=== PATIENT | female | born 1950 | race Caucasian/White ===

== ENCOUNTER → 2016-11-15 | Outpatient (CLI) | payer MEDICARE, OTHER ==
--- NOTE | 2016-11-16 09:53 | MM ---
Reason for exam: screening (asymptomatic). Last mammogram was performed 1 year and 2 months ago. History: Patient is postmenopausal and has history of high-risk lesion on a previous biopsy at age 61. Family history of breast cancer in mother at age 58 and breast cancer in grandmother at age 70. High risk left breast needle localization of both breasts, September 29, 2012. Benign left mammotome panel of the left breast, September 08, 2012. High risk left mammotome panel of the left breast, September 08, 2012. Benign right mammotome panel of the right breast, September 08, 2012. Taking unspecified hormones for 1 year. Physical Findings: A clinical breast exam by your physician is recommended on an annual basis and results should be correlated with mammographic findings. MG Screening Mammo w CAD Bilateral CC and MLO view(s) were taken. Prior study comparison: September 22, 2015, bilateral MG screening mammo w CAD. September 08, 2014, bilateral MG screening mammo w CAD. The breast tissue is extremely dense which could obscure a lesion on mammography. Finding: There are typically benign calcifications in both breasts. Previous mammotome biopsy in the left and right breast. No significant changes in finding since September 22, 2015 and September 08, 2014. ASSESSMENT: Benign, BI-RAD 2 RECOMMENDATION: Routine screening mammogram of both breasts in 1 year.
== END | disposition home or self-care (01) ==
LOC: RADMAMWWP 12:47
PROVIDERS: ATTEND Family Medicine
DX: Z12.31 Encounter for screening mammogram for malignant neoplasm of breast (principal)

== ENCOUNTER → 2017-02-15 | Outpatient (CLI) | payer MEDICARE, OTHER ==
[2017-02-15 16:32] LABS: Basophils # (A) 0.1 k/uL (0-0.2); Basophils % (A) 1 %; Eosinophils # (A) 0.4 k/uL (0-0.7); Eosinophils % (A) 3 %; HCT 37.9 % (34.0-46.0); HDW 2.88; HGB 12.7 gm/dL (11.4-16.0); Luc # (Auto) 0.15; Luc % (Auto) 1; Lymphocytes # (A) 1.9 k/uL (1.0-4.8); Lymphocytes % (A) 19 %; MCH 28.7 pg (25.0-35.0); MCHC 33.6 g/dL (31.0-37.0); MCV 85.5 fL (80.0-100.0); Mean Platelet Volume 6.7; Monocytes # (A) 0.5 k/uL (0-1.0); Monocytes % (A) 5 %; Neutrophils # (A) 7.2 k/uL (1.3-7.7); Neutrophils % (A) 71 %; RBC 4.43 m/uL (3.80-5.40); RDW 14.1 % (11.5-15.5); WBC 10.1 k/uL (3.8-10.6); WBC (Perox) 10.57
[2017-02-15 16:35] LABS: Calcium 9.5 mg/dL (8.4-10.2); Magnesium 1.6 mg/dL (1.6-2.3); Phosphorous 3.8 mg/dL (2.5-4.5); Uric Acid 6.6 mg/dL (3.7-7.4)
[2017-02-15 16:41] LABS: Appearance,Urine Cloudy (Clear); Bilirubin,Urine Negative (Negative); Glucose,Urine (UA) Negative (Negative); Ketones,Urine Negative (Negative); Leukocyte Esterase,Urine Large (Negative); Mucus,Urine Occasional /hpf; Nitrite,Urine Negative (Negative); PH, Urine 5.5 (5.0-8.0); Particle Count 4448; Protein,Urine 1+ (Negative); RBC,Urine 2 /hpf (0-5); Specific Gravity,Urine 1.016 (1.001-1.035); Squamous Epithelial Cell,Urine 5 /hpf (0-4); UA Billing (MACRO vs. MICRO) MICRO; Urobilinogen,Urine <2.0 mg/dL (<2.0); WBC,Urine 86 /hpf (0-5)
[2017-02-15 16:43] LABS: % Iron Saturation 18.2 % (20-50)
== END ==
LOC: LABWHC1 15:59
PROVIDERS: ATTEND Nurse Practitioner Family
DX: N18.3 Chronic kidney disease, stage 3 (moderate) (principal); N18.9 Chronic kidney disease, unspecified; E55.9 Vitamin D deficiency, unspecified
CPT/HCPCS: 36415; 80048; 81001; 82306; 82728; 83540; 83550; 83735; 83970; 84100; 84550; 85025

== ENCOUNTER 2017-02-16 21:49 | Emergency (ER) | payer MEDICARE, OTHER ==
[2017-02-16 21:56] VITALS: BP 185/88; PULSE 70; RESP 20; TEMP 99.4
--- NOTE | 2017-02-16 22:18 | ED ---
Skin/Abscess/FB HPI - General Chief complaint: Skin/Abscess/Foreign Body Stated complaint: Lower abd pain Time Seen by Provider: 02/16/17 21:58 Source: patient, family, RN notes reviewed Mode of arrival: ambulatory Limitations: no limitations - History of Present Illness Initial comments: 66-year-old female presents to the emergency department with a chief complaint of pain where her shingles was. Patient states she continues to have this pain. Patient was then on multiple different medications by multiple different doctors. Patient states she was concerned because she continued to have the pain and she needs some more lidocaine patches. Patient states that her follow- up with Dr. Campbell on Saturday. Patient was concerned due to the continued pain so she thought that she should be evaluated.Patient denies any recent fever , chills, shortness of breath, chest pain, back pain, abdominal pain, nausea vomiting, numbness or tingling, dysuria or hematuria, constipation or diarrhea, headaches or visual changes, or any other current symptoms. - Related Data Home Medications Medication Instructions Recorded Confirmed Atenolol [Tenormin] 50 mg PO DAILY 08/01/16 02/16/17 DULoxetine HCL [Cymbalta] 60 mg PO DAILY 08/01/16 02/16/17 Glimepiride [Amaryl] 1 mg PO AC-BRKFST 08/01/16 02/16/17 LORazepam [Ativan] 1 mg PO HS 08/01/16 02/16/17 Olmesartan Medoxomil [Benicar] 40 mg PO DAILY 08/01/16 02/16/17 Ranitidine HCl 150 mg PO BID 08/01/16 02/16/17 Simvastatin [Zocor] 10 mg PO HS 08/01/16 02/16/17 Tamoxifen Citrate 20 mg PO DAILY 08/01/16 02/16/17 cloNIDine HCL [Catapres] 0.1 mg PO BID 08/01/16 02/16/17 Previous Rx's Medication Instructions Recorded Lidocaine 5% Patch [Lidoderm 5% 1 patch TOPICAL DAILY #5 patch 02/16/17 Patch] Allergies Allergy/AdvReac Type Severity Reaction Status Date / Time Sulfa (Sulfonamide Allergy Rash/Hives Verified 02/16/17 21:57 Antibiotics) Review of Systems ROS Statement: Those systems with pertinent positive or pertinent negative responses have been documented in the HPI. ROS Other: All systems not noted in ROS Statement are negative. Past Medical History Past Medical History: Hypertension Additional Past Medical History / Comment(s): depression, shingles History of Any Multi-Drug Resistant Organisms: None Reported Past Surgical History: Breast Surgery Additional Past Surgical History / Comment(s): lumpectomy Past Psychological History: Depression Smoking Status: Former smoker Past Alcohol Use History: None Reported Past Drug Use History: None Reported General Exam Limitations: no limitations General appearance: alert, in no apparent distress Head exam: Present: atraumatic, normocephalic, normal inspection Neck exam: Present: normal inspection. Absent: tenderness, meningismus, lymphadenopathy Respiratory exam: Present: normal lung sounds bilaterally. Absent: respiratory distress, wheezes, rales, rhonchi, stridor Cardiovascular Exam: Present: regular rate, normal rhythm, normal heart sounds. Absent: systolic murmur, diastolic murmur, rubs, gallop, clicks GI/Abdominal exam: Present: soft, tenderness (Minimal tenderness to superficial touch along the right lower quadrant where the patient previously had shingles) , normal bowel sounds. Absent: distended, guarding, rebound, rigid Extremities exam: Present: normal inspection Back exam: Present: normal inspection, tenderness (No tenderness to superficial touch along the right lower flank area where the patient previously had shingles ) Neurological exam: Present: alert, oriented X3 Psychiatric exam: Present: normal affect, normal mood Skin exam: Present: warm, dry, intact, normal color. Absent: rash Course Vital Signs 02/16/17 21:53 Temperature 99.4 F Pulse Rate 70 Respiratory 20 Rate Blood Pressure 185/88 O2 Sat by Pulse 96 Oximetry Medical Decision Making - Medical Decision Making 58-year-old female presents for postop single pain. This time we will give her lidocaine patches. The patient at this time is informed to follow-up with her family care doctor. She is currently on gabapentin. We did discuss that she needs to continue to take this to follow-up. We will give him a lidocaine patches. We discussed taking Tylenol for pain. We discussed return parameters all patient's questions. She states she understood and is agreeable to plan. She will be discharged home Disposition Clinical Impression: Shingles (herpes zoster) polyneuropathy Disposition: HOME SELF-CARE Condition: Stable Instructions: Shingles (ED), Shingles Vaccine (ED) Additional Instructions: Please use medication as discussed. Please follow up with family doctor if symptoms have not improved over the next two days. Please return to the emergency room if your symptoms increase or worsen or for any other concerns. Prescriptions: Lidocaine 5% Patch [Lidoderm 5% Patch] 1 patch TOPICAL DAILY #5 patch Referrals: Bijan High MD [Primary Care Provider] - 1-2 days Time of Disposition: 22:18
== END 2017-02-16 22:27 | disposition home or self-care (01) ==
LOC: EC 21:49
DX: B02.23 Postherpetic polyneuropathy (principal); R10.30 Lower abdominal pain, unspecified; I10 Essential (primary) hypertension; F32.9 Major depressive disorder, single episode, unspecified; Z87.891 Personal history of nicotine dependence; Z79.899 Other long term (current) drug therapy; Z88.2 Allergy status to sulfonamides
CPT/HCPCS: 99283

== ENCOUNTER → 2017-07-24 | Outpatient (CLI) | payer MEDICARE, OTHER ==
[2017-07-24 13:49] LABS: Basophils # (A) 0.1 k/uL (0-0.2); Basophils % (A) 1 %; CH 29.7; CHCM 33.9; Eosinophils # (A) 0.4 k/uL (0-0.7); Eosinophils % (A) 3 %; HCT 36.2 % (34.0-46.0); HDW 2.85; HGB 11.6 gm/dL (11.4-16.0); Luc # (Auto) 0.11; Luc % (Auto) 1; Lymphocytes # (A) 2.1 k/uL (1.0-4.8); Lymphocytes % (A) 19 %; MCH 28.3 pg (25.0-35.0); MCHC 32.1 g/dL (31.0-37.0); MCV 88.1 fL (80.0-100.0); Mean Platelet Volume 7.3; Monocytes # (A) 0.5 k/uL (0-1.0); Monocytes % (A) 4 %; Neutrophils # (A) 7.7 k/uL (1.3-7.7); Neutrophils % (A) 71 %; RBC 4.11 m/uL (3.80-5.40); WBC 10.8 k/uL (3.8-10.6); WBC (Perox) 11.33
== END | disposition home or self-care (01) ==
LOC: LABPAT 12:33
PROVIDERS: ATTEND Obstetrics & Gynecology
DX: Z01.810 Encounter for preprocedural cardiovascular examination (principal); R93.8 Abnormal findings on diagnostic imaging of other specified body structures
CPT/HCPCS: 85025

== ENCOUNTER 2017-08-06 08:36 | Day surgery (SDC) | payer MEDICARE, OTHER ==
[2017-07-31 09:18] VITALS: BMI 32.5
--- NOTE | 2017-08-05 14:26 | HP ---
HISTORY AND PHYSICAL 0Radha is a 66-year-old white female, gravid 3, para 1-1-1-2 who presented with an ultrasound dated 04/19/2017 revealing a 1.5 cm endometrial thickness. She denies vaginal bleeding or other issues. Recent Pap smear is within normal limits. Review of systems it is otherwise negative. After discussion, we have elected to proceed with hysteroscopy, dilatation and curettage of the uterine cavity, with possible polypectomy. Office endometrial biopsy was attempted, and I was unable to procure a tissue sample. PAST MEDICAL HISTORY: Significant for anxiety, hypertension, panic attacks, and type 2 diabetes. PAST SURGICAL HISTORY: Significant for benign breast biopsy. CURRENT MEDICATIONS: 1. Accu-Chek. 2. Lancets with blood sugar checks at home. 3. Atenolol 50 mg daily. 4. Benicar 40 mg daily. 5. Catapres 0.2 mg tablets once daily. 6. Cymbalta 60 mg delayed release capsule daily. 7. Effexor XR 150 mg daily along with 75 mg tablets of Effexor daily. 8. Gabapentin 300 mg 3 times daily. 9. Glimepiride 1 mg tablet daily. 10.Ferrous sulfate daily. 11.Lidocaine topical adhesive patch. 12.Lisinopril 20 mg daily. 13.Lorazepam 1 mg orally daily. 14.Ranitidine-hydrochlorothiazide 150 mg tablets daily. 15.Simvastatin 10 mg daily. 16.Tamoxifen 20 mg daily. 17.Vitamin D3 orally daily. ALLERGIES: Include SULFA to which she reports a rash. FAMILY HISTORY: Significant for breast cancer in her mother. SOCIAL HISTORY: One cup of tea daily, never been a smoker, denies alcohol or drug use. REPRODUCTIVE HISTORY: Significant for 2 living children, 1 full-term vaginal delivery. One premature delivery, and one spontaneous miscarriage. REVIEW OF SYSTEMS: Again is otherwise negative. EXAM: This is a pleasant female, 205 pounds, 5 foot, 2-1/2 inches, BMI 36.9, initial blood pressure 170/110, repeat 140/90. HEENT exam reveals no obvious thyromegaly, no obvious lymphadenopathy, good dentition. The chest is clear to auscultation in all limon anteriorly and posteriorly. The breast exam reveals breasts to be without masses nipple discharge or axillary adenopathy or skin changes. Abdomen is moderately obese, no organosplenomegaly, no pain to deep palpation, normal-sounding bowel sounds. On pelvic exam, the external tissues are slightly atrophic to inspection. Cervix is small and atrophic as well, the uterus is small, mobile, no masses, equal bilaterally. RECTAL EXAM: reveals FIT negative stool, no rectal lesions or masses. IMPRESSION: Menopausal female with increased endometrial thickness noted sonographically, unable to procure an endometrial sample in the office. PLAN: We will proceed with hysteroscopy, dilatation and curettage at [facility]. I reviewed with her the risks of. Bleeding, infection, perforation of bowel, bladder, ureters, blood vessels,. Cytotec intravaginally will be use the night before. The case to soften the cervix and diminish the potential for perforation. Risks of anesthesia, aspiration, nerve damage or even have all been discussed. All questions answered and I believe the patient understands our plan with no reservations. MMODL / IJN: [id number] /
[~2017-08-06 08:36] MED LIST: DEXAMETHASONE SOD PHOSPHATE 10 MG/ML 1 ML VIAL IV ONE; HYDROmorphone 0.5 MG/0.5 ML SYRINGE IVP PRN; LACTATED RINGERS 1,000 ML IV SCH; ONDANSETRON 4 MG/2 ML VIAL IVP ONE; Pre Op ABX Message 1 EACH MISC MISCELLANE ONE
[2017-08-06 10:19] VITALS: TEMP 97.8
[2017-08-06 10:33] LABS: Glucose,Whole Blood 153 mg/dL (75-99)
[2017-08-06] MEDS ORDERED: LIDOCAINE 1% 20 ML VIAL (10MG/ML) FOR IV START INTRADERMA ONE (10:38)
[2017-08-06] MEDS ORDERED: SUCCINYLCHOLINE CHLORIDE 100 MG/5 ML SYR IV ONE (11:43)
[2017-08-06] MEDS ORDERED: PROPOFOL 10 MG/ML 20 ML VIAL IV ONE (11:43)
[2017-08-06] MEDS ORDERED: fentaNYL (PF) 50 MCG/ML 2 ML AMP ONE (11:43)
[2017-08-06] MEDS ORDERED: MIDAZOLAM 2 MG/2 ML VIAL ONE (11:43)
[2017-08-06] MEDS ORDERED: KETOROLAC 30 MG/ML 1 ML VIAL ONE (11:43)
--- NOTE | 2017-08-06 12:12 | P.OP ---
Date of Procedure: 08/06/17 Preoperative Diagnosis: Increased endometrial thickness in postmenopausal female, cervical stenosis Postoperative Diagnosis: Same, essentially negative appearing intrauterine cavity. Pathology pending. Procedure(s) Performed: Hysteroscopy, D&C Anesthesia: TWYLAA Surgeon: Flora Yin [employer] #1: Stated None Estimated Blood Loss (ml): 10 IV fluids (ml): 800 Urine output (ml): 150 Pathology: other (Endocervical curettings, endometrial curettings.) Condition: stable Disposition: PACU Description of Procedure: Patient is brought to bring suite where a general anesthetic is administered without difficulty. She's placed in the dorsal lithotomy position. The appropriate timeout is performed to assure proper patient and procedural identification. The cervix, vagina, perineum and periurethral areas are all prepped and draped in usual sterile fashion. Bladder is drained for approximately 150 mL of clear yellow urine. Weighted speculum was placed into the vagina. Anterior lip of the cervix is grasped with a double-tooth tenaculum. Cervix is unable to be sounded with the standard sound. Therefore, the lacrimal probes are used and the cervix is gently dilated. A Kevorkian curette is used and endocervical curettings are obtained, scant tissue. The cervix is then sounds to a depth of 9 cm. The cervix is gently and systematically dilated using Hanks dilators. The hysteroscope was introduced and the cavity is distended with saline. Inspection of the cavity reveals no obvious polyps, fibroids, septa, or defects. The hysteroscope was removed. The cervix was then fully dilated to 20 -Romansh. A small sharp curette is used and intrauterine curettings are obtained and sent to pathology for evaluation. Polyp forcep to introduced and no additional tissue is noted. The cavity is clean and dry. All instrumentation is removed. All sponge needle and enhancement counts are correct. Patient is brought back to the recovery room in stable condition with vital signs including pulse of 78, blood pressure 137/73. Port IS given prior to leaving the operative suite. Patient will be discharged home this afternoon , and follow-up with me in the office in 2 weeks.
[2017-08-06 12:50] LABS: Glucose,Whole Blood 154 mg/dL (75-99)
[2017-08-06 13:31] VITALS: BP 124/58; PULSE 66; RESP 20
== END 2017-08-06 13:34 | disposition home or self-care (01) ==
LOC: OR 08:36
PROVIDERS: ATTEND Obstetrics & Gynecology
DX: N87.9 Dysplasia of cervix uteri, unspecified (principal); N84.0 Polyp of corpus uteri; R93.8 Abnormal findings on diagnostic imaging of other specified body structures; N88.2 Stricture and stenosis of cervix uteri; Z78.0 Asymptomatic menopausal state; I10 Essential (primary) hypertension; E78.5 Hyperlipidemia, unspecified; E11.9 Type 2 diabetes mellitus without complications; F32.9 Major depressive disorder, single episode, unspecified; F41.9 Anxiety disorder, unspecified; Z88.2 Allergy status to sulfonamides; Z79.899 Other long term (current) drug therapy; Z79.84 Long term (current) use of oral hypoglycemic drugs; Z98.890 Other specified postprocedural states; Z80.3 Family history of malignant neoplasm of breast
CPT/HCPCS: 58558; 88305; J2250; J1100; J2405; J3010; J1885; J0330; J2704

== ENCOUNTER → 2020-06-30 | Outpatient (CLI) | payer MEDICARE, OTHER ==
--- NOTE | 2020-06-30 16:32 | CT ---
EXAMINATION TYPE: CT brain w con, CT orbits w con DATE OF EXAM: 06/30/2020 COMPARISON: None. 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 mGycm Automated exposure control for dose reduction was used. CONTRAST: CT scan of the brain and orbits are performed with IV Contrast, patient injected with 80ml mL of Isov ue 300. FINDINGS: There is no abnormal enhancing mass or midline shift identified. Diffuse ventricular and sulcal promi nence greatest superiorly. Areas of low attenuation in the white matter are present for reference lef t frontal involvement axial image 25. Globes are intact bilaterally. Neither lens is well visualized suggesting prior cataract treatment. F at is present bilaterally. Rectus muscles are symmetric and felt within normal limits. Orbital floors and meyer are intact. Suprasellar cistern is maintained. Optic chiasm is not effaced. IMPRESSION: [id number]-[id number] generalized atrophy and chronic small vessel ischemic change. No suspici ous enhancement or enhancing intraorbital masses.
== END | disposition home or self-care (01) ==
LOC: RADCTMAIN 15:05
PROVIDERS: ATTEND Ophthalmology
DX: I67.82 Cerebral ischemia (principal); G31.9 Degenerative disease of nervous system, unspecified; E11.9 Type 2 diabetes mellitus without complications
CPT/HCPCS: 82565; 84520; 70460; 70481; 36415; Q9967

== ENCOUNTER → 2020-11-17 | Outpatient (CLI) | payer MEDICARE, OTHER | END | disposition home or self-care (01) | LOC: RADMAMWWP 14:23 | PROVIDERS: ATTEND Family Medicine | DX: Z53.9 Procedure and treatment not carried out, unspecified reason (principal) ==

== ENCOUNTER → 2020-12-08 | Outpatient (CLI) | payer MEDICARE, OTHER ==
--- NOTE | 2020-12-09 11:49 | MM ---
Reason for exam: additional evaluation requested from prior study. Last mammogram was performed 4 years and 1 month ago. History: Patient is postmenopausal and has history of high-risk lesion on a previous biopsy at age 61. Family history of breast cancer in mother at age 58 and breast cancer in grandmother at age 70. High risk left breast needle localization of both breasts, September 29, 2012. Benign left mammotome panel of the left breast, September 08, 2012. High risk left mammotome panel of the left breast, September 08, 2012. Benign right mammotome panel of the right breast, September 08, 2012. Taking unspecified hormones for 1 year. Physical Findings: Nurse Summary: 4cm nodule in the right breast at 10 o'clock and a 2cm nodule in the left breast at 12 o'clock (nurse dw). MG 3D Diag Mammo W/Cad ZITA Bilateral CC and MLO view(s) were taken. Prior study comparison: November 15, 2016, bilateral MG screening mammo w CAD. September 22, 2015, bilateral MG screening mammo w CAD. The breast tissue is heterogeneously dense. This may lower the sensitivity of mammography. Previous mammotome biopsy in the right and left breast. Old excisional changes left breast. Large increasing 4.3cm 10 o'clock right breast mass. 1.7cm mass 12 o'clock left breast. Associated pleomorphic calcifications. Both palpable. These results were verbally communicated with the patient and result sheet given to the patient on 12/08/20. ASSESSMENT: Incomplete: need additional imaging evaluation, BI-RAD 0 RECOMMENDATION: Ultrasound of both breasts.
--- NOTE | 2020-12-09 11:54 | USB ---
Reason for exam: additional evaluation requested from abnormal screening. History: Patient is postmenopausal and has history of high-risk lesion on a previous biopsy at age 61. Family history of breast cancer in mother at age 58 and breast cancer in grandmother at age 70. High risk left breast needle localization of both breasts, September 29, 2012. Benign left mammotome panel of the left breast, September 08, 2012. High risk left mammotome panel of the left breast, September 08, 2012. Benign right mammotome panel of the right breast, September 08, 2012. Taking unspecified hormones for 1 year. US Breast BILAT Right complete breast ultrasound includes all four quadrants, the retroareolar region and axilla. Finding demonstrates a 2.7 x 2.1 x 2.9cm irregular, mixed, hypoechoic, vascular lesion at 11 o'clock for which a biopsy is recommended and a 0.9 x 1.1 x 0.3cm node at the axilla. Left complete breast ultrasound includes all four quadrants, the retroareolar region and axilla. Finding demonstrates 1.7 x 0.7 x 0.4cm irregular, mixed, hypoechoic lesion at 12 o'clock possible clip placement, a 0.9 x 0.7 x 0.5cm oval, irregular, hypoechoic lesion at 12 o'clock for which a biopsy is recommended, a 1.6 x 1.1 x 0.7cm oval, irregular, hypoechoic lesion at 11 o'clock, mammographic correlate, for which a biopsy is recommended and a 2.0 x 1.5 x 1.0cm oval, lymph node at the axilla, borderline but no suspicious cortical thickening. These results were verbally communicated with the patient and result sheet given to the patient on 12/08/20. ASSESSMENT: Highly suggestive of malignancy, BI-RAD 5 RECOMMENDATION: Ultrasound core biopsy of both breasts. (right 11 o'clock, left 11 o'clock and 12 o'clock, consider clip placement at 12 o'clock) Called Dr. Yin's office with mammographic findings and has scheduled an appointment for the patient for 02/02/21 at 11:[address] Young. Biopsy scheduled for 12/13/20 at 8:30. PRELIMINARY REPORT CALLED AND FAXED TO DR. YOUNG ON 12/08/20.
== END | disposition home or self-care (01) ==
LOC: RADMAMWWP 14:48
PROVIDERS: ATTEND Obstetrics & Gynecology
DX: N63.11 Unspecified lump in the right breast, upper outer quadrant (principal); N63.20 Unspecified lump in the left breast, unspecified quadrant; Z80.3 Family history of malignant neoplasm of breast
CPT/HCPCS: 77066; 76641; G0279; 77062

== ENCOUNTER → 2020-12-13 | Day surgery (SDC) | payer MEDICARE, OTHER ==
[2020-12-13 08:57] VITALS: RESP 16
[2020-12-13 11:28] VITALS: BP 164/84; PULSE 75; TEMP 98.3
--- NOTE | 2020-12-13 12:23 | USB ---
EXAMINATION TYPE: US biopsy breast VAD RT, US biopsy breast add'l VAD LT, US biopsy breast add'l VAD LT, US biopsy breast VAD LT, MG diagnostic mammo BI wo CAD DATE OF EXAM: 12/13/2020 CLINICAL HISTORY: R92.8 ABN MAMM. Abnormal ultrasound. TECHNIQUE: Ultrasound guided core biopsy of right breast one site. Ultrasound- guided core biopsy of left breast 3 sites. Clip placement all site. Follow-up diagnostic bilateral breast two-view mammogram. COMPARISON: Prior bilateral breast ultrasound and mammogram December 08, 2020 and older mammograms. FINDINGS: The procedure of ultrasound guided core biopsy was explained to the patient. Benefits, alternatives, and risks were discussed. An informed consent was then obtained. The patient was placed in supine positioning for imaging and for the procedure. Preprocedure ultrasound right breast redemonstrates large poorly defined heterogeneous hypoechoic nearly 3.0 cm lesion with punctate calcifications 11:00 position zone BC right breast. Left breast shows 11:00 zone BC roughly 14 x 7 mm hypoechoic lobulated lesion. Left breast also shows 12:00 zone A roughly 10 x 3 mm hypoechoic lesion. Finally left breast redemonstrates slightly elongated 12:00 zone BC 9 x 5 mm hypoechoic lesion. The overlying skin was prepped and draped in usual sterile fashion. Lidocaine is used as anesthetic into the skin and subcutaneous tissue . Lidocaine with epinephrine is used as anesthetic into the deeper tissue up to area of concern in for bilateral breast. A shola was made with surgical scalpel. Under ultrasound guidance, a vacuum assisted biopsy gun device was used to obtain 2 core samples at all sites. Following this, a coil biopsy clip was left in large right breast lesion. A wing clip left in 11:00 zone BC second sampled lesion A coil biopsy clip left in 12:00 position zone A lesion, third sample lesion. A ribbon clip is left in the 12:00 zone A, fourth sampled lesion. The patient tolerated the procedure well without any immediate complication. The patient was kept in the radiology department for short stay after the procedure and then discharged home in stable condition. Postprocedure mammogram shows successful deployment of all 4 clips. IMPRESSION: Successful, uncomplicated ultrasound guided core biopsy of four area of concern in the bilateral breasts, full pathology results to follow. Right breast lesion high index of suspicion. Clip corresponds to level of suspicious calcifications. Left breast 11:00 lesion in zone BC intermediate index of suspicion. Left breast 12:00 lesions low to intermediate index of suspicion. Pathology Results: Malignant A. RIGHT BREAST, 11:00 POSITION, CORE BIOPSY: Invasive ductal carcinoma, Grade 3, with high grade DCIS having comedonecrosis and focal microcalcification (see Surgical Pathology Cancer Case Summary and comment). B. LEFT BREAST, 11:00 POSITION, CORE BIOPSY: Invasive ductal carcinoma, Grade 2, (see Surgical Pathology Cancer Case Summary and comment). C. LEFT BREAST, 12:00 A POSITION, CORE BIOPS): Invasive ductal carcinoma, Grade 2 (see Surgical Pathology Cancer Case Summary and comment). D. LEFT BREAST, 12:00 B POSITION, CORE BIOPSY: Invasive ductal carcinoma, Grade 2 (see Surgical Pathology Cancer Case Summary and comment). Recommendation Surgical consult of the right and left breast. MTDD
== END ==
LOC: RADUSWWP 08:38
PROVIDERS: ATTEND Surgery
DX: C50.411 Malignant neoplasm of upper-outer quadrant of right female breast (principal); Z17.0 Estrogen receptor positive status [ER+]; C50.212 Malignant neoplasm of upper-inner quadrant of left female breast; R92.0 Mammographic microcalcification found on diagnostic imaging of breast; Z88.2 Allergy status to sulfonamides
CPT/HCPCS: 19084; 77066; 88305; 88341; 88342

== ENCOUNTER → 2021-01-16 | Day surgery (SDC) | payer MEDICARE, OTHER ==
[~2021-01-16] MED LIST changes: -DEXAMETHASONE SOD PHOSPHATE 10 MG/ML 1 ML VIAL IV ONE; +DEXAMETHASONE SOD PHOSPHATE 4 MG/ML 1 ML VIAL IV ONE; +HEPARIN SODIUM,PORCINE 100 UNIT/ML 5 ML VIAL IV ONE; +HEPARIN SODIUM,PORCINE 5,000 UNIT/ML 1 ML VIAL ONE; +HEPARIN SODIUM,PORCINE 5,000 UNIT/ML 1 ML VIAL SQ ONE; +HYDROcodone/APAP 5-325MG 1 EACH TAB PO PRN; +LIDOCAINE (PF) 10 MG/ML 2 ML VIAL SQ ONE; +LIDOCAINE 1% (10MG/ML) FOR IV START INTRADERMA ONE; +LIDOCAINE 1% INJ 10MG/ML (20 ML MDV) ONE; +MIDAZOLAM 2 MG/2 ML VIAL IV PRN; +MIDAZOLAM 2 MG/2 ML VIAL ONE; +NALOXONE 0.4 MG/ML 1 ML VIAL IV PRN; +PROPOFOL 10 MG/ML 20 ML VIAL IV ONE; +fentaNYL (PF) 50 MCG/ML 2 ML AMP IV PRN; +fentaNYL (PF) 50 MCG/ML 2 ML AMP ONE
[2021-01-16 11:00] VITALS: RESP 16
[2021-01-16 11:12] LABS: Glucose,Whole Blood 97 mg/dL (75-99)
--- NOTE | 2021-01-16 12:40 | P.GSHP ---
History of Present Illness H&P Date: 01/16/21 Chief Complaint: Bilateral breast cancer Patient recently diagnosed with bilateral breast cancer. Patient is starting neoadjuvant chemotherapy in the next week or so. Here today for Port-A-Cath placement. Is scheduled for left axillary lymph node biopsy for/2. Past Medical History Past Medical History: GERD/Reflux, Hyperlipidemia, Hypertension Additional Past Medical History / Comment(s): depression, shingles History of Any Multi-Drug Resistant Organisms: None Reported Past Surgical History: Breast Surgery Additional Past Surgical History / Comment(s): Left breast excisional- benign Past Anesthesia/Blood Transfusion Reactions: No Reported Reaction Past Psychological History: Depression Smoking Status: Never smoker Past Alcohol Use History: None Reported Past Drug Use History: None Reported Medications and Allergies Home Medications Medication Instructions Recorded Confirmed Type Glimepiride [Amaryl] 1 mg PO DAILY 08/01/16 01/16/21 History LORazepam [Ativan] 1 mg PO TID PRN 08/01/16 01/16/21 History Simvastatin [Zocor] 10 mg PO HS 08/01/16 01/16/21 History atenoloL [Tenormin] 50 mg PO DAILY 08/01/16 01/16/21 History cloNIDine HCL [Catapres] 0.1 mg PO BID 08/01/16 01/16/21 History Venlafaxine HCl 75 mg PO HS 07/31/17 01/16/21 History Venlafaxine HCl [Effexor] 150 mg PO AC-BRKFST 07/31/17 01/16/21 History hydrALAZINE HCL [Apresoline] 100 mg PO BID 07/31/17 01/16/21 History Famotidine [Pepcid] 20 mg PO DAILY 12/09/20 01/16/21 History Ferrous Sulfate [Feosol] 325 mg PO BID 12/09/20 01/16/21 History Gabapentin [Neurontin] 100 mg PO BID 12/09/20 01/16/21 History Montelukast [Singulair] 10 mg PO DAILY 12/09/20 01/16/21 History Olmesartan Medoxomil [Benicar] 20 mg PO DAILY 12/09/20 01/16/21 History buPROPion [Wellbutrin] 100 mg PO BID 12/09/20 01/16/21 History minoxidiL [Minoxidil] 2.5 mg PO DAILY 12/09/20 01/16/21 History Allergies Allergy/AdvReac Type Severity Reaction Status Date / Time Sulfa (Sulfonamide Allergy Rash/Hives Verified 01/16/21 10:48 Antibiotics) Surgical - Exam Vital Signs Temp Pulse Resp BP Pulse Ox 98.9 F 89 16 169/77 98 01/16/21 10:46 01/16/21 10:46 01/16/21 10:46 01/16/21 10:46 01/16/21 10:46 Physical exam: General: Well-developed, well-nourished HEENT: Normocephalic, sclerae nonicteric Abdomen: Nontender, nondistended Extremities: No edema Neuro: Alert and oriented Assessment and Plan (1) Bilateral breast cancer Narrative/Plan: Will proceed with Port-A-Cath placement at this time. Risks of bleeding, infection, DVT, pneumothorax, catheter malfunction, anesthesia related complications were discussed. The patient understands and wishes to proceed. Current Visit: Yes Status: Acute Code(s): C50.911 - MALIGNANT NEOPLASM OF UNSP SITE OF RIGHT FEMALE BREAST; C50.912 - MALIGNANT NEOPLASM OF UNSPECIFIED SITE OF LEFT FEMALE BREAST SNOMED Code(s): 079933405
--- NOTE | 2021-01-16 14:09 | P.OP ---
Date of Procedure: 01/16/21 Procedure(s) Performed: PREOPERATIVE DIAGNOSIS: Bilateral breast cancer POSTOPERATIVE DIAGNOSIS: Same PROCEDURE: Port-A-Cath placement with fluoroscopic and ultrasound guidance SURGEON: Hannah EBL: Minimal ANESTHESIA: Sedation COMPLICATIONS: None OPERATIVE PROCEDURE: Patient was brought and placed on the operative table in the supine position. The patient was sedated per anesthesia that time. The chest and neck were prepped and draped in usual sterile fashion. The ultrasound probe was used to identify the location of the right internal jugular vein. The skin was localized with lidocaine. The Seldinger needle was advanced into the IJ under ultrasound guidance. The wire was advanced through the needle under fluoroscopic guidance into the superior vena cava. A port pocket was created in the right infraclavicular location. The catheter was tunneled from the wire entrance site to the port pocket. The port was then connected to the catheter. The dilator introducer was threaded over the guidewire. The guidewire and dilator were then removed. The catheter was advanced through the introducer and introducer was then removed. The tip was seen to be in the right atrial junction via fluoroscopy. A picture of the radiograph showing the tip at the radial digital junction was taken. Port was flushed with both saline and a Hep- Lock solution. There was good flow both in and out of the port. The port was sutured in underlying tissues using 3-0 silk sutures. The subcutaneous tissues were reapproximated using 3-0 Vicryl sutures and the skin at both locations using 4-0 Monocryl sutures. Skin glue and sterile dressings then applied. DISPOSITION: Stable to recovery room
[2021-01-16 14:28] VITALS: TEMP 97.4
[2021-01-16 15:09] LABS: Glucose,Whole Blood 140 mg/dL (75-99)
--- NOTE | 2021-01-16 15:17 | XR ---
EXAMINATION TYPE: XR chest 1V portable DATE OF EXAM: 01/16/2021 HISTORY: Port placement COMPARISON: None. TECHNIQUE: Single view of the chest is submitted. FINDINGS: Right-sided Mediport catheter with its distal tip overlying the SVC. No evidence for pneumo thorax. Demonstrated are scattered senescent parenchymal change. There is no evidence for focal infiltrate. The heart is stable. Hilar and mediastinal structures are within normal limits. Degenerative changes are seen of the dorsal spine. IMPRESSION: 1. Chronic changes without evidence for acute pulmonary disease.
[2021-01-16 15:44] VITALS: BP 136/76; PULSE 90
--- NOTE | 2021-01-17 13:32 | FL ---
Fluoroscopy HISTORY: Central venous catheter placement 13 seconds fluoroscopy time supplied to the referring clinician. 1 intraoperative C-arm images docum ent the procedure. See dictated report from general surgery.
== END ==
LOC: OR 10:30
PROVIDERS: ATTEND Surgery
DX: C50.912 Malignant neoplasm of unspecified site of left female breast (principal); C50.911 Malignant neoplasm of unspecified site of right female breast; K21.9 Gastro-esophageal reflux disease without esophagitis; E78.5 Hyperlipidemia, unspecified; I10 Essential (primary) hypertension; E11.9 Type 2 diabetes mellitus without complications; F32.9 Major depressive disorder, single episode, unspecified; Z86.19 Personal history of other infectious and parasitic diseases; Z98.890 Other specified postprocedural states; Z79.84 Long term (current) use of oral hypoglycemic drugs; Z79.899 Other long term (current) drug therapy; Z88.2 Allergy status to sulfonamides
CPT/HCPCS: 36561; 76937; 77001; 71045; C1788; J2250; J2001 ×2; J1644; J1642; J1100; J0690; J2405; J3010; J2704

== ENCOUNTER 2021-01-20 12:52 | Day surgery (SDC) | payer MEDICARE, OTHER ==
[2021-01-20 14:24] VITALS: RESP 16
[2021-01-20 14:25] VITALS: TEMP 98.1
[2021-01-20 14:28] VITALS: BP 147/80; PULSE 80
--- NOTE | 2021-01-20 16:25 | US ---
EXAMINATION TYPE: US biopsy lymph node DATE OF EXAM: 01/20/2021 HISTORY: Left breast cancer. FINDINGS: Maximal barrier technique was utilized. Hand hygiene achieved with soap and water and alco hol-based hand rub. The skin overlying a suitable path to the patient's left axillary node was locali zed with ultrasound and the overlying skin prepped and draped. Ultrasound was utilized with sterile technique. Lidocaine was used for local anesthesia. A skin shola was made with a scalpel. An 18-gau ge needle was advanced under direct ultrasound guidance and core specimen obtained of the left x-ray node. 2 passes were made. Specimen submitted in formalin to Pathology. Clip was deployed at the leve l of the node. Following the procedure, hemostasis achieved and the patient is discharged in stable c ondition without complication. Impression: status POST ULTRASOUND GUIDED CORE BIOPSY LEFT AXILLARY NODE, PATHOLOGY IS PENDING. THIS PROCEDURE IS PERFORMED BY THE UNDERSIGNED.
== END 2021-01-20 15:00 | disposition home or self-care (01) ==
LOC: RADPROMAIN 12:52
PROVIDERS: ATTEND Surgery
DX: C50.912 Malignant neoplasm of unspecified site of left female breast (principal)
CPT/HCPCS: 38505; 76942; 88305; 88341; 88342

== ENCOUNTER → 2021-01-23 | Outpatient (CLI) | payer MEDICARE, OTHER ==
--- NOTE | 2021-01-23 18:22 | ECHOF ---
Referral Reason:Z01.818 Pre chemo MEASUREMENTS -------- HEIGHT: 162.6 cm WEIGHT: 84.4 kg BP: IVSd: 1.5 cm (0.6 - 1.1) LVIDd: 3.8 cm (3.9 - 5.3) LVPWd: 1.4 cm (0.6 - 1.1) EDV(Teich): 63 ml IVSs: 1.8 cm LVIDs: 2.6 cm LVPWs: 2.1 cm %IVS Thck: 16 % ESV(Teich): 25 ml EF(Teich): 61 % %FS: 32 % SV(Teich): 38 ml LVOT Diam: 1.8 cm LA Diam: 3.4 cm (2.7 - 3.8) RVIDd: 3.0 cm (< 3.3) LALs A4C: 5.4 cm LAAs A4C: 19.2 cm LAESV A-L A4C: 58 ml LAESV MOD A4C: 58 ml LALs A2C: 4.7 cm LAAs A2C: 14.4 cm LAESV A-L A2C: 37 ml LAESV MOD A2C: 34 ml LAESV(A-L): 49 ml LAESV Index (A-L): 25.99 ml/m Ao Diam: 3.1 cm (2.0 - 3.7) AV Cusp: 1.3 cm (1.5 - 2.6) EPSS: 0.5 cm MV E Marcos: 1.11 m/s MV DecT: 291 ms MV Dec [place]: 3.8 m/s MV A Marcos: 1.17 m/s MV E/A Ratio: 0.95 MV PHT: 84 ms LVOT Vmax: 1.30 m/s LVOT maxP.75 mmHg LVOT Vmax: 1.33 m/s LVOT Vmean: 1.07 m/s LVOT maxP.08 mmHg LVOT meanP.83 mmHg LVOT Env.Ti: 295 ms LVOT VTI: 31.7 cm AV Vmax: 4.32 m/s AV maxP.57 mmHg SHARONA Vmax, Pt: 0.8 cm SHARONA Vmax: 0.8 cm AV Vmax: 4.08 m/s AV Vmean: 2.74 m/s AV maxP.53 mmHg AV meanP.13 mmHg AV Env.Ti: 304 ms AV VTI: 80.5 cm SHARONA Vmax: 0.8 cm SHARONA (VTI): 1.0 cm SHARONA Vmax, Pt: 0.8 cm AR Vmax: 4.11 m/s AR maxP.77 mmHg AR PHT: 509 ms AR Dec Time: 1756 ms AR Dec [place]: 2.3 m/s TR Vmax: 2.79 m/s TR maxP.23 mmHg RAP: 5.00 mmHg RVSP: 36.23 mmHg MV EF SLOPE: 40.75 mm/s (70 - 150) MV EXCURSION: 10.76 mm (> 18.000) FINDINGS -------- Sinus rhythm. This was a technically adequate study. The left ventricular size is normal. There is moderate concentric left ventricular hypertrophy. O verall left ventricular systolic function is normal with, an EF between 60 - 65 %. The right ventricle is normal in size. Normal LA size by volume 22+/-6 ml/m2. The right atrium is normal in size. Interatrial and interventricular septum intact. There is moderate aortic valve sclerosis. There is cdgymihw-et-npbtrq aortic stenosis present. Pe ak/mean gradient across the Aortic Valve is 66.53mmHg / 34.13mmHg. The mitral valve leaflets are mildly thickened. Mild mitral annular calcification present. Mild m itral regurgitation is present. Mild tricuspid regurgitation present. There is mild pulmonary hypertension. The right ventricular systolic pressure, as measured by Doppler, is 36.23mmHg. There is no pulmonic regurgitation present. The aortic root size is normal. Normal inferior vena cava with normal inspiratory collapse consistent with estimated right atrial pre ssure of 5 mmHg. There is no pericardial effusion. CONCLUSIONS -------- 1. The left ventricular size is normal. 2. There is moderate concentric left ventricular hypertrophy. 3. Overall left ventricular systolic function is normal with, an EF between 60 - 65 %. 4. Normal LA size by volume 22+/-6 ml/m2. 5. There is moderate aortic valve sclerosis. 6. There is pxmoxdvp-ih-ztibls aortic stenosis present. 7. Peak/mean gradient across the Aortic Valve is 66.53mmHg / 34.13mmHg. 8. The mitral valve leaflets are mildly thickened. 9. Mild mitral annular calcification present. 10. Mild mitral regurgitation is present. 11. Mild tricuspid regurgitation present. 12. There is mild pulmonary hypertension. 13. The right ventricular systolic pressure, as measured by Doppler, is 36.23mmHg. 14. There is no pericardial effusion. [employer]: Isabel Banegas RDCS
== END | disposition home or self-care (01) ==
LOC: RADECHMAIN 11:51
PROVIDERS: ATTEND Internal Medicine Hematology & Oncology
DX: I08.1 Rheumatic disorders of both mitral and tricuspid valves (principal); I27.20 Pulmonary hypertension, unspecified
CPT/HCPCS: 93306

== ENCOUNTER 2021-03-09 10:50 | Inpatient (IN) | payer MEDICARE, OTHER ==
--- NOTE | 2021-03-09 11:07 | ED ---
General Adult HPI - General Stated complaint: Possible stroke Time Seen by Provider: 03/09/21 10:59 - History of Present Illness Initial comments: Dictation was produced using [employer] dictation software. please excuse any grammatical, word or spelling errors. This patient was cared for during a federal and state declared state of emergency secondary to Covid 19 Chief Complaint: 70-year-old female presents to the emergency department for strokelike symptoms History of Present Illness: 70-year-old female. HPI was obtained from EMS. Patient is brought to the emergency department for strokelike symptoms beginning at 9:15 AM. Patient was noted to have altered mental status and difficulty with speech. EMS states that they at this report from who initially noticed it. Patient unable to provide a history of present illness at this time. Chart review shows the patient's history of cancer diabetes dyslipidemia and hyper tension. Chart review shows also the patient has history of bilateral breast cancer. TMs reports that patient has a normal blood glucose. EMS reports the patient had right upper extremity deficit. Unable to obtain secondary to mental status. PHYSICAL EXAM: General Impression: Alert, follows commands however very slow and needs a lot of redirecting ,not in acute distress HEENT: Normocephalic atraumatic, extra-ocular movements intact, pupils equal and reactive to light bilaterally, mucous membranes moist. Cardiovascular: Heart regular rate and rhythm Chest: no retractions, no tachypnea Abdomen: abdomen soft, non-tender, non-distended, no organomegaly Musculoskeletal: Pulses present and equal in all extremities, no peripheral edema Motor: no focal deficits noted Neurological: Aphasic, NIH score of 5 for severe aphasia, mild right-sided facial droop, and mild dysarthria. Skin: Intact with no visualized rashes Psych: Normal affect and mood ED course: 70-year-old female past medical history of breast cancer. She presents today with focal neurologic deficits. Time of onset according to EMS was 9:15 AM. Initial NIH was 5. Code stroke paged. More history was obtained from . He reports that she woke up with symptoms. She was last known normal yesterday. Patient not a candidate for alteplase. CT angioma and CT brain shows no acute processes. Patient had a candidate for thrombectomy. Patient given aspirin. Laboratory evaluation shows leukocytosis of 41.1 with neutrophils of 37.4. Coag panel is unremarkable. Metabolic panel shows findings within acceptable limits. Troponin is 0.094. Pending blood cultures urine cultures. Chest x-ray is nonacute. Patient reevaluated at bedside found to be in stable medical condition. Patient is afebrile. She does not have any localizing symptoms. Patient does not appear to be stable for lumbar puncture at this point because she is not following commands. Case discussed with Dr. High who will accept patients care. Consultation made to neurology, hematology and infectious disease. EKG interpretation: Ventricular rate 94, normal sinus rhythm,. Interval 142, QRS 80, QTc 447. No VT prolongation, no QTC prolongation, no ST or T-wave changes noted. No old EKG for comparison. Overall, this EKG is unremarkable - Related Data Home Medications Medication Instructions Recorded Confirmed Glimepiride [Amaryl] 1 mg PO DAILY 08/01/16 01/20/21 LORazepam [Ativan] 1 mg PO TID PRN 08/01/16 01/20/21 atenoloL [Tenormin] 50 mg PO DAILY 08/01/16 01/20/21 cloNIDine HCL [Catapres] 0.1 mg PO BID 08/01/16 01/20/21 Venlafaxine HCl 75 mg PO HS 07/31/17 01/20/21 Venlafaxine HCl [Effexor] 150 mg PO AC-BRKFST 07/31/17 01/20/21 Famotidine [Pepcid] 20 mg PO DAILY 12/09/20 01/20/21 Ferrous Sulfate [Feosol] 325 mg PO BID 12/09/20 01/20/21 Gabapentin [Neurontin] 100 mg PO TID 12/09/20 01/20/21 Montelukast [Singulair] 10 mg PO DAILY 12/09/20 01/20/21 Olmesartan Medoxomil [Benicar] 20 mg PO DAILY 12/09/20 01/20/21 buPROPion [Wellbutrin] 100 mg PO BID 12/09/20 01/20/21 Acetaminophen [Tylenol] 1,000 mg PO Q4-6H PRN 01/18/21 01/20/21 Atorvastatin Calcium [Lipitor] 10 mg PO DAILY 01/18/21 01/20/21 DULoxetine HCL [Cymbalta] 60 mg PO DAILY 01/18/21 01/20/21 Ergocalciferol [Vitamin D2 (1250 50,000 unit PO QMONTHLY 01/18/21 01/18/21 Mcg = 67919 Iu)] Semaglutide [Ozempic] 0.25 mg SQ WEEKLY 01/18/21 01/20/21 hydrALAZINE HCL 25 mg PO TID 01/18/21 01/20/21 minoxidiL [Minoxidil] 2.5 mg PO DAILY 01/18/21 01/20/21 Allergies Allergy/AdvReac Type Severity Reaction Status Date / Time Sulfa (Sulfonamide Allergy Rash/Hives Verified 03/09/21 11:29 Antibiotics) Review of Systems ROS Statement: Those systems with pertinent positive or pertinent negative responses have been documented in the HPI. ROS Other: All systems not noted in ROS Statement are negative. Past Medical History Past Medical History: Cancer, Diabetes Mellitus, GERD/Reflux, Hyperlipidemia, Hypertension Additional Past Medical History / Comment(s): depression, shingles, bilateral breast cancer History of Any Multi-Drug Resistant Organisms: None Reported Past Surgical History: Breast Surgery Additional Past Surgical History / Comment(s): Left breast excisional- benign, breast biopsy Dec 13 showed cancer Past Anesthesia/Blood Transfusion Reactions: No Reported Reaction Additional Past Anesthesia/Blood Transfusion Reaction / Comment(s): no previous blood transfusion Past Psychological History: Depression Smoking Status: Never smoker Past Alcohol Use History: None Reported Past Drug Use History: None Reported - Past Family History Mother Family Medical History: Cancer Course Vital Signs 03/09/21 03/09/21 03/09/21 11:26 11:30 12:12 Temperature 98.9 F Pulse Rate 102 H 93 96 Respiratory 18 18 18 Rate Blood Pressure 135/73 117/61 119/51 O2 Sat by Pulse 98 9 L 97 Oximetry Medical Decision Making - Lab Data Result diagrams: 03/09/21 10:55 03/09/21 10:55 Lab Results 03/09/21 03/09/21 03/09/21 Range/Units 10:55 10:55 10:55 WBC 41.1 H (3.8-10.6) k/uL RBC 3.59 L (3.80-5.40) m/uL Hgb 10.8 L (11.4-16.0) gm/dL Hct 32.2 L (34.0-46.0) % MCV 89.7 (80.0-100.0) fL MCH 30.0 (25.0-35.0) pg MCHC 33.4 (31.0-37.0) g/dL RDW 16.3 H (11.5-15.5) % Plt Count 353 (150-450) k/uL MPV 6.9 Neutrophils % 91 % Lymphocytes % 3 % Monocytes % 5 % Eosinophils % 0 % Basophils % 0 % Neutrophils # 37.4 H (1.3-7.7) k/uL Lymphocytes # 1.2 (1.0-4.8) k/uL Monocytes # 1.9 H (0-1.0) k/uL Eosinophils # 0.0 (0-0.7) k/uL Basophils # 0.1 (0-0.2) k/uL Manual Slide Review Performed Poikilocytosis Slight Anisocytosis Slight PT 11.0 (9.0-12.0) sec INR 1.0 (<1.2) APTT 22.4 (22.0-30.0) sec Sodium 132 L (137-145) mmol/L Potassium 3.9 (3.5-5.1) mmol/L Chloride 102 (98-107) mmol/L Carbon Dioxide 21 L (22-30) mmol/L Anion Gap 9 mmol/L BUN 15 (7-17) mg/dL Creatinine 1.09 H (0.52-1.04) mg/dL Est GFR (CKD-EPI)AfAm 59 (>60 ml/min/1.73 sqM) Est GFR (CKD-EPI)NonAf 51 (>60 ml/min/1.73 sqM) Glucose 161 H (74-99) mg/dL POC Glucose (mg/dL) (75-99) mg/dL POC Glu Ophthalmologist Retina Specialist ID Calcium 8.0 L (8.4-10.2) mg/dL Total Bilirubin 0.7 (0.2-1.3) mg/dL AST 36 (14-36) U/L ALT 12 (4-34) U/L Alkaline Phosphatase 110 (38-126) U/L Troponin I (0.000-0.034) ng/mL Total Protein 5.2 L (6.3-8.2) g/dL Albumin 2.7 L (3.5-5.0) g/dL 03/09/21 03/09/21 Range/Units 10:55 11:46 WBC (3.8-10.6) k/uL RBC (3.80-5.40) m/uL Hgb (11.4-16.0) gm/dL Hct (34.0-46.0) % MCV (80.0-100.0) fL MCH (25.0-35.0) pg MCHC (31.0-37.0) g/dL RDW (11.5-15.5) % Plt Count (150-450) k/uL MPV Neutrophils % % Lymphocytes % % Monocytes % % Eosinophils % % Basophils % % Neutrophils # (1.3-7.7) k/uL Lymphocytes # (1.0-4.8) k/uL Monocytes # (0-1.0) k/uL Eosinophils # (0-0.7) k/uL Basophils # (0-0.2) k/uL Manual Slide Review Poikilocytosis Anisocytosis PT (9.0-12.0) sec INR (<1.2) APTT (22.0-30.0) sec Sodium (137-145) mmol/L Potassium (3.5-5.1) mmol/L Chloride (98-107) mmol/L Carbon Dioxide (22-30) mmol/L Anion Gap mmol/L BUN (7-17) mg/dL Creatinine (0.52-1.04) mg/dL Est GFR (CKD-EPI)AfAm (>60 ml/min/1.73 sqM) Est GFR (CKD-EPI)NonAf (>60 ml/min/1.73 sqM) Glucose (74-99) mg/dL POC Glucose (mg/dL) 180 H (75-99) mg/dL POC Glu Ophthalmologist Retina Specialist ID Elinor Echols Calcium (8.4-10.2) mg/dL Total Bilirubin (0.2-1.3) mg/dL AST (14-36) U/L ALT (4-34) U/L Alkaline Phosphatase (38-126) U/L Troponin I 0.094 H* (0.000-0.034) ng/mL Total Protein (6.3-8.2) g/dL Albumin (3.5-5.0) g/dL Critical Care Time Critical Care Time: Yes Total Critical Care Time: 33 Disposition Clinical Impression: CVA (cerebral vascular accident) Disposition: ADMITTED IP TO THIS [facility] Condition: Critical Referrals: Bijan High MD [Primary Care Provider] - 1-2 days Decision Time: 13:09
--- NOTE | 2021-03-09 11:16 | CT ---
EXAMINATION TYPE: CT brain wo con for TPA DATE OF EXAM: 03/09/2021 COMPARISON: 06/30/2020 HISTORY: Neuro deficit CT DLP: 1154.[address] of the brain was performed. The ventricles, basal cisterns and sulci overlying the cerebral convexities demonstrate mild enlargem ent. Small remote insult left frontal lobe. There is no evidence for intracranial hemorrhage or sulcal effacement. There is decreased attenuation about the periventricular white matter and deep white matter of both c erebral hemispheres, compatible with chronic small vessel ischemia. Differential diagnosis does inclu de demyelination. No mass effects are seen.No midline shift. Osseous calvarium is intact. If symptoms persist consider MRI. IMPRESSION: 1. Age related atrophic and chronic small vessel ischemic change without acute intracranial process s een at this time.
[2021-03-09 11:23] LABS: Albumin 2.7 g/dL (3.5-5.0); Total Bilirubin 0.7 mg/dL (0.2-1.3); Total Protein 5.2 g/dL (6.3-8.2)
[2021-03-09 11:24] LABS: Potassium 3.9 mmol/L (3.5-5.1)
[2021-03-09 11:30] LABS: Anisocytosis Slight; Basophils # (A) 0.1 k/uL (0-0.2); Basophils % (A) 0 %; Eosinophils % (A) 0 %; HCT 32.2 % (34.0-46.0); HGB 10.8 gm/dL (11.4-16.0); Lymphocytes # (A) 1.2 k/uL (1.0-4.8); Lymphocytes % (A) 3 %; MCHC 33.4 g/dL (31.0-37.0); MCV 89.7 fL (80.0-100.0); Mean Platelet Volume 6.9; Monocytes # (A) 1.9 k/uL (0-1.0); Monocytes % (A) 5 %; Neutrophils # (A) 37.4 k/uL (1.3-7.7); Neutrophils % (A) 91 %; Platelet Count 353 k/uL (150-450); Poikilocytosis Slight; RBC 3.59 m/uL (3.80-5.40); RDW 16.3 % (11.5-15.5); WBC 41.1 k/uL (3.8-10.6)
[2021-03-09 11:37] LABS: Partial Thromboplastin Time 22.4 sec (22.0-30.0)
[2021-03-09] MEDS ORDERED: ASPIRIN 81 MG PO STA (11:42)
[2021-03-09 11:48] LABS: Glucose,Whole Blood 180 mg/dL (75-99)
--- NOTE | 2021-03-09 12:09 | CT ---
EXAMINATION TYPE: CT angio head neck DATE OF EXAM: 03/09/2021 COMPARISON: None HISTORY: Neuro deficit CT DLP: 475.8 mGycm CONTRAST: Performed with IV Contrast, patient injected with 65 mL of Isovue 370. Combination Contrast CTA cervical carotids and [place] CTA cervical carotids with 3-D recons truction Contrast CTA of the cervical carotids was performed 3-D reconstruction imaging obtained at a separate workstation. Right carotid system: Mild plaque is seen of the right common carotid artery. There is mild plaque a lso noted at the carotid bulb and proximal ICA. No significant diameter reduction. ECA is patent. Right vertebral artery appears unremarkable. Left carotid system: Mild plaque is seen of the left common carotid artery. There is mild plaque als o noted at the carotid bulb and proximal ICA. No significant diameter reduction. ECA is patent. Lef t vertebral artery appears unremarkable. IMPRESSION: 1. No significant diameter reduction to account for the patient's symptoms. CTA [place] with 3-D reconstruction Contrast CTA of the [place] was performed 3-D reconstruction imaging obtained at a separate workstation. Vertebrobasilar system as well as intracranial portions of the internal carotid arteries and their ma alyssa tributaries are patent. I do not see evidence for sizable aneurysm or vascular malformation. Pl ease note MRI provides greater sensitivity and specificity. Visualized brain appears grossly unremar kable. IMPRESSION: 1. No significant abnormality.
--- NOTE | 2021-03-09 12:18 | XR ---
EXAMINATION TYPE: XR chest 2V DATE OF EXAM: 03/09/2021 COMPARISON: 01/16/2021 HISTORY: Shortness of breath TECHNIQUE: Frontal and lateral views of the chest are obtained. FINDINGS: Scattered senescent parenchymal changes noted. Hyperinflation compatible with COPD. No evidence for infiltrate. No evidence for atelectasis. Heart size is stable. Mediastinal structures are stable and grossly unremarkable. No evidence for hilar prominence. Degenerative changes dorsal spine. IMPRESSION: 1. No evidence for acute pulmonary disease.
[2021-03-09] MEDS ORDERED: VANCOMYCIN IV PER PHARMACY 1 EACH MISC MISCELLANE PRN (12:28)
[2021-03-09] MEDS ORDERED: PIPERACILLIN-TAZOBACTAM 3.375 GM in SODIUM CHLORIDE 0.9% 100 ML IVPB STA (12:28)
[2021-03-09] MEDS ORDERED: NALOXONE 0.4 MG/ML 1 ML VIAL IV PRN (12:49)
[2021-03-09] MEDS ORDERED: ACETAMINOPHEN TAB 325 MG TAB PO PRN (12:49)
[2021-03-09] MEDS ORDERED: VANCOMYCIN 1,500 MG in SODIUM CHLORIDE 0.9% 250 ML IVPB ONE (13:30)
[2021-03-09] MEDS: SODIUM CHLORIDE 0.9% 1,000 ML IV SCH ×2 (13:47→19:40)
[2021-03-09 17:17] LABS: Glucose,Whole Blood 138 mg/dL (75-99)
[2021-03-09] MEDS ORDERED: TICAGRELOR 90 MG TAB PO STA (18:00)
[2021-03-09] MEDS: VANCOMYCIN 125 MG CAPSULE PO SCH (22:07)
[2021-03-09 22:45] LABS: Appearance,Urine Clear (Clear); Bacteria,Urine Rare /hpf; Bilirubin,Urine Negative (Negative); Blood,Urine Negative (Negative); Color,Urine Yellow; Glucose,Urine (UA) Negative (Negative); Ketones,Urine Negative (Negative); Leukocyte Esterase,Urine Moderate (Negative); Mucus,Urine Rare /hpf; Nitrite,Urine Negative (Negative); PH, Urine 5.5 (5.0-8.0); Protein,Urine 1+ (Negative); RBC,Urine 2 /hpf (0-5); Squamous Epithelial Cell,Urine 1 /hpf (0-4); Urobilinogen,Urine <2.0 mg/dL (<2.0); WBC,Urine 29 /hpf (0-5)
[2021-03-09] MEDS: metroNIDAZOLE-NS PMX 500 MG in SALINE 1 100ML.BAG IVPB SCH (23:29)
--- NOTE | 2021-03-09 23:36 | P.CNNES ---
History of Present Illness Consult date: 03/09/21 Requesting physician: Marck Askew Reason for Consult: Stroke code, altered mental status History of Present Illness: Patient is a 70-year-old female came to the hospital by ambulance today at 10:50 AM (EMS call activated at 10:16 AM). Patient not able to provide any history. Patient's was also present. He mentions that patient has been diagnosed with bilateral breast cancer about 1-1/2 months ago. She has undergone 2 treatments of chemotherapy. Patient has developed diarrhea and for last 3 days, she has not been eating or drinking much. She has only had post, scrambled eggs and a banana in 3 days. This morning patient woke up and was not able to talk. She was having difficulty following commands at times. Patient's blood pressure at the scene was 131/72, pulse rate 101 saturation 96%. Stroke code was activated, but patient was considered not a candidate for TPA, as she woke up with the symptoms. Vital signs on arrival blood pressure 135/73, pulse rate 102, temperature 98.9 CT head showed age-related atrophy and chronic small vessel ischemic changes without acute intracranial process seen at this time. CTA of head and neck showed no significant diameter reduction to account for the patient's symptoms. CTA of head was also negative. No aneurysms or stenosis. Chest x-ray shows no evidence for acute pulmonary disease. EKG with normal sinus rhythm with left axis deviation. Patient's blood tests shows WBC 41.1, hemoglobin 10.8, platelets 353. PT/PTT is normal. Sodium 132 potassium 3.9, renal functions normal. Creatinine 1.09. Hepatic panel normal. Troponins borderline elevated 0.094. Terry virus PCR negative. Patient takes Amaryl, atenolol, clonidine, venlafaxine 150 mg a.m. and 75 mg p.m., gabapentin 100 mg 3 times a day, Wellbutrin 100 mg twice a day, Ozempic, Benicar, minoxidil, Cymbalta 60 mg, Lipitor 10 mg, Zyprexa 5 mg hydralazine 50 mg 3 times a day. Patient not on any antiplatelet medication or anticoagulants at home. Review of Systems ROS unobtainable: due to mental status Past Medical History Past Medical History: Cancer, Diabetes Mellitus, GERD/Reflux, Hyperlipidemia, Hypertension Additional Past Medical History / Comment(s): Bilateral breast cancer/has received 2 chemo sessions, NIDDM type II, neuropathy bilateral feet History of Any Multi-Drug Resistant Organisms: None Reported Past Surgical History: Breast Surgery Additional Past Surgical History / Comment(s): L breast benign biopsy, 11/2020 breast bx + cancer, 01/16/21 port placed, D&C hysteroscopy, oral surgery. Past Anesthesia/Blood Transfusion Reactions: No Reported Reaction Additional Past Anesthesia/Blood Transfusion Reaction / Comment(s): no previous blood transfusion Smoking Status: Former smoker - Past Family History Mother Family Medical History: Cancer Father Family Medical History: No Reported History Additional Family Medical History / Comment(s): Heaalthy Medications and Allergies Home Medications Medication Instructions Recorded Confirmed Type Glimepiride [Amaryl] 1 mg PO DAILY 08/01/16 03/09/21 History LORazepam [Ativan] 1 mg PO TID PRN 08/01/16 03/09/21 History atenoloL [Tenormin] 50 mg PO DAILY 08/01/16 03/09/21 History cloNIDine HCL [Catapres] 0.1 mg PO BID 08/01/16 03/09/21 History Venlafaxine HCl 75 mg PO HS 07/31/17 03/09/21 History Famotidine [Pepcid] 20 mg PO DAILY 12/09/20 03/09/21 History Ferrous Sulfate [Feosol] 325 mg PO BID 12/09/20 03/09/21 History Gabapentin [Neurontin] 100 mg PO TID 12/09/20 03/09/21 History Montelukast [Singulair] 10 mg PO DAILY 12/09/20 03/09/21 History Olmesartan Medoxomil [Benicar] 20 mg PO DAILY 12/09/20 03/09/21 History buPROPion [Wellbutrin] 100 mg PO BID 12/09/20 03/09/21 History Atorvastatin Calcium [Lipitor] 10 mg PO DAILY 01/18/21 03/09/21 History DULoxetine HCL [Cymbalta] 60 mg PO DAILY 01/18/21 03/09/21 History Ergocalciferol [Vitamin D2 (1250 50,000 unit PO QMONTHLY 01/18/21 03/09/21 History Mcg = 57472 Iu)] Semaglutide [Ozempic] 0.25 mg SQ WEEKLY 01/18/21 03/09/21 History minoxidiL [Minoxidil] 2.5 mg PO DAILY 01/18/21 03/09/21 History Cholestyramine (with Sugar) 4 gm PO QID 03/09/21 03/09/21 History [Questran] Clotrimazole Jam [Mycelex 10 mg MUCOUS MEM 5XD 03/09/21 03/09/21 History Jam] Diphenox-Atrop 2.5-0.025 mg 2 tab PO Q6H PRN 03/09/21 03/09/21 History [Lomotil] Lidocaine-Prilocaine Cream [Emla 1 applic TOPICAL DIRECTED PRN 03/09/21 03/09/21 History Cream 2.5%/2.5%] Magnesium Oxide 400 mg PO TID 03/09/21 03/09/21 History OLANZapine [ZyPREXA] 5 mg PO DIRECTED 03/09/21 03/09/21 History Venlafaxine HCl [Effexor XR] 150 mg PO DAILY 03/09/21 03/09/21 History hydrALAZINE HCL [Apresoline] 50 mg PO TID 03/09/21 03/09/21 History Allergies Allergy/AdvReac Type Severity Reaction Status Date / Time Sulfa (Sulfonamide Allergy Rash/Hives Verified 03/09/21 13:44 Antibiotics) Physical Examination - Vital Signs Vital Signs: Vital Signs Temp Pulse Resp BP Pulse Ox 03/09/21 15:37 90 18 112/60 98 03/09/21 14:28 86 18 115/62 98 03/09/21 12:12 96 18 119/51 97 03/09/21 11:30 93 18 117/61 9 L 03/09/21 11:26 98.9 F 102 H 18 135/73 98 Intake and Output 03/09/21 03/09/21 03/09/21 06:59 14:59 22:59 Other: Weight 81.556 kg Patient is an elderly female, who is laying in the bed, appears comfortable, pleasant. Patient smiles. However she is completely aphasic. Patient is alert awake. Patient is completely aphasic, not able to express any words. Cannot name, repeat. She does comprehend, and follows some directions. Sometimes needs repeated trial before she understands. Attention, concentration and fund of knowledge is limited due to aphasia. On cranial examination, pupils are round and reacting to light, visual limon are full on confrontation, extraocular muscles are intact with no nystagmus. Face is symmetric, tongue protrudes to the midline. Palatal elevation and sensation normal, hearing is probably decreased and shoulder shrug normal, facial sensation normal. Shoulder shrug normal. On muscle strength testing, there is a right pronator drift, does not hit the bed. The strength on normal in the deltoids, biceps and triceps. Operating Theatre Technician is 3+4- on the right, 4-4+ on the left. Patient able to lift the legs on either side, with no definitive focal weakness. Able to hold the legs up for over 10 seconds without any droop. Patient did not cooperate for ankle testing. Sensory to touch is equal with no neglect. Cerebellar function showed no ataxia for [id number] testing. Patient is very weak in the right hand. No dysdiadochokinesia. Tone is decreased in the right hand, and bulk of muscles normal. Gait deferred. On general examination, there is no carotid bruit or murmur, S1-S2 audible. Abdomen is soft nontender. Chest is clear. Peripheral pulses are present. No edema. Results - Laboratory Findings CBC and BMP: 03/09/21 10:55 03/09/21 10:55 Abnormal Lab Findings: Abnormal Labs 03/09/21 03/09/21 03/09/21 10:55 10:55 10:55 WBC 41.1 H RBC 3.59 L Hgb 10.8 L Hct 32.2 L RDW 16.3 H Neutrophils # 37.4 H Monocytes # 1.9 H Sodium 132 L Carbon Dioxide 21 L Creatinine 1.09 H Glucose 161 H POC Glucose (mg/dL) Calcium 8.0 L Troponin I 0.094 H* Total Protein 5.2 L Albumin 2.7 L 03/09/21 11:46 WBC RBC Hgb Hct RDW Neutrophils # Monocytes # Sodium Carbon Dioxide Creatinine Glucose POC Glucose (mg/dL) 180 H Calcium Troponin I Total Protein Albumin Assessment and Plan Assessment: * Acute ischemic stroke, manifesting with expressive aphasia, and right arm weakness. Rule out cardioembolic source. Current NIH stroke scale is 6. Mainly related to inability to name objects (2), right pronator drift (1), moderate aphasia (2), dysarthria (1). * Bilateral breast cancer, undergoing chemotherapy. Has received 2/4 sessions of chemotherapy. * Hypertension * Hyperlipidemia * Diabetes * Moderate to severe aortic stenosis per recent echo. * C. difficile colitis. Plan: * Patient will be started on Brilinta with a loading dose of 180 mg, followed by 90 mg twice a day. Patient has received aspirin 324 mg in the ER. We will continue aspirin 81 mg daily from tomorrow. * Patient had a 2-D echo performed for 03/09/2021, which revealed normal left- ventricular size, moderate concentric LVH, EF is 60-65%. Normal left atrial size. Moderate aortic valve sclerosis. Moderate to severe aortic stenosis. * CTA of head and neck showed no significant stenosis, no aneurysms, occlusions. * Fasting a.m. lipid panel, hemoglobin A1c * MRI of the brain with and without contrast to evaluate for CVA, rule out any metastatic disease. * Continue telemetry monitoring. * Patient has passed bedside swallow evaluation. * Pepcid 20 mg twice a day for gastric ulcer prophylaxis. * PT OT and speech therapy. * Close neuro checks. * Permissive hypertension. * Suggest cardiology consultation if confirms embolic source. Time with Patient: Greater than 30
[2021-03-10] MEDS: SODIUM CHLORIDE 0.9% 1,000 ML IV SCH ×2 (06:13→08:49)
[2021-03-10] MEDS: TICAGRELOR 90 MG TAB PO SCH ×2 (06:14→20:28)
[2021-03-10 08:23] LABS: HCT 30.2 % (34.0-46.0); HGB 10.1 gm/dL (11.4-16.0); MCH 30.2 pg (25.0-35.0); MCHC 33.5 g/dL (31.0-37.0); MCV 90.2 fL (80.0-100.0); Platelet Count 349 k/uL (150-450); Poikilocytosis Slight; RBC 3.35 m/uL (3.80-5.40); RDW 15.7 % (11.5-15.5)
[2021-03-10 08:33] LABS: Albumin 2.7 g/dL (3.5-5.0); Calcium 8.4 mg/dL (8.4-10.2); Magnesium 1.7 mg/dL (1.6-2.3); Potassium 3.3 mmol/L (3.5-5.1); Total Bilirubin 0.3 mg/dL (0.2-1.3); Total Protein 5.2 g/dL (6.3-8.2)
--- NOTE | 2021-03-10 08:45 | CONS ---
CONSULTATION DATE OF SERVICE: 03/09/2021 REASON FOR CONSULTATION: Leukocytosis/ infection. HISTORY OF PRESENT ILLNESS: The patient is a 70-year-old female with a past medical history significant for breast cancer for which the patient is currently undergoing chemotherapy. Last chemo was last Saturday about a week ago. The patient has been brought into the ER for evaluation of stroke-like symptoms that started around 9:15 this morning. The patient was noted to have mental status changes and difficulty with speech. Symptoms started this morning. The patient did not have any fever or any chills. No headache. No nausea, no vomiting. No abdominal pain. The patient has been complaining of diarrhea that has been going on for the last 3-4 days with multiple loose stools. No blood or mucus in the stool. The patient has been treated in the outpatient setting with oncologist without any improvement as well as cholestyramine. With these symptoms, the patient has been evaluated by the ER physician. On arrival to the ER, the patient has been afebrile. She was noticed to have a white count of 41,000. The patient was started on IV vancomycin admitted to the hospital. Infectious Disease was consulted for further management of antibiotic therapy. The patient did have a CT of the brain that reported negative for acute intracranial process. Chest x-ray reported negative for any acute infiltrate. REVIEW OF SYSTEMS: Positive points have been mentioned in HPI. Rest of systems are negative. PAST MEDICAL HISTORY: Significant for breast cancer for which patient is currently undergoing chemotherapy, depression, shingles, diabetes mellitus, gastroesophageal reflux disease, hypertension, hyperlipidemia. PAST SURGICAL HISTORY: Left breast excision breast biopsy. SOCIAL HISTORY: No history of smoking, drinking or drug use. FAMILY HISTORY: Positive for history of cancer. ALLERGIES: SULFA. MEDICATIONS: Medications include the patient is currently on IV vancomycin. The patient is on Narcan, Tylenol, Brilinta, and IV fluid. PHYSICAL EXAMINATION: Her blood pressure is 119/75 with a pulse of 94, temperature 98. She is 97% on room air. General description is an elderly female lying in bed in no distress. No tachypnea or accessory muscles of respiration use. HEENT examination is slight pallor. No scleral icterus. Oral mucous membrane is dry. NECK: Trachea central. No thyromegaly. LUNGS: Unlabored breathing, clear to auscultation anteriorly. HEART: S1, S2. Regular rate and rhythm. ABDOMEN: Soft, no tenderness. No guarding. No rigidity. No organomegaly. EXTREMITIES: No edema of the feet. SKIN EXAMINATION: No rash or mass palpable. NEUROLOGICAL: Patient is awake, alert, oriented x2. LABS: Hemoglobin is 10.8. White count 41.1. BUN of 15, creatinine 1.09. CT was negative for any bleed. Chest x-ray negative for pneumonia. DIAGNOSTIC IMPRESSION AND PLAN: Patient admitted to the hospital with mental status changes, aphasia, and concern for possible cerebrovascular accident stroke for which the patient is currently undergoing workup. The patient also has history of breast cancer on chemotherapy, last one has been about a week ago on Saturday. This patient did have significant diarrhea with multiple loose stools and high clinical suspicion for possible Clostridium difficile colitis. PLAN: 1. We will check a stool for C difficile. 2. Discontinue IV vancomycin. 3. Restart the patient on oral vancomycin however that cannot be given because of aphasia and possible swallow evaluation. We will add IV Flagyl until the patient passes her swallow evaluation. 4. We will follow her clinical condition and further adjust medication if needed. Thank you for this consultation. Will follow this patient along with you. MMODL / IJN: [id number] /
[2021-03-10] MEDS: metroNIDAZOLE-NS PMX 500 MG in SALINE 1 100ML.BAG IVPB SCH (08:48)
[2021-03-10] MEDS: ASPIRIN 81 MG PO SCH (08:48)
[2021-03-10] MEDS: FAMOTIDINE 20 MG TAB PO SCH ×2 (08:48→20:28)
[2021-03-10] MEDS: VANCOMYCIN 125 MG CAPSULE PO SCH ×4 (08:48→21:02)
[2021-03-10] MEDS ORDERED: Potassium Replacement Protocol 1 EACH MISC MISCELLANE PRN (09:00)
[2021-03-10] MEDS ORDERED: LORazepam 2 MG/ML INJ IV STA ×2 (09:39→15:05)
--- NOTE | 2021-03-10 10:58 | P.CONS ---
History of Present Illness - Reason for Consult Consult date: 03/10/21 breast cancer Requesting physician: Emerson York - Chief Complaint Mental Status Changes - History of Present Illness Veronique is being refered by Dr High due to increased risk of Breast cancer. She is not herself diagnosed with Breast cancer, but mother(58) and maternal G mother (70) both diagnosed and of Breast cancer. Veronique had one negative Breast Bx in 2011 due to suspecious mamographic abnormality. had menarche at age 11 and 1st child delivery before age 18. Feels well and otherwise healthy. She was started on Chemoprevention with Tamoxifen : well tolerated so far, has mild hot flashes. 01/13/21: The patient felt a right breast upper outer quadrant mass in Nov 2020 after a fall. 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 MRI of breasts revealed [id number] mm R breast mass and diffusse areas of aabnormal enhancements in upper central L breast, No axillary lymphadenopathy suspected. The patient is fully active, lifetime non smoker, denied ETOH use. EF = 60-65% Baseline 01/27/21 LN biopsy neg 02/01/21: Status POst cycle one of TCHP with Neulasta 02/07/21: Feels well, tolareated cycle # 1 of TCH-P very well without GI side effects, C/O mild fatigue. 02/28/21: Feels well, tolerated cycle#2 of TCH-P very well (Fatigue only) Complaining of increased diarrhea the past week, called offfice, ISMAEL Moeller ordered stool cdiff. Patient was adament she needed "abx" however despite trying to explain this would potentially worsen situation if colitis. She initially ref used to provide sample, although eventually did and resulted positive c diff. MANJULA victoria called to pharmacy, however she presented to emergency with concerns of CVA. Her notes her speech slurred and mental status changes on am, therefore EMS called and patient brought in for further evaluation. Neurology has evaluated. ct without neg, mri pending. During evaluation she is having word searching, inappropriately responses and presenting with acute stroke like findings. Review of Systems ROS unobtainable: due to mental status Past Medical History Past Medical History: Cancer, Diabetes Mellitus, GERD/Reflux, Hyperlipidemia, Hypertension Additional Past Medical History / Comment(s): Bilateral breast cancer/has received 2 chemo sessions, NIDDM type II, neuropathy bilateral feet History of Any Multi-Drug Resistant Organisms: None Reported Past Surgical History: Breast Surgery Additional Past Surgical History / Comment(s): L breast benign biopsy, 11/2020 breast bx + cancer, 01/16/21 port placed, D&C hysteroscopy, oral surgery. Past Anesthesia/Blood Transfusion Reactions: No Reported Reaction Additional Past Anesthesia/Blood Transfusion Reaction / Comm: no previous blood transfusion Smoking Status: Former smoker - Past Family History Mother Family Medical History: Cancer Father Family Medical History: No Reported History Additional Family Medical History / Comment(s): Heaalthy Medications and Allergies Home Medications Medication Instructions Recorded Confirmed Type Glimepiride [Amaryl] 1 mg PO DAILY 08/01/16 03/09/21 History LORazepam [Ativan] 1 mg PO TID PRN 08/01/16 03/09/21 History atenoloL [Tenormin] 50 mg PO DAILY 08/01/16 03/09/21 History cloNIDine HCL [Catapres] 0.1 mg PO BID 08/01/16 03/09/21 History Venlafaxine HCl 75 mg PO HS 07/31/17 03/09/21 History Famotidine [Pepcid] 20 mg PO DAILY 12/09/20 03/09/21 History Ferrous Sulfate [Feosol] 325 mg PO BID 12/09/20 03/09/21 History Gabapentin [Neurontin] 100 mg PO TID 12/09/20 03/09/21 History Montelukast [Singulair] 10 mg PO DAILY 12/09/20 03/09/21 History Olmesartan Medoxomil [Benicar] 20 mg PO DAILY 12/09/20 03/09/21 History buPROPion [Wellbutrin] 100 mg PO BID 12/09/20 03/09/21 History Atorvastatin Calcium [Lipitor] 10 mg PO DAILY 01/18/21 03/09/21 History DULoxetine HCL [Cymbalta] 60 mg PO DAILY 01/18/21 03/09/21 History Ergocalciferol [Vitamin D2 (1250 50,000 unit PO QMONTHLY 01/18/21 03/09/21 History Mcg = 34560 Iu)] Semaglutide [Ozempic] 0.25 mg SQ WEEKLY 01/18/21 03/09/21 History minoxidiL [Minoxidil] 2.5 mg PO DAILY 01/18/21 03/09/21 History Cholestyramine (with Sugar) 4 gm PO QID 03/09/21 03/09/21 History [Questran] Clotrimazole Jam [Mycelex 10 mg MUCOUS MEM 5XD 03/09/21 03/09/21 History Jam] Diphenox-Atrop 2.5-0.025 mg 2 tab PO Q6H PRN 03/09/21 03/09/21 History [Lomotil] Lidocaine-Prilocaine Cream [Emla 1 applic TOPICAL DIRECTED PRN 03/09/21 03/09/21 History Cream 2.5%/2.5%] Magnesium Oxide 400 mg PO TID 03/09/21 03/09/21 History OLANZapine [ZyPREXA] 5 mg PO DIRECTED 03/09/21 03/09/21 History Venlafaxine HCl [Effexor XR] 150 mg PO DAILY 03/09/21 03/09/21 History hydrALAZINE HCL [Apresoline] 50 mg PO TID 03/09/21 03/09/21 History Allergies Allergy/AdvReac Type Severity Reaction Status Date / Time Sulfa (Sulfonamide Allergy Rash/Hives Verified 03/09/21 13:44 Antibiotics) Physical Exam Vitals: Vital Signs Temp Pulse Pulse Resp BP BP Pulse Ox 03/10/21 08:45 98.3 F 104 H 18 180/81 96 03/10/21 04:50 98.7 F 108 H 20 160/81 98 03/09/21 23:20 98.4 F 100 18 147/77 96 03/09/21 20:30 98.6 F 101 H 20 126/62 96 03/09/21 17:00 16 03/09/21 16:45 98 F 94 18 119/75 97 03/09/21 16:21 98.3 F 90 16 108/56 98 03/09/21 15:37 90 18 112/60 98 03/09/21 14:28 86 18 115/62 98 03/09/21 12:12 96 18 119/51 97 03/09/21 11:30 93 18 117/61 9 L 03/09/21 11:26 98.9 F 102 H 18 135/73 98 Intake and Output 03/09/21 03/10/21 03/10/21 22:59 06:59 14:59 Intake Total 50 Output Total 350 4 Balance -350 46 Intake: Oral 50 Output: Urine 350 Urine/Stool Mix 4 Other: Voiding Method Bedside Commode Bedside Commode # Voids 1 # Bowel Movements 1 Weight 116.12 kg - Constitutional General appearance: cooperative - EENT Eyes: EOMI ENT: hard of hearing, NA/AT - Respiratory Respiratory: bilateral: CTA - Cardiovascular Rhythm: irregularly irregular - Gastrointestinal General gastrointestinal: soft - Integumentary Integumentary: pale - Neurologic Not following commands well, word searching, Aphasia - Musculoskeletal Musculoskeletal: generalized weakness - Psychiatric Awake Results CBC & Chem 7: 03/10/21 07:51 03/10/21 07:51 Labs: Abnormal Lab Results - Last 24 Hours (Table) 03/09/21 03/09/21 03/09/21 Range/Units 10:55 10:55 10:55 WBC 41.1 H (3.8-10.6) k/uL RBC 3.59 L (3.80-5.40) m/uL Hgb 10.8 L (11.4-16.0) gm/dL Hct 32.2 L (34.0-46.0) % RDW 16.3 H (11.5-15.5) % Neutrophils # 37.4 H (1.3-7.7) k/uL Monocytes # 1.9 H (0-1.0) k/uL Sodium 132 L (137-145) mmol/L Potassium (3.5-5.1) mmol/L Chloride (98-107) mmol/L Carbon Dioxide 21 L (22-30) mmol/L Creatinine 1.09 H (0.52-1.04) mg/dL Glucose 161 H (74-99) mg/dL POC Glucose (mg/dL) (75-99) mg/dL Calcium 8.0 L (8.4-10.2) mg/dL Alkaline Phosphatase (38-126) U/L Troponin I 0.094 H* (0.000-0.034) ng/mL Total Protein 5.2 L (6.3-8.2) g/dL Albumin 2.7 L (3.5-5.0) g/dL Urine Protein (Negative) Ur Leukocyte Esterase (Negative) Urine WBC (0-5) /hpf Urine Bacteria (None) /hpf Urine Mucus (None) /hpf Stool Occult Blood (Negative) C. difficile (EIA) Intrp (Negative) 03/09/21 03/09/21 03/09/21 Range/Units 11:46 17:14 22:26 WBC (3.8-10.6) k/uL RBC (3.80-5.40) m/uL Hgb (11.4-16.0) gm/dL Hct (34.0-46.0) % RDW (11.5-15.5) % Neutrophils # (1.3-7.7) k/uL Monocytes # (0-1.0) k/uL Sodium (137-145) mmol/L Potassium (3.5-5.1) mmol/L Chloride (98-107) mmol/L Carbon Dioxide (22-30) mmol/L Creatinine (0.52-1.04) mg/dL Glucose (74-99) mg/dL POC Glucose (mg/dL) 180 H 138 H (75-99) mg/dL Calcium (8.4-10.2) mg/dL Alkaline Phosphatase (38-126) U/L Troponin I (0.000-0.034) ng/mL Total Protein (6.3-8.2) g/dL Albumin (3.5-5.0) g/dL Urine Protein 1+ H (Negative) Ur Leukocyte Esterase Moderate H (Negative) Urine WBC 29 H (0-5) /hpf Urine Bacteria Rare H (None) /hpf Urine Mucus Rare H (None) /hpf Stool Occult Blood (Negative) C. difficile (EIA) Intrp (Negative) 03/09/21 03/09/21 03/10/21 Range/Units 23:45 23:45 07:51 WBC 31.0 H (3.8-10.6) k/uL RBC 3.35 L (3.80-5.40) m/uL Hgb 10.1 L (11.4-16.0) gm/dL Hct 30.2 L (34.0-46.0) % RDW 15.7 H (11.5-15.5) % Neutrophils # (1.3-7.7) k/uL Monocytes # (0-1.0) k/uL Sodium (137-145) mmol/L Potassium (3.5-5.1) mmol/L Chloride (98-107) mmol/L Carbon Dioxide (22-30) mmol/L Creatinine (0.52-1.04) mg/dL Glucose (74-99) mg/dL POC Glucose (mg/dL) (75-99) mg/dL Calcium (8.4-10.2) mg/dL Alkaline Phosphatase (38-126) U/L Troponin I (0.000-0.034) ng/mL Total Protein (6.3-8.2) g/dL Albumin (3.5-5.0) g/dL Urine Protein (Negative) Ur Leukocyte Esterase (Negative) Urine WBC (0-5) /hpf Urine Bacteria (None) /hpf Urine Mucus (None) /hpf Stool Occult Blood Positive H (Negative) C. difficile (EIA) Intrp Positive A (Negative) 03/10/21 Range/Units 07:51 WBC (3.8-10.6) k/uL RBC (3.80-5.40) m/uL Hgb (11.4-16.0) gm/dL Hct (34.0-46.0) % RDW (11.5-15.5) % Neutrophils # (1.3-7.7) k/uL Monocytes # (0-1.0) k/uL Sodium (137-145) mmol/L Potassium 3.3 L (3.5-5.1) mmol/L Chloride 108 H (98-107) mmol/L Carbon Dioxide 20 L (22-30) mmol/L Creatinine (0.52-1.04) mg/dL Glucose 150 H (74-99) mg/dL POC Glucose (mg/dL) (75-99) mg/dL Calcium (8.4-10.2) mg/dL Alkaline Phosphatase 134 H (38-126) U/L Troponin I (0.000-0.034) ng/mL Total Protein 5.2 L (6.3-8.2) g/dL Albumin 2.7 L (3.5-5.0) g/dL Urine Protein (Negative) Ur Leukocyte Esterase (Negative) Urine WBC (0-5) /hpf Urine Bacteria (None) /hpf Urine Mucus (None) /hpf Stool Occult Blood (Negative) C. difficile (EIA) Intrp (Negative) Microbiology - Last 24 Hours (Table) 03/09/21 23:45 Stool Culture - Preliminary Stool 03/09/21 22:26 Urine Culture - Preliminary Urine,Voided CT Scan - head: report reviewed Assessment and Plan (1) CVA (cerebral vascular accident) Current Visit: Yes Status: Acute Code(s): I63.9 - CEREBRAL INFARCTION, UNSPECIFIED SNOMED Code(s): 748097611 (2) Bilateral breast cancer Current Visit: No Status: Acute Code(s): C50.911 - MALIGNANT NEOPLASM OF UNSP SITE OF RIGHT FEMALE BREAST; C50.912 - MALIGNANT NEOPLASM OF UNSPECIFIED SITE OF LEFT FEMALE BREAST SNOMED Code(s): 538273878 (3) C. difficile colitis Current Visit: Yes Status: Acute Code(s): A04.72 - ENTEROCOLITIS D/T CLOSTRIDIUM DIFFICILE, NOT SPCF RECUR SNOMED Code(s): 155581104 Plan: Acute onset mental status changes: Awaiting for MRI CVA versus metastatic disease Discussed with ID, Treatment for C-diff is ordered Neurology is following, await MRI She is due for cycle three navarro-adjuvant Chemotherapy with herceptin and perjeta, however this will be delayed until resolution of infectious process and further evaluation and intervention for acute mental status and neurological changes. Physician attest: I have completed the full history and physical and agree with above dictation, dictated as a scribe.
[2021-03-10 11:18] LABS: Eosinophils # (M) 0.31 k/uL (0-0.7); Lymphocytes # (M) 1.24 k/uL (1.0-4.8); Monocytes # (M) 1.55 k/uL (0-1.0); Neutrophils # (M) 28.52 k/uL (1.3-7.7); Neutrophils % (M) 92 %; Nucleated Red Blood Cells 0 /100 WBC (0-0); Total Cells Counted 200
[2021-03-10 11:47] LABS: Chol/HDL Ratio 5.05; LDL Cholesterol,Calculated 56.8 mg/dL (0.0-131.0); VLDL Calculation 32.2 mg/dL (5.00-40.00)
[2021-03-10] MEDS: POTASSIUM CHLORIDE ER 20 MEQ TAB.ER PO SCH ×2 (12:23→14:38)
[2021-03-10] MEDS ORDERED: VANCOMYCIN 1,500 MG in SODIUM CHLORIDE 0.9% 250 ML IVPB SCH (14:00)
[2021-03-10 14:34] LABS: Hemoglobin A1C 5.5 % (4.0-6.0)
--- NOTE | 2021-03-10 15:56 | PN ---
PROGRESS NOTE DATE OF SERVICE: 03/10/2021 REASON FOR FOLLOWUP: Clostridium difficile colitis. INTERVAL HISTORY: The patient is currently afebrile. The patient remains to be aphasic. Still able to some wounds. The patient denies having any chest pain. Some abdominal pain. No worsening nausea, but no vomiting and still having diarrhea. PHYSICAL EXAMINATION: Blood pressure 179/74 with a pulse of 110, temperature is 97.8. She is 97% on room air. General description is an elderly female lying in bed in no distress. RESPIRATORY SYSTEM: Unlabored breathing, clear to auscultation anteriorly. HEART: S1, S2. Regular rate and rhythm. ABDOMEN: Soft, mild distended. No guarding. No rigidity. LABS: Hemoglobin is 10.1, white count 31,000, BUN of 15, creatinine 1.04. DIAGNOSTIC IMPRESSION AND PLAN: Patient with elevated white count with Clostridium difficile colitis. The patient to continue home with oral vancomycin as the patient is able to tolerate. Oral Flagyl will be discontinued. We will add Questran for symptomatic relief and monitor clinical course closely. Family at the bedside. Questions were answered. MMODL / IJN: [id number] /
--- NOTE | 2021-03-10 17:42 | HP ---
HISTORY AND PHYSICAL CHIEF COMPLAINT: Mental status changes, aphasia. HISTORY OF PRESENT ILLNESS: This lady was brought in by ambulance after she was found on the floor. There was no other history. It is not known if she had a seizure. She was not diaphoretic. When she came to the emergency room, she seemed to be awake and alert and would follow with her eyes, but she could not speak. Studies in the ER failed to demonstrate evidence on her CT of the brain of a CVA. REVIEW OF SYSTEMS: Unobtainable. Past medical history, family history and personal and social histories are unobtainable from the patient, but she is being treated for carcinoma of the breast by Oncology. In the emergency room, she had a white count of 41,100. We know from her hospital records that she has a history of type 2 diabetes, CKD, hyperlipidemia, cardiac murmur, and hypertension. MEDICATIONS: Hydralazine 50 mg t.i.d., Lipitor 10 mg once a day, atenolol 50 mg once a day, clonidine 0.1 twice a day, Pepcid 20 mg once a day, montelukast 10 mg once a day, Benicar 20 mg once a day, tamoxifen 20 mg once a day, venlafaxine 75 mg once a day along with 150 mg. She also on Wellbutrin 100 mg twice a day. Glimepiride 1 mg once a day, gabapentin 100 mg t.i.d. and Ozempic 0.5 once a week. She takes Ativan 1 mg t.i.d. p.r.n., minoxidil 2.5 once a day and iron. She also takes Cymbalta 60 mg once a day and vitamin D 50,000 units a month. ALLERGIES: She is ALLERGIC to SULFA. The remainder of her history is unremarkable. PHYSICAL EXAMINATION: Blood pressure is 146/82 with a pulse of 80, respirations of 15 and she is afebrile. In general, she appeared to be awake and alert. She had alopecia secondary to chemotherapy. Pupils are equally round and reactive and gaze conjugate. Neck was supple. Chest is clear. Cardiac exam demonstrated normal sinus rhythm and there was a systolic murmur heard over the aortic area. Abdomen is soft, nontender. Extremities are normal. Neurologically: She seemed to be awake and alert but she could not speak good. She could make sounds occasionally and once in a while a word would come out. She seemed to be a little bit weak on the right side. IMPRESSION: She is admitted to the hospital with diagnoses: 1. Cerebrovascular accident. 2. History of hypertension. 3. History of type 2 diabetes mellitus. 4. History of carcinoma of the breast. 5. Leukocytosis. 6. Diabetes. PLAN: 1. Bedrest. 2. IV fluids. 3. Frequent monitoring of her neurologic status and vital signs. 4. Monitor hypertension. 5. Monitor blood sugars. 6. Consult Neurology. 7. Consult Oncology. MMODL / IJN: [id number] /
--- NOTE | 2021-03-10 17:46 | MR ---
EXAMINATION TYPE: MR brain wo/w con DATE OF EXAM: 03/10/2021 COMPARISON: CT 03/09/2021. HISTORY: CVA, breast cancer. TECHNIQUE: Multiplanar, multisequence images of the brain and brainstem is performed without and with IV contras t, utilizing 10 mL intravenous Gadavist . FINDINGS: Diffusion weighted images demonstrate scattered multiple foci of restricted diffusion in th e left hemisphere predominantly frontoparietal lobe. There is moderate white matter T2 FLAIR hyperint ensities, suggestive of chronic microvascular ischemic changes. There is no extra-axial fluid collect ion. The ventricular system and cisternal spaces are normal in size and appearance. The brain volume is age appropriate. Midline structures demonstrate normal morphology. The craniocervical junction appears within normal limits. Post contrast images demonstrate no abnormal enhancement. The dural venous sinuses appear pa tent. The visualized sinuses are clear and the globes are intact. IMPRESSION: Acute/subacute left hemispheric embolic infarcts. No intracranial hemorrhage or enhancing lesions. Chronic microvascular ischemic changes.
[2021-03-10] MEDS ORDERED: CHOLESTYRAMINE (WITH SUGAR) 4 GM PACKET PO SCH (18:00)
--- NOTE | 2021-03-10 18:42 | PN ---
PROGRESS NOTE DATE OF SERVICE: 03/10/2021 CHIEF COMPLAINT: CVA. HISTORY OF PRESENT ILLNESS: This lady is still remained alert. She cannot speak. She will occasionally come out with a word. She apparently has tested positive for C diff and her stool is positive for blood. PHYSICAL EXAMINATION: Chest is clear. She has a significant aortic stenosis murmur which has been present in the past. Abdomen is soft, nontender. Extremities are normal. Neurologically she is awake and alert and seems to understand, but cannot speak. IMPRESSION: 1. Cerebrovascular accident. 2. Gastrointestinal blood loss. 3. Clostridium difficile. 4. Carcinoma of the breast. PLAN: 1. Neurologic evaluation. 2. PT, OT and ST. 3. Cardiology consult. 4. Echocardiogram. 5. Discharge planning. MMODL / TACON: [id number] /
[2021-03-10] MEDS: CHOLESTYRAMINE (WITH SUGAR) 4 GM PACKET PO SCH ×2 (20:28→20:32)
[2021-03-10 20:45] LABS: Glucose,Whole Blood 166 mg/dL (75-99)
[2021-03-11] MEDS: SODIUM CHLORIDE 0.9% 1,000 ML IV SCH ×5 (04:22→18:30)
[2021-03-11 06:07] LABS: Glucose,Whole Blood 147 mg/dL (75-99)
[2021-03-11 08:02] LABS: Basophils # (A) 0.1 k/uL (0-0.2); Basophils % (A) 0 %; Eosinophils # (A) 0.1 k/uL (0-0.7); Eosinophils % (A) 0 %; HCT 28.2 % (34.0-46.0); HGB 9.7 gm/dL (11.4-16.0); Lymphocytes # (A) 0.9 k/uL (1.0-4.8); Lymphocytes % (A) 4 %; MCH 31.3 pg (25.0-35.0); MCHC 34.5 g/dL (31.0-37.0); MCV 90.8 fL (80.0-100.0); Mean Platelet Volume 7.3; Monocytes # (A) 0.7 k/uL (0-1.0); Monocytes % (A) 3 %; Neutrophils # (A) 19.2 k/uL (1.3-7.7); Neutrophils % (A) 91 %; Platelet Count 322 k/uL (150-450); Poikilocytosis Slight; RBC 3.11 m/uL (3.80-5.40); RDW 15.9 % (11.5-15.5); WBC 21.1 k/uL (3.8-10.6)
[2021-03-11 08:11] LABS: Calcium 8.2 mg/dL (8.4-10.2); Potassium 3.1 mmol/L (3.5-5.1)
--- NOTE | 2021-03-11 09:26 | P.CONS ---
History of Present Illness - Reason for Consult Consult date: 03/10/21 Stool occult positive Requesting physician: Bijan High - Chief Complaint Diarrhea - History of Present Illness 70-year-old female with multiple medical comorbidities including breast cancer for which she has received chemotherapy, hypertension, hyperlipidemia, diabetes mellitus who presented to the hospital due to altered mental status, strokelike symptoms and diarrhea. Patient had starting of speech and strokelike symptoms and is currently being evaluated by the neurology service. In addition the patient had diarrhea for which the duration is unclear. Bowel movements have been occurring approximate 7-8 times per day, they're loose with associated urge ncy. No prior colonoscopy or EGD reported, however the patient did have recent testing with Cologard which was negative as per history from the patient and her daughter. Testing for Clostridium difficile positive on presentation first the patient is currently receiving treatment with vancomycin and Flagyl. Stool testing also positive for occult blood. Currently laboratory evaluation significant for hemoglobin 10.1, platelet count 349,000, total bilirubin 0.3, alkaline phosphatase 134, AST 28 and ALT 14. Review of Systems REVIEW OF SYSTEMS: CONSTITUTIONAL: Denies any fevers, chills, weight change or fatigue. CARDIOVASCULAR: Denies any chest pain, palpitations high or low blood pressures RESPIRATORY: Denies any shortness of breath, hemoptysis or cough. GENITOURINARY: No dysuria or hematuria. MUSCULOSKELETAL: No weakness reported. SKIN: Denies any new rashes or lesions, jaundice or pallor. PSYCHIATRIC: Denies any depression or anxiety. NEUROLOGY: Denies headache, however patient does report slurred speech and weakness. EARS/NOSE/THROAT: No recent hearing change, congestion, nasal discharge or sore throat. EYES: No pain in eyes, discharge or change in vision. GASTROINTESTINAL: As per HPI. Past Medical History Past Medical History: Cancer, Diabetes Mellitus, GERD/Reflux, Hyperlipidemia, Hypertension Additional Past Medical History / Comment(s): Bilateral breast cancer/has received 2 chemo sessions, NIDDM type II, neuropathy bilateral feet History of Any Multi-Drug Resistant Organisms: None Reported Past Surgical History: Breast Surgery Additional Past Surgical History / Comment(s): L breast benign biopsy, 11/2020 breast bx + cancer, 01/16/21 port placed, D&C hysteroscopy, oral surgery. Past Anesthesia/Blood Transfusion Reactions: No Reported Reaction Additional Past Anesthesia/Blood Transfusion Reaction / Comm: no previous blood transfusion Smoking Status: Former smoker - Past Family History Mother Family Medical History: Cancer Father Family Medical History: No Reported History Additional Family Medical History / Comment(s): Heaalthy Medications and Allergies Home Medications Medication Instructions Recorded Confirmed Type Glimepiride [Amaryl] 1 mg PO DAILY 08/01/16 03/09/21 History LORazepam [Ativan] 1 mg PO TID PRN 08/01/16 03/09/21 History atenoloL [Tenormin] 50 mg PO DAILY 08/01/16 03/09/21 History cloNIDine HCL [Catapres] 0.1 mg PO BID 08/01/16 03/09/21 History Venlafaxine HCl 75 mg PO HS 07/31/17 03/09/21 History Famotidine [Pepcid] 20 mg PO DAILY 12/09/20 03/09/21 History Ferrous Sulfate [Feosol] 325 mg PO BID 12/09/20 03/09/21 History Gabapentin [Neurontin] 100 mg PO TID 12/09/20 03/09/21 History Montelukast [Singulair] 10 mg PO DAILY 12/09/20 03/09/21 History Olmesartan Medoxomil [Benicar] 20 mg PO DAILY 12/09/20 03/09/21 History buPROPion [Wellbutrin] 100 mg PO BID 12/09/20 03/09/21 History Atorvastatin Calcium [Lipitor] 10 mg PO DAILY 01/18/21 03/09/21 History DULoxetine HCL [Cymbalta] 60 mg PO DAILY 01/18/21 03/09/21 History Ergocalciferol [Vitamin D2 (1250 50,000 unit PO QMONTHLY 01/18/21 03/09/21 History Mcg = 15123 Iu)] Semaglutide [Ozempic] 0.25 mg SQ WEEKLY 01/18/21 03/09/21 History minoxidiL [Minoxidil] 2.5 mg PO DAILY 01/18/21 03/09/21 History Cholestyramine (with Sugar) 4 gm PO QID 03/09/21 03/09/21 History [Questran] Clotrimazole Jam [Mycelex 10 mg MUCOUS MEM 5XD 03/09/21 03/09/21 History Jam] Diphenox-Atrop 2.5-0.025 mg 2 tab PO Q6H PRN 03/09/21 03/09/21 History [Lomotil] Lidocaine-Prilocaine Cream [Emla 1 applic TOPICAL DIRECTED PRN 03/09/21 03/09/21 History Cream 2.5%/2.5%] Magnesium Oxide 400 mg PO TID 03/09/21 03/09/21 History OLANZapine [ZyPREXA] 5 mg PO DIRECTED 03/09/21 03/09/21 History Venlafaxine HCl [Effexor XR] 150 mg PO DAILY 03/09/21 03/09/21 History hydrALAZINE HCL [Apresoline] 50 mg PO TID 03/09/21 03/09/21 History Allergies Allergy/AdvReac Type Severity Reaction Status Date / Time Sulfa (Sulfonamide Allergy Rash/Hives Verified 03/09/21 13:44 Antibiotics) Physical Exam Vitals: Vital Signs Temp Pulse Pulse Resp BP BP Pulse Ox 03/10/21 14:00 16 03/10/21 12:20 97.8 F 110 H 16 179/74 97 03/10/21 08:45 98.3 F 104 H 18 180/81 96 03/10/21 04:50 98.7 F 108 H 20 160/81 98 03/09/21 23:20 98.4 F 100 18 147/77 96 03/09/21 20:30 98.6 F 101 H 20 126/62 96 03/09/21 17:00 16 03/09/21 16:45 98 F 94 18 119/75 97 03/09/21 16:21 98.3 F 90 16 108/56 98 03/09/21 15:37 90 18 112/60 98 Intake and Output 03/09/21 03/10/21 03/10/21 22:59 06:59 14:59 Intake Total 50 Output Total 350 4 Balance -350 46 Intake: Oral 50 Output: Urine 350 Urine/Stool Mix 4 Other: Voiding Method Bedside Commode Bedside Commode Bedside Commode # Voids 1 # Bowel Movements 1 Weight 116.12 kg On physical examination, patient appears comfortable in no apparent distress. HEAD: Normocephalic, atraumatic. EYES: No scleral icterus. No conjunctival injection. MOUTH: No lesions, tongue midline. NECK: Trachea midline, no gross abnormalities. CHEST: Clear to auscultation with no wheezing or rhonchi appreciated. HEART: S1-S2 appreciated. ABDOMEN: Soft, nontender to palpation. Bowel sounds are positive. No organomegaly. No guarding or rigidity. EXTREMITIES: No pedal edema. SKIN: No rashes, no jaundice. NEUROLOGIC: Alert and oriented to person and place with slurred speech. Results CBC & Chem 7: 03/11/21 07:45 03/11/21 07:45 Labs: Abnormal Lab Results - Last 24 Hours (Table) 03/09/21 03/09/21 03/09/21 Range/Units 17:14 22:26 23:45 WBC (3.8-10.6) k/uL RBC (3.80-5.40) m/uL Hgb (11.4-16.0) gm/dL Hct (34.0-46.0) % RDW (11.5-15.5) % Neutrophils # (Manual) (1.3-7.7) k/uL Monocytes # (Manual) (0-1.0) k/uL Potassium (3.5-5.1) mmol/L Chloride (98-107) mmol/L Carbon Dioxide (22-30) mmol/L Glucose (74-99) mg/dL POC Glucose (mg/dL) 138 H (75-99) mg/dL Alkaline Phosphatase (38-126) U/L Total Protein (6.3-8.2) g/dL Albumin (3.5-5.0) g/dL Triglycerides (0.0-149.0) mg/dL HDL Cholesterol (40.0-60.0) mg/dL Urine Protein 1+ H (Negative) Ur Leukocyte Esterase Moderate H (Negative) Urine WBC 29 H (0-5) /hpf Urine Bacteria Rare H (None) /hpf Urine Mucus Rare H (None) /hpf Stool Occult Blood Positive H (Negative) C. difficile (EIA) Intrp (Negative) 03/09/21 03/10/21 03/10/21 Range/Units 23:45 07:51 07:51 WBC 31.0 H (3.8-10.6) k/uL RBC 3.35 L (3.80-5.40) m/uL Hgb 10.1 L (11.4-16.0) gm/dL Hct 30.2 L (34.0-46.0) % RDW 15.7 H (11.5-15.5) % Neutrophils # (Manual) 28.52 H (1.3-7.7) k/uL Monocytes # (Manual) 1.55 H (0-1.0) k/uL Potassium 3.3 L (3.5-5.1) mmol/L Chloride 108 H (98-107) mmol/L Carbon Dioxide 20 L (22-30) mmol/L Glucose 150 H (74-99) mg/dL POC Glucose (mg/dL) (75-99) mg/dL Alkaline Phosphatase 134 H (38-126) U/L Total Protein 5.2 L (6.3-8.2) g/dL Albumin 2.7 L (3.5-5.0) g/dL Triglycerides 161.0 H (0.0-149.0) mg/dL HDL Cholesterol 22.0 L (40.0-60.0) mg/dL Urine Protein (Negative) Ur Leukocyte Esterase (Negative) Urine WBC (0-5) /hpf Urine Bacteria (None) /hpf Urine Mucus (None) /hpf Stool Occult Blood (Negative) C. difficile (EIA) Intrp Positive A (Negative) Microbiology - Last 24 Hours (Table) 03/09/21 23:45 Stool Culture - Preliminary Stool 03/09/21 22:26 Urine Culture - Preliminary Urine,Voided MRI - head: report reviewed Assessment and Plan (1) Positive occult stool blood test Narrative/Plan: 70-year-old female with multiple medical comorbidities including breast cancer presenting for strokelike symptoms. Currently being evaluated by oncology and neurology. Patient had multiple frequent loose bowel movements and tested positive for Clostridium difficile for which she is currently receiving a Timeout therapy with vancomycin and Flagyl. Stool testing was positive for occult blood. No EGD or colonoscopy in the past but Cologard testing was negative recently. No more signs or symptoms of bleeding. Hemoglobin is stable at 10.1. Current Visit: Yes Status: Acute Code(s): R19.5 - OTHER FECAL ABNORMALITIES SNOMED Code(s): 21048847 (2) C. difficile colitis Current Visit: Yes Status: Acute Code(s): A04.72 - ENTEROCOLITIS D/T CLOSTRIDIUM DIFFICILE, NOT SPCF RECUR SNOMED Code(s): 085632375 Plan: Supportive care Okay for diet as tolerated Continue oral vancomycin and IV Flagyl therapy Oncology, neurology and infectious disease of been consulted to see the patient Continue to monitor hemoglobin and hematocrit and transfuse as needed plans for endoscopic evaluation at this time with stable hemoglobin and multiple medical comorbidities which would put the patient at high risk for endoscopic evaluation in the absence of any signs or symptoms of GI bleeding, this is been discussed with the patient and her daughter at length agree with the treatment plan Thank you for allowing us to participate in the care of the patient
[2021-03-11] MEDS ORDERED: Potassium Replacement Protocol 1 EACH MISC MISCELLANE PRN ×2 (09:31→14:45)
[2021-03-11] MEDS: ASPIRIN 81 MG PO SCH (09:43)
[2021-03-11] MEDS: POTASSIUM CHLORIDE ER 20 MEQ TAB.ER PO SCH ×4 (09:43→16:48)
[2021-03-11] MEDS: TICAGRELOR 90 MG TAB PO SCH ×2 (09:43→21:35)
[2021-03-11] MEDS: FAMOTIDINE 20 MG TAB PO SCH ×2 (09:43→21:36)
[2021-03-11] MEDS: CHOLESTYRAMINE (WITH SUGAR) 4 GM PACKET PO SCH ×4 (09:43→21:20)
[2021-03-11] MEDS: VANCOMYCIN 125 MG CAPSULE PO SCH ×5 (09:43→22:13)
--- NOTE | 2021-03-11 12:19 | P.PN ---
Subjective Progress Note Date: 03/11/21 Principal diagnosis: Stool positive for occult blood, Clostridium difficile colitis Patient seen lying comfortably in bed no acute events reported. Objective - Vital Signs Vital signs: Vital Signs Temp 97.6 F 03/11/21 09:50 Pulse 107 H 03/11/21 09:50 Resp 18 03/11/21 09:50 BP 180/84 03/11/21 09:50 Pulse Ox 97 03/11/21 09:50 Intake & Output 03/10/21 03/11/21 03/11/21 18:59 06:59 18:59 Intake Total 2140 250 Output Total 5 1060 300 Balance 2135 -1060 -50 Weight 116.12 kg Intake: Intake, IV Titration 1850 150 Amount Sodium Chloride 0.9% 1, 1650 150 000 ml @ 150 mls/hr IV . Q6H40M [facility] Rx#:[id number] metroNIDAZOLE-NS PMX 500 200 mg In Saline 1 100ml.bag @ 100 mls/hr IVPB Q8HR [facility] Rx#:[id number] Oral 290 100 Output: Urine 200 Stool 860 Urine/Stool Mix 5 300 Other: Voiding Method Bedside Commode Bedside Commode Bedside Commode # Voids 3 1 # Bowel Movements 3 3 - Exam On physical examination, patient appears comfortable in no apparent distress. HEAD: Normocephalic, atraumatic. EYES: No scleral icterus. No conjunctival injection. MOUTH: No lesions, tongue midline. NECK: Trachea midline, no gross abnormalities. ABDOMEN: Soft, obese. Bowel sounds are positive. No organomegaly. No guarding or rigidity. EXTREMITIES: No pedal edema. SKIN: No rashes, no jaundice. NEUROLOGIC: Alert and oriented to person. - Labs CBC & Chem 7: 03/11/21 07:45 03/11/21 07:45 Labs: Abnormal Lab Results - Last 24 Hours (Table) 03/09/21 03/10/21 03/10/21 Range/Units 23:45 07:51 07:51 WBC (3.8-10.6) k/uL RBC (3.80-5.40) m/uL Hgb (11.4-16.0) gm/dL Hct (34.0-46.0) % RDW (11.5-15.5) % Neutrophils # (1.3-7.7) k/uL Neutrophils # (Manual) 28.52 H (1.3-7.7) k/uL Lymphocytes # (1.0-4.8) k/uL Monocytes # (Manual) 1.55 H (0-1.0) k/uL Potassium (3.5-5.1) mmol/L Chloride (98-107) mmol/L Glucose (74-99) mg/dL POC Glucose (mg/dL) (75-99) mg/dL Calcium (8.4-10.2) mg/dL Triglycerides 161.0 H (0.0-149.0) mg/dL HDL Cholesterol 22.0 L (40.0-60.0) mg/dL Stool Lactoferrin POSITIVE A (NEGATIVE) 03/10/21 03/11/21 03/11/21 Range/Units 20:42 06:06 07:45 WBC 21.1 H (3.8-10.6) k/uL RBC 3.11 L (3.80-5.40) m/uL Hgb 9.7 L (11.4-16.0) gm/dL Hct 28.2 L (34.0-46.0) % RDW 15.9 H (11.5-15.5) % Neutrophils # 19.2 H (1.3-7.7) k/uL Neutrophils # (Manual) (1.3-7.7) k/uL Lymphocytes # 0.9 L (1.0-4.8) k/uL Monocytes # (Manual) (0-1.0) k/uL Potassium (3.5-5.1) mmol/L Chloride (98-107) mmol/L Glucose (74-99) mg/dL POC Glucose (mg/dL) 166 H 147 H (75-99) mg/dL Calcium (8.4-10.2) mg/dL Triglycerides (0.0-149.0) mg/dL HDL Cholesterol (40.0-60.0) mg/dL Stool Lactoferrin (NEGATIVE) 03/11/21 Range/Units 07:45 WBC (3.8-10.6) k/uL RBC (3.80-5.40) m/uL Hgb (11.4-16.0) gm/dL Hct (34.0-46.0) % RDW (11.5-15.5) % Neutrophils # (1.3-7.7) k/uL Neutrophils # (Manual) (1.3-7.7) k/uL Lymphocytes # (1.0-4.8) k/uL Monocytes # (Manual) (0-1.0) k/uL Potassium 3.1 L (3.5-5.1) mmol/L Chloride 110 H (98-107) mmol/L Glucose 139 H (74-99) mg/dL POC Glucose (mg/dL) (75-99) mg/dL Calcium 8.2 L (8.4-10.2) mg/dL Triglycerides (0.0-149.0) mg/dL HDL Cholesterol (40.0-60.0) mg/dL Stool Lactoferrin (NEGATIVE) Microbiology - Last 24 Hours (Table) 03/09/21 22:26 Urine Culture - Final Urine,Voided 03/09/21 13:30 Blood Culture - Preliminary Blood No Growth after 24 hours 03/09/21 13:45 Blood Culture - Preliminary Blood No Growth after 24 hours 03/09/21 23:45 Stool Culture - Preliminary Stool Assessment and Plan (1) Positive occult stool blood test Narrative/Plan: 70-year-old female with multiple medical comorbidities including breast cancer presenting for strokelike symptoms. Currently being evaluated by oncology and neurology. Patient had multiple frequent loose bowel movements and tested positive for Clostridium difficile for which she is currently receiving a Timeout therapy with vancomycin and Flagyl. Stool testing was positive for occult blood. No EGD or colonoscopy in the past but Cologard testing was negative recently. No more signs or symptoms of bleeding. Hemoglobin is stable at 9.7 from 10.1 yesterday. Current Visit: Yes Status: Acute Code(s): R19.5 - OTHER FECAL ABNORMALITIES SNOMED Code(s): 14635568 (2) C. difficile colitis Current Visit: Yes Status: Acute Code(s): A04.72 - ENTEROCOLITIS D/T CLOS TRIDIUM DIFFICILE, NOT SPCF RECUR SNOMED Code(s): 210142298 Plan: Supportive care Okay for diet as tolerated Continue oral vancomycin and cholestyramine for treatment of C. diff Oncology, neurology and infectious disease of been consulted to see the patient Continue to monitor hemoglobin and hematocrit and transfuse as needed No plans for endoscopic evaluation at this time with stable hemoglobin and multiple medical comorbidities which would put the patient at high risk for endoscopic evaluation in the absence of any signs or symptoms of GI bleeding, this is been discussed with the patient and her daughter at length agree with the treatment plan Thank you for allowing us to participate in the care of the patient
[2021-03-11 12:31] LABS: Glucose,Whole Blood 136 mg/dL (75-99)
[2021-03-11] MEDS ORDERED: OLANZapine 5 MG TAB PO SCH (13:15)
[2021-03-11] MEDS: atenoloL 50 MG TAB PO SCH (13:37)
[2021-03-11] MEDS: hydrALAZINE HCL 50 MG TAB PO SCH ×2 (15:33→21:35)
[2021-03-11] MEDS: GABAPENTIN 100 MG CAP PO SCH ×2 (15:33→21:35)
[2021-03-11] MEDS: MAGNESIUM OXIDE 400 MG TAB PO SCH ×2 (15:33→21:35)
--- NOTE | 2021-03-11 16:38 | PN ---
PROGRESS NOTE DATE OF SERVICE: 03/11/2021 CHIEF COMPLAINT: CVA. HISTORY OF PRESENT ILLNESS: This lady is doing better. Speech is coming better. She has no headache. She has had no further deterioration in neurologic function. Laboratory cruz, her white count has gone down from 31 to 0[address]87. Hemoglobin is 9.7. Potassium is low at 3.1. It does not seem to be any further GI blood loss. PHYSICAL EXAMINATION: Blood pressure 164/78 with a pulse of 81 and regular. Head, ears, eyes, nose, mouth and throat were normal in the. Chest is clear to auscultation and percussion. Cardiac exam is normal except for her murmur in the aortic area. Abdomen is soft. Extremities are normal. She has still had some right upper extremity weakness and some trouble speaking, but it was improved. IMPRESSION: 1. Left-sided embolic cerebrovascular accident with right upper extremity hemiparesis and expressive aphasia. 2. History of carcinoma of the breast. 3. Leukocytosis. 4. Clostridium difficile diarrhea. 5. Positive fecal occult blood. 6. Cardiac murmur. PLAN: 1. Echocardiogram. 2. PT, OT and ST with discharge planning. MMODL / IJN: [id number] /
[2021-03-11 17:01] LABS: Glucose,Whole Blood 156 mg/dL (75-99)
[2021-03-11 19:58] LABS: Glucose,Whole Blood 169 mg/dL (75-99)
[2021-03-11] MEDS: VENLAFAXINE HCL 75 MG TAB PO SCH (21:35)
[2021-03-11] MEDS: cloNIDine HCL 0.1 MG TAB PO SCH (21:36)
--- NOTE | 2021-03-11 23:36 | PN ---
PROGRESS NOTE DATE OF SERVICE: 03/11/2021 REASON FOR FOLLOWUP: C difficile colitis. INTERVAL HISTORY: Patient is afebrile. The patient is more awake and alert today. The patient is still complaining of significant diarrhea. Has about 4 loose stools per day. The patient denies having any chest pain, cough. No abdominal pain. No vomiting. PHYSICAL EXAMINATION: Her blood pressure is 126/75 with a pulse of 96, temperature 96.1. She is 98% on room air. General description is an elderly female lying in bed in no distress. RESPIRATORY SYSTEM: Unlabored breathing. Clear to auscultation anteriorly. HEART: S1, S2. Regular rate and rhythm. ABDOMEN: Soft, no tenderness. Extremities: No edema of the feet. LABS: Potassium was 4.0, white count down to 21.1. DIAGNOSTIC IMPRESSION AND PLAN: Patient with significant diarrhea and significant elevated white count secondary to C difficile colitis in this patient who seems to have shown slow clinical improvement. Plan at this time is to continue with Vanco. However, we will increase the dose to 250 q.6 hours. She is encouraged with Questran and monitor clinical course closely. Family at the bedside. Questions were answered. MMODL / IJN: [id number] /
[2021-03-12] MEDS: SODIUM CHLORIDE 0.9% 1,000 ML IV SCH ×4 (00:53→22:26)
--- NOTE | 2021-03-12 02:39 | P.PN ---
Subjective Progress Note Date: 03/10/21 Patient was seen for a follow-up. Patient's daughter was also present today. Patient has significantly improved clinically today. Telemetry monitoring showing sinus rhythm with sinus tachycardia. Objective - Vital Signs Vital signs: Vital Signs Temp 99.0 F 03/10/21 20:00 Pulse 119 H 03/10/21 20:00 Resp 17 03/10/21 20:00 BP 174/75 03/10/21 20:00 Pulse Ox 98 03/10/21 20:00 Intake & Output 03/10/21 03/10/21 03/11/21 06:59 18:59 06:59 Intake Total 2140 Output Total 150 5 260 Balance -150 2135 -260 Weight 116.12 kg 116.12 kg Intake: Intake, IV Titration 1850 Amount Sodium Chloride 0.9% 1, 1650 000 ml @ 150 mls/hr IV . Q6H40M [facility] Rx#:[id number] metroNIDAZOLE-NS PMX 500 200 mg In Saline 1 100ml.bag @ 100 mls/hr IVPB Q8HR [facility] Rx#:[id number] Oral 290 Output: Urine 150 Stool 260 Urine/Stool Mix 5 Other: Voiding Method Bedside Commode Bedside Commode # Voids 1 3 # Bowel Movements 1 3 2 - Exam Patient is able to name objects very well. Still cannot repeat. She follows directions very well. Her speech is much more fluent. Still some paraphasic errors and hesitancy. Patient's face is symmetric. Visual limon are full. Tongue protrudes the midline. On muscle strength testing patient has right pronator drift. Her biceps, triceps and deltoids are normal bilaterally. Jogger Operator is 5-on the right, 5 on left. Patient's lower extremities are normal. No ataxia. Sensations are equal with no neglect. - Labs CBC & Chem 7: 03/11/21 07:45 03/11/21 18:04 Labs: Abnormal Lab Results - Last 24 Hours (Table) 03/09/21 03/09/21 03/09/21 Range/Units 23:45 23:45 23:45 WBC (3.8-10.6) k/uL RBC (3.80-5.40) m/uL Hgb (11.4-16.0) gm/dL Hct (34.0-46.0) % RDW (11.5-15.5) % Neutrophils # (Manual) (1.3-7.7) k/uL Monocytes # (Manual) (0-1.0) k/uL Potassium (3.5-5.1) mmol/L Chloride (98-107) mmol/L Carbon Dioxide (22-30) mmol/L Glucose (74-99) mg/dL POC Glucose (mg/dL) (75-99) mg/dL Alkaline Phosphatase (38-126) U/L Total Protein (6.3-8.2) g/dL Albumin (3.5-5.0) g/dL Triglycerides (0.0-149.0) mg/dL HDL Cholesterol (40.0-60.0) mg/dL Stool Occult Blood Positive H (Negative) Stool Lactoferrin POSITIVE A (NEGATIVE) C. difficile (EIA) Intrp Positive A (Negative) 03/10/21 03/10/21 03/10/21 Range/Units 07:51 07:51 20:42 WBC 31.0 H (3.8-10.6) k/uL RBC 3.35 L (3.80-5.40) m/uL Hgb 10.1 L (11.4-16.0) gm/dL Hct 30.2 L (34.0-46.0) % RDW 15.7 H (11.5-15.5) % Neutrophils # (Manual) 28.52 H (1.3-7.7) k/uL Monocytes # (Manual) 1.55 H (0-1.0) k/uL Potassium 3.3 L (3.5-5.1) mmol/L Chloride 108 H (98-107) mmol/L Carbon Dioxide 20 L (22-30) mmol/L Glucose 150 H (74-99) mg/dL POC Glucose (mg/dL) 166 H (75-99) mg/dL Alkaline Phosphatase 134 H (38-126) U/L Total Protein 5.2 L (6.3-8.2) g/dL Albumin 2.7 L (3.5-5.0) g/dL Triglycerides 161.0 H (0.0-149.0) mg/dL HDL Cholesterol 22.0 L (40.0-60.0) mg/dL Stool Occult Blood (Negative) Stool Lactoferrin (NEGATIVE) C. difficile (EIA) Intrp (Negative) Microbiology - Last 24 Hours (Table) 03/09/21 13:30 Blood Culture - Preliminary Blood No Growth after 24 hours 03/09/21 13:45 Blood Culture - Preliminary Blood No Growth after 24 hours 03/09/21 23:45 Stool Culture - Preliminary Stool 03/09/21 22:26 Urine Culture - Preliminary Urine,Voided Assessment and Plan Assessment: * Acute ischemic stroke, manifesting with expressive aphasia, and right arm weakness. Current NIH stroke scale has improved to 2. Mainly related to right pronator drift (1), mild aphasia (1). * Bilateral breast cancer, undergoing chemotherapy. Has received 2/4 sessions of chemotherapy. * Hypertension * Hyperlipidemia * Diabetes * Moderate to severe aortic stenosis per recent echo. * C. difficile colitis. Plan: * MRI of the brain was performed, which revealed acute/subacute stroke involving left hemispheric embolic infarcts. * Continue Brilinta. Patient has received a loading dose of 180 mg, followed by 90 mg twice a day. Patient has received aspirin 324 mg in the ER. We will continue aspirin 81 mg daily. Patient has remarkably improved. * 2-D echo 03/09/2021, revealed normal left-ventricular size, moderate concentric LVH, EF is 60-65%. Normal left atrial size. Moderate aortic valve sclerosis. Moderate to severe aortic stenosis. * CTA of head and neck showed no significant stenosis, no aneurysms, occlusions. * Fasting a.m. lipid panel with cholesterol 111, LDL 56, HDL 22, triglycerides 161. Continue Lipitor 10 mg. * Hemoglobin A1c 5.5 * Telemetry monitoring showing sinus rhythm, with sinus tachycardia. No A. fib. * Patient has passed bedside swallow evaluation. * Pepcid 20 mg twice a day for gastric ulcer prophylaxis. * PT OT and speech therapy. * Optimize control of blood pressure. * Suggest cardiology consultation, as strokes appears embolic in nature. * Discussed with patient's daughter in detail.
--- NOTE | 2021-03-12 02:46 | P.PN ---
Subjective Progress Note Date: 03/11/21 Patient was seen via Tele-neurology. Patient has significantly improved clinically today, even better as compared to yesterday. Patient is laying comfortably in the bed. In no distress. Patient's speech has much improved as per examination below. Telemetry monitoring showing sinus rhythm with sinus tachycardia. Objective - Vital Signs Vital signs: Vital Signs Temp 98.3 F 03/11/21 20:00 Pulse 96 03/11/21 20:00 Resp 18 03/11/21 20:00 BP 177/80 03/11/21 20:00 Pulse Ox 99 03/11/21 20:00 Intake & Output 03/11/21 03/11/21 03/12/21 06:59 18:59 06:59 Intake Total 2370 Output Total 1060 303 200 Balance -1060 2067 -200 Intake: Intake, IV Titration 1350 Amount Sodium Chloride 0.9% 1, 1350 000 ml @ 150 mls/hr IV . Q6H40M [facility] Rx#:[id number] Oral 1020 Output: Urine 200 200 Stool 860 Urine/Stool Mix 303 Other: Voiding Method Bedside Commode Bedside Commode Bedside Commode # Voids 1 5 1 # Bowel Movements 3 4 1 - Exam Patient is able to name objects very well. Patient can repeat much better. Patient knows her name, that she is in [facility] and that it is February and the year is . Some paraphasic errors noted. Her speech is much more fluent. She follows directions very well, and has good comprehension. Patient's face is symmetric. Visual limon are full. Tongue protrudes the midline. On muscle strength testing patient has right pronation, but no drift. Her biceps, triceps and deltoids and joint runner are all normal bilaterally. Patient's lower extremities are normal. No ataxia. Sensations are equal with no neglect. - Labs CBC & Chem 7: 03/11/21 07:45 03/11/21 18:04 Labs: Abnormal Lab Results - Last 24 Hours (Table) 03/11/21 03/11/21 03/11/21 Range/Units 06:06 07:45 07:45 WBC 21.1 H (3.8-10.6) k/uL RBC 3.11 L (3.80-5.40) m/uL Hgb 9.7 L (11.4-16.0) gm/dL Hct 28.2 L (34.0-46.0) % RDW 15.9 H (11.5-15.5) % Neutrophils # 19.2 H (1.3-7.7) k/uL Lymphocytes # 0.9 L (1.0-4.8) k/uL Potassium 3.1 L (3.5-5.1) mmol/L Chloride 110 H (98-107) mmol/L Glucose 139 H (74-99) mg/dL POC Glucose (mg/dL) 147 H (75-99) mg/dL Calcium 8.2 L (8.4-10.2) mg/dL 03/11/21 03/11/21 03/11/21 Range/Units 12:23 13:04 16:54 WBC (3.8-10.6) k/uL RBC (3.80-5.40) m/uL Hgb (11.4-16.0) gm/dL Hct (34.0-46.0) % RDW (11.5-15.5) % Neutrophils # (1.3-7.7) k/uL Lymphocytes # (1.0-4.8) k/uL Potassium 3.4 L (3.5-5.1) mmol/L Chloride (98-107) mmol/L Glucose (74-99) mg/dL POC Glucose (mg/dL) 136 H 156 H (75-99) mg/dL Calcium (8.4-10.2) mg/dL 03/11/21 Range/Units 19:57 WBC (3.8-10.6) k/uL RBC (3.80-5.40) m/uL Hgb (11.4-16.0) gm/dL Hct (34.0-46.0) % RDW (11.5-15.5) % Neutrophils # (1.3-7.7) k/uL Lymphocytes # (1.0-4.8) k/uL Potassium (3.5-5.1) mmol/L Chloride (98-107) mmol/L Glucose (74-99) mg/dL POC Glucose (mg/dL) 169 H (75-99) mg/dL Calcium (8.4-10.2) mg/dL Microbiology - Last 24 Hours (Table) 03/09/21 13:45 Blood Culture - Preliminary Blood No Growth after 48 hours 03/09/21 13:30 Blood Culture - Preliminary Blood No Growth after 48 hours 03/09/21 22:26 Urine Culture - Final Urine,Voided Assessment and Plan Assessment: * Acute ischemic stroke, manifesting with expressive aphasia, and right arm weakness. Current NIH stroke scale has improved to 2. Mainly related to right pronator drift (1), mild aphasia (1). * Bilateral breast cancer, undergoing chemotherapy. Has received 2/4 sessions of chemotherapy. * Hypertension * Hyperlipidemia * Diabetes * Moderate to severe aortic stenosis per recent echo. * C. difficile colitis. Plan: * MRI of the brain was performed, which revealed acute/subacute stroke involving left hemispheric embolic infarcts. * Recommend cardiology consultation because of probable embolic source, and moderate to severe aortic stenosis. ? Need for PADMINI. * Continue Brilinta. Patient has received a loading dose of 180 mg, followed by 90 mg twice a day. Patient has received aspirin 324 mg in the ER. We will continue aspirin 81 mg daily. Patient has remarkably improved. * Patient has apparently occurred blood noted in the stool. GI has been consulted. Patient is also C. difficile colitis positive. * 2-D echo 03/09/2021, revealed normal left-ventricular size, moderate concen tric LVH, EF is 60-65%. Normal left atrial size. Moderate aortic valve sclerosis. Moderate to severe aortic stenosis. * CTA of head and neck showed no significant stenosis, no aneurysms, occlusions. * Fasting a.m. lipid panel with cholesterol 111, LDL 56, HDL 22, triglycerides 161. Continue Lipitor 10 mg. * Hemoglobin A1c 5.5 * Telemetry monitoring showing sinus rhythm, with sinus tachycardia. No A. fib. * Patient has passed bedside swallow evaluation. * Pepcid 20 mg twice a day for gastric ulcer prophylaxis. * PT OT and speech therapy. * Optimize control of blood pressure.
[2021-03-12 05:55] LABS: Glucose,Whole Blood 126 mg/dL (75-99)
[2021-03-12 07:59] LABS: Magnesium 1.6 mg/dL (1.6-2.3); Potassium 3.5 mmol/L (3.5-5.1)
--- NOTE | 2021-03-12 08:19 | ECHOF ---
Referral Reason:murmur, CVA MEASUREMENTS -------- HEIGHT: 160.0 cm WEIGHT: 116.1 kg BP: IVSd: 1.5 cm (0.6 - 1.1) LVIDd: 3.2 cm (3.9 - 5.3) LVPWd: 1.7 cm (0.6 - 1.1) IVSs: 1.9 cm LVIDs: 2.0 cm LVPWs: 2.2 cm LA Diam: 4.4 cm (2.7 - 3.8) FINDINGS -------- Sinus rhythm. This was a technically adequate study. Limited Study The left ventricular size is normal. There is moderate concentric left ventricular hypertrophy. O verall left ventricular systolic function is normal with, an EF between 55 - 60 %. Moderate mitral regurgitation is present. There is no pericardial effusion. CONCLUSIONS -------- 1. The left ventricular size is normal. 2. There is moderate concentric left ventricular hypertrophy. 3. Overall left ventricular systolic function is normal with, an EF between 55 - 60 %. 4. Moderate mitral regurgitation is present. WIRE SAW OPERATOR: Clair Rivera [facility]
[2021-03-12] MEDS ORDERED: FAMOTIDINE 20 MG TAB PO SCH (09:00)
[2021-03-12] MEDS: cloNIDine HCL 0.1 MG TAB PO SCH ×2 (09:36→22:20)
[2021-03-12] MEDS: FAMOTIDINE 20 MG TAB PO SCH (09:36)
[2021-03-12] MEDS: MONTELUKAST 10 MG TAB PO SCH (09:36)
[2021-03-12] MEDS: MAGNESIUM OXIDE 400 MG TAB PO SCH ×3 (09:37→22:20)
[2021-03-12] MEDS: GABAPENTIN 100 MG CAP PO SCH ×3 (09:37→22:20)
[2021-03-12] MEDS: hydrALAZINE HCL 50 MG TAB PO SCH ×3 (09:37→22:20)
[2021-03-12] MEDS: ASPIRIN 81 MG PO SCH (09:37)
[2021-03-12] MEDS: ATORVASTATIN 10 MG TAB PO SCH (09:37)
[2021-03-12] MEDS: atenoloL 50 MG TAB PO SCH (09:39)
[2021-03-12] MEDS: LOSARTAN 50 MG TAB PO SCH (09:39)
[2021-03-12] MEDS: DULoxetine HCL 60 MG CAPSULE.DR PO SCH (09:39)
[2021-03-12] MEDS: TICAGRELOR 90 MG TAB PO SCH ×2 (09:39→22:21)
[2021-03-12] MEDS: VANCOMYCIN 125 MG CAPSULE PO SCH ×4 (09:40→22:21)
[2021-03-12] MEDS: VENLAFAXINE HCL ER 150 MG CAP PO SCH (09:42)
[2021-03-12] MEDS: minoxidiL 2.5 MG TAB PO SCH (09:42)
[2021-03-12] MEDS: CHOLESTYRAMINE (WITH SUGAR) 4 GM PACKET PO SCH ×4 (09:50→22:07)
[2021-03-12 12:07] LABS: Glucose,Whole Blood 136 mg/dL (75-99)
--- NOTE | 2021-03-12 18:32 | P.PN ---
Subjective Progress Note Date: 03/12/21 Patient was seen via Tele-neurology. Patient's daughter and were also present. Patient has significantly improved clinically today, even better as compared to yesterday, as per patient's daughter. Patient is laying comfortably sitting on the side of the bed. In no distress. Patient's speech has much improved as per examination below. Objective - Vital Signs Vital signs: Vital Signs Temp 97.7 F 03/12/21 17:18 Pulse 92 03/12/21 17:18 Resp 18 03/12/21 17:18 BP 144/75 03/12/21 17:18 Pulse Ox 98 03/12/21 17:18 Intake & Output 03/11/21 03/12/21 03/12/21 18:59 06:59 18:59 Intake Total 2370 240 Output Total 303 300 5 Balance 2067 -300 235 Weight 87.8 kg Intake: Intake, IV Titration 1350 Amount Sodium Chloride 0.9% 1, 1350 000 ml @ 150 mls/hr IV . Q6H40M [facility] Rx#:[id number] Oral 1020 240 Output: Urine 300 Urine/Stool Mix 303 5 Other: Voiding Method Bedside Commode Bedside Commode Bedside Commode # Voids 5 1 # Bowel Movements 4 1 - Exam Patient is fully alert and awake. Patient is able to name objects very well. Patient can repeat much better, in fact full sentence, with slight mistakes (like missing "and", in the sentence like, Down the hill and over the road). This is better as compared to yesterday. Patient has some paraphasic errors stating her Spich is better (instead of speech). Per daughter, patient is speaking little sentences. Not worse as compared to yesterday. She follows directions very well, and has good comprehension. Patient's face is symmetric. Visual limon are full. Tongue protrudes the midline. On muscle strength testing patient has right pronation, but no drift. Her biceps, triceps and deltoids and senior unix administrator are all normal bilaterally. Patient's lower extremities are normal. No ataxia. Sensations are equal with no neglect. - Labs CBC & Chem 7: 03/11/21 07:45 03/12/21 07:16 Labs: Abnormal Lab Results - Last 24 Hours (Table) 03/11/21 03/12/21 03/12/21 Range/Units 19:57 05:54 11:43 POC Glucose (mg/dL) 169 H 126 H 136 H (75-99) mg/dL Microbiology - Last 24 Hours (Table) 03/09/21 13:45 Blood Culture - Preliminary Blood No Growth after 72 hours 03/09/21 13:30 Blood Culture - Preliminary Blood No Growth after 72 hours 03/09/21 23:45 Stool Culture - Preliminary Stool Assessment and Plan Assessment: * Acute ischemic stroke, manifesting with expressive aphasia, and right arm weakness. Current NIH stroke scale has improved to 2. Mainly related to right pronator drift (1), mild aphasia (1). * Bilateral breast cancer, undergoing chemotherapy. Has received 2/4 sessions of chemotherapy. * Hypertension * Hyperlipidemia * Diabetes * Moderate to severe aortic stenosis per recent echo. * C. difficile colitis. Plan: * MRI of the brain was performed, which revealed acute/subacute stroke involving left hemispheric embolic infarcts. * Recommend cardiology consultation because of probable embolic source, and moderate to severe aortic stenosis. ? Need for PADMINI. Although the stroke may has happened because patient was not taking any antiplatelet medication in the past. Now patient is on Brilinta and ASA, and the chance of recurrent stroke is much less. However would like to have cardiology input regarding aortic stenosis noted in the previous 2-D echo. * Continue Brilinta. Patient has received a loading dose of 180 mg, followed by 90 mg twice a day. Patient has received aspirin 324 mg in the ER. We will continue aspirin 81 mg daily. Patient has remarkably improved. * Patient has apparently occult blood noted in the stool. GI has been consulted. Patient is also C. difficile colitis positive. * 2-D echo 03/09/2021, revealed normal left-ventricular size, moderate concentric LVH, EF is 60-65%. Normal left atrial size. Moderate aortic valve sclerosis. Moderate to severe aortic stenosis. * CTA of head and neck showed no significant stenosis, no aneurysms, occlusions. * Fasting a.m. lipid panel with cholesterol 111, LDL 56, HDL 22, triglycerides 161. Continue Lipitor 10 mg. * Hemoglobin A1c 5.5 * Telemetry monitoring showing sinus rhythm, with sinus tachycardia. No A. fib. * Patient has passed bedside swallow evaluation. * Pepcid 20 mg twice a day for gastric ulcer prophylaxis. * PT OT and speech therapy. * Optimize control of blood pressure. * Dr. Kwan Lal Will resume neurology service in a.m.
[2021-03-12 20:34] LABS: Glucose,Whole Blood 138 mg/dL (75-99)
[2021-03-12] MEDS: VENLAFAXINE HCL 75 MG TAB PO SCH (22:32)
[2021-03-13] MEDS: SODIUM CHLORIDE 0.9% 1,000 ML IV SCH ×3 (00:23→20:32)
--- NOTE | 2021-03-13 05:43 | PN ---
PROGRESS NOTE DATE OF SERVICE: 03/12/2021 REASON FOR FOLLOW UP: C difficile colitis. INTERVAL HISTORY: Patient is currently afebrile. The patient is breathing comfortably. Patient . Denies any chest pain or shortness of breath. No nausea, vomiting or abdominal pain. PHYSICAL EXAMINATION: Her blood pressure is 144/75 with a pulse of 92, temperature 97.7. She is 98% on room air. General description is an elderly female lying in bed in no distress. Respiratory system: Unlabored breathing, clear to auscultation anteriorly. Heart S1, S2. Regular rate and rhythm. Abdomen soft, no tenderness. LABS: No new labs have been obtained today. DIAGNOSTIC IMPRESSION AND PLAN: Patient with C difficile colitis in this patient who has shown clinical response to the oral vancomycin to continue. She is has been treated with Questran and probiotics along with yogurts and continue supportive care. Family has multiple questions that were answered. MMODL / IJN: [id number] /
[2021-03-13 06:26] LABS: Glucose,Whole Blood 118 mg/dL (75-99)
[2021-03-13] MEDS: LOSARTAN 50 MG TAB PO SCH (09:06)
[2021-03-13] MEDS: cloNIDine HCL 0.1 MG TAB PO SCH ×2 (09:07→21:54)
[2021-03-13] MEDS: TICAGRELOR 90 MG TAB PO SCH ×2 (09:07→21:54)
[2021-03-13] MEDS: atenoloL 50 MG TAB PO SCH (09:07)
[2021-03-13] MEDS: MONTELUKAST 10 MG TAB PO SCH (09:07)
[2021-03-13] MEDS: FAMOTIDINE 20 MG TAB PO SCH (09:07)
[2021-03-13] MEDS: GABAPENTIN 100 MG CAP PO SCH ×3 (09:07→21:53)
[2021-03-13] MEDS: DULoxetine HCL 60 MG CAPSULE.DR PO SCH (09:07)
[2021-03-13] MEDS: hydrALAZINE HCL 50 MG TAB PO SCH ×3 (09:07→21:54)
[2021-03-13] MEDS: MAGNESIUM OXIDE 400 MG TAB PO SCH ×3 (09:07→21:54)
[2021-03-13] MEDS: ATORVASTATIN 10 MG TAB PO SCH (09:10)
[2021-03-13] MEDS: ASPIRIN 81 MG PO SCH (09:10)
[2021-03-13] MEDS: VANCOMYCIN 125 MG CAPSULE PO SCH ×4 (09:11→21:54)
[2021-03-13] MEDS: VENLAFAXINE HCL ER 150 MG CAP PO SCH (09:12)
[2021-03-13] MEDS: minoxidiL 2.5 MG TAB PO SCH (09:12)
[2021-03-13] MEDS: CHOLESTYRAMINE (WITH SUGAR) 4 GM PACKET PO SCH ×2 (09:13→21:35)
--- NOTE | 2021-03-13 11:41 | P.CRDCN ---
History of Present Illness Consult date: 03/13/21 History of present illness: HISTORY OF PRESENT ILLNESS: This is a 70-year-old female with a past medical history significant for breast cancer currently undergoing chemotherapy, hypertension, hyperlipidemia, GERD, diabetes mellitus. Patient does not follow with a registered nurse cardiovascular icu. We have been asked to see the patient in consultation for post CVA follow-up. Patient examined at the bedside. Patient presented to the emergency room with right arm weakness and difficulty speaking. She's been diagnosed with an acute ischemic CVA. Neurology is following. Patient has been started on aspirin, atorvastatin, and Brilinta. Patient's right arm weakness has resolved. Patient's speech has improved but is not back to baseline. Patient had an echocardiogram performed in January 2021 revealing moderate to severe aortic stenosis. Patient states she has known she has had a heart murmur for many years. She denies having any symptoms related to her valvular heart disease. She denies any shortness of breath at rest or with exertion. Telemetry has not revealed any evidence of atrial fibrillation. An event monitor has been ordered per neurology. Patient is currently undergoing chemotherapy for breast cancer. Patient was also found to have C. diff. EKG reveals sinus mechanism with no signs of acute ischemia Chest xray negative for acute process Laboratory data: WBC 21.1. Hemoglobin 9.7. Platelet count 322. Sodium 140. Potassium 4.0. BUN 12. Creatinine 1.0. Current home cardiac medications include Minoxidil 2.5 mg daily, hydralazine 50 mg 3 times a day, Catapres 0.1 mg twice a day, atenolol 50 mg daily, and Lipitor 10 mg daily REVIEW OF SYSTEMS: At the time of my exam: CONSTITUTIONAL: Denies fever or chills. HEENT: Denies blurred vision, vision changes, or eye pain. Denies hemoptysis CARDIOVASCULAR: Denies chest pain. Denies orthopnea. Denies PND. Denies palpitations RESPIRATORY: Denies shortness of breath. GASTROINTESTINAL: Denies abdominal pain. Denies nausea or vomiting. HEMATOLOGIC: Denies bleeding disorders. GENITOURINARY: Denies any blood in urine. SKIN: Denies pruitis. Denies rash. PHYSICAL EXAM: VITAL SIGNS: Reviewed. GENERAL: Well-developed in no acute distress. HEENT: Mild expressive aphasia. Head is normocephalic. Pupils are equal, round. Sclerae anicteric. Mucous membranes of the mouth are moist. Neck supple. No JVD or thyromegaly LUNGS: Respirations even and unlabored. Lungs diminished bilaterally. HEART: Regular rate and rhythm. S1 and S2 heard. Systolic murmur noted. ABDOMEN: Soft. Nondistended. Nontender. EXTREMITIES: Normal range of motion. No clubbing or cyanosis. Peripheral pulses intact. Trace bilateral lower extremity edema NEUROLOGIC: Awake and alert. Oriented x 3. ASSESSMENT: Acute ischemic CVA Hypertension Hyperlipidemia Breast cancer, currently undergoing chemotherapy Clostridium difficile Moderate to severe aortic stenosis Diabetes mellitus GERD Former nicotine dependence PLAN: Patient is being followed by neurology and has been started on aspirin, brilinta, and lipitor Continue additional home medications Increase hydralazine to 75mg TID for optimal blood pressure control Patient currently has no symptoms related to her aortic stenosis. In addition, she currently is undergoing chemotherapy for her breast cancer and also has C. diff. Patient is not a candidate for any surgical intervention at this time. Recommend outpatient follow up with Dr. Gallardo Event monitor ordered at the time of discharge Continue telemetry monitoring for any arrhythmias Further recommendations pending patient course Nurse practitioner note has been reviewed by physician. Signing provider agrees with the documented findings, assessment, and plan of care. Past Medical History Past Medical History: Cancer, Diabetes Mellitus, GERD/Reflux, Hyperlipidemia, Hypertension Additional Past Medical History / Comment(s): Bilateral breast cancer/has received 2 chemo sessions, NIDDM type II, neuropathy bilateral feet History of Any Multi-Drug Resistant Organisms: None Reported Past Surgical History: Breast Surgery Additional Past Surgical History / Comment(s): L breast benign biopsy, 11/2020 breast bx + cancer, 01/16/21 port placed, D&C hysteroscopy, oral surgery. Past Anesthesia/Blood Transfusion Reactions: No Reported Reaction Additional Past Anesthesia/Blood Transfusion Reaction / Comment(s): no previous blood transfusion Smoking Status: Former smoker - Past Family History Mother Family Medical History: Cancer Father Family Medical History: No Reported History Additional Family Medical History / Comment(s): Heaalthy Medications and Allergies Home Medications Medication Instructions Recorded Confirmed Type Glimepiride [Amaryl] 1 mg PO DAILY 08/01/16 03/09/21 History LORazepam [Ativan] 1 mg PO TID PRN 08/01/16 03/09/21 History atenoloL [Tenormin] 50 mg PO DAILY 08/01/16 03/09/21 History cloNIDine HCL [Catapres] 0.1 mg PO BID 08/01/16 03/09/21 History Venlafaxine HCl 75 mg PO HS 07/31/17 03/09/21 History Famotidine [Pepcid] 20 mg PO DAILY 12/09/20 03/09/21 History Ferrous Sulfate [Feosol] 325 mg PO BID 12/09/20 03/09/21 History Gabapentin [Neurontin] 100 mg PO TID 12/09/20 03/09/21 History Montelukast [Singulair] 10 mg PO DAILY 12/09/20 03/09/21 History Olmesartan Medoxomil [Benicar] 20 mg PO DAILY 12/09/20 03/09/21 History buPROPion [Wellbutrin] 100 mg PO BID 12/09/20 03/09/21 History Atorvastatin Calcium [Lipitor] 10 mg PO DAILY 01/18/21 03/09/21 History DULoxetine HCL [Cymbalta] 60 mg PO DAILY 01/18/21 03/09/21 History Ergocalciferol [Vitamin D2 (1250 50,000 unit PO QMONTHLY 01/18/21 03/09/21 History Mcg = 80685 Iu)] Semaglutide [Ozempic] 0.25 mg SQ WEEKLY 01/18/21 03/09/21 History minoxidiL [Minoxidil] 2.5 mg PO DAILY 01/18/21 03/09/21 History Cholestyramine (with Sugar) 4 gm PO QID 03/09/21 03/09/21 History [Questran] Clotrimazole Jam [Mycelex 10 mg MUCOUS MEM 5XD 03/09/21 03/09/21 History Jam] Diphenox-Atrop 2.5-0.025 mg 2 tab PO Q6H PRN 03/09/21 03/09/21 History [Lomotil] Lidocaine-Prilocaine Cream [Emla 1 applic TOPICAL DIRECTED PRN 03/09/21 03/09/21 History Cream 2.5%/2.5%] Magnesium Oxide 400 mg PO TID 03/09/21 03/09/21 History OLANZapine [ZyPREXA] 5 mg PO DIRECTED 03/09/21 03/09/21 History Venlafaxine HCl [Effexor XR] 150 mg PO DAILY 03/09/21 03/09/21 History hydrALAZINE HCL [Apresoline] 50 mg PO TID 03/09/21 03/09/21 History Allergies Allergy/AdvReac Type Severity Reaction Status Date / Time Sulfa (Sulfonamide Allergy Rash/Hives Verified 03/09/21 13:44 Antibiotics) Physical Exam Vitals: Vital Signs Temp Pulse Pulse Resp BP Pulse Ox 03/13/21 11:24 91 18 136/62 98 03/13/21 08:00 96.5 F L 89 94 18 165/75 96 03/13/21 04:00 97.8 F 95 18 165/75 96 03/13/21 00:00 97.9 F 94 18 154/72 97 03/12/21 20:00 97.8 F 90 18 144/75 98 03/12/21 17:18 97.7 F 92 18 144/75 98 03/12/21 12:00 98.1 F 89 89 18 140/93 97 Intake and Output 03/12/21 03/13/21 03/13/21 22:59 06:59 14:59 Intake Total 240 Output Total 3 525 600 Balance 237 -525 -600 Intake: Oral 240 Output: Stool 600 Urine/Stool Mix 3 525 Other: Voiding Method Bedside Commode Bedside Commode # Voids 1 # Bowel Movements 1 Weight 89.7 kg Results 03/11/21 07:45 03/12/21 07:16 Current Medications Generic Name Dose Route Start Last Admin Trade Name Walterq PRN Reason Stop Dose Admin Acetaminophen 650 mg 03/09/21 12:49 Acetaminophen Tab 325 Mg Tab PO Q6HR PRN Mild Pain or Fever > 100.5 Aspirin 81 mg 03/10/21 09:00 03/13/21 09:10 Aspirin 81 Mg PO 81 mg DAILY ROBB Administration Atenolol 50 mg 03/11/21 13:15 03/13/21 09:07 Atenolol 50 Mg Tab PO 50 mg DAILY ROBB Administration Atorvastatin Calcium 10 mg 03/12/21 09:00 03/13/21 09:10 Atorvastatin 10 Mg Tab PO 10 mg DAILY ROBB Administration Cholestyramine Resin 4 gm 03/10/21 21:00 03/13/21 09:13 Cholestyramine (With Sugar) 4 Gm Packet PO Not Given BID@1000,2100 ROBB Clonidine 0.1 mg 03/11/21 21:00 03/13/21 09:07 Clonidine Hcl 0.1 Mg Tab PO 0.1 mg BID ROBB Administration Duloxetine HCl 60 mg 03/12/21 09:00 03/13/21 09:07 Duloxetine Hcl 60 Mg Capsule.Dr PO 60 mg DAILY ROBB Administration Famotidine 20 mg 03/13/21 09:00 03/13/21 09:07 Famotidine 20 Mg Tab PO 20 mg DAILY ROBB Administration Gabapentin 100 mg 03/11/21 16:00 03/13/21 09:07 Gabapentin 100 Mg Cap PO 100 mg TID ROBB Administration Hydralazine HCl 75 mg 03/13/21 16:00 Hydralazine Hcl 25 Mg Tab PO TID ROBB Sodium Chloride 1,000 mls @ 150 mls/hr 03/09/21 13:00 03/13/21 00:23 Saline 0.9% IV 150 mls/hr .Q6H40M ROBB Administration Losartan Potassium 100 mg 03/12/21 09:00 03/13/21 09:06 Losartan 50 Mg Tab PO 100 mg DAILY ROBB Administration Magnesium Oxide 400 mg 03/11/21 16:00 03/13/21 09:07 Magnesium Oxide 400 Mg Tab PO 400 mg TID ROBB Administration Minoxidil 2.5 mg 03/12/21 09:00 03/13/21 09:12 Minoxidil 2.5 Mg Tab PO 2.5 mg DAILY ROBB Administration Miscellaneous Information 1 each 03/10/21 09:00 Potassium Replacement Protocol 1 Each Misc MISCELLANE DAILY PRN Per Protocol Protocol Miscellaneous Information 1 each 03/11/21 09:31 Potassium Replacement Protocol 1 Each Misc MISCELLANE DAILY PRN Per Protocol Protocol Miscellaneous Information 1 each 03/11/21 14:45 Potassium Replacement Protocol 1 Each Misc MISCELLANE DAILY PRN Per Protocol Protocol Montelukast Sodium 10 mg 03/12/21 09:00 03/13/21 09:07 Montelukast 10 Mg Tab PO 10 mg DAILY ROBB Administration Naloxone HCl 0.2 mg 03/09/21 12:49 Naloxone 0.4 Mg/Ml 1 Ml Vial IV Q2M PRN Opioid Reversal Non-Formulary Medication 0.25 mg 03/18/21 09:00 Semaglutide [Ozempic] SQ WEEKLY [facility] Ticagrelor 90 mg 03/10/21 06:00 03/13/21 09:07 Ticagrelor 90 Mg Tab PO 90 mg BID ROBB Administration Vancomycin HCl 250 mg 03/11/21 22:00 03/13/21 09:11 Vancomycin 125 Mg Capsule PO 250 mg QID ROBB Administration Venlafaxine HCl 150 mg 03/12/21 09:00 03/13/21 09:12 Venlafaxine Hcl Er 150 Mg Cap PO 150 mg DAILY ROBB Administration Venlafaxine HCl 75 mg 03/11/21 21:00 03/12/21 22:32 Venlafaxine Hcl 75 Mg Tab PO 75 mg HS ROBB Administration Intake and Output 03/12/21 03/13/21 03/13/21 22:59 06:59 14:59 Intake Total 240 Output Total 3 525 600 Balance 492 -033 -600 Intake: Oral 240 Output: Stool 600 Urine/Stool Mix 3 525 Other: Voiding Method Bedside Commode Bedside Commode # Voids 1 # Bowel Movements 1 Weight 89.7 kg 03/11/21 07:45 03/12/21 07:16
[2021-03-13 11:52] LABS: Glucose,Whole Blood 133 mg/dL (75-99)
--- NOTE | 2021-03-13 13:33 | P.PN ---
Subjective Progress Note Date: 03/13/21 Principal diagnosis: Acute CVA She is working with therapy and getting stronger, memory and words are improving. Still with diarrhea on medication for c-diff. She did recently rec eive covid vaccine prior to CVA, I will call location she received to find out more information Objective - Vital Signs Vital signs: Vital Signs Temp 96.5 F L 03/13/21 08:00 Pulse 91 03/13/21 11:24 Resp 18 03/13/21 11:24 BP 136/62 03/13/21 11:24 Pulse Ox 98 03/13/21 11:24 Intake & Output 03/12/21 03/13/21 03/13/21 18:59 06:59 18:59 Intake Total 480 540 Output Total 5 525 1203 Balance 475 -525 -663 Weight 89.7 kg Intake: Oral 480 540 Output: Urine 600 Stool 603 Urine/Stool Mix 5 525 Other: Voiding Method Bedside Commode Bedside Commode # Voids 1 # Bowel Movements 1 - Exam Constitutional General appearance: cooperative - EENT Eyes: EOMI ENT: hard of hearing, NA/AT - Respiratory Respiratory: bilateral: CTA - Cardiovascular Rhythm: irregularly irregular - Gastrointestinal General gastrointestinal: soft - Integumentary Integumentary: pale - Neurologic Not following commands well, word searching, Aphasia - Musculoskeletal Musculoskeletal: generalized weakness - Psychiatric Awake - Labs CBC & Chem 7: 03/11/21 07:45 03/12/21 07:16 Labs: Abnormal Lab Results - Last 24 Hours (Table) 03/12/21 03/13/21 03/13/21 Range/Units 20:32 06:25 11:49 POC Glucose (mg/dL) 138 H 118 H 133 H (75-99) mg/dL Microbiology - Last 24 Hours (Table) 03/09/21 23:45 Stool Culture - Final Stool 03/09/21 13:45 Blood Culture - Preliminary Blood No Growth after 72 hours 03/09/21 13:30 Blood Culture - Preliminary Blood No Growth after 72 hours Assessment and Plan (1) CVA (cerebral vascular accident) Current Visit: Yes Status: Acute Code(s): I63.9 - CEREBRAL INFARCTION, UNSPECIFIED SNOMED Code(s): 968588553 (2) Bilateral breast cancer Current Visit: No Status: Acute Code(s): C50.911 - MALIGNANT NEOPLASM OF UNSP SITE OF RIGHT FEMALE BREAST; C50.912 - MALIGNANT NEOPLASM OF UNSPECIFIED SITE OF LEFT FEMALE BREAST SNOMED Code(s): 161689625 (3) C. difficile colitis Current Visit: Yes Status: Acute Code(s): A04.72 - ENTEROCOLITIS D/T CLOSTRIDIUM DIFFICILE, NOT SPCF RECUR SNOMED Code(s): 232643347 Plan: Acute onset mental status changes: Awaiting for MRI CVA versus metastatic disease Discussed with ID, Treatment for C-diff is ordered Neurology is following, MRI confirmed Acute CVA She is due for cycle three navarro-adjuvant Chemotherapy with herceptin and perjeta, however this will be delayed until resolution of infectious process and further evaluation and intervention for acute mental status and neurological changes. I will further review when her covid vaccine was (last 2-4 weeks from health department per patient) and report. Continue to work with therapy and once c-diff is resolved and she has improved can restart navarro-adjuvant treatment of her breast cancer. Daughter at bedside during conversation.
--- NOTE | 2021-03-13 13:45 | PN ---
PROGRESS NOTE DATE OF SERVICE: 03/12/2021 CHIEF COMPLAINT: CVA. HISTORY OF PRESENT ILLNESS: This lady is doing fairly well, but she is still having a lot trouble with diarrhea. She is on vancomycin orally. Speech is still hesitant, but seems to be slowly improving. REVIEW OF SYSTEMS: She denies headaches, chest pain, shortness of breath, abdominal pain, fever, chills, etc. PHYSICAL EXAMINATION: Head, ears, eyes, nose and mouth are unchanged. Chest is clear. Cardiac exam is unremarkable except for her murmur. Abdomen is soft and nontender. Extremities are normal. Speech seems to slowly be improving and she still has slight right-sided upper extremity weakness. IMPRESSION: 1. Left-sided cerebrovascular accident. 2. History of hypertension. 3. Carcinoma of the breast. PLAN: Continue with and physical therapy as well as anticoagulation and consider working on discharge planning. MMODL / IJN: [id number] /
--- NOTE | 2021-03-13 14:21 | PN ---
PROGRESS NOTE DATE OF SERVICE: 03/13/2021 CHIEF COMPLAINT: Left-sided CVA with aphasia. HISTORY OF PRESENT ILLNESS: This lady is doing fairly well. She does not have any complaints. She has gradually been getting ability to speak which she is improved a little bit each day. She was not confused. PHYSICAL EXAMINATION: Chest is clear. Cardiac exam is normal. Abdomen is soft and protuberant. Extremities are normal. IMPRESSION: 1. Left-sided cerebrovascular accident with aphasia. 2. Carcinoma of the breast. PLAN: Continue with physical therapy, work on a discharge plan and she could go soon. MMODL / IJN: [id number] /
--- NOTE | 2021-03-13 14:59 | P.CONS ---
History of Present Illness - Chief Complaint Gait disturbance due to stroke - History of Present Illness I had the opportunity to see patient for inpatient rehab consultation with regard to gait disturbance due to stroke. Patient admitted to [facility] March 09 with acute onset right-sided weakness rashes seen by neurology, Dr. Potts. Patient has problems with diarrhea and seen for this by Dr. Duenas and Dr. lenz for C. difficile colitis. Seen by cardiology as well. Seen by Dr. Kelly and oncology for known breast cancer. Diagnostic studies head CT with age- related change. Angiogram CTA negative. Chest x-ray negative. Brain MRI with left acute or subacute hemisphere infarcts. Patient is started therapy. PT reports supervision for bed mobility but minimal assistance for transfers and gait for feet with large-based quad cane. OT reports minimal assistance for upper dressing and functional mobility/transfers and moderate assistance for lower dressing and bathing and two-person moderate assistance for toileting. Previous functional history as elicited from patient and daughter: 70-year-old left-handed white female who is lives in one floor home with . Both retired. More recently been doing cooking, laundry, driving. Patient otherwise independent with sitdown shower and gait with large base quad cane. PCP Dr. High. Denies tobacco or alcohol. family history both parents with cancer. Review of Systems Review of systems: ENT: Denies sneezes or discharge. Eyes: Denies discharge or photophobia. Cardiac: Denies chest pain or palpitation. Pulmonary: Denies cough or shortness of breath. Breast: Denies discharge or lumps. Gastrointestinal: Diarrhea which is distressing to patient. Genitourinary: Denies discharge or frequency. Musculoskeletal: Denies muscle or bone aches. Neurologic: Mild right-sided changes. Endocrine: Denies shakes or sweats. Oncology: Denies cancers. Dermatologic: Denies rash, itching, pruritus. ALLERGY/immunology: Denies sneezes, rashes. Past Medical History Past Medical History: Cancer, Diabetes Mellitus, GERD/Reflux, Hyperlipidemia, Hypertension Additional Past Medical History / Comment(s): Bilateral breast cancer/has received 2 chemo sessions, NIDDM type II, neuropathy bilateral feet History of Any Multi-Drug Resistant Organisms: None Reported Past Surgical History: Breast Surgery Additional Past Surgical History / Comment(s): L breast benign biopsy, 11/2020 breast bx + cancer, 01/16/21 port placed, D&C hysteroscopy, oral surgery. Past Anesthesia/Blood Transfusion Reactions: No Reported Reaction Additional Past Anesthesia/Blood Transfusion Reaction / Comm: no previous blood transfusion Smoking Status: Former smoker - Past Family History Mother Family Medical History: Cancer Father Family Medical History: No Reported History Additional Family Medical History / Comment(s): Heaalthy Medications and Allergies Home Medications Medication Instructions Recorded Confirmed Type Glimepiride [Amaryl] 1 mg PO DAILY 08/01/16 03/09/21 History LORazepam [Ativan] 1 mg PO TID PRN 08/01/16 03/09/21 History atenoloL [Tenormin] 50 mg PO DAILY 08/01/16 03/09/21 History cloNIDine HCL [Catapres] 0.1 mg PO BID 08/01/16 03/09/21 History Venlafaxine HCl 75 mg PO HS 07/31/17 03/09/21 History Famotidine [Pepcid] 20 mg PO DAILY 12/09/20 03/09/21 History Ferrous Sulfate [Feosol] 325 mg PO BID 12/09/20 03/09/21 History Gabapentin [Neurontin] 100 mg PO TID 12/09/20 03/09/21 History Montelukast [Singulair] 10 mg PO DAILY 12/09/20 03/09/21 History Olmesartan Medoxomil [Benicar] 20 mg PO DAILY 12/09/20 03/09/21 History buPROPion [Wellbutrin] 100 mg PO BID 12/09/20 03/09/21 History Atorvastatin Calcium [Lipitor] 10 mg PO DAILY 01/18/21 03/09/21 History DULoxetine HCL [Cymbalta] 60 mg PO DAILY 01/18/21 03/09/21 History Ergocalciferol [Vitamin D2 (1250 50,000 unit PO QMONTHLY 01/18/21 03/09/21 History Mcg = 82397 Iu)] Semaglutide [Ozempic] 0.25 mg SQ WEEKLY 01/18/21 03/09/21 History minoxidiL [Minoxidil] 2.5 mg PO DAILY 01/18/21 03/09/21 History Cholestyramine (with Sugar) 4 gm PO QID 03/09/21 03/09/21 History [Questran] Clotrimazole Jam [Mycelex 10 mg MUCOUS MEM 5XD 03/09/21 03/09/21 History Jam] Diphenox-Atrop 2.5-0.025 mg 2 tab PO Q6H PRN 03/09/21 03/09/21 History [Lomotil] Lidocaine-Prilocaine Cream [Emla 1 applic TOPICAL DIRECTED PRN 03/09/21 03/09/21 History Cream 2.5%/2.5%] Magnesium Oxide 400 mg PO TID 03/09/21 03/09/21 History OLANZapine [ZyPREXA] 5 mg PO DIRECTED 03/09/21 03/09/21 History Venlafaxine HCl [Effexor XR] 150 mg PO DAILY 03/09/21 03/09/21 History hydrALAZINE HCL [Apresoline] 50 mg PO TID 03/09/21 03/09/21 History Allergies Allergy/AdvReac Type Severity Reaction Status Date / Time Sulfa (Sulfonamide Allergy Rash/Hives Verified 03/09/21 13:44 Antibiotics) Physical Exam Vitals: Vital Signs Temp Pulse Pulse Resp BP Pulse Ox 03/13/21 11:24 91 18 136/62 98 03/13/21 08:00 96.5 F L 89 94 18 165/75 96 03/13/21 04:00 97.8 F 95 18 165/75 96 03/13/21 00:00 97.9 F 94 18 154/72 97 03/12/21 20:00 97.8 F 90 18 144/75 98 03/12/21 17:18 97.7 F 92 18 144/75 98 Intake and Output 03/12/21 03/13/21 03/13/21 22:59 06:59 14:59 Intake Total 240 780 Output Total 3 525 1203 Balance 540 -939 -231 Intake: Oral 240 780 Output: Urine 600 Stool 603 Urine/Stool Mix 3 525 Other: Voiding Method Bedside Commode Bedside Commode # Voids 1 # Bowel Movements 1 Weight 89.7 kg Skin: Atrophic, intact. General: Overweight build and comfortable appearance. Head: Normocephalic, atraumatic. Eyes: Symmetric. Pupils equal round. Ears: Symmetric. Hearing within normal limits. Mouth: Clear. Neck: Supple. Carotid without bruit. Cardiac: Regular rate and rhythm. Lungs: Clear anteriorly and posteriorly. Abdomen: Soft active nontender. Extremities: Normal tone. Neurological: Mental status: Alert, cooperative, pleasant. Cranial nerves: Symmetric facial tone and trapezius. Motor: Active movement all 4 limbs. Sensation: Intact throughout. DTRs: Symmetric and equal throughout. Mobility: Patient had commode chair and currently being addressed by nursing. Results CBC & Chem 7: 03/11/21 07:45 03/12/21 07:16 Labs: Abnormal Lab Results - Last 24 Hours (Table) 03/12/21 03/13/21 03/13/21 Range/Units 20:32 06:25 11:49 POC Glucose (mg/dL) 138 H 118 H 133 H (75-99) mg/dL Microbiology - Last 24 Hours (Table) 03/09/21 23:45 Stool Culture - Final Stool 03/09/21 13:45 Blood Culture - Preliminary Blood No Growth after 72 hours 03/09/21 13:30 Blood Culture - Preliminary Blood No Growth after 72 hours Assessment and Plan (1) C. difficile colitis Current Visit: Yes Status: Acute Code(s): A04.72 - ENTEROCOLITIS D/T CLOSTRIDIUM DIFFICILE, NOT SPCF RECUR SNOMED Code(s): 735739896 (2) CVA (cerebral vascular accident) Current Visit: Yes Status: Acute Code(s): I63.9 - CEREBRAL INFARCTION, UNSPECIFIED SNOMED Code(s): 577990142 (3) Bilateral breast cancer Current Visit: No Status: Acute Code(s): C50.911 - MALIGNANT NEOPLASM OF UNSP SITE OF RIGHT FEMALE BREAST; C50.912 - MALIGNANT NEOPLASM OF UNSPECIFIED SITE OF LEFT FEMALE BREAST SNOMED Code(s): 053888890 Plan: Impression: 1. Gait disturbance of a stroke with a right hemiparesthesias 2. C. difficile colitis. 3. Bilateral breast cancer. 4. Diabetes. 5. Hypertension. 6. Dyslipidemia. 7. Reflux. Comments and plan: Patient has had PT and OT notes are reviewed or from Saturday. We'll recur updated notes. Have discussed possible inpatient rehab with patient and daughter and both seem agreeable. Will however require updated therapy notes.
[2021-03-13] MEDS ORDERED: hydrALAZINE HCL 25 MG TAB PO SCH (16:00)
[2021-03-13 16:50] LABS: Glucose,Whole Blood 138 mg/dL (75-99)
[2021-03-13 19:44] LABS: Glucose,Whole Blood 192 mg/dL (75-99)
[2021-03-13] MEDS: VENLAFAXINE HCL 75 MG TAB PO SCH (21:54)
[2021-03-14] MEDS: SODIUM CHLORIDE 0.9% 1,000 ML IV SCH ×3 (00:42→21:59)
--- NOTE | 2021-03-14 04:00 | PN ---
PROGRESS NOTE DATE OF SERVICE: 03/13/2021. REASON FOR FOLLOWUP: C difficile colitis. INTERVAL HISTORY: Patient is currently afebrile. Patient is breathing comfortably. Patient denies having any chest pain. No shortness of breath or cough. No nausea, no vomiting. Denies abdominal pain. Diarrhea has decreased in frequency. PHYSICAL EXAMINATION: Blood pressure 115/57 with a pulse of 90, temperature 98. She is 98% on room air. General description: The patient is an elderly female lying in bed in no distress. Respiratory system: Unlabored breathing, clear to auscultation anteriorly. Heart S1, S2. Regular rate and rhythm. ABDOMEN: Soft, no tenderness. EXTREMITIES: No edema of the feet. LABS: No new labs have been obtained today. DIAGNOSTIC IMPRESSION AND PLAN: Patient with significant C difficile colitis. Patient seem to be clinically responding to oral vancomycin and Questran to continue. Encouraged to increase the probiotic and yogurt intake. Repeat blood work tomorrow. Continue supportive care. MMODL / IJN: [id number] /
[2021-03-14 06:13] LABS: Glucose,Whole Blood 128 mg/dL (75-99)
[2021-03-14 07:56] LABS: Basophils % (A) 0 %; Eosinophils # (A) 0.2 k/uL (0-0.7); Eosinophils % (A) 2 %; HCT 28.8 % (34.0-46.0); HGB 9.7 gm/dL (11.4-16.0); Lymphocytes # (A) 0.9 k/uL (1.0-4.8); Lymphocytes % (A) 9 %; MCH 30.4 pg (25.0-35.0); MCHC 33.7 g/dL (31.0-37.0); MCV 90.3 fL (80.0-100.0); Mean Platelet Volume 6.8; Monocytes # (A) 0.4 k/uL (0-1.0); Monocytes % (A) 4 %; Neutrophils % (A) 83 %; Platelet Count 377 k/uL (150-450); Poikilocytosis Slight; RBC 3.18 m/uL (3.80-5.40); RDW 15.9 % (11.5-15.5); WBC 9.7 k/uL (3.8-10.6)
[2021-03-14 08:15] LABS: Calcium 8.3 mg/dL (8.4-10.2); Potassium 3.5 mmol/L (3.5-5.1)
[2021-03-14] MEDS: ASPIRIN 81 MG PO SCH (08:44)
[2021-03-14] MEDS: cloNIDine HCL 0.1 MG TAB PO SCH ×2 (08:44→19:56)
[2021-03-14] MEDS: LOSARTAN 50 MG TAB PO SCH (08:44)
[2021-03-14] MEDS: hydrALAZINE HCL 50 MG TAB PO SCH ×3 (08:44→22:56)
[2021-03-14] MEDS: CHOLESTYRAMINE (WITH SUGAR) 4 GM PACKET PO SCH ×2 (08:45→21:59)
[2021-03-14] MEDS: DULoxetine HCL 60 MG CAPSULE.DR PO SCH (08:45)
[2021-03-14] MEDS: MAGNESIUM OXIDE 400 MG TAB PO SCH ×3 (08:45→22:56)
[2021-03-14] MEDS: MONTELUKAST 10 MG TAB PO SCH (08:45)
[2021-03-14] MEDS: GABAPENTIN 100 MG CAP PO SCH ×3 (08:45→22:57)
[2021-03-14] MEDS: FAMOTIDINE 20 MG TAB PO SCH (08:45)
[2021-03-14] MEDS: TICAGRELOR 90 MG TAB PO SCH ×2 (08:45→19:56)
[2021-03-14] MEDS: atenoloL 50 MG TAB PO SCH (08:45)
[2021-03-14] MEDS: VENLAFAXINE HCL ER 150 MG CAP PO SCH (08:45)
[2021-03-14] MEDS: ATORVASTATIN 10 MG TAB PO SCH (08:45)
[2021-03-14] MEDS: VANCOMYCIN 125 MG CAPSULE PO SCH (08:46)
[2021-03-14] MEDS: minoxidiL 2.5 MG TAB PO SCH (08:46)
--- NOTE | 2021-03-14 11:09 | P.PN ---
Subjective This is a pleasant 70-year-old female past medical history significant for breast cancer currently undergoing chemotherapy, hypertension, dyslipidemia, diabetes mellitus and recent CVA. 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 She is seen and examined sitting up in no acute distress. She continues to have expressive aphasia. She denies chest pain, shortness of breath, dizziness or palpitations. Telemetry tracings revealed persistent sinus mechanism. Blood pressure 133/60 heart rate 95 afebrile maintaining oxygen satu ration on room air. Laboratory data reviewed, WBC 9.7, hemoglobin 9.7, platelets 377, sodium 139, potassium 3.5 and creatinine 0.98. GENERAL: Well-appearing, well-nourished and in no acute distress. NECK: Supple without JVD or thyromegaly. LUNGS: Breath sounds clear to auscultation bilaterally. Respiration equal and unlabored. No wheezes, rales or rhonchi. HEART: Regular rate and rhythm without murmurs, rubs or gallops. S1 and S2 heard. EXTREMITIES: Normal range of motion, no edema. No clubbing or cyanosis. Peripheral pulses intact. ASSESSMENT Acute ischemic stroke Aortic stenosis, moderate to severe C. diff Breast cancer undergoing chemotherapy Hypertension Dyslipidemia Diabetes mellitus Former nicotine dependence PLAN Patient continues to maintain sinus mechanism. Event monitor has been placed. Stable for discharge from a cardiac perspective, follow-up in the office with Dr. Gallardo upon discharge. Nurse Practitioner note has been reviewed, I agree with a documented findings and plan of care. Patient was seen and examined. Objective - Vital Signs Vital signs: Vital Signs Temp 98.0 F 03/14/21 08:00 Pulse 96 03/14/21 08:00 Resp 18 03/14/21 08:00 BP 133/60 03/14/21 08:00 Pulse Ox 97 03/14/21 08:00 Intake & Output 03/13/21 03/14/21 03/14/21 18:59 06:59 18:59 Intake Total 1020 240 Output Total 1506 3 Balance -486 237 Weight 101.605 kg Intake: Oral 1020 240 Output: Urine 900 Stool 606 3 Other: Voiding Method Bedside Commode # Voids 3 # Bowel Movements 1 2 - Labs CBC & Chem 7: 03/14/21 06:57 03/14/21 06:57 Labs: Abnormal Lab Results - Last 24 Hours (Table) 03/13/21 03/13/21 03/13/21 Range/Units 11:49 16:49 19:43 RBC (3.80-5.40) m/uL Hgb (11.4-16.0) gm/dL Hct (34.0-46.0) % RDW (11.5-15.5) % Neutrophils # (1.3-7.7) k/uL Lymphocytes # (1.0-4.8) k/uL Chloride (98-107) mmol/L Carbon Dioxide (22-30) mmol/L Glucose (74-99) mg/dL POC Glucose (mg/dL) 133 H 138 H 192 H (75-99) mg/dL Calcium (8.4-10.2) mg/dL 03/14/21 03/14/21 03/14/21 Range/Units 06:11 06:57 06:57 RBC 3.18 L (3.80-5.40) m/uL Hgb 9.7 L (11.4-16.0) gm/dL Hct 28.8 L (34.0-46.0) % RDW 15.9 H (11.5-15.5) % Neutrophils # 8.0 H (1.3-7.7) k/uL Lymphocytes # 0.9 L (1.0-4.8) k/uL Chloride 111 H (98-107) mmol/L Carbon Dioxide 21 L (22-30) mmol/L Glucose 124 H (74-99) mg/dL POC Glucose (mg/dL) 128 H (75-99) mg/dL Calcium 8.3 L (8.4-10.2) mg/dL Microbiology - Last 24 Hours (Table) 03/09/21 23:45 Stool Culture - Final Stool 03/09/21 13:30 Blood Culture - Preliminary Blood No Growth after 96 hours 03/09/21 13:45 Blood Culture - Preliminary Blood No Growth after 96 hours
[2021-03-14 12:13] LABS: Glucose,Whole Blood 134 mg/dL (75-99)
--- NOTE | 2021-03-14 12:29 | PN ---
PROGRESS NOTE DATE OF SERVICE: 03/14/2021 REASON FOR FOLLOWUP: Clostridium difficile colitis. INTERVAL HISTORY: The patient is currently afebrile. The patient is breathing comfortably. Patient denies any abdominal pain. However, she is still complaining of diarrhea every hour on the hour. The patient denies having any chest pain or shortness of breath or cough. PHYSICAL EXAMINATION: Her blood pressure is 133/60 with a pulse of 95, temperature 98. She is 97% on room air. General description is an elderly female lying in bed in no distress. RESPIRATORY SYSTEM: Unlabored breathing, clear to auscultation anteriorly. HEART: S1, S2. Regular rate and rhythm. ABDOMEN: Soft, mildly distended. No guarding or rigidity. No organomegaly. EXTREMITIES: No edema of feet. LABS: Hemoglobin 9.7. White count 9.7. BUN of 12, creatinine 0.98. DIAGNOSTIC IMPRESSION AND PLAN: Patient with severe Clostridium difficile colitis. This patient white count has normalized. She was started with a 41 and now down to 9.7, however, the patient still complaining of diarrhea and did have loose stools, concern for possible Vanco failure. We will switch her over to Dificid to see if that will make a difference. Also discussed with the behavioral health case manager to make sure patient did have outpatient coverage for oral Dificid. Family at the bedside. Questions were answered. MMDEBORAHL / TACON: [id number] /
[2021-03-14] MEDS: FIDAXOMICIN 200 MG TABLET PO SCH ×2 (13:31→19:56)
--- NOTE | 2021-03-14 14:27 | P.PN ---
Subjective Progress Note Date: 03/14/21 I am seeing the patient for the first time. Please refer to Dr. Potts's note for further detailed neurological history and assessment and plan. Upon seeing the patient she was accompanied by her daughter and her and they stated that she is stable. They did stated she was on on any antiplaletelets prior to her current stroke. Objective - Vital Signs Vital signs: Vital Signs Temp 98.0 F 03/14/21 08:00 Pulse 96 03/14/21 08:00 Resp 18 03/14/21 08:00 BP 133/60 03/14/21 08:00 Pulse Ox 97 03/14/21 08:00 Intake & Output 03/13/21 03/14/21 03/14/21 18:59 06:59 18:59 Intake Total 1020 240 Output Total 1506 3 Balance -486 237 Weight 101.605 kg Intake: Oral 1020 240 Output: Urine 900 Stool 606 3 Other: Voiding Method Bedside Commode # Voids 3 # Bowel Movements 1 2 - Exam GENERAL: The patient is sitting on the side chair and is not in acute distress. NEUROLOGICAL: Higher mental function: The patient is awake, alert, oriented to self, place and time. Patient is following commands. Has paraphrasic error and difficulty repeating. No neglect. Cranial nerves: The pupils are round, equal and reactive to light and accommodation. Visual limon are full to confrontation throughout. Extraoc ular movement is normal throughout. The facial sensation is normal to touch throught. The facial strength is normal. Tongue is midline and moved [id number] without any difficulty. No dysarthria is noted. Motor: Gait is deferred. The strength is right pronation without drift. Otherwise 5/5 throughout. Sensation: Sensation is normal throughout. - Labs CBC & Chem 7: 03/14/21 06:57 03/14/21 06:57 Labs: Abnormal Lab Results - Last 24 Hours (Table) 03/13/21 03/13/21 03/14/21 Range/Units 16:49 19:43 06:11 RBC (3.80-5.40) m/uL Hgb (11.4-16.0) gm/dL Hct (34.0-46.0) % RDW (11.5-15.5) % Neutrophils # (1.3-7.7) k/uL Lymphocytes # (1.0-4.8) k/uL Chloride (98-107) mmol/L Carbon Dioxide (22-30) mmol/L Glucose (74-99) mg/dL POC Glucose (mg/dL) 138 H 192 H 128 H (75-99) mg/dL Calcium (8.4-10.2) mg/dL 03/14/21 03/14/21 03/14/21 Range/Units 06:57 06:57 12:09 RBC 3.18 L (3.80-5.40) m/uL Hgb 9.7 L (11.4-16.0) gm/dL Hct 28.8 L (34.0-46.0) % RDW 15.9 H (11.5-15.5) % Neutrophils # 8.0 H (1.3-7.7) k/uL Lymphocytes # 0.9 L (1.0-4.8) k/uL Chloride 111 H (98-107) mmol/L Carbon Dioxide 21 L (22-30) mmol/L Glucose 124 H (74-99) mg/dL POC Glucose (mg/dL) 134 H (75-99) mg/dL Calcium 8.3 L (8.4-10.2) mg/dL Microbiology - Last 24 Hours (Table) 03/09/21 23:45 Stool Culture - Final Stool 03/09/21 13:30 Blood Culture - Preliminary Blood No Growth after 96 hours 03/09/21 13:45 Blood Culture - Preliminary Blood No Growth after 96 hours Assessment and Plan Assessment: * Acute ischemic stroke, manifesting with expressive aphasia, and right arm weakness. Current NIH stroke scale has improved to 2. Mainly related to right pronator drift (1), mild aphasia (1). * Bilateral breast cancer, undergoing chemotherapy. Has received 2/4 sessions of chemotherapy. * Hypertension * Hyperlipidemia * Diabetes * Moderate to severe aortic stenosis per recent echo. Plan: * MRI of the brain was performed, which revealed acute/subacute stroke involving left hemispheric embolic infarcts. * Cardiology consulted by Dr. Potts for aortic stenosis and PADMINI and they stated no symptoms from aortic stenosis. Also they stated he not a candidate for any surgical intervention at this time. * Continue Celtmbmu90 mg twice a day. We will continue aspirin 81 mg daily. Recommend the patient to be on dual antiplateletes for 21 days then after that to be on Brilinta only from neurological stand point. Increased Lipitor from 10mg to 40mg daily * 2-D echo 03/09/2021, revealed normal left-ventricular size, moderate concent roxanna LVH, EF is 60-65%. Normal left atrial size. Moderate aortic valve sclerosis. Moderate to severe aortic stenosis. * CTA of head and neck showed no significant stenosis, no aneurysms, occlusions. * Fasting a.m. lipid panel with cholesterol 111, LDL 56, HDL 22, triglycerides 161. Continue Lipitor 10 mg. * Hemoglobin A1c 5.5 * Telemetry monitoring showing sinus rhythm, with sinus tachycardia. No A. fib. * Patient has passed bedside swallow evaluation. * Pepcid 20 mg twice a day for gastric ulcer prophylaxis. * PT OT and speech therapy. * Optimize control of blood pressure. * Consider PADMINI as outpatient. Patient is to follow-up with Cardiology as outpatient. * Ordered event monitor and has been place. * Upon discharge the patient needs to follow-up with a neurologist within 1-2 weeks as outpatient. * The plan is discussed with the patient and her family members who are at bedside ( and daughter). There is no further neurological work-up Neurology will sign off. Please reconsult if needed. Kwan Lal MD Neuro-Hospitalist Time with Patient: Less than 30
[2021-03-14 16:59] LABS: Glucose,Whole Blood 177 mg/dL (75-99)
--- NOTE | 2021-03-14 17:55 | PN ---
PROGRESS NOTE DATE OF SERVICE: 03/14/2021 CHIEF COMPLAINT: CVA. HISTORY OF PRESENT ILLNESS: This lady is doing fairly well. She still has some trouble with expressive aphasia. She would like to be able to go home soon. She has been seen by Dr. Junior and she is a candidate for the program. Apparently, when he talked to the patient and her daughter, they were interested in his program. We will see now if she goes to inpatient rehab or goes home. Physical exam is unchanged. IMPRESSION: 1. Left-sided cerebrovascular accident with expressive aphasia. 2. Diabetes. 3. Hypertension. 4. Carcinoma of the breast. PLAN: Await further details regarding discharge. MMODL / IJN: [id number] /
[2021-03-14] MEDS ORDERED: NON FORMULARY DRUG (Semaglutide [Ozempic] 0.25 MG/0.2 ML Pen.Injctr) SQ SCH (19:00)
[2021-03-14 19:30] VITALS: RESP 17
[2021-03-14] MEDS: VENLAFAXINE HCL 75 MG TAB PO SCH (19:56)
[2021-03-14 20:23] LABS: Glucose,Whole Blood 153 mg/dL (75-99)
[2021-03-15 03:34] VITALS: PULSE 93
[2021-03-15] MEDS: SODIUM CHLORIDE 0.9% 1,000 ML IV SCH (03:55)
[2021-03-15 06:07] LABS: Glucose,Whole Blood 126 mg/dL (75-99)
[2021-03-15 06:57] LABS: Anisocytosis Slight; Basophils % (A) 0 %; Eosinophils # (A) 0.2 k/uL (0-0.7); Eosinophils % (A) 2 %; HCT 27.7 % (34.0-46.0); HGB 9.6 gm/dL (11.4-16.0); Lymphocytes % (A) 10 %; MCH 31.2 pg (25.0-35.0); MCHC 34.6 g/dL (31.0-37.0); MCV 90.2 fL (80.0-100.0); Mean Platelet Volume 6.8; Monocytes # (A) 0.5 k/uL (0-1.0); Monocytes % (A) 4 %; Neutrophils # (A) 8.5 k/uL (1.3-7.7); Neutrophils % (A) 82 %; Platelet Count 407 k/uL (150-450); Poikilocytosis Slight; RBC 3.07 m/uL (3.80-5.40); RDW 16.3 % (11.5-15.5); WBC 10.4 k/uL (3.8-10.6)
[2021-03-15 07:14] LABS: Calcium 8.4 mg/dL (8.4-10.2); Magnesium 1.9 mg/dL (1.6-2.3); Potassium 3.4 mmol/L (3.5-5.1)
[2021-03-15] MEDS ORDERED: ATORVASTATIN 40 MG TAB PO SCH (09:00)
[2021-03-15] MEDS: ASPIRIN 81 MG PO SCH (09:15)
[2021-03-15] MEDS: MONTELUKAST 10 MG TAB PO SCH (09:15)
[2021-03-15] MEDS: MAGNESIUM OXIDE 400 MG TAB PO SCH ×2 (09:15→18:41)
[2021-03-15] MEDS: LOSARTAN 50 MG TAB PO SCH (09:15)
[2021-03-15] MEDS: GABAPENTIN 100 MG CAP PO SCH ×2 (09:15→18:41)
[2021-03-15] MEDS: hydrALAZINE HCL 50 MG TAB PO SCH ×2 (09:15→18:41)
[2021-03-15] MEDS: DULoxetine HCL 60 MG CAPSULE.DR PO SCH (09:15)
[2021-03-15] MEDS: atenoloL 50 MG TAB PO SCH (09:16)
[2021-03-15] MEDS: cloNIDine HCL 0.1 MG TAB PO SCH (09:16)
[2021-03-15] MEDS: minoxidiL 2.5 MG TAB PO SCH (09:16)
[2021-03-15] MEDS: FAMOTIDINE 20 MG TAB PO SCH (09:16)
[2021-03-15] MEDS: TICAGRELOR 90 MG TAB PO SCH (09:16)
[2021-03-15] MEDS: FIDAXOMICIN 200 MG TABLET PO SCH (09:16)
[2021-03-15] MEDS: VENLAFAXINE HCL ER 150 MG CAP PO SCH (09:16)
--- NOTE | 2021-03-15 11:12 | DS ---
DISCHARGE SUMMARY CHIEF COMPLAINT: Mental status changes and aphasia. HISTORY OF PRESENT ILLNESS AND PHYSICAL EXAM: Details of this lady's history and physical can be found in the initial workup. LABORATORY STUDIES: While she was in the hospital she had laboratory studies, details of which can be found in the laboratory section of her chart. COURSE IN THE HOSPITAL: After admission she was placed on bedrest, started on intravenous fluids and frequent monitoring of her neurologic status and vital signs. She was found to have an embolic left-sided CVA which resulted in an expressive aphasia and right-sided weakness. She remained cognitively intact and her speech was slowly improving throughout her hospitalization. It was felt that she could benefit from further physical and occupational therapies and arrangements were made for her to go to [facility] for inpatient rehab. FINAL DIAGNOSES: 1. Left-sided embolic cerebrovascular accident. 2. Expressive aphasia. 3. Right-sided hemiparesis. 4. History of hypertension. 5. History of depression. 6. History of carcinoma of the breast. 7. Clostridium difficile colitis. OPERATIONS: None. CONSULTATIONS: Oncology, Neurology. She is improved. MMODL / IJN: [id number] /
[2021-03-15 11:40] LABS: Glucose,Whole Blood 120 mg/dL (75-99)
[2021-03-15 13:09] VITALS: BMI 38.9
[2021-03-15 14:16] VITALS: BP 140/63; TEMP 98.1
--- NOTE | 2021-03-15 16:13 | PN ---
PROGRESS NOTE DATE OF SERVICE: 03/15/2021 REASON FOR FOLLOWUP: C difficile colitis. INTERVAL HISTORY: The patient is currently afebrile. The patient is breathing comfortably. The patient did mention that her diarrhea has down, however, she is not able to tell me how many times she went to the bathroom. No abdominal pain. No vomiting. No diarrhea. PHYSICAL EXAMINATION: An elderly female up in the bed in no distress. RESPIRATORY SYSTEM: Unlabored breathing and is clear to auscultation anteriorly. HEART: S1, S2. Regular rate and rhythm. ABDOMEN: Soft. There is no tenderness. EXTREMITIES: No edema of the feet. LABS: Hemoglobin 9.6, white count of 10.4, BUN of 12, creatinine 1.05. DIAGNOSTIC IMPRESSION AND PLAN: Patient with Clostridium difficile colitis seemed to be clinically responding to the Dificid. However, castaneda remains to be an issue. onsite case manager working for arrangement of the same. Advised to keep probiotic and yogurt intake. Continue supportive care. MMODL / IJN: [id number] /
[2021-03-15 16:49] LABS: Glucose,Whole Blood 127 mg/dL (75-99)
[2021-03-15] MEDS: CHOLESTYRAMINE (WITH SUGAR) 4 GM PACKET PO SCH (18:39)
[2021-03-18] MEDS ORDERED: NON FORMULARY DRUG (Semaglutide [Ozempic] 0.25 MG/0.2 ML Pen.Injctr) SQ SCH (09:00)
== END 2021-03-15 18:45 | disposition home or self-care (01) | DRG 65 ==
LOC: EC 10:50 → 3SCARD 12:49
PROVIDERS: ADMIT Family Medicine; ATTEND Family Medicine
DX: I63.40 Cerebral infarction due to embolism of unspecified cerebral artery (principal); A04.72 Enterocolitis due to Clostridium difficile, not specified as recurrent; G81.91 Hemiplegia, unspecified affecting right dominant side; C50.911 Malignant neoplasm of unspecified site of right female breast; D05.12 Intraductal carcinoma in situ of left breast; E11.40 Type 2 diabetes mellitus with diabetic neuropathy, unspecified; Z79.84 Long term (current) use of oral hypoglycemic drugs; E78.5 Hyperlipidemia, unspecified; I10 Essential (primary) hypertension; I35.0 Nonrheumatic aortic (valve) stenosis; K21.9 Gastro-esophageal reflux disease without esophagitis; N95.1 Menopausal and female climacteric states; R29.706 NIHSS score 6; R29.810 Facial weakness; R47.01 Aphasia; Z91.81 History of falling; Z20.822 Contact with and (suspected) exposure to COVID-19; Z79.899 Other long term (current) drug therapy; Z80.3 Family history of malignant neoplasm of breast; Z86.73 Personal history of transient ischemic attack (TIA), and cerebral infarction without residual deficits; Z87.891 Personal history of nicotine dependence; Z90.710 Acquired absence of both cervix and uterus; L65.8 Other specified nonscarring hair loss; T45.1X5A Adverse effect of antineoplastic and immunosuppressive drugs, initial encounter; Z88.2 Allergy status to sulfonamides; R26.9 Unspecified abnormalities of gait and mobility
CPT/HCPCS: 36415; 70450; 70496; 70498; 70553; 71046; 80048; 80053; 80061; 81001; 82272; 83036; 83605; 83630; 83735; 84132; 84484; 85025; 85610; 85730; 87040; 87045; 87046; 87086; 87324; 87493; 87635; 93005; 93270; 93306; 99291

== ENCOUNTER 2021-03-19 09:02 | Emergency (ER) | payer MEDICARE, OTHER ==
[2021-03-19 09:10] VITALS: RESP 18; TEMP 98
--- NOTE | 2021-03-19 09:49 | ED ---
Abdominal Pain HPI - General Chief Complaint: Abdominal Pain Stated Complaint: vaginal bleeding Time Seen by Provider: 03/19/21 09:30 Source: patient, RN notes reviewed Mode of arrival: ambulatory Limitations: no limitations - History of Present Illness Initial Comments: This a 70-year-old female presents emergency Department with chief complaint of urinary frequency, dysuria, hematuria. Patient states started sore morning. She woke up states she has UTI she doesn't with that she has this frequently. She is only concerned that she noticed some blood in which she wasn't sure. Urine or vaginal discharge started on Proventil into recently for CVA. Denies any current vaginal symptoms. She states her urine is very bloody. No flank pain no fevers chills no chest pain or shortness breath - Related Data Home Medications Medication Instructions Recorded Confirmed Glimepiride [Amaryl] 1 mg PO DAILY 08/01/16 03/19/21 atenoloL [Tenormin] 50 mg PO DAILY 08/01/16 03/19/21 cloNIDine HCL [Catapres] 0.1 mg PO BID 08/01/16 03/19/21 Venlafaxine HCl 75 mg PO HS 07/31/17 03/19/21 Famotidine [Pepcid] 20 mg PO DAILY 12/09/20 03/19/21 Ferrous Sulfate [Iron (65 MG 325 mg PO BID 12/09/20 03/19/21 Elemental)] Gabapentin [Neurontin] 100 mg PO TID 12/09/20 03/19/21 Montelukast [Singulair] 10 mg PO DAILY 12/09/20 03/19/21 Olmesartan Medoxomil [Benicar] 20 mg PO DAILY 12/09/20 03/19/21 buPROPion [Wellbutrin] 100 mg PO BID 12/09/20 03/19/21 Atorvastatin Calcium [Lipitor] 10 mg PO DAILY 01/18/21 03/19/21 DULoxetine HCL [Cymbalta] 60 mg PO DAILY 01/18/21 03/19/21 Ergocalciferol [Vitamin D2 (1250 1,250 mcg PO Q30D 01/18/21 03/19/21 Mcg = 00187 Iu)] Semaglutide [Ozempic] 0.25 mg SQ WE 01/18/21 03/19/21 minoxidiL [Minoxidil] 2.5 mg PO DAILY 01/18/21 03/19/21 Cholestyramine (with Sugar) 4 gm PO QID 03/09/21 03/19/21 [Questran Packet] Diphenox-Atrop 2.5-0.025 mg 2 tab PO Q6H PRN 03/09/21 03/19/21 [Lomotil] Lidocaine-Prilocaine Cream [Emla 1 applic TOPICAL DIRECTED PRN 03/09/21 03/19/21 Cream 2.5%/2.5%] Magnesium Oxide 400 mg PO TID 03/09/21 03/19/21 OLANZapine [ZyPREXA] 5 mg PO DIRECTED 03/09/21 03/19/21 Venlafaxine HCl [Effexor XR] 150 mg PO DAILY 03/09/21 03/19/21 hydrALAZINE HCL [Apresoline] 50 mg PO TID 03/09/21 03/19/21 Previous Rx's Medication Instructions Recorded Aspirin 81 mg PO DAILY #100 chew 03/15/21 Clotrimazole Jam [Mycelex 10 mg MUCOUS MEM 5XD #10 jam 03/15/21 Jam] Fidaxomicin [Dificid] 200 mg PO BID #20 tablet 03/15/21 Ticagrelor [Brilinta] 90 mg PO BID #60 tab 03/15/21 Cephalexin [Keflex] 500 mg PO Q8HR #21 cap 03/19/21 Allergies Allergy/AdvReac Type Severity Reaction Status Date / Time Sulfa (Sulfonamide Allergy Rash/Hives Verified 03/19/21 10:35 Antibiotics) Review of Systems ROS Statement: Those systems with pertinent positive or pertinent negative responses have been documented in the HPI. ROS Other: All systems not noted in ROS Statement are negative. Past Medical History Past Medical History: Cancer, CVA/TIA, Diabetes Mellitus, GERD/Reflux, Hyperlipidemia, Hypertension Additional Past Medical History / Comment(s): Bilateral breast cancer/has received 2 chemo sessions, NIDDM type II, neuropathy bilateral feet History of Any Multi-Drug Resistant Organisms: None Reported Past Surgical History: Breast Surgery Additional Past Surgical History / Comment(s): L breast benign biopsy, 11/2020 breast bx + cancer, 01/16/21 port placed, D&C hysteroscopy, oral surgery. Past Anesthesia/Blood Transfusion Reactions: No Reported Reaction Additional Past Anesthesia/Blood Transfusion Reaction / Comment(s): no previous blood transfusion Past Psychological History: Anxiety, Depression Smoking Status: Former smoker Past Alcohol Use History: None Reported Past Drug Use History: None Reported - Past Family History Mother Family Medical History: Cancer Father Family Medical History: No Reported History Additional Family Medical History / Comment(s): Heaalthy General Exam Limitations: no limitations General appearance: alert, in no apparent distress Head exam: Present: atraumatic, normocephalic, normal inspection Neck exam: Present: normal inspection. Absent: tenderness, meningismus, lymphadenopathy Respiratory exam: Present: normal lung sounds bilaterally. Absent: respiratory distress, wheezes, rales, rhonchi, stridor Cardiovascular Exam: Present: regular rate, normal rhythm, normal heart sounds. Absent: systolic murmur, diastolic murmur, rubs, gallop, clicks GI/Abdominal exam: Present: soft, normal bowel sounds. Absent: distended, tenderness, guarding, rebound, rigid Back exam: Absent: CVA tenderness (R), CVA tenderness (L) Neurological exam: Present: alert Course Vital Signs 03/19/21 03/19/21 09:06 11:25 Temperature 98 F Pulse Rate 92 90 Respiratory 18 18 Rate Blood Pressure 158/76 140/72 O2 Sat by Pulse 97 95 Oximetry Medical Decision Making - Medical Decision Making Patient has evidence of urinary tract infection. Patient does have hematuria noted CT was obtained to rule out renal mass there is no evidence of this. Patient discharged on antibiotics with close follow-up return parameters were discussed. - Lab Data Result diagrams: 03/19/21 09:57 03/19/21 09:57 Lab Results 03/19/21 03/19/21 03/19/21 Range/Units 09:57 09:57 09:57 WBC 13.7 H (3.8-10.6) k/uL RBC 3.56 L (3.80-5.40) m/uL Hgb 10.9 L (11.4-16.0) gm/dL Hct 32.3 L (34.0-46.0) % MCV 90.8 (80.0-100.0) fL MCH 30.7 (25.0-35.0) pg MCHC 33.8 (31.0-37.0) g/dL RDW 16.2 H (11.5-15.5) % Plt Count 396 (150-450) k/uL MPV 6.6 Neutrophils % 86 % Lymphocytes % 8 % Monocytes % 3 % Eosinophils % 2 % Basophils % 1 % Neutrophils # 11.7 H (1.3-7.7) k/uL Lymphocytes # 1.1 (1.0-4.8) k/uL Monocytes # 0.4 (0-1.0) k/uL Eosinophils # 0.3 (0-0.7) k/uL Basophils # 0.1 (0-0.2) k/uL Poikilocytosis Slight Anisocytosis Slight Sodium 139 (137-145) mmol/L Potassium 4.2 (3.5-5.1) mmol/L Chloride 109 H (98-107) mmol/L Carbon Dioxide 22 (22-30) mmol/L Anion Gap 8 mmol/L BUN 9 (7-17) mg/dL Creatinine 1.01 (0.52-1.04) mg/dL Est GFR (CKD-EPI)AfAm 64 (>60 ml/min/1.73 sqM) Est GFR (CKD-EPI)NonAf 56 (>60 ml/min/1.73 sqM) Glucose 117 H (74-99) mg/dL Plasma Lactic Acid Felipe (0.7-2.0) mmol/L Calcium 9.0 (8.4-10.2) mg/dL Total Bilirubin 0.5 (0.2-1.3) mg/dL AST 41 H (14-36) U/L ALT 15 (4-34) U/L Alkaline Phosphatase 61 (38-126) U/L Total Protein 6.4 (6.3-8.2) g/dL Albumin 3.4 L (3.5-5.0) g/dL Urine Color Red Urine Appearance Bloody H (Clear) Urine RBC >182 H (0-5) /hpf Urine WBC >182 H (0-5) /hpf Urine WBC Clumps Many H (None) /hpf Urine Bacteria Occasional H (None) /hpf 03/19/21 Range/Units 09:57 WBC (3.8-10.6) k/uL RBC (3.80-5.40) m/uL Hgb (11.4-16.0) gm/dL Hct (34.0-46.0) % MCV (80.0-100.0) fL MCH (25.0-35.0) pg MCHC (31.0-37.0) g/dL RDW (11.5-15.5) % Plt Count (150-450) k/uL MPV Neutrophils % % Lymphocytes % % Monocytes % % Eosinophils % % Basophils % % Neutrophils # (1.3-7.7) k/uL Lymphocytes # (1.0-4.8) k/uL Monocytes # (0-1.0) k/uL Eosinophils # (0-0.7) k/uL Basophils # (0-0.2) k/uL Poikilocytosis Anisocytosis Sodium (137-145) mmol/L Potassium (3.5-5.1) mmol/L Chloride (98-107) mmol/L Carbon Dioxide (22-30) mmol/L Anion Gap mmol/L BUN (7-17) mg/dL Creatinine (0.52-1.04) mg/dL Est GFR (CKD-EPI)AfAm (>60 ml/min/1.73 sqM) Est GFR (CKD-EPI)NonAf (>60 ml/min/1.73 sqM) Glucose (74-99) mg/dL Plasma Lactic Acid Felipe 0.9 (0.7-2.0) mmol/L Calcium (8.4-10.2) mg/dL Total Bilirubin (0.2-1.3) mg/dL AST (14-36) U/L ALT (4-34) U/L Alkaline Phosphatase (38-126) U/L Total Protein (6.3-8.2) g/dL Albumin (3.5-5.0) g/dL Urine Color Urine Appearance (Clear) Urine RBC (0-5) /hpf Urine WBC (0-5) /hpf Urine WBC Clumps (None) /hpf Urine Bacteria (None) /hpf Disposition Clinical Impression: UTI (urinary tract infection), Hematuria Disposition: HOME SELF-CARE Condition: Stable Instructions (If sedation given, give patient instructions): Urinary Tract Infection in Women (ED) Additional Instructions: Please return to the Emergency Department if symptoms worsen or any other concerns. Prescriptions: Cephalexin [Keflex] 500 mg PO Q8HR #21 cap Is patient prescribed a controlled substance at d/c from ED?: No Referrals: Bijan High MD [Primary Care Provider] - 1-2 days Time of Disposition: 12:07
[2021-03-19 10:09] LABS: Anisocytosis Slight; Basophils # (A) 0.1 k/uL (0-0.2); Basophils % (A) 1 %; Eosinophils # (A) 0.3 k/uL (0-0.7); Eosinophils % (A) 2 %; HCT 32.3 % (34.0-46.0); HGB 10.9 gm/dL (11.4-16.0); Lymphocytes # (A) 1.1 k/uL (1.0-4.8); Lymphocytes % (A) 8 %; MCH 30.7 pg (25.0-35.0); MCHC 33.8 g/dL (31.0-37.0); MCV 90.8 fL (80.0-100.0); Mean Platelet Volume 6.6; Monocytes # (A) 0.4 k/uL (0-1.0); Monocytes % (A) 3 %; Neutrophils # (A) 11.7 k/uL (1.3-7.7); Neutrophils % (A) 86 %; Platelet Count 396 k/uL (150-450); Poikilocytosis Slight; RBC 3.56 m/uL (3.80-5.40); RDW 16.2 % (11.5-15.5); WBC 13.7 k/uL (3.8-10.6)
[2021-03-19 10:18] LABS: Bacteria,Urine Occasional /hpf; RBC,Urine >182 /hpf (0-5); WBC,Urine >182 /hpf (0-5)
[2021-03-19 10:19] LABS: Albumin 3.4 g/dL (3.5-5.0); Appearance,Urine Bloody (Clear); Total Bilirubin 0.5 mg/dL (0.2-1.3); Total Protein 6.4 g/dL (6.3-8.2)
[2021-03-19 10:20] LABS: Potassium 4.2 mmol/L (3.5-5.1)
[2021-03-19 10:21] LABS: Color,Urine Red
--- NOTE | 2021-03-19 11:59 | CT ---
EXAMINATION TYPE: CT abdomen pelvis wo con DATE OF EXAM: 03/19/2021 COMPARISON: None HISTORY: Patient poor historian. Hematuria per chart. CT DLP: 772.7 mGycm Automated exposure control for dose reduction was used. TECHNIQUE: Helical acquisition of images from the lung bases through the pelvis. FINDINGS: Lack of intravenous contrast could compromise sensitivity. LUNG BASES: No significant abnormality is appreciated. AORTA: No significant abnormality is appreciataed. LIVER/GB: No significant abnormality is appreciated within the liver, dependent high dense focus with in the gallbladder is consistent with stone. PANCREAS: No significant abnormality is seen. SPLEEN: Low dense peripheral focus at the inferior and posterior aspect of the spleen is indeterminat e, possible cyst ADRENALS: No significant abnormality is seen. KIDNEYS: No significant abnormality is seen. REPRODUCTIVE ORGANS: No significant abnormality is seen. URINARY BLADDER: No significant abnormality is seen. BOWEL: The colon shows a diffuse thickened appearance, pericolonic inflammatory changes are present FREE AIR: No Free Air is visible. ASCITES: None visible. PELVIC ADENOPATHY: None visualized. RETROPERITONEAL ADENOPATHY: No Retroperitoneal Adenopathy visible. OSSEOUS STRUCTURES: Spondylolisthesis noted in the lumbar spine L4-5, there is degenerative disc dis ease and facet arthropathy. IMPRESSION: CORRELATE FOR COLITIS. NONCONTRAST EXAM. FOLLOW-UP INDICATED. CHOLELITHIASIS.
[2021-03-19] MEDS ORDERED: cefTRIAXone 1,000 MG VIAL (IM USE) IM STA (12:08)
[2021-03-19 12:24] VITALS: BP 136/78; PULSE 84
== END 2021-03-19 12:35 | disposition home or self-care (01) ==
LOC: EC 09:02
DX: N39.0 Urinary tract infection, site not specified (principal); E78.5 Hyperlipidemia, unspecified; F32.9 Major depressive disorder, single episode, unspecified; F41.9 Anxiety disorder, unspecified; I10 Essential (primary) hypertension; E11.40 Type 2 diabetes mellitus with diabetic neuropathy, unspecified; K21.9 Gastro-esophageal reflux disease without esophagitis; B96.89 Other specified bacterial agents as the cause of diseases classified elsewhere; Z86.73 Personal history of transient ischemic attack (TIA), and cerebral infarction without residual deficits; Z85.3 Personal history of malignant neoplasm of breast; Z87.891 Personal history of nicotine dependence; Z79.82 Long term (current) use of aspirin; Z79.84 Long term (current) use of oral hypoglycemic drugs
CPT/HCPCS: 36415; 80053; 83605; 85025; 81001; 87086; 74176; 99284; 96372; J0696

== ENCOUNTER 2021-04-28 11:04 | Observation (INO) | payer MEDICARE, OTHER ==
[2021-04-26 10:28] VITALS: BMI 31.2
--- NOTE | 2021-04-28 08:01 | P.HPADDEND ---
H&P Addendum H&P Addendum Date: 04/28/21 This is an addendum to the history and physical from office note 04/05. Patient here today for elective bilateral simple mastectomy with bilateral sentinel lymph node biopsy and injection. Patient with bilateral breast cancers. Received 2 out of 4 planned sessions of chemotherapy in the neoadjuvant setting. Patient had significant toxicity and stopped any further chemotherapy after the second course. Patient has declined breast reconstruction. We'll proceed with bilateral simple mastectomy with sentinel lymph node biopsy and injection at this time. Risks of bleeding, infection, scarring, wound formation, poor healing, chronic pain, seroma, nerve injury, weakness, numbness, recurrence, possible need for radiation therapy, arm swelling, completion axillary node dissection. Patient understands and wishes to proceed.
[~2021-04-28 11:04] MED LIST changes: +ACETAMINOPHEN TAB 500 MG TAB PO PRN; -HEPARIN SODIUM,PORCINE 100 UNIT/ML 5 ML VIAL IV ONE; -HEPARIN SODIUM,PORCINE 5,000 UNIT/ML 1 ML VIAL ONE; -HEPARIN SODIUM,PORCINE 5,000 UNIT/ML 1 ML VIAL SQ ONE; -HYDROcodone/APAP 5-325MG 1 EACH TAB PO PRN; -LACTATED RINGERS 1,000 ML IV SCH; -LIDOCAINE (PF) 10 MG/ML 2 ML VIAL SQ ONE; -LIDOCAINE 1% (10MG/ML) FOR IV START INTRADERMA ONE; -LIDOCAINE 1% INJ 10MG/ML (20 ML MDV) ONE; -MIDAZOLAM 2 MG/2 ML VIAL ONE; -NALOXONE 0.4 MG/ML 1 ML VIAL IV PRN; -PROPOFOL 10 MG/ML 20 ML VIAL IV ONE; -fentaNYL (PF) 50 MCG/ML 2 ML AMP IV PRN; -fentaNYL (PF) 50 MCG/ML 2 ML AMP ONE
[2021-04-28] MEDS: LACTATED RINGERS 1,000 ML IV SCH (12:21)
[2021-04-28] MEDS ORDERED: LIDOCAINE 1% (10MG/ML) FOR IV START INTRADERMA ONE (12:22)
[2021-04-28 12:23] LABS: Glucose,Whole Blood 81 mg/dL (75-99)
[2021-04-28] MEDS: HEPARIN SODIUM,PORCINE/PF 5,000 UNIT/0.5 ML SYRINGE SQ PRN ×2 (12:24→12:29)
[2021-04-28 12:27] LABS: Basophils # (A) 0.1 k/uL (0-0.2); Basophils % (A) 1 %; Eosinophils # (A) 0.5 k/uL (0-0.7); Eosinophils % (A) 5 %; HCT 33.9 % (34.0-46.0); HGB 11.9 gm/dL (11.4-16.0); Lymphocytes # (A) 1.3 k/uL (1.0-4.8); Lymphocytes % (A) 15 %; MCH 31.5 pg (25.0-35.0); MCHC 35.1 g/dL (31.0-37.0); MCV 89.9 fL (80.0-100.0); Mean Platelet Volume 6.8; Monocytes # (A) 0.4 k/uL (0-1.0); Monocytes % (A) 5 %; Neutrophils # (A) 6.2 k/uL (1.3-7.7); Neutrophils % (A) 73 %; Platelet Count 300 k/uL (150-450); RBC 3.77 m/uL (3.80-5.40); RDW 14.4 % (11.5-15.5); WBC 8.5 k/uL (3.8-10.6)
[2021-04-28 12:36] LABS: Calcium 9.7 mg/dL (8.4-10.2); Potassium 4.4 mmol/L (3.5-5.1)
[2021-04-28] MEDS ORDERED: PHENYLEPHRINE-0.9% NACL SYG 1,000 MCG/10 ML SYRINGE ONE (13:20)
[2021-04-28] MEDS ORDERED: MIDAZOLAM 2 MG/2 ML VIAL ONE (13:20)
[2021-04-28] MEDS ORDERED: fentaNYL (PF) 50 MCG/ML 2 ML AMP ONE (13:20)
[2021-04-28] MEDS ORDERED: PROPOFOL 10 MG/ML 20 ML VIAL IV ONE (13:20)
[2021-04-28] MEDS ORDERED: LIDOCAINE 1% INJ 10MG/ML (20 ML MDV) ONE (13:20)
[2021-04-28] MEDS ORDERED: SUCCINYLCHOLINE CHLORIDE 100 MG/5 ML SYR IV ONE (13:20)
[2021-04-28] MEDS ORDERED: METHYLENE BLUE 50 MG/10 ML AMPUL INJ ONE ×4 (13:55→13:57)
[2021-04-28] MEDS ORDERED: NALOXONE 0.4 MG/ML 1 ML VIAL IV PRN (16:00)
[2021-04-28] MEDS ORDERED: ACETAMINOPHEN TAB 325 MG TAB PO PRN (16:01)
[2021-04-28] MEDS ORDERED: ONDANSETRON 4 MG/2 ML VIAL IVP PRN (16:01)
--- NOTE | 2021-04-28 16:06 | NM ---
EXAMINATION TYPE: NM sentinel node injection, NM sentinel node injection DATE OF EXAM: 04/28/2021 COMPARISON: NONE HISTORY: Bilateral sentinel node injection TECHNIQUE AND FINDINGS: The procedure of sentinel lymph node injection was explained to the patient. The benefits, alternatives, and risks were discussed. An informed consent was then obtained. Overlying skin is cleaned with sterile alcohol. Following this, 600 (accession [id number]), 524 (acces jovita [id number]) uCi Tc99m Tilmanocept was injected in the upper outer aspect of the bilateral nipple i ntradermally. The patient tolerated the procedure well without any immediate complication. The patient was kept in the radiology department for short stay after the procedure and then taken to surgery for surgical p rocedure what is presumed intraoperative gamma probe will be used for sentinel lymph node detection. IMPRESSION: Bilateral breast radiotracer injection for sentinel node localization as above.
--- NOTE | 2021-04-28 16:09 | P.OP ---
Date of Procedure: 04/28/21 Procedure(s) Performed: PREOPERATIVE DIAGNOSIS: Bilateral breast cancer POSTOPERATIVE DIAGNOSIS: Same PROCEDURE: Bilateral simple mastectomy with bilateral sentinel lymph node biopsy SURGEON: Hannah EBL: 25 mL ANESTHESIA: General COMPLICATIONS: None OPERATIVE PROCEDURE: Patient was placed on the operating room table in the supine position. 2 mL of methylene blue was injected into the subareolar space bilaterally. Both breasts were then massaged for 5 minutes. Using the skin marker the proposed incision sites were drawn out on the chest wall. The right side was first addressed. The superior incision was first created. The incision was elliptical in nature encompassing the nipple areolar complex. Flaps were raised superiorly until the chest wall was reached. The axilla was then addressed. Blunt dissection surprisingly did reveal immediately a single hot lymph node that was not blue in color but appeared to be adherent to an adjacent lymph node. These were sent for frozen section and later we were notified that they were negative for evidence of malignancy. No residual radioactivity in the axilla was identified. The mastectomy incision was then created inferiorly and flaps were again raised until the chest wall was reached. The breast was removed from the chest wall using electrocautery. Multiple vessels were divided using either electrocautery, LigaSure, or the clip education faculty member. The area was irrigated. No bleeding was seen. A drain was placed beneath the flaps of the mastectomy incision. The subcutaneous tissues were then closed using 3-0 Vicryl sutures and the skin was closed using a running 4-0 Monocryl stitch. The left side was then addressed in a similar fashion. The superior incision was again made first. As we approached the axillary region the neoprobe was utilized. A blue lymphatic was identified as we were dissecting and took us to a hot and blue colored lymph node. This was somewhat enlarged and measured approximately 2 cm. I was able to visualize the clip on the surface of the lymph node. This had already been biopsied and was negative on core biopsy. There was a second radioactive lymph node in that vicinity that was removed and this appeared normal in size and free of induration. No residual blue lymphatics or radioactive nodes were seen. The nodes were sent to pathology for permanent sectioning at this point. The inferior flap was then made after the inferior incision was created. The breast was again removed from the chest wall . Vessels were either ligated with LigaSure, clip education faculty member, or cautery. This was sent to pathology. The incision was closed in identical fashion to the right hand side after a drain was placed beneath the flap. Both drains were sutured in place using 3-0 silk sutures. Exofin blue tape dressing was then applied. Sterile dressings were applied over that. DISPOSITION: Stable to recovery room
[2021-04-28] MEDS ORDERED: D5-0.45% NACL WITH KCL 20MEQ/L 1,000 ML IV SCH (17:00)
[2021-04-28 18:35] LABS: Glucose,Whole Blood 165 mg/dL (75-99)
[2021-04-28] MEDS: HYDROmorphone 0.5 MG/0.5 ML SYRINGE IVP PRN ×2 (19:32→23:38)
[2021-04-28 21:00] LABS: Glucose,Whole Blood 157 mg/dL (75-99)
[2021-04-28] MEDS ORDERED: LORazepam 1 MG TAB PO PRN (21:05)
[2021-04-28] MEDS ORDERED: VENLAFAXINE HCL 75 MG TAB PO SCH (21:15)
[2021-04-28] MEDS ORDERED: cloNIDine HCL 0.1 MG TAB PO SCH (21:15)
[2021-04-28] MEDS: DOCUSATE 100 MG CAP PO SCH (23:25)
[2021-04-28] MEDS: FERROUS SULFATE 325 MG TAB PO SCH (23:25)
[2021-04-28] MEDS: GABAPENTIN 100 MG CAP PO SCH (23:26)
[2021-04-28] MEDS: hydrALAZINE HCL 25 MG TAB PO SCH (23:26)
[2021-04-28] MEDS: ATORVASTATIN 10 MG TAB PO SCH (23:26)
[2021-04-28] MEDS: HEPARIN SODIUM,PORCINE/PF 5,000 UNIT/0.5 ML SYRINGE SQ SCH (23:26)
[2021-04-28] MEDS: buPROPion 100 MG TAB PO SCH (23:26)
[2021-04-29 04:54] VITALS: BP 113/69; PULSE 88; RESP 16; TEMP 98.1
[2021-04-29] MEDS: HYDROmorphone 0.5 MG/0.5 ML SYRINGE IVP PRN (05:13)
[2021-04-29] MEDS: LACTATED RINGERS 1,000 ML IV SCH (05:21)
[2021-04-29] MEDS: HEPARIN SODIUM,PORCINE/PF 5,000 UNIT/0.5 ML SYRINGE SQ SCH (05:23)
[2021-04-29 07:28] LABS: Basophils # (A) 0.1 k/uL (0-0.2); Basophils % (A) 0 %; Eosinophils % (A) 0 %; HCT 33.1 % (34.0-46.0); HGB 11.1 gm/dL (11.4-16.0); Lymphocytes # (A) 1.3 k/uL (1.0-4.8); Lymphocytes % (A) 7 %; MCHC 33.6 g/dL (31.0-37.0); MCV 92.2 fL (80.0-100.0); Mean Platelet Volume 6.7; Monocytes # (A) 0.9 k/uL (0-1.0); Monocytes % (A) 5 %; Neutrophils # (A) 16.2 k/uL (1.3-7.7); Neutrophils % (A) 87 %; Platelet Count 301 k/uL (150-450); RBC 3.59 m/uL (3.80-5.40); RDW 14.3 % (11.5-15.5); WBC 18.6 k/uL (3.8-10.6)
[2021-04-29] MEDS ORDERED: INSULIN ASPART (NovoLOG) 100 UNIT/ML VIAL SQ SCH (07:30)
[2021-04-29 07:48] LABS: African American GFR (CKD) 50 (>60 ml/min/1.73 sqM); Anion Gap 6 mmol/L; Blood Urea Nitrogen 20 mg/dL (7-17); Calcium 9.4 mg/dL (8.4-10.2); Carbon Dioxide 27 mmol/L (22-30); Chloride 107 mmol/L (98-107); Glucose 133 mg/dL (74-99); Non-African American GFR(CKD) 43 (>60 ml/min/1.73 sqM); Potassium 4.7 mmol/L (3.5-5.1); Sodium 140 mmol/L (137-145)
[2021-04-29 07:55] LABS: Glucose,Whole Blood 123 mg/dL (75-99)
[2021-04-29] MEDS: ATORVASTATIN 10 MG TAB PO SCH (08:45)
[2021-04-29] MEDS: FERROUS SULFATE 325 MG TAB PO SCH (08:45)
[2021-04-29] MEDS: DOCUSATE 100 MG CAP PO SCH (08:46)
[2021-04-29] MEDS: GABAPENTIN 100 MG CAP PO SCH (08:46)
[2021-04-29] MEDS: hydrALAZINE HCL 25 MG TAB PO SCH (08:46)
[2021-04-29] MEDS: buPROPion 100 MG TAB PO SCH (08:47)
[2021-04-29] MEDS: HYDROcodone/APAP 5-325MG 1 EACH TAB PO PRN ×2 (08:57→14:35)
[2021-04-29] MEDS ORDERED: MONTELUKAST 10 MG TAB PO SCH (09:00)
[2021-04-29] MEDS ORDERED: MAGNESIUM OXIDE 400 MG TAB PO SCH (09:00)
[2021-04-29] MEDS ORDERED: minoxidiL 2.5 MG TAB PO SCH (09:00)
[2021-04-29] MEDS ORDERED: ASPIRIN 81 MG PO SCH (09:00)
[2021-04-29] MEDS ORDERED: atenoloL 50 MG TAB PO SCH (09:00)
[2021-04-29] MEDS ORDERED: DULoxetine HCL 60 MG CAPSULE.DR PO SCH (09:00)
[2021-04-29] MEDS ORDERED: PANTOPRAZOLE 40 MG/10 ML VIAL IV SCH (09:00)
[2021-04-29] MEDS ORDERED: VENLAFAXINE HCL ER 150 MG CAP PO SCH (09:00)
[2021-04-29] MEDS ORDERED: LOSARTAN 50 MG TAB PO SCH (09:00)
[2021-04-29] MEDS ORDERED: FAMOTIDINE 20 MG TAB PO SCH (09:00)
--- NOTE | 2021-04-29 11:19 | P.DS ---
Providers Date of admission: 04/29/21 08:54 Expected date of discharge: 04/29/21 Attending physician: Jerome Young Consults: 04/28/21 16:01 Consult Physician Routine Consulting Provider: Bijan High Consult Reason/Comments: Medical management Do you want consulting provider notified?: Yes Primary care physician: Bijan High [facility] Course: Patient brought in yesterday for bilateral mastectomy with sentinel lymph node biopsy. Doing well today. Tolerating diet. Pain is well-controlled. Incisions are doing well. She will be discharged with Lyme. Follow-up one week. Plan - Discharge Summary Discharge Rx Participant: Yes New Discharge Prescriptions: No Action Glimepiride [Amaryl] 1 mg PO QAM atenoloL [Tenormin] 50 mg PO DAILY cloNIDine HCL [Catapres] 0.1 mg PO BID Venlafaxine HCl 75 mg PO HS Ferrous Sulfate [Iron (65 MG Elemental)] 325 mg PO BID Gabapentin [Neurontin] 100 mg PO TID Famotidine [Pepcid] 20 mg PO QAM buPROPion [Wellbutrin] 100 mg PO BID Olmesartan Medoxomil [Benicar] 20 mg PO DAILY Montelukast [Singulair] 10 mg PO DAILY Semaglutide [Ozempic] 0.25 mg SQ TU Magnesium Oxide 400 mg PO DAILY OLANZapine [ZyPREXA] 5 mg PO DIRECTED Aspirin 81 mg PO DAILY #100 chew LORazepam [Ativan] 1 mg PO TID PRN PRN Reason: Anxiety hydrALAZINE HCL [Apresoline] 25 mg PO TID Ergocalciferol [Vitamin D2 (1250 Mcg = 42915 Iu)] 1,250 mcg PO Q30D minoxidiL [Minoxidil] 2.5 mg PO DAILY DULoxetine HCL [Cymbalta] 60 mg PO DAILY Atorvastatin Calcium [Lipitor] 10 mg PO DAILY Venlafaxine HCl [Effexor XR] 150 mg PO DAILY Discharge Medication List Glimepiride [Amaryl] 1 mg PO QAM 08/01/16 [History] atenoloL [Tenormin] 50 mg PO DAILY 08/01/16 [History] cloNIDine HCL [Catapres] 0.1 mg PO BID 08/01/16 [History] Venlafaxine HCl 75 mg PO HS 07/31/17 [History] Famotidine [Pepcid] 20 mg PO QAM 12/09/20 [History] Ferrous Sulfate [Iron (65 MG Elemental)] 325 mg PO BID 12/09/20 [History] Gabapentin [Neurontin] 100 mg PO TID 12/09/20 [History] Montelukast [Singulair] 10 mg PO DAILY 12/09/20 [History] Olmesartan Medoxomil [Benicar] 20 mg PO DAILY 12/09/20 [History] buPROPion [Wellbutrin] 100 mg PO BID 12/09/20 [History] Atorvastatin Calcium [Lipitor] 10 mg PO DAILY 01/18/21 [History] DULoxetine HCL [Cymbalta] 60 mg PO DAILY 01/18/21 [History] Ergocalciferol [Vitamin D2 (1250 Mcg = 36546 Iu)] 1,250 mcg PO Q30D 01/18/21 [History] Semaglutide [Ozempic] 0.25 mg SQ TU 01/18/21 [History] minoxidiL [Minoxidil] 2.5 mg PO DAILY 01/18/21 [History] Magnesium Oxide 400 mg PO DAILY 03/09/21 [History] OLANZapine [ZyPREXA] 5 mg PO DIRECTED 03/09/21 [History] Venlafaxine HCl [Effexor XR] 150 mg PO DAILY 03/09/21 [History] Aspirin 81 mg PO DAILY #100 chew 03/15/21 [Rx] LORazepam [Ativan] 1 mg PO TID PRN 04/26/21 [History] hydrALAZINE HCL [Apresoline] 25 mg PO TID 04/26/21 [History] Follow up Appointment(s)/Referral(s): Jerome Young MD [Medical Doctor] - 05/04/21 10:20 am
[2021-04-29 12:29] LABS: Glucose,Whole Blood 111 mg/dL (75-99)
--- NOTE | 2021-04-29 12:29 | PN ---
PROGRESS NOTE DATE OF SERVICE: 04/29/2021 CHIEF COMPLAINT: Carcinoma of the breast. HISTORY OF PRESENT ILLNESS: This lady is doing well postoperatively and she is not having a lot of discomfort. PHYSICAL EXAMINATION: Color is good. She is awake and alert. Chest is clear and cardiac exam is normal. The abdomen is soft and the extremities are normal. IMPRESSION: 1. Status post bilateral mastectomy for carcinoma of the breast. 2. Recent cerebrovascular. 3. Diabetes. 4. Hypertension. PLAN: No change in her management today. She will likely be going home. MMODL / IJN: [id number] /
--- NOTE | 2021-04-29 18:21 | CONS ---
CONSULTATION CHIEF COMPLAINT: Carcinoma of the breast. HISTORY OF PRESENT ILLNESS: This lady is admitted for bilateral mastectomy for carcinoma of the breast. She recently had a CVA from which she seems to be recovering nicely. It affected her speech significantly, but this is improving quite nicely. REVIEW OF SYSTEMS: She denies any headaches, visual problems, chest pain, shortness of breath, abdominal pain, nausea, diarrhea, melena, dysuria, frequency, incontinence, etc. Past medical history, family history and personal and social histories are unremarkable and noncontributory other than what is already in her admitting note. She does not smoke or drink. Her blood sugars have been under good control. PHYSICAL EXAMINATION: Blood pressure is 135/74 with a pulse of 78. Respirations of 15. She is afebrile. In GENERAL he appeared to be in no acute distress. She is awake and alert. Skin color is normal skin is warm, dry. HEENT: Head, ears, eyes, nose, mouth and throat were normal. CHEST is clear to auscultation posteriorly. CARDIAC exam is normal. ABDOMEN is soft. EXTREMITIES are normal. NEUROLOGICALLY she is in intact except for very little dysphagia for which she speaks slowly and carefully with good success. She is admitted to the hospital with diagnoses: 1. Carcinoma of the breast. 2. Recent cerebrovascular accident with aphasia. 3. Type 2 diabetes mellitus. 4. Hypertension. RECOMMENDATIONS: None. She should do well and has an excellent attitude. MMODL / IJN: [id number] /
[2021-04-30] MEDS ORDERED: PANTOPRAZOLE 40 MG TABLET PO SCH (09:00)
== END 2021-04-29 15:00 | disposition home health service (06) ==
LOC: OR 11:04 → 5NMEDONC 16:32 → OR 04-29 08:54
PROVIDERS: ADMIT Surgery; ATTEND Surgery
DX: C50.911 Malignant neoplasm of unspecified site of right female breast (principal); C50.912 Malignant neoplasm of unspecified site of left female breast; E11.9 Type 2 diabetes mellitus without complications; I10 Essential (primary) hypertension; K21.9 Gastro-esophageal reflux disease without esophagitis; E07.9 Disorder of thyroid, unspecified; E78.5 Hyperlipidemia, unspecified; Z86.73 Personal history of transient ischemic attack (TIA), and cerebral infarction without residual deficits; Z79.899 Other long term (current) drug therapy; Z79.82 Long term (current) use of aspirin; Z79.4 Long term (current) use of insulin
CPT/HCPCS: 19303; 38525; 38900; 97161; 80048 ×2; 85025 ×2; 88342; 88331; 88332; 88307; 88341; 38792; G0378; A9520; S0139; J2250; J1100; J2405; J2001; J3010; J2370; J0330; J2704; C9113; Q9968; J1170 ×2; J1644 ×2

== ENCOUNTER → 2021-06-23 | Outpatient (CLI) | payer MEDICARE, OTHER ==
--- NOTE | 2021-06-23 12:34 | ECHOF ---
Referral Reason:Z01.818 Pre chemo MEASUREMENTS -------- HEIGHT: 162.6 cm WEIGHT: 82.6 kg BP: IVSd: 1.5 cm (0.6 - 1.1) LVIDd: 3.8 cm (3.9 - 5.3) LVPWd: 1.6 cm (0.6 - 1.1) EDV(Teich): 61 ml IVSs: 1.9 cm LVIDs: 1.8 cm LVPWs: 1.8 cm %IVS Thck: 25 % ESV(Teich): 10 ml EF(Teich): 83 % %FS: 52 % SV(Teich): 51 ml LVOT Diam: 1.9 cm RVIDd: 2.1 cm (< 3.3) IVC: 25.15 mm LALs A4C: 5.9 cm LAAs A4C: 21.5 cm LAESV A-L A4C: 67 ml LAESV MOD A4C: 61 ml LALs A2C: 5.2 cm LAAs A2C: 16.4 cm LAESV A-L A2C: 44 ml LAESV MOD A2C: 42 ml LAESV(A-L): 57 ml LAESV Index (A-L): 30.45 ml/m AVC: 344 ms G peak SL(APLAX): -16 % G peak SL(A4C): -15 % G peak SL(A2C): -16 % G peak SL(Avg): -16 % BS peak sys SL: -12 % MS peak sys SL: -17 % peak sys SL: -18 % BL peak sys SL: -16 % ML peak sys SL: -15 % AL peak sys SL: -13 % BI peak sys SL: -13 % OK peak sys SL: -19 % AI peak sys SL: -22 % BA peak sys SL: -16 % MA peak sys SL: -15 % AA peak sys SL: -14 % BP peak sys SL: -14 % MP peak sys SL: -15 % AP peak sys SL: -14 % BAS peak sys SL: -21 % MAS peak sys SL: -20 % AAS peak sys SL: -16 % Ao Diam: 3.0 cm (2.0 - 3.7) LA Diam: 3.0 cm (2.7 - 3.8) AV Cusp: 1.2 cm (1.5 - 2.6) EPSS: 0.5 cm MV E Marcos: 1.20 m/s MV DecT: 178 ms MV Dec Garza: 6.7 m/s MV A Marcos: 1.10 m/s MV E/A Ratio: 1.10 MV PHT: 52 ms MR Vmax: 4.78 m/s MR maxP.26 mmHg LVOT Vmax: 1.16 m/s LVOT maxP.42 mmHg AV Vmax: 3.80 m/s AV maxP.08 mmHg SHARONA Vmax, Pt: 0.8 cm AV Vmax: 4.14 m/s AV Vmean: 2.98 m/s AV maxP.47 mmHg AV meanP.93 mmHg AV Env.Ti: 295 ms AV VTI: 88.0 cm SHARONA Vmax, Pt: 0.8 cm AR Vmax: 4.58 m/s AR maxP.09 mmHg AR PHT: 398 ms AR Dec Time: 1371 ms AR Dec Garza: 3.3 m/s TR Vmax: 2.90 m/s TR maxP.75 mmHg RAP: 15.00 mmHg RVSP: 48.75 mmHg AVC: 341 ms MV EF SLOPE: 88.66 mm/s (70 - 150) MV EXCURSION: 15.97 mm (> 18.000) RV S Prime: 0.14 m/s TAPSE: 20.69 mm FINDINGS -------- Sinus rhythm. This was a technically good study. The left ventricular size is normal. There is mild concentric left ventricular hypertrophy. Overa ll left ventricular systolic function is normal with, an EF between 55 - 60 %. Normal LAP Grade 1 D iastolic Dysfunction. The right ventricle is normal in size. The right ventricular systolic function is normal. LA is midly dilated 29-33ml/m2. The right atrial size is normal. Interatrial and interventricular septum intact. Aortic valve is trileaflet and is severely thickened. There is mild aortic regurgitation. There i s severe aortic stenosis present. The aortic valve area by continuity equation is {SHARONA}. Peak/usama n gradient across the Aortic Valve is 68.47mmHg / 39.93mmHg. AOV is possible Bicuspid. The mitral valve is normal. The mitral valve leaflets are mildly thickened. Mild mitral annular c alcification present. Mild mitral regurgitation is present. The tricuspid valve appears structurally normal. Mild tricuspid regurgitation present. There is m ild pulmonary hypertension. The right ventricular systolic pressure, as measured by Doppler, is 48. 75mmHg. There is no pulmonic regurgitation present. The aortic root size is normal. The inferior vena cava is mildly dilated. CONCLUSIONS -------- 1. The left ventricular size is normal. 2. There is mild concentric left ventricular hypertrophy. 3. Overall left ventricular systolic function is normal with, an EF between 55 - 60 %. 4. Normal LAP Grade 1 Diastolic Dysfunction. 5. LA is midly dilated 29-33ml/m2. 6. Aortic valve is trileaflet and is severely thickened. 7. There is mild aortic regurgitation. 8. There is severe aortic stenosis present. 9. The aortic valve area by continuity equation is {SHARONA}. 10. Peak/mean gradient across the Aortic Valve is 68.47mmHg / 39.93mmHg. 11. AOV is possible Bicuspid. 12. The mitral valve leaflets are mildly thickened. 13. Mild mitral annular calcification present. 14. Mild mitral regurgitation is present. 15. Mild tricuspid regurgitation present. 16. There is mild pulmonary hypertension. 17. The right ventricular systolic pressure, as measured by Doppler, is 48.75mmHg. 18. The inferior vena cava is mildly dilated. PUTAWAY DRIVER: Suzy Ayers RDCS
== END | disposition home or self-care (01) ==
LOC: RADECHMAIN 10:39
PROVIDERS: ATTEND Internal Medicine Hematology & Oncology
DX: Z01.818 Encounter for other preprocedural examination (principal); I08.3 Combined rheumatic disorders of mitral, aortic and tricuspid valves
CPT/HCPCS: 93306

== ENCOUNTER → 2021-10-20 | Outpatient (CLI) | payer MEDICARE, OTHER ==
--- NOTE | 2021-10-20 10:50 | BD ---
EXAMINATION TYPE: Axial Bone Density DATE OF EXAM: 10/20/2021 COMPARISON: NONE CLINICAL HISTORY: 70 YR OLD FEMALE.....ICD-10 CODE: C50.411 BREAST CA Height: 61 Weight: 195 FRAX RISK QUESTIONS: Secondary Osteoporosis: YES 1. Type 1 Diabetes: YES 3. Menopause before 45: AT 43 RISK FACTORS HISTORY OF: Postmenopausal woman: YES, AT AGE 43 YRS OLD Lost more than 2 inches in height since high school: YES Frequent falls: USES CANE, UNSTEADY Poor Health: BILAT BREAST CANCER Hyperparathyroidism: NO Adrenal Insufficiency: NO MEDICATIONS: Additional Medications: BP MEDS, CYMBALTA, ATIVAN, HX OF CHEMO FOR BREAST CANCER, LIPAROID, REFLUX ME DS, STATIN FOR CHOLESTEROL, VIT D, CALCIUM, MULTIVITAMIN Additional History: HX OF STROKE, DIABETIC, REFLUX, CHOLESTEROL, BILAT BREAST CANCER, ANXIETY AND DE PRESSION, HYPERTENSION EXAM MEASUREMENTS: Bone mineral densitometry was performed using the [employer] System. Bone mineral density as measured about the Lumbar spine is: ----- L1-L4(G/cm2): 0.954 T Score Values are as follows: ----- L1: -1.7 ----- L2: -2.0 ----- L3: -1.9 ----- L4: -2.1 ----- L1-L4: -1.9 Bone mineral density FIRST DEXA SCAN.......BASELINE STUDY Bone mineral density about the R hip (g/cm2): 0.976 Bone mineral density about the L hip (g/cm2): 0.998 T Score values are as follows: -----R Neck: -0.8 -----L Neck: -1.8 -----R Total: -0.3 -----L Total: -0.1 Bone mineral density BASELINE STUDY FRAX%s: THERE IS A 10.6% CHANCE FOR A MAJOR OSTEOPOROTIC FX AND A 2.0% FOR HIP.....PROBABILITY FO R FX IN 10 YRS TIME IMPRESSION: Osteopenia of the lumbar spine. NOTE: T-SCORE=SD OF THE YOUNG ADULT MEAN.
== END | disposition home or self-care (01) ==
LOC: RADBDWWP 08:46
PROVIDERS: ATTEND Internal Medicine Hematology & Oncology
DX: C50.411 Malignant neoplasm of upper-outer quadrant of right female breast (principal); M85.89 Other specified disorders of bone density and structure, multiple sites; Z78.0 Asymptomatic menopausal state
CPT/HCPCS: 77080

== ENCOUNTER 2021-12-24 13:12 | Emergency (ER) | payer MEDICARE, OTHER ==
[2021-12-24 13:22] VITALS: TEMP 98
[2021-12-24] MEDS ORDERED: MORPHINE SULFATE 4 MG/ML SYRINGE IVP STA (13:53)
[2021-12-24] MEDS ORDERED: ONDANSETRON 4 MG/2 ML VIAL IVP STA (13:53)
[2021-12-24] MEDS ORDERED: KETOROLAC 15 MG/ML 1 ML VIAL IVP STA (13:53)
[2021-12-24 14:22] LABS: Basophils # (A) 0.1 k/uL (0-0.2); Basophils % (A) 1 %; Eosinophils # (A) 0.6 k/uL (0-0.7); Eosinophils % (A) 6 %; HCT 36.2 % (34.0-46.0); HGB 12.5 gm/dL (11.4-16.0); Lymphocytes # (A) 1.3 k/uL (1.0-4.8); Lymphocytes % (A) 12 %; MCH 30.4 pg (25.0-35.0); MCHC 34.5 g/dL (31.0-37.0); MCV 88.1 fL (80.0-100.0); Mean Platelet Volume 7.2; Monocytes # (A) 0.6 k/uL (0-1.0); Monocytes % (A) 6 %; Neutrophils # (A) 7.9 k/uL (1.3-7.7); Neutrophils % (A) 74 %; Platelet Count 272 k/uL (150-450); RBC 4.12 m/uL (3.80-5.40); WBC 10.6 k/uL (3.8-10.6)
[2021-12-24 14:38] LABS: Albumin 3.9 g/dL (3.5-5.0); Calcium 9.3 mg/dL (8.4-10.2); Total Bilirubin 0.5 mg/dL (0.2-1.3); Total Protein 6.9 g/dL (6.3-8.2)
--- NOTE | 2021-12-24 14:55 | CT ---
EXAMINATION TYPE: CT lumbar spine wo con DATE OF EXAM: 12/24/2021 COMPARISON: None HISTORY: Low back pain. History of bilateral breast cancer CT DLP: 1496.6 mGycm Automated exposure control for dose reduction was used. Images obtained from T12 through S3 vertebra without contrast. There is a first-degree L5-S1 spondylolisthesis without spondylolysis. There is 6 mm subluxation defo rmity. Disc spaces are fairly normal. There is no compression fracture. There is no lumbar paraspinal mass. There is developmentally adequate spinal canal. No significant spinal stenosis. There is sligh t narrowing of the spinal canal at L5-S1 due to subluxation deformity. Sacroiliac joints are intact. There is no evidence of focal bone destruction. IMPRESSION: Degenerative first-degree L5-S1 spondylolisthesis. No fracture. No spinal stenosis.
--- NOTE | 2021-12-24 15:13 | US ---
EXAMINATION TYPE: US venous doppler duplex LE LT DATE OF EXAM: 12/24/2021 1:54 PM COMPARISON: NONE CLINICAL HISTORY: pain. back and left leg pain, no h/o dvt SIDE PERFORMED: Left TECHNIQUE: The lower extremity deep venous system is examined utilizing real time linear array sonog sheila with graded compression, doppler sonography and color-flow sonography. VESSELS IMAGED: Common Femoral Vein Deep Femoral Vein Greater Saphenous Vein * Femoral Vein Popliteal Vein Small Saphenous Vein * Proximal Calf Veins (* superficial vessels) Left Leg: Negative for DVT 3.3cm medial popiteal fossa fluid collection IMPRESSION: No evidence of deep vein thrombosis in the left leg. There is left-sided popliteal cyst n oted.
[2021-12-24 15:21] VITALS: BP 137/72; PULSE 80; RESP 20
[2021-12-24] MEDS ORDERED: ACET/COD 300 MG/30 MG STARTER PACK 6 TAB BTL PO STA (15:42)
[2021-12-24] MEDS ORDERED: DEXAMETHASONE SOD PHOSPHATE 10 MG/ML 1 ML VIAL IVP STA (15:42)
--- NOTE | 2021-12-24 15:44 | ED ---
General Adult HPI - General Chief complaint: Back Pain/Injury Stated complaint: back pain & leg pain Time Seen by Provider: 12/24/21 13:26 Source: patient, RN notes reviewed Mode of arrival: ambulatory Limitations: no limitations - History of Present Illness Initial comments: 71-year-old female presents emergency room chief complaint of back pain, left l eg pain. Patient states has been bothersome for 1 week. Patient states she has increased pain with movement. Patient states that she has left knee swelling. Patient denies any fevers, chills, trauma, or bladder incontinence or retention no saddle anesthesias no lower extremity paresthesias. Patient has no abdominal complaints including dysuria hematuria. Patient states that she has had injec tions in her left knee in the past. Patient denies any history DVT or PE. - Related Data Home Medications Medication Instructions Recorded Confirmed Glimepiride [Amaryl] 1 mg PO QAM 08/01/16 04/28/21 atenoloL [Tenormin] 50 mg PO DAILY 08/01/16 04/28/21 cloNIDine HCL [Catapres] 0.1 mg PO BID 08/01/16 04/28/21 Venlafaxine HCl 75 mg PO HS 07/31/17 04/28/21 Famotidine [Pepcid] 20 mg PO QAM 12/09/20 04/28/21 Ferrous Sulfate [Iron (65 MG 325 mg PO BID 12/09/20 04/28/21 Elemental)] Gabapentin [Neurontin] 100 mg PO TID 12/09/20 04/28/21 Montelukast [Singulair] 10 mg PO DAILY 12/09/20 04/28/21 Olmesartan Medoxomil [Benicar] 20 mg PO DAILY 12/09/20 04/28/21 buPROPion [Wellbutrin] 100 mg PO BID 12/09/20 04/28/21 Atorvastatin Calcium [Lipitor] 10 mg PO DAILY 01/18/21 04/28/21 DULoxetine HCL [Cymbalta] 60 mg PO DAILY 01/18/21 04/28/21 Ergocalciferol [Vitamin D2 (1250 1,250 mcg PO Q30D 01/18/21 04/28/21 Mcg = 54976 Iu)] Semaglutide [Ozempic] 0.25 mg SQ TU 01/18/21 04/28/21 minoxidiL 2.5 mg PO DAILY 01/18/21 04/28/21 Magnesium Oxide 400 mg PO DAILY 03/09/21 04/28/21 OLANZapine [ZyPREXA] 5 mg PO DIRECTED 03/09/21 04/28/21 Venlafaxine HCl [Effexor XR] 150 mg PO DAILY 03/09/21 04/28/21 LORazepam [Ativan] 1 mg PO TID PRN 04/26/21 04/28/21 hydrALAZINE HCL [Apresoline] 25 mg PO TID 04/26/21 04/28/21 Previous Rx's Medication Instructions Recorded Aspirin 81 mg PO DAILY #100 chew 03/15/21 HYDROcodone/APAP 5-325MG [Candler 1 tab PO Q6HR PRN 3 Days #12 tab 04/29/21 5-325] Cephalexin [Keflex] 500 mg PO TID 7 Days #21 cap 05/16/21 Ibuprofen [Motrin] 600 mg PO Q8HR PRN #20 tab 12/24/21 Allergies Allergy/AdvReac Type Severity Reaction Status Date / Time Sulfa (Sulfonamide Allergy Rash/Hives Verified 12/24/21 13:22 Antibiotics) Review of Systems ROS Statement: Those systems with pertinent positive or pertinent negative responses have been documented in the HPI. ROS Other: All systems not noted in ROS Statement are negative. Past Medical History Past Medical History: Cancer, CVA/TIA, Diabetes Mellitus, GERD/Reflux, Hyperlipidemia, Hypertension Additional Past Medical History / Comment(s): Bilateral breast cancer/has received 2 chemo sessions, NIDDM type II, neuropathy bilateral feet History of Any Multi-Drug Resistant Organisms: None Reported Past Surgical History: Breast Surgery Additional Past Surgical History / Comment(s): L breast benign biopsy, 11/2020 breast bx + cancer, 01/16/21 port placed, D&C hysteroscopy, oral surgery. Past Anesthesia/Blood Transfusion Reactions: No Reported Reaction Additional Past Anesthesia/Blood Transfusion Reaction / Comment(s): no previous blood transfusion Past Psychological History: Anxiety, Depression Smoking Status: Former smoker Past Alcohol Use History: None Reported Past Drug Use History: None Reported - Past Family History Mother Family Medical History: Cancer Father Family Medical History: No Reported History Additional Family Medical History / Comment(s): Heaalthy General Exam Limitations: no limitations General appearance: alert, in no apparent distress Head exam: Present: atraumatic, normocephalic, normal inspection Neck exam: Present: normal inspection, full ROM. Absent: tenderness, meningismus, lymphadenopathy Respiratory exam: Present: normal lung sounds bilaterally. Absent: respiratory distress, wheezes, rales, rhonchi, stridor Cardiovascular Exam: Present: regular rate, normal rhythm, normal heart sounds. Absent: systolic murmur, diastolic murmur, rubs, gallop, clicks GI/Abdominal exam: Present: soft, normal bowel sounds. Absent: distended, tenderness, guarding, rebound, rigid Extremities exam: Present: other (Left lower extremity pulses equal bilaterally, there is mild tenderness of left popliteal region, mild swelling left knee no erythema, full strength the lower extremities) Back exam: Present: full ROM (Pain with range of motion), tenderness (Left lower lumbar), muscle spasm, paraspinal tenderness. Absent: vertebral tenderness Neurological exam: Present: alert, oriented X3, reflexes normal. Absent: motor sensory deficit Course Vital Signs 12/24/21 12/24/21 13:19 15:19 Temperature 98 F Pulse Rate 82 80 Respiratory 18 20 Rate Blood Pressure 153/82 137/72 O2 Sat by Pulse 96 95 Oximetry Medical Decision Making - Medical Decision Making CT shows evidence of degenerative changes, L5-S1 changes, vision no red flag symptoms. Patient does have left popliteal cyst. Patient will follow-up with orthopedics. Return parameters were discussed. - Lab Data Result diagrams: 12/24/21 14:06 12/24/21 14:06 Lab Results 12/24/21 12/24/21 12/24/21 Range/Units 14:06 14:06 14:06 WBC 10.6 (3.8-10.6) k/uL RBC 4.12 (3.80-5.40) m/uL Hgb 12.5 (11.4-16.0) gm/dL Hct 36.2 (34.0-46.0) % MCV 88.1 (80.0-100.0) fL MCH 30.4 (25.0-35.0) pg MCHC 34.5 (31.0-37.0) g/dL RDW 14.0 (11.5-15.5) % Plt Count 272 (150-450) k/uL MPV 7.2 Neutrophils % 74 % Lymphocytes % 12 % Monocytes % 6 % Eosinophils % 6 % Basophils % 1 % Neutrophils # 7.9 H (1.3-7.7) k/uL Lymphocytes # 1.3 (1.0-4.8) k/uL Monocytes # 0.6 (0-1.0) k/uL Eosinophils # 0.6 (0-0.7) k/uL Basophils # 0.1 (0-0.2) k/uL Sodium 140 (137-145) mmol/L Potassium 4.0 (3.5-5.1) mmol/L Chloride 105 (98-107) mmol/L Carbon Dioxide 25 (22-30) mmol/L Anion Gap 10 mmol/L BUN 18 H (7-17) mg/dL Creatinine 1.25 H (0.52-1.04) mg/dL Est GFR (CKD-EPI)AfAm 50 (>60 ml/min/1.73 sqM) Est GFR (CKD-EPI)NonAf 43 (>60 ml/min/1.73 sqM) Glucose 87 (74-99) mg/dL Plasma Lactic Acid Felipe 0.8 (0.7-2.0) mmol/L Calcium 9.3 (8.4-10.2) mg/dL Total Bilirubin 0.5 (0.2-1.3) mg/dL AST 25 (14-36) U/L ALT 19 (4-34) U/L Alkaline Phosphatase 72 (38-126) U/L C-Reactive Protein 1.0 H (<1.0) mg/dL Total Protein 6.9 (6.3-8.2) g/dL Albumin 3.9 (3.5-5.0) g/dL Disposition Clinical Impression: Synovial cyst of popliteal space [Barton], left knee, Lumbar radiculopathy, ac pam, Spondylolisthesis Disposition: HOME SELF-CARE Condition: Stable Instructions (If sedation given, give patient instructions): Acute Low Back Pain (ED), Barton Cyst (ED) Additional Instructions: Please return to the Emergency Department if symptoms worsen or any other concerns. Prescriptions: Ibuprofen [Motrin] 600 mg PO Q8HR PRN #20 tab PRN Reason: Pain Is patient prescribed a controlled substance at d/c from ED?: No Referrals: Bijan High MD [Primary Care Provider] - 1-2 days Lorenzo Davis DO [Doctor of Osteopathic Medicine] - 1-2 days Time of Disposition: 15:44
== END 2021-12-24 15:58 | disposition home or self-care (01) ==
LOC: EC 13:12
DX: M71.22 Synovial cyst of popliteal space [Baker], left knee (principal); M54.16 Radiculopathy, lumbar region; M43.16 Spondylolisthesis, lumbar region; E11.9 Type 2 diabetes mellitus without complications; K21.9 Gastro-esophageal reflux disease without esophagitis; E78.5 Hyperlipidemia, unspecified; I10 Essential (primary) hypertension; F41.9 Anxiety disorder, unspecified; F32.A Depression, unspecified; Z79.82 Long term (current) use of aspirin; Z88.2 Allergy status to sulfonamides; Z86.73 Personal history of transient ischemic attack (TIA), and cerebral infarction without residual deficits; Z85.3 Personal history of malignant neoplasm of breast; Z87.891 Personal history of nicotine dependence
CPT/HCPCS: 99284; 96374; 96375 ×3; 36415; 80053; 83605; 85025; 86140; 93971; 72131; J2270; J1100; J2405; J1885

== ENCOUNTER 2022-03-23 06:45 | Emergency (ER) | payer MEDICARE, OTHER ==
[2022-03-23 06:50] VITALS: BP 168/74; PULSE 94; RESP 18; TEMP 98.9
[2022-03-23] MEDS ORDERED: TOPICAL SKIN ADHESIVE 1 EACH AMP TOPICAL ONE (07:16)
[2022-03-23] MEDS ORDERED: ACETAMINOPHEN TAB 500 MG TAB PO STA (07:33)
--- NOTE | 2022-03-23 07:34 | ED ---
General Adult HPI - General Chief complaint: Fall Stated complaint: Nose Laceration Time Seen by Provider: 03/23/22 07:05 Source: patient, EMS, RN notes reviewed Mode of arrival: EMS Limitations: no limitations - History of Present Illness Initial comments: Patient is a pleasant 71-year-old female presenting to the emergency department with nasal laceration. Patient was laying on the side of the bed when she fell asleep. Patient fell. Patient awoke and she was falling to the ground. Patient struck her nose. Patient did not lose consciousness. No syncope. Patient states she was not on the bed far enough and is upset at herself for this. No other area of injury or concern. No blood thinners however patient does take an aspirin. Only mild discomfort of the nose. - Related Data Home Medications Medication Instructions Recorded Confirmed Glimepiride [Amaryl] 1 mg PO QAM 08/01/16 04/28/21 atenoloL [Tenormin] 50 mg PO DAILY 08/01/16 04/28/21 cloNIDine HCL [Catapres] 0.1 mg PO BID 08/01/16 04/28/21 Venlafaxine HCl 75 mg PO HS 07/31/17 04/28/21 Famotidine [Pepcid] 20 mg PO QAM 12/09/20 04/28/21 Ferrous Sulfate [Iron (65 MG 325 mg PO BID 12/09/20 04/28/21 Elemental)] Gabapentin [Neurontin] 100 mg PO TID 12/09/20 04/28/21 Montelukast [Singulair] 10 mg PO DAILY 12/09/20 04/28/21 Olmesartan Medoxomil [Benicar] 20 mg PO DAILY 12/09/20 04/28/21 buPROPion [Wellbutrin] 100 mg PO BID 12/09/20 04/28/21 Atorvastatin Calcium [Lipitor] 10 mg PO DAILY 01/18/21 04/28/21 DULoxetine HCL [Cymbalta] 60 mg PO DAILY 01/18/21 04/28/21 Ergocalciferol [Vitamin D2 (1250 1,250 mcg PO Q30D 01/18/21 04/28/21 Mcg = 42439 Iu)] Semaglutide [Ozempic] 0.25 mg SQ TU 01/18/21 04/28/21 minoxidiL 2.5 mg PO DAILY 01/18/21 04/28/21 Magnesium Oxide 400 mg PO DAILY 03/09/21 04/28/21 OLANZapine [ZyPREXA] 5 mg PO DIRECTED 03/09/21 04/28/21 Venlafaxine HCl [Effexor XR] 150 mg PO DAILY 03/09/21 04/28/21 LORazepam [Ativan] 1 mg PO TID PRN 04/26/21 04/28/21 hydrALAZINE HCL [Apresoline] 25 mg PO TID 04/26/21 04/28/21 Previous Rx's Medication Instructions Recorded Aspirin 81 mg PO DAILY #100 chew 03/15/21 HYDROcodone/APAP 5-325MG [Gray 1 tab PO Q6HR PRN 3 Days #12 tab 04/29/21 5-325] Cephalexin [Keflex] 500 mg PO TID 7 Days #21 cap 05/16/21 Ibuprofen [Motrin] 600 mg PO Q8HR PRN #20 tab 12/24/21 Allergies Allergy/AdvReac Type Severity Reaction Status Date / Time Sulfa (Sulfonamide Allergy Rash/Hives Verified 12/24/21 13:22 Antibiotics) Review of Systems ROS Statement: Those systems with pertinent positive or pertinent negative responses have been documented in the HPI. ROS Other: All systems not noted in ROS Statement are negative. Constitutional: Denies: fever Eyes: Denies: eye pain ENT: Denies: as per HPI Respiratory: Denies: cough Cardiovascular: Denies: chest pain Endocrine: Denies: fatigue Gastrointestinal: Denies: abdominal pain Genitourinary: Denies: dysuria Musculoskeletal: Denies: back pain Skin: Reports: as per HPI. Denies: rash Neurological: Denies: headache, weakness, confusion Past Medical History Past Medical History: Cancer, CVA/TIA, Diabetes Mellitus, GERD/Reflux, Hyperlipidemia, Hypertension Additional Past Medical History / Comment(s): Bilateral breast cancer/has received 2 chemo sessions, NIDDM type II, neuropathy bilateral feet History of Any Multi-Drug Resistant Organisms: None Reported Past Surgical History: Breast Surgery Additional Past Surgical History / Comment(s): L breast benign biopsy, 11/2020 breast bx + cancer, 01/16/21 port placed, D&C hysteroscopy, oral surgery. Past Anesthesia/Blood Transfusion Reactions: No Reported Reaction Additional Past Anesthesia/Blood Transfusion Reaction / Comment(s): no previous blood transfusion Past Psychological History: Anxiety, Depression Smoking Status: Former smoker Past Alcohol Use History: None Reported Past Drug Use History: None Reported - Past Family History Mother Family Medical History: Cancer Father Family Medical History: No Reported History Additional Family Medical History / Comment(s): Heaalthy General Exam Limitations: no limitations General appearance: alert, in no apparent distress Head exam: Present: atraumatic Eye exam: Present: normal appearance, PERRL, EOMI ENT exam: Present: other (Nasal laceration. No nasal septal hematoma. Minimal discomfort of the nasal bone.) Neck exam: Present: normal inspection. Absent: tenderness Respiratory exam: Present: normal lung sounds bilaterally Cardiovascular Exam: Present: regular rate, normal rhythm GI/Abdominal exam: Present: soft. Absent: tenderness Extremities exam: Present: normal inspection, full ROM. Absent: tenderness Neurological exam: Present: alert, oriented X3, CN II-XII intact. Absent: motor sensory deficit Expanded Neurological exam: Present: protecting the airway Speech: Present: fluid speech Cranial nerves: EOM's Intact: Normal Motor strength exam: RUE: 5, LUE: 5, RLE: 5, LLE: 5 Eye Response: (4) open spontaneously Motor Response: (6) obeys commands Verbal Response: (5) oriented Psychiatric exam: Present: normal affect, normal mood Skin exam: Present: other (Linear nasal laceration approximate 3 cm) Course Vital Signs 03/23/22 06:46 Temperature 98.9 F Pulse Rate 94 Respiratory 18 Rate Blood Pressure 168/74 O2 Sat by Pulse 95 Oximetry - Reevaluation(s) Reevaluation #1: 03/23/22 07:31 Patient refuses x-rays. Procedures - Laceration Laceration #1 Consent Obtained: verbal consent Indication: laceration Site: face (nose) Size (cm): 3 Description: linear Depth: simple, single layer Pre-repair: wound explored, irrigated extensively Type of Sutures: other (Closed with skin adhesive) Patient Tolerated Procedure: well, no complications Disposition Clinical Impression: Fall, Laceration of nose Disposition: HOME SELF-CARE Condition: Stable Instructions (If sedation given, give patient instructions): Skin Adhesive Care (ED) Additional Instructions: Allow the skin glue to fall off on its own in approximately 5-7 days. Keep laceration out of the sun. Return for increased pain, bleeding, weakness or confusion, worsening symptoms or other concerns. Is patient prescribed a controlled substance at d/c from ED?: No Referrals: Bijan High MD [Primary Care Provider] - 1-2 days Time of Disposition: 07:34
== END 2022-03-23 07:45 | disposition home or self-care (01) ==
LOC: EC 06:45
DX: S01.21XA Laceration without foreign body of nose, initial encounter (principal); E11.9 Type 2 diabetes mellitus without complications; Z86.73 Personal history of transient ischemic attack (TIA), and cerebral infarction without residual deficits; E78.5 Hyperlipidemia, unspecified; I10 Essential (primary) hypertension; Z87.891 Personal history of nicotine dependence; Z88.2 Allergy status to sulfonamides; W19.XXXA Unspecified fall, initial encounter

== ENCOUNTER 2022-07-23 06:31 | Day surgery (SDC) | payer MEDICARE, OTHER ==
[2022-07-19 10:31] VITALS: BMI 31.9
--- NOTE | 2022-07-20 16:04 | P.GSHP ---
History of Present Illness H&P Date: 07/20/22 Chief Complaint: Bilateral breast cancer 71-year-old female presenting for Port-A-Cath removal. Patient with history of bilateral breast cancer. Patient underwent bilateral mastectomy in the past. In December 2020 patient had a Port-A-Cath placed. No longer utilizing the port. Past Medical History Past Medical History: Cancer, CVA/TIA, Diabetes Mellitus, GERD/Reflux, Hyperlipidemia, Hypertension Additional Past Medical History / Comment(s): CVA (february 2021)., Bilateral breast cancer (2020 with mastectomies & chemo )., NIDDM type II, neuropathy feet., heart murmur., poor balance with hx falls-uses cane. History of Any Multi-Drug Resistant Organisms: None Reported Past Surgical History: Breast Surgery Additional Past Surgical History / Comment(s): sarita breast bx., 01/16/21 port a cath 04/28/21 sarita mastectomy., D&C hysteroscopy., oral procedure. Past Anesthesia/Blood Transfusion Reactions: No Reported Reaction Additional Past Anesthesia/Blood Transfusion Reaction / Comment(s): no previous blood transfusion Past Psychological History: Anxiety, Depression Additional Psychological History / Comment(s): . Smoking Status: Former smoker Past Alcohol Use History: None Reported Additional Past Alcohol Use History / Comment(s): Pt started smoking in 1963 and quit in 1973. Past Drug Use History: None Reported - Past Family History Mother Family Medical History: Cancer Father Family Medical History: No Reported History, Cancer Additional Family Medical History / Comment(s): prostate cancer Medications and Allergies Home Medications Medication Instructions Recorded Confirmed Type Glimepiride [Amaryl] 1 mg PO QAM 08/01/16 07/20/22 History atenoloL [Tenormin] 50 mg PO DAILY 08/01/16 07/20/22 History cloNIDine HCL [Catapres] 0.1 mg PO BID 08/01/16 07/20/22 History Venlafaxine HCl 75 mg PO HS 07/31/17 07/20/22 History Famotidine [Pepcid] 20 mg PO QAM 12/09/20 07/20/22 History Ferrous Sulfate [Iron (65 MG 325 mg PO BID 12/09/20 07/20/22 History Elemental)] Gabapentin [Neurontin] 2 mg PO BID 12/09/20 07/20/22 History Montelukast [Singulair] 10 mg PO DAILY 12/09/20 07/20/22 History Olmesartan Medoxomil [Benicar] 20 mg PO DAILY 12/09/20 07/20/22 History buPROPion [Wellbutrin] 100 mg PO BID 12/09/20 07/20/22 History Atorvastatin Calcium [Lipitor] 10 mg PO DAILY 01/18/21 07/20/22 History DULoxetine HCL [Cymbalta] 60 mg PO DAILY 01/18/21 07/20/22 History Ergocalciferol [Vitamin D2 (1250 1,250 mcg PO Q30D 01/18/21 07/20/22 History Mcg = 33116 Iu)] Semaglutide [Ozempic] 0.25 mg SQ TU 01/18/21 07/20/22 History minoxidiL 2.5 mg PO DAILY 01/18/21 07/20/22 History Magnesium Oxide 400 mg PO DAILY 03/09/21 07/20/22 History Venlafaxine HCl [Effexor XR] 150 mg PO DAILY 03/09/21 07/20/22 History Aspirin 81 mg PO DAILY #100 chew 03/15/21 07/20/22 Rx LORazepam [Ativan] 1 mg PO TID PRN 04/26/21 07/20/22 History hydrALAZINE HCL [Apresoline] 50 mg PO BID 04/26/21 07/20/22 History Flavonoid Supplement 1 dose PO DAILY 07/20/22 History Letrozole [Femara] 2.5 mg PO DAILY 07/20/22 07/20/22 History Meclizine [Antivert] 12.5 mg PO DAILY PRN 07/20/22 07/20/22 History Melatonin 5 mg PO HS 07/20/22 07/20/22 History Naproxen Sodium [Aleve] 440 mg PO DAILY PRN 07/20/22 07/20/22 History Nervie Supplement 1 dose PO DAILY 07/20/22 History Allergies Allergy/AdvReac Type Severity Reaction Status Date / Time Sulfa (Sulfonamide Allergy Rash/Hives Verified 07/19/22 10:02 Antibiotics) Surgical - Exam Physical exam: General: Well-developed, well-nourished HEENT: Normocephalic, sclerae nonicteric Abdomen: Nontender, nondistended Extremities: No edema Neuro: Alert and oriented Chest: Port-A-Cath in place, bilateral mastectomy incisions are healing nicely Assessment and Plan (1) Bilateral breast cancer Narrative/Plan: 71-year-old female with bilateral breast cancer. We'll proceed with Port-A-Cath removal. Status: Acute Code(s): C50.911 - MALIGNANT NEOPLASM OF UNSP SITE OF RIGHT FEMALE BREAST; C50.912 - MALIGNANT NEOPLASM OF UNSPECIFIED SITE OF LEFT FEMALE BREAST SNOMED Code(s): 959656528
[~2022-07-23 06:31] MED LIST changes: -DEXAMETHASONE SOD PHOSPHATE 4 MG/ML 1 ML VIAL IV ONE; +HEPARIN SODIUM,PORCINE/PF 5,000 UNIT/0.5 ML SYRINGE SQ PRN; -HYDROmorphone 0.5 MG/0.5 ML SYRINGE IVP PRN; -MIDAZOLAM 2 MG/2 ML VIAL IV PRN; -ONDANSETRON 4 MG/2 ML VIAL IVP ONE; -Pre Op ABX Message 1 EACH MISC MISCELLANE ONE
[2022-07-23] MEDS ORDERED: LIDOCAINE 1% (10MG/ML) FOR IV START INTRADERMA PRN (06:57)
[2022-07-23] MEDS ORDERED: LACTATED RINGERS 1,000 ML IV SCH (06:57)
[2022-07-23] MEDS ORDERED: ONDANSETRON 4 MG/2 ML VIAL IVP ONE (06:57)
[2022-07-23] MEDS ORDERED: HYDROmorphone 0.5 MG/0.5 ML SYRINGE IVP PRN (07:00)
[2022-07-23 07:25] LABS: Glucose,Whole Blood 116 mg/dL (70-110)
[2022-07-23] MEDS ORDERED: LIDOCAINE 1% INJ 10MG/ML (20 ML MDV) SQ ONE ×2 (07:25→07:47)
[2022-07-23] MEDS ORDERED: PROPOFOL 10 MG/ML 20 ML VIAL IV ONE (07:32)
[2022-07-23] MEDS ORDERED: MIDAZOLAM 2 MG/2 ML VIAL ONE (07:32)
[2022-07-23] MEDS ORDERED: fentaNYL (PF) 50 MCG/ML 2 ML AMP ONE (07:32)
[2022-07-23 08:22] VITALS: TEMP 97.4
[2022-07-23] MEDS ORDERED: NALOXONE 0.4 MG/ML 1 ML VIAL IV PRN (08:46)
--- NOTE | 2022-07-23 08:47 | P.OP ---
Date of Procedure: 07/23/22 Procedure(s) Performed: PREOPERATIVE DIAGNOSIS: Bilateral breast cancer POSTOPERATIVE DIAGNOSIS: Same PROCEDURE: Port-A-Cath removal SURGEON: Hannah EBL: Minimal ANESTHESIA: Sedation COMPLICATIONS: None OPERATIVE PROCEDURE: Patient was placed in the supine position. The patient was sedated per anesthesia that time. The chest was prepped and draped in the usual sterile fashion. The skin was localized with Marcaine solution. The previous incision was re-incised using a scalpel. The port was easily excised using accommodation of blunt dissection sharp dissection and electrocautery. The subcutaneous tissues were reapproximated using 3-0 Vicryl sutures. The skin was reapproximated using 4-0 Monocryl sutures. Skin glue was then applied. DISPOSITION: Stable to recovery room
[2022-07-23 09:39] VITALS: RESP 20
[2022-07-23 09:40] VITALS: BP 122/86; PULSE 72
== END 2022-07-23 10:01 | disposition home or self-care (01) ==
LOC: OR 06:31
PROVIDERS: ATTEND Surgery
DX: C50.911 Malignant neoplasm of unspecified site of right female breast (principal); C50.912 Malignant neoplasm of unspecified site of left female breast; K21.9 Gastro-esophageal reflux disease without esophagitis; I10 Essential (primary) hypertension; E78.5 Hyperlipidemia, unspecified; E11.40 Type 2 diabetes mellitus with diabetic neuropathy, unspecified; R01.1 Cardiac murmur, unspecified; R26.89 Other abnormalities of gait and mobility; F41.9 Anxiety disorder, unspecified; F32.A Depression, unspecified; Z86.73 Personal history of transient ischemic attack (TIA), and cerebral infarction without residual deficits; Z90.13 Acquired absence of bilateral breasts and nipples; Z87.891 Personal history of nicotine dependence; Z80.42 Family history of malignant neoplasm of prostate; Z79.899 Other long term (current) drug therapy; Z79.1 Long term (current) use of non-steroidal anti-inflammatories (NSAID); Z79.82 Long term (current) use of aspirin; Z88.2 Allergy status to sulfonamides
CPT/HCPCS: 36590; J2250; J0690; J2405; J2001; J3010; J2704; J1644

== ENCOUNTER 2025-02-13 23:42 | Inpatient (IN) | payer MEDICARE, OTHER ==
[2025-02-14] MEDS: IPRATROPIUM-ALBUTEROL 3 ML NEB INHALATION STA (00:03)
[2025-02-14] MEDS: RACEPINEPHRINE 2.25% NEB 0.5 ML NEBU INHALATION STA (00:18)
[2025-02-14 00:25] LABS: Basophils # (A) 0.09 10*3/uL (0.00-0.10); Basophils % (A) 0.6 %; Eosinophils # (A) 0.51 10*3/uL (0.04-0.35); Eosinophils % (A) 3.3 %; HCT 33.3 % (37.2-46.3); HGB 10.9 g/dL (12.0-15.0); Lymphocytes # (A) 1.29 10*3/uL (0.90-5.00); Lymphocytes % (A) 8.4 %; MCH 30.1 pg (27.0-32.0); MCHC 32.7 g/dL (32.0-37.0); Mean Platelet Volume 9.6 fL (9.5-12.2); Monocytes # (A) 1.27 10*3/uL (0.20-1.00); Monocytes % (A) 8.3 %; Neutrophils # (A) 12.15 10*3/uL (1.80-7.70); Neutrophils % (A) 78.9 %; Platelet Count 272 10*3/uL (140-440); RBC 3.62 10*6/uL (4.10-5.20); RDW 13.7 % (11.5-14.5); WBC 15.39 10*3/uL (4.50-10.00)
[2025-02-14] MEDS: SODIUM CHLORIDE 0.9% 1,000 ML IV ONE (00:26)
[2025-02-14] MEDS: methylPREDNISolone SOD SUCCI 125 MG/2 ML VIAL IV STA (00:27)
--- NOTE | 2025-02-14 00:30 | XR ---
EXAMINATION TYPE: XR chest 1V portable DATE OF EXAM: 02/14/2025 COMPARISON: Chest x-ray March 09, 2021 CLINICAL INDICATION: Female, 74 years old with history of dyspnea; TECHNIQUE: Single frontal view of the chest is obtained. FINDINGS: Cardiomegaly is redemonstrated. Reticular increased markings bilaterally are now present. Suspect small to tiny bilateral pleural effusions. Surgical clips project over the right hilar region . Surgical clips project over the left lateral thorax. The osseous structures are intact. IMPRESSION: Findings are consistent with CHF exacerbation. Correlate clinically. [facility], , 02/14/2025 12:28 AM
[2025-02-14 00:46] LABS: INR 0.9 (<1.2); Prothrombin Time 10.4 sec (10.0-12.5)
[2025-02-14 00:50] LABS: ALT 14 U/L (4-34); AST 21 U/L (14-36); African American GFR (CKD) 67 (>60 ml/min/1.73 sqM); Albumin 3.9 g/dL (3.5-5.0); Alkaline Phosphatase 60 U/L (38-126); Anion Gap 13 mmol/L; Blood Urea Nitrogen 14 mg/dL (7-17); Calcium 9.1 mg/dL (8.4-10.2); Carbon Dioxide 23 mmol/L (22-30); Chloride 107 mmol/L (98-107); Glucose 126 mg/dL (74-99); Magnesium 1.7 mg/dL (1.6-2.3); Non-African American GFR(CKD) 58 (>60 ml/min/1.73 sqM); Potassium 4.1 mmol/L (3.5-5.1); Sodium 143 mmol/L (137-145); Total Bilirubin 0.5 mg/dL (0.2-1.3); Total Protein 6.5 g/dL (6.3-8.2)
[2025-02-14 00:59] LABS: NT-Pro-B-Type Natriuretic Pept 10100 pg/mL
[2025-02-14] MEDS: LORazepam 1 MG TAB PO STA (01:08)
--- NOTE | 2025-02-14 01:20 | CT ---
EXAM: CT Angiography Chest With Intravenous Contrast CLINICAL HISTORY: ITS.REASON CT Reason: dyspnea, wheeze, hypoxia TECHNIQUE: Axial computed tomographic angiography images of the chest with intravenous contrast. CTDI is 20.87 mGy and DLP is 478.3 mGy-cm. This CT exam was performed using one or more of the following dose reduction techniques: automated exposure control, adjustment of the mA and/or kV according to patient size, and/or use of iterative reconstruction technique. MIP reconstructed images were created and reviewed. COMPARISON: No relevant prior studies available. FINDINGS: Pulmonary arteries: Unremarkable. No pulmonary embolism. Aorta: Atherosclerotic changes of the aorta. No thoracic aortic aneurysm. Lungs: Unremarkable. No mass. No consolidation. Pleural space: Small bilateral pleural effusions. No pneumothorax. Heart: Unremarkable. No cardiomegaly. No significant pericardial effusion. No evidence of RV dysfunction. Bones/joints: Degenerative changes of the spine. No acute fracture. No dislocation. Soft tissues: Unremarkable. Lymph nodes: Unremarkable. No enlarged lymph nodes. IMPRESSION: No pulmonary embolism.
[2025-02-14 01:49] LABS: Influenza A Not Detected (Not Detectd); Influenza B Not Detected (Not Detectd); RSV Not Detected (Not Detectd)
--- NOTE | 2025-02-14 01:57 | CT ---
EXAM: CT Neck With Intravenous Contrast CLINICAL HISTORY: ITS.REASON CT Reason: dyspnea, wheeze, hypoxia TECHNIQUE: Axial computed tomography images of the neck with intravenous contrast. CTDI is 7.6 mGy and DLP is 203.8 mGy-cm. This CT exam was performed using one or more of the following dose reduction techniques: automated exposure control, adjustment of the mA and/or kV according to patient size, and/or use of iterative reconstruction technique. COMPARISON: No relevant prior studies available. FINDINGS: Nasal cavity/septum: Unremarkable. Nasopharynx: Unremarkable. Oropharynx: Unremarkable. No significant tonsillar enlargement. No peritonsillar abscess. Hypopharynx: Unremarkable. Larynx: Unremarkable. Normal epiglottis. Trachea: Unremarkable. Retropharyngeal space: Unremarkable. Submandibular/parotid glands: Unremarkable. Glands are normal in size. Thyroid: Small right thyroid nodule. No enlarged or calcified nodules. Bones/joints: No acute fracture. Dental caries with periapical abscesses about tooth #26 and 27. Recommend dental consult. Soft tissues: Unremarkable. Vasculature: No acute findings. Lymph nodes: Unremarkable. No lymphadenopathy. Sinuses: Unremarkable as visualized. No acute sinusitis. Lung apices: Pulmonary edema with bilateral pleural effusions. IMPRESSION: No evidence of acute cervical soft tissue pathology. Pulmonary edema with bilateral pleural effusions.
[2025-02-14 02:03] LABS: Appearance,Urine Clear (Clear); Bacteria,Urine Rare /hpf; Bilirubin,Urine Negative (Negative); Blood,Urine Negative (Negative); Color,Urine Colorless; Glucose,Urine (UA) Negative (Negative); Ketones,Urine Negative (Negative); Leukocyte Esterase,Urine Negative (Negative); Mucus,Urine Rare /hpf; Nitrite,Urine Negative (Negative); PH, Urine 5.5 (5.0-8.0); Protein,Urine 1+ (Negative); RBC,Urine <1 /hpf (0-5); Specific Gravity,Urine 1.026 (1.001-1.035); Squamous Epithelial Cell,Urine <1 /hpf (0-4); Urobilinogen,Urine <2.0 mg/dL (<2.0); WBC,Urine 3 /hpf (0-5)
--- NOTE | 2025-02-14 02:22 | ED ---
General Adult HPI - General Chief complaint: Shortness of Breath Stated complaint: ALIN Time Seen by Provider: 02/13/25 23:50 Source: patient, RN notes reviewed, old records reviewed Mode of arrival: wheelchair Limitations: no limitations - History of Present Illness Initial comments: Patient is a 74-year-old female who presents emergency department complaining of shortness of breath. States it was starting approximately 5 hours ago. States it is with any form of exertion. Denies any chest pain. Denies any cough or fevers. Denies abdominal pain, nausea, vomiting, diarrhea. States she feels very anxious. Is normally not on oxygen at home. Does have a history of breast cancer, stroke, diabetes, hypertension, hyperlipidemia. Was brought in by her over concern for increased work of breathing and shortness of breath. She denies any lower extremity swelling or edema. Does endorse mild orthopnea as well as exertional dyspnea. Denies PND. Presents for further evaluation at this time.Patient did have a recent dental surgery her she is having all of her teeth pulled and replaced. Just finished a course of antibiotics. Presents for further evaluation at this time. - Related Data Home Medications Medication Instructions Recorded Confirmed Glimepiride [Amaryl] 1 mg PO QAM 08/01/16 07/23/22 atenoloL [Tenormin] 50 mg PO DAILY 08/01/16 07/23/22 cloNIDine HCL [Catapres] 0.1 mg PO BID 08/01/16 07/23/22 Venlafaxine HCl 75 mg PO HS 07/31/17 07/23/22 Famotidine [Pepcid] 20 mg PO QAM 12/09/20 07/23/22 Ferrous Sulfate [Iron (65 MG 325 mg PO BID 12/09/20 07/23/22 Elemental)] Gabapentin [Neurontin] 2 mg PO BID 12/09/20 07/23/22 Montelukast [Singulair] 10 mg PO DAILY 12/09/20 07/23/22 Olmesartan Medoxomil [Benicar] 20 mg PO DAILY 12/09/20 07/23/22 buPROPion [Wellbutrin] 100 mg PO BID 12/09/20 07/23/22 Atorvastatin Calcium [Lipitor] 10 mg PO DAILY 01/18/21 07/23/22 DULoxetine HCL [Cymbalta] 60 mg PO DAILY 01/18/21 07/23/22 Ergocalciferol [Vitamin D2 (1250 1,250 mcg PO Q30D 01/18/21 07/23/22 Mcg = 37219 Iu)] Semaglutide [Ozempic] 0.25 mg SQ TU 01/18/21 07/23/22 minoxidiL 2.5 mg PO DAILY 01/18/21 07/23/22 Magnesium Oxide 400 mg PO DAILY 03/09/21 07/23/22 Venlafaxine HCl [Effexor XR] 150 mg PO DAILY 03/09/21 07/23/22 LORazepam [Ativan] 1 mg PO TID PRN 04/26/21 07/23/22 hydrALAZINE HCL [Apresoline] 50 mg PO BID 04/26/21 07/23/22 Flavonoid Supplement 1 dose PO DAILY 07/20/22 07/23/22 Letrozole [Femara] 2.5 mg PO DAILY 07/20/22 07/23/22 Meclizine [Antivert] 12.5 mg PO DAILY PRN 07/20/22 07/23/22 Melatonin 5 mg PO HS 07/20/22 07/23/22 Naproxen Sodium [Aleve] 440 mg PO DAILY PRN 07/20/22 07/23/22 Nervie Supplement 1 dose PO DAILY 07/20/22 07/23/22 Previous Rx's Medication Instructions Recorded Aspirin 81 mg PO DAILY #100 chew 03/15/21 Allergies Allergy/AdvReac Type Severity Reaction Status Date / Time Sulfa (Sulfonamide Allergy Rash/Hives Verified 02/13/25 23:46 Antibiotics) Review of Systems ROS Statement: Those systems with pertinent positive or pertinent negative responses have been documented in the HPI. Review of Systems: CONST: Endorses anxiety EYES: Denies blurry vision ENT: Denies nasal congestion C/V: Denies Chest pain RESP: Endorses shortness of breath GI: Denies abdominal pain : Denies dysuria SKIN: Denies rash. MSK: Denies joint pain. NEURO: Denies headache ROS Other: All systems not noted in ROS Statement are negative. Past Medical History Past Medical History: Cancer, CVA/TIA, Diabetes Mellitus, GERD/Reflux, Hyperlipidemia, Hypertension Additional Past Medical History / Comment(s): CVA (february 2021)., Bilateral breast cancer (2020 with mastectomies & chemo )., NIDDM type II, neuropathy feet., heart murmur., poor balance with hx falls-uses cane. History of Any Multi-Drug Resistant Organisms: None Reported Past Surgical History: Breast Surgery Additional Past Surgical History / Comment(s): sarita breast bx., 01/16/21 port a cath 04/28/21 sarita mastectomy., D&C hysteroscopy., oral procedure. Past Anesthesia/Blood Transfusion Reactions: No Reported Reaction Additional Past Anesthesia/Blood Transfusion Reaction / Comment(s): no previous blood transfusion Past Psychological History: Anxiety, Depression Smoking Status: Former smoker Past Alcohol Use History: None Reported Past Drug Use History: None Reported - Past Family History Mother Family Medical History: Cancer Father Family Medical History: No Reported History, Cancer Additional Family Medical History / Comment(s): prostate cancer General Exam - General Exam Comments Initial Comments: General: Appears anxious HEAD: Normal with no signs of head trauma. EYES: PERRLA, EOMI, conjunctiva normal, no discharge. ENT: Hearing grossly intact, normal oropharynx. Mild central wheezing. Possible stridor, difficult to obtain good exam as she does have what sounds like projected airway wheezing from her chest. RESPIRATORY: Mild wheezing, difficult to determine if it is cardiac versus pulmonary. Hypoxia, 90 to 91% on room air. Increased work of breathing. C/V: Tachycardic. S1 and S2 auscultated, very mild edema, no significant pitting edema, peripheral pulses 2+ and intact throughout ABD: Abd is soft, nontender, nondistended EXT: Normal range of motion, no obvious deformity SKIN: No rashes or lesions observed on exposed skin. NEURO: Alert and oriented x 4. No focal deficits. Limitations: no limitations Course Vital Signs 02/13/25 02/14/25 02/14/25 23:43 00:05 00:19 Temperature 98.7 F Pulse Rate 106 H 106 H 114 H Respiratory 20 24 26 H Rate Blood Pressure 173/79 O2 Sat by Pulse 91 L Oximetry 02/14/25 02/14/25 02/14/25 00:25 01:10 03:42 Temperature Pulse Rate 111 H 103 H 87 Respiratory 26 H 20 16 Rate Blood Pressure 170/90 171/91 O2 Sat by Pulse 94 L 92 L Oximetry 02/14/25 03:47 Temperature Pulse Rate Respiratory 28 H Rate Blood Pressure O2 Sat by Pulse Oximetry Medical Decision Making - Medical Decision Making Was pt. sent in by a medical professional or institution (, [facility], [employer], urgent care, hospital, or fpc...) When possible be specific @ -No Did you speak to anyone other than the patient for history (EMS, parent, family, police, friend...)? What history was obtained from this source @ -Spoke with the patient's as well as daughter who provided additional history. Patient's daughter believes that patient may have a history of aortic stenosis. Did you review nursing and triage notes (agree or disagree)? Why? @ -I reviewed and agree with nursing and triage notes Were old charts reviewed (outside hosp., previous admission, EMS record, old EKG, old radiological studies, urgent care reports/EKG's, fpc records)? Report findings @ -No old charts were reviewed Differential Diagnosis (chest pain, altered mental status, abdominal pain women, abdominal pain men, vaginal bleeding, weakness, fever, dyspnea, syncope, headache, dizziness, GI bleed, back pain, seizure, CVA, palpatations, mental health, musculoskeletal)? @ -Differential Dyspnea: Coronary syndrome, arrhythmia, tamponade, asthma, COPD, pulmonary embolism, pneumonia, pneumothorax, pulmonary effusion, anaphylaxis, diabetic ketoacidosis, flailed chest, pulmonary contusion, diaphragmatic rupture, anemia, ne uromuscular, this is not meant to be an all-inclusive list. EKG interpreted by me (3pts min.). @ -As above X-rays interpreted by me (1pt min.). @ -Chest x-ray shows bilateral pulm vascular congestion as well as a bilateral pleural effusions. Concerning for CHF CT interpreted by me (1pt min.). @ -CT PE negative for pulmonary embolism. No other obvious acute finding. Bilateral pleural effusions are present. CT of the neck reveals no obvious postsurgical change after dental removal. Patient does have a periapical abscesses at tooth #26 and 27. U/S interpreted by me (1pt. min.). @ -None done What testing was considered but not performed or refused? (CT, X-rays, U/S, labs)? Why? @ -None What meds were considered but not given or refused? Why? @ -None Did you discuss the management of the patient with other professionals (professionals i.e. DrRachel, PA, [employer], lab, RT, psych nurse, medical social worker, churn driller helper, teacher, [employer] plans staff officer, patient case coordinator)? Give summary @ -Discussed with admitting provider, Dr. High who accepted the admission. Was smoking cessation discussed for >3mins.? @ -No Was critical care preformed (if so, how long)? @ -Yes, 42 minutes. Were there social determinants of health that impacted care today? How? (Homelessness, low income, unemployed, alcoholism, drug addiction, transportation, low edu. Level, literacy, decrease access to med. care, usp, rehab)? @ -No Was there de-escalation of care discussed even if they declined (Discuss DNR or withdrawal of care, Hospice)? DNR status @ -No What co-morbidities impacted this encounter? (DM, HTN, Smoking, COPD, CAD, Cancer, CVA, ARF, Chemo, Hep., AIDS, mental health diagnosis, sleep apnea, morbid obesity)? @ -Hypertension, hyperlipidemia, anxiety Was patient admitted / discharged? Hospital course, mention meds given and route, prescriptions, significant lab abnormalities, going to OR and other pertinent info. @ -Based on the patient's presentation and physical exam, presents with shortness of breath beginning this evening. Also appears anxious. No cardiac or lung history per patient. Possible aortic stenosis per patient's daughter. Patient does have a history of cancer and recently had dental procedure. She is tachycardic, hypoxic, with increased work of breathing. She did present originally with some wheezing that was difficult to interpret if it was from centrally in her chest or possibly mild stridor. Patient did have recent dental surgery. Oral evaluation shows no obvious acute edema. While we were obtaining IV access, we did attempt breathing treatments as well as racemic epin ephrine to see if that improved the wheezing sounds. Minimal improvement if at any. Patient did receive a dose of Ativan which seemed to improve most of her symptoms. Patient was placed on supplemental oxygen. Remainder the labs are remarkable for tachycardia. Labs are remarkable for leukocytosis of 15. Troponin returned elevated at 0.107. BNP elevated to 10,000. Viral swabs negative. Patient's chest x-ray consistent with pulmonary vascular congestion and pleural effusions. Concern for CHF. CT PE was obtained due to the concern for possible PE with a history of cancer as well as recent surgical procedure, dyspnea, tachycardia and this was negative for PE. CT neck was also obtained considering the recent dental procedure and this did not show any obvious finding other than some periapical abscesses likely related to the poor dentition which is chronic for the patient. On reevaluation, patient is resting comfortably. Work of breathing is improved. She is less anxious. I discussed results with the patient. We will obtain an echo in the morning but as patient currently has a NSTEMI, we will initiate heparin therapy for the patient. Patient given 324 mg of aspirin. She was initiated on IV Lasix as well. Cardiology will be consulted. Pulmonology will be consulted considering her hypoxia as well as the pleural effusions, and patient will be admitted. She was in agreement this plan. Oral surgery consulted for her periapical abscesses and she was started empirically on Unasyn for those. I spoke with the admitting provider, Dr. High who accepted the admission. Undiagnosed new problem with uncertain prognosis? @ -No Drug Therapy requiring intensive monitoring for toxicity (Heparin, Nitro, Insulin, Cardizem)? @ -Heparin Were any procedures done? @ -No Diagnosis/symptom? @ -NSTEMI, CHF, hypoxic respiratory failure, periapical abscesses,Anxiety Acute, or Chronic, or Acute on Chronic? @ -Acute Uncomplicated (without systemic symptoms) or Complicated (systemic symptoms)? @ -Complicated Side effects of treatment? @ -No Exacerbation, Progression, or Severe Exacerbation? @ -No Poses a threat to life or bodily function? How? (Chest pain, [place], [place], pneumonia, PE, COPD, DKA, ARF, appy, cholecystitis, CVA, Diverticulitis, Homicidal, Suicidal, threat to staff... and all critical care pts) @ -Yes - Lab Data Result diagrams: 02/14/25 00:17 02/14/25 00:17 Lab Results 02/14/25 02/14/25 02/14/25 Range/Units 00:17 00:17 00:17 WBC 15.39 H (4.50-10.00) 10*3/uL RBC 3.62 L (4.10-5.20) 10*6/uL Hgb 10.9 L (12.0-15.0) g/dL Hct 33.3 L (37.2-46.3) % MCV 92.0 (80.0-97.0) fL MCH 30.1 (27.0-32.0) pg MCHC 32.7 (32.0-37.0) g/dL Plt Count 272 (140-440) 10*3/uL MPV 9.6 (9.5-12.2) fL Immature Gran % (Auto) 0.5 % Neutrophils % 78.9 % Lymphocytes % 8.4 % Monocytes % 8.3 % Eosinophils % 3.3 % Basophils % 0.6 % Immature Gran # 0.08 H (0.00-0.04) 10*3/uL Neutrophils # 12.15 H (1.80-7.70) 10*3/uL Lymphocytes # 1.29 (0.90-5.00) 10*3/uL Monocytes # 1.27 H (0.20-1.00) 10*3/uL Eosinophils # 0.51 H (0.04-0.35) 10*3/uL Basophils # 0.09 (0.00-0.10) 10*3/uL PT 10.4 (10.0-12.5) sec INR 0.9 (<1.2) APTT 22.0 (22.0-30.0) sec Sodium 143 (137-145) mmol/L Potassium 4.1 (3.5-5.1) mmol/L Chloride 107 (98-107) mmol/L Carbon Dioxide 23 (22-30) mmol/L Anion Gap 13 mmol/L BUN 14 (7-17) mg/dL Creatinine 0.96 (0.52-1.04) mg/dL Est GFR (CKD-EPI)AfAm 67 (>60 ml/min/1.73 sqM) Est GFR (CKD-EPI)NonAf 58 (>60 ml/min/1.73 sqM) Glucose 126 H (74-99) mg/dL Plasma Lactic Acid Felipe (0.7-2.0) mmol/L Calcium 9.1 (8.4-10.2) mg/dL Magnesium 1.7 (1.6-2.3) mg/dL Total Bilirubin 0.5 (0.2-1.3) mg/dL AST 21 (14-36) U/L ALT 14 (4-34) U/L Alkaline Phosphatase 60 (38-126) U/L Troponin I (0.000-0.034) ng/mL NT-Pro-B Natriuret Pep 84057 pg/mL Total Protein 6.5 (6.3-8.2) g/dL Albumin 3.9 (3.5-5.0) g/dL Urine Color Urine Appearance (Clear) Urine pH (5.0-8.0) Ur Specific [place] (1.001-1.035) Urine Protein (Negative) Urine Glucose (UA) (Negative) Urine Ketones (Negative) Urine Blood (Negative) Urine Nitrite (Negative) Urine Bilirubin (Negative) Urine Urobilinogen (<2.0) mg/dL Ur Leukocyte Esterase (Negative) Urine RBC (0-5) /hpf Urine WBC (0-5) /hpf Ur Squamous Epith Cells (0-4) /hpf Urine Bacteria (None) /hpf Urine Mucus (None) /hpf Influenza Type A (PCR) (Not Detectd) Influenza Type B (PCR) (Not Detectd) RSV (PCR) (Not Detectd) SARS-CoV-2 (PCR) (Not Detectd) 02/14/25 02/14/25 02/14/25 Range/Units 00:17 00:17 01:04 WBC (4.50-10.00) 10*3/uL RBC (4.10-5.20) 10*6/uL Hgb (12.0-15.0) g/dL Hct (37.2-46.3) % MCV (80.0-97.0) fL MCH (27.0-32.0) pg MCHC (32.0-37.0) g/dL Plt Count (140-440) 10*3/uL MPV (9.5-12.2) fL Immature Gran % (Auto) % Neutrophils % % Lymphocytes % % Monocytes % % Eosinophils % % Basophils % % Immature Gran # (0.00-0.04) 10*3/uL Neutrophils # (1.80-7.70) 10*3/uL Lymphocytes # (0.90-5.00) 10*3/uL Monocytes # (0.20-1.00) 10*3/uL Eosinophils # (0.04-0.35) 10*3/uL Basophils # (0.00-0.10) 10*3/uL PT (10.0-12.5) sec INR (<1.2) APTT (22.0-30.0) sec Sodium (137-145) mmol/L Potassium (3.5-5.1) mmol/L Chloride (98-107) mmol/L Carbon Dioxide (22-30) mmol/L Anion Gap mmol/L BUN (7-17) mg/dL Creatinine (0.52-1.04) mg/dL Est GFR (CKD-EPI)AfAm (>60 ml/min/1.73 sqM) Est GFR (CKD-EPI)NonAf (>60 ml/min/1.73 sqM) Glucose (74-99) mg/dL Plasma Lactic Acid Felipe 1.2 (0.7-2.0) mmol/L Calcium (8.4-10.2) mg/dL Magnesium (1.6-2.3) mg/dL Total Bilirubin (0.2-1.3) mg/dL AST (14-36) U/L ALT (4-34) U/L Alkaline Phosphatase (38-126) U/L Troponin I 0.107 H* (0.000-0.034) ng/mL NT-Pro-B Natriuret Pep pg/mL Total Protein (6.3-8.2) g/dL Albumin (3.5-5.0) g/dL Urine Color Urine Appearance (Clear) Urine pH (5.0-8.0) Ur Specific [place] (1.001-1.035) Urine Protein (Negative) Urine Glucose (UA) (Negative) Urine Ketones (Negative) Urine Blood (Negative) Urine Nitrite (Negative) Urine Bilirubin (Negative) Urine Urobilinogen (<2.0) mg/dL Ur Leukocyte Esterase (Negative) Urine RBC (0-5) /hpf Urine WBC (0-5) /hpf Ur Squamous Epith Cells (0-4) /hpf Urine Bacteria (None) /hpf Urine Mucus (None) /hpf Influenza Type A (PCR) Not Detected (Not Detectd) Influenza Type B (PCR) Not Detected (Not Detectd) RSV (PCR) Not Detected (Not Detectd) SARS-CoV-2 (PCR) Not Detected (Not Detectd) 02/14/25 Range/Units 01:22 WBC (4.50-10.00) 10*3/uL RBC (4.10-5.20) 10*6/uL Hgb (12.0-15.0) g/dL Hct (37.2-46.3) % MCV (80.0-97.0) fL MCH (27.0-32.0) pg MCHC (32.0-37.0) g/dL Plt Count (140-440) 10*3/uL MPV (9.5-12.2) fL Immature Gran % (Auto) % Neutrophils % % Lymphocytes % % Monocytes % % Eosinophils % % Basophils % % Immature Gran # (0.00-0.04) 10*3/uL Neutrophils # (1.80-7.70) 10*3/uL Lymphocytes # (0.90-5.00) 10*3/uL Monocytes # (0.20-1.00) 10*3/uL Eosinophils # (0.04-0.35) 10*3/uL Basophils # (0.00-0.10) 10*3/uL PT (10.0-12.5) sec INR (<1.2) APTT (22.0-30.0) sec Sodium (137-145) mmol/L Potassium (3.5-5.1) mmol/L Chloride (98-107) mmol/L Carbon Dioxide (22-30) mmol/L Anion Gap mmol/L BUN (7-17) mg/dL Creatinine (0.52-1.04) mg/dL Est GFR (CKD-EPI)AfAm (>60 ml/min/1.73 sqM) Est GFR (CKD-EPI)NonAf (>60 ml/min/1.73 sqM) Glucose (74-99) mg/dL Plasma Lactic Acid Felipe (0.7-2.0) mmol/L Calcium (8.4-10.2) mg/dL Magnesium (1.6-2.3) mg/dL Total Bilirubin (0.2-1.3) mg/dL AST (14-36) U/L ALT (4-34) U/L Alkaline Phosphatase (38-126) U/L Troponin I (0.000-0.034) ng/mL NT-Pro-B Natriuret Pep pg/mL Total Protein (6.3-8.2) g/dL Albumin (3.5-5.0) g/dL Urine Color Colorless Urine Appearance Clear (Clear) Urine pH 5.5 (5.0-8.0) Ur Specific [place] 1.026 (1.001-1.035) Urine Protein 1+ H (Negative) Urine Glucose (UA) Negative (Negative) Urine Ketones Negative (Negative) Urine Blood Negative (Negative) Urine Nitrite Negative (Negative) Urine Bilirubin Negative (Negative) Urine Urobilinogen <2.0 (<2.0) mg/dL Ur Leukocyte Esterase Negative (Negative) Urine RBC <1 (0-5) /hpf Urine WBC 3 (0-5) /hpf Ur Squamous Epith Cells <1 (0-4) /hpf Urine Bacteria Rare H (None) /hpf Urine Mucus Rare H (None) /hpf Influenza Type A (PCR) (Not Detectd) Influenza Type B (PCR) (Not Detectd) RSV (PCR) (Not Detectd) SARS-CoV-2 (PCR) (Not Detectd) - EKG Data -: EKG Interpreted by Me EKG Comments: 12-lead Electrocardiogram Interpretation Note EKG was reviewed and interpreted by myself. 12-lead ECG performed at 0004 is interpreted by me as revealing tachycardia at a rate of 109 beats per minute. Left axis deviation. WA interval is 124 ms, QRS duration is 104 ms, QTc is 417 ms.. There were no ST or T wave abnormalities to suggest myocardial ischemia or injury. R wave progression across the precordium was delayed. By my interpretation this EKG is non-diagnostic for acute ischemia. There is a good degree of baseline artifact which makes interpretation mildly difficult. We will repeat. 12-lead Electrocardiogram Interpretation Note EKG was reviewed and interpreted by myself. 12-lead ECG performed at 0200 is interpreted by me as revealing normal sinus rhythm at a rate of 98 beats per minute. Left axis deviation. WA interval is 144 ms, QRS duration is 105 ms, QTc is 439 ms.. There were no ST or T wave abnormalities to suggest myocardial ischemia or injury. R wave progression across the precordium was delayed. By my interpretation this EKG is non-diagnostic for acute ischemia. Critical Care Time Critical Care Time: Yes Total Critical Care Time: 42 Disposition Clinical Impression: NSTEMI (non-ST elevated myocardial infarction), Congestive heart failure, Periapical abscess, Hypoxic respiratory failure, Anxiety Disposition: ADMITTED IP TO THIS HOSP Condition: Serious Time of Disposition: 02:23
[2025-02-14] MEDS ORDERED: NALOXONE 0.4 MG/ML 1 ML VIAL IV PRN (02:24)
[2025-02-14] MEDS: ASPIRIN 81 MG PO STA (02:31)
[2025-02-14] MEDS: FUROSEMIDE 10 MG/ML 4 ML VIAL IV STA (02:34)
[2025-02-14] MEDS: HEPARIN SODIUM 1,000 UN/ML (10ML VL) IV ONE (02:35)
[2025-02-14] MEDS: HEPARIN SOD,PORK IN 0.45% NACL 25,000 UNIT in 0.45% NACL 1 250ML.BAG IV SCH (02:37)
[2025-02-14] MEDS: AMPICILLIN-SULBACTAM 1.5 GM in SODIUM CHLORIDE 0.9% 50 ML IVPB SCH (02:40)
[2025-02-14] MEDS: FUROSEMIDE 10 MG/ML 4 ML VIAL IV SCH (08:17)
[2025-02-14] MEDS: LORazepam 1 MG TAB PO PRN ×2 (12:36→18:36)
[2025-02-14] MEDS: ATORVASTATIN 10 MG TAB PO SCH (12:36)
[2025-02-14] MEDS: atenoloL 50 MG TAB PO SCH (12:36)
[2025-02-14] MEDS: ASPIRIN 81 MG PO SCH (12:37)
[2025-02-14 14:34] LABS: Magnesium 1.6 mg/dL (1.6-2.3)
[2025-02-14] MEDS: hydrALAZINE HCL 25 MG TAB PO SCH (15:20)
[2025-02-14] MEDS: SPIRONOLACTONE 25 MG TAB PO SCH (15:20)
[2025-02-14] MEDS: amLODIPine 10 MG TAB PO SCH (15:20)
[2025-02-14] MEDS: HEPARIN SODIUM 1,000 UN/ML (10ML VL) IV PRN (15:36)
[2025-02-14] MEDS ORDERED: NITROGLYCERIN SL TABS 0.4 MG TAB SUBLINGUAL PRN (16:41)
[2025-02-14] MEDS ORDERED: ALPRAZolam 0.25 MG TAB PO PRN (16:41)
--- NOTE | 2025-02-14 16:49 | P.CRDCN ---
History of Present Illness Consult date: 02/14/25 History of present illness: HPI: The patient is a 74-year-old female who presented with worsening shortness of breath that began on 01/2025. She reports that the symptoms started while sitting on a couch, experiencing acute onset shortness of breath with chest heaviness. The patient reports not having lightheadedness, dizziness, syncopal episodes, nausea, vomiting, or diaphoresis. She feels very anxious. She has no prior cardiovascular history but reports a history of hypertension, dyslipidemia, and CVA. She has a history of breast cancer currently in remission and a previous smoking history, but reports not having active smoking, recreational drug use, marijuana use, or alcohol use. Family history is non- contributory. On admission, elevated troponin levels were noted, and she was diagnosed with NSTEMI. Pertinent Vitals: BP 164/76 mmHg, HR 80 BPM. Pertinent cardiac Labs: 01/2025: Hb 10.9, WBC 15, BUN 14, Purchasing/Receiving 0.9, Trop 0.107, 0.14, 0.17, NTproBNP 10,0 00, TSH 0.6. Cardiac home meds: Lipitor 10 mg, Glymepiride 1 mg, Clonidine 0.1 mg BID, Aspirin, Atenolol 50 mg daily, Minoxidil 2.5 mg daily. Pertinent cardiac testing: - CTA Chest: 01/2025: No evidence of PE, small bilateral pleural effusion with increased pulmonary edema suggestive of fluid overload. - EK01/2025: Sinus Tachycardia, HR 109 BPM, mild IVCD, left axis deviation, poor R-wave progression. Chest x-ray shows bilateral small pleural effusion with interstitial edema suggestive of fluid overload ASSESSMENT: # NSTEMI, Type 1 # Acute CHF exacerbation # Essential hypertension, poorly controlled on atypical antihypertensive regimen # Type 2 diabetes # Dyslipidemia # Prior history of CVA # Prior history of breast cancer # Obesity # Ex-Smoker PLAN: # Administer Aspirin 81 mg # Increase Lipitor to 40 mg # Continue IV Heparin drip # Plan cardiac catheterization for 02/15/2025 # Discontinue atypical antihypertensive regimen and start amlodipine 10 mg daily, Coreg 25 mg BID, hydralazine 25 mg TID, Aldactone 25 mg daily # Monitor renal function and electrolytes. Obtain lipid panel HbA1c levels # Obtain echocardiogram Past Medical History Past Medical History: Cancer, CVA/TIA, Diabetes Mellitus, GERD/Reflux, Hyperlipidemia, Hypertension Additional Past Medical History / Comment(s): CVA (february 2021)., Bilateral breast cancer (2020 with mastectomies & chemo )., NIDDM type II, neuropathy feet., heart murmur., poor balance with hx falls-uses cane. History of Any Multi-Drug Resistant Organisms: None Reported Past Surgical History: Breast Surgery Additional Past Surgical History / Comment(s): sarita breast bx., 01/16/21 port a cath 04/28/21 sarita mastectomy., D&C hysteroscopy., oral procedure-tooth removal Past Anesthesia/Blood Transfusion Reactions: No Reported Reaction Additional Past Anesthesia/Blood Transfusion Reaction / Comment(s): no previous blood transfusion Past Psychological History: Anxiety, Depression Additional Psychological History / Comment(s): . Smoking Status: Former smoker Past Alcohol Use History: None Reported Additional Past Alcohol Use History / Comment(s): Pt started smoking in 1963 and quit in 1973. Past Drug Use History: None Reported - Past Family History Mother Family Medical History: Cancer Father Family Medical History: No Reported History, Cancer Additional Family Medical History / Comment(s): prostate cancer Medications and Allergies Home Medications Medication Instructions Recorded Confirmed Type Glimepiride [Amaryl] 1 mg PO DAILY 08/01/16 02/14/25 History atenoloL [Tenormin] 50 mg PO DAILY 08/01/16 02/14/25 History cloNIDine HCL [Catapres] 0.1 mg PO BID 08/01/16 02/14/25 History Venlafaxine HCl 75 mg PO HS 07/31/17 02/14/25 History Famotidine [Pepcid] 20 mg PO DAILY 12/09/20 02/14/25 History Montelukast [Singulair] 10 mg PO DAILY 12/09/20 02/14/25 History Olmesartan Medoxomil [Benicar] 20 mg PO DAILY 12/09/20 02/14/25 History buPROPion [Wellbutrin] 100 mg PO BID 12/09/20 02/14/25 History Atorvastatin Calcium [Lipitor] 10 mg PO DAILY 01/18/21 02/14/25 History DULoxetine HCL [Cymbalta] 60 mg PO DAILY 01/18/21 02/14/25 History Ergocalciferol [Vitamin D2 (1250 1,250 mcg PO Q14D 01/18/21 02/14/25 History Mcg = 71841 Iu)] minoxidiL 2.5 mg PO DAILY 01/18/21 02/14/25 History Venlafaxine HCl [Effexor XR] 150 mg PO DAILY 03/09/21 02/14/25 History Aspirin 81 mg PO DAILY #100 chew 03/15/21 02/14/25 Rx Letrozole [Femara] 2.5 mg PO DAILY 07/20/22 02/14/25 History Inner Ear Health Plus 2 tab PO DAILY PRN 02/14/25 02/14/25 History LORazepam [Ativan] 1 mg PO TID PRN 02/14/25 02/14/25 History Nerve Comfort 1 cap PO DAILY 02/14/25 02/14/25 History Vitamin E (Dl,Tocopheryl Acet) 400 unit PO DAILY 02/14/25 02/14/25 History [Vitamin E (400 Iu = 180 mg)] Allergies Allergy/AdvReac Type Severity Reaction Status Date / Time Sulfa (Sulfonamide Allergy Rash/Hives Verified 02/14/25 16:10 Antibiotics) Physical Exam Vitals: Vital Signs Temp Pulse Resp BP Pulse Ox 02/14/25 15:44 98.4 F 70 16 153/69 98 02/14/25 15:20 70 16 132/72 98 02/14/25 12:00 74 16 150/67 96 02/14/25 08:24 98.6 F 72 18 148/81 96 02/14/25 07:19 80 16 164/76 94 L 02/14/25 06:49 87 18 167/77 95 02/14/25 03:47 28 H 02/14/25 03:42 87 16 171/91 92 L 02/14/25 01:10 103 H 20 170/90 94 L 02/14/25 00:25 111 H 26 H 02/14/25 00:19 114 H 26 H 02/14/25 00:05 106 H 24 02/13/25 23:43 98.7 F 106 H 20 173/79 91 L Intake and Output 02/14/25 02/14/25 02/14/25 06:59 14:59 22:59 Intake Total 101.82 Output Total 1300 400 Balance -1300 -298.18 Intake: Intake, IV Titration 101.82 Amount Heparin Sod,Pork in 0.45% 101.82 NaCl 25,000 unit In 0.45 % NaCl 1 250ml.bag @ 12 UNITS/KG/HR 7.893 mls/hr IV .Q24H [facility] Rx#: [id number] Output: Urine 1300 400 Other: Weight 65.771 kg Results 02/14/25 00:17 02/14/25 00:17 Cardiac Enzymes 02/14/25 02/14/25 02/14/25 Range/Units 00:17 00:17 05:35 AST 21 (14-36) U/L Troponin I 0.107 H* 0.149 H* (0.000-0.034) ng/mL 02/14/25 Range/Units 08:32 AST (14-36) U/L Troponin I 0.171 H* (0.000-0.034) ng/mL Coagulation 02/14/25 02/14/25 Range/Units 00:17 08:32 PT 10.4 (10.0-12.5) sec APTT 22.0 28.4 (22.0-30.0) sec CBC 02/14/25 Range/Units 00:17 WBC 15.39 H (4.50-10.00) 10*3/uL RBC 3.62 L (4.10-5.20) 10*6/uL Hgb 10.9 L (12.0-15.0) g/dL Hct 33.3 L (37.2-46.3) % Plt Count 272 (140-440) 10*3/uL Comprehensive Metabolic Panel 02/14/25 Range/Units 00:17 Sodium 143 (137-145) mmol/L Potassium 4.1 (3.5-5.1) mmol/L Chloride 107 (98-107) mmol/L Carbon Dioxide 23 (22-30) mmol/L BUN 14 (7-17) mg/dL Creatinine 0.96 (0.52-1.04) mg/dL Glucose 126 H (74-99) mg/dL Calcium 9.1 (8.4-10.2) mg/dL AST 21 (14-36) U/L ALT 14 (4-34) U/L Alkaline Phosphatase 60 (38-126) U/L Total Protein 6.5 (6.3-8.2) g/dL Albumin 3.9 (3.5-5.0) g/dL Current Medications Generic Name Dose Route Start Last Admin Trade Name Freq PRN Reason Stop Dose Admin Alprazolam 0.25 mg 02/14/25 16:41 Alprazolam 0.25 Mg Tab PO Q6HR PRN Mild Anxiety Amlodipine Besylate 10 mg 02/14/25 14:00 02/14/25 15:20 Amlodipine 10 Mg Tab PO 10 mg DAILY ROBB Administration Aspirin 81 mg 02/14/25 12:30 02/14/25 12:37 Aspirin 81 Mg PO 81 mg DAILY ROBB Administration Atorvastatin Calcium 40 mg 02/15/25 09:00 Atorvastatin 40 Mg Tab PO DAILY ROBB Bupropion HCl 100 mg 02/14/25 21:00 Bupropion 100 Mg Tab PO BID ROBB Carvedilol 25 mg 02/14/25 17:30 Carvedilol 12.5 Mg Tab PO BID-W/MEALS ROBB Duloxetine HCl 60 mg 02/15/25 09:00 Duloxetine Hcl 60 Mg Capsule.Dr PO DAILY ROBB Famotidine 20 mg 02/15/25 09:00 Famotidine 20 Mg Tab PO QAM ROBB Furosemide 40 mg 02/14/25 09:00 02/14/25 08:17 Furosemide 10 Mg/Ml 4 Ml Vial IV 40 mg Q12HR ROBB Administration Heparin Sodium (Porcine) 0 unit 02/14/25 01:58 02/14/25 15:36 Heparin Sodium 1,000 Un/Ml (10ml Vl) IV 3,285 unit PER PROTOCOL PRN Administration Low PTT Protocol Hydralazine HCl 25 mg 02/14/25 16:00 02/14/25 15:20 Hydralazine Hcl 25 Mg Tab PO 25 mg TID ROBB Administration Heparin Sodium/Sodium Chloride 250 mls @ 7.893 mls/hr 02/14/25 02:00 02/14/25 15:31 25,000 unit/ Sodium Chloride IV 15 units/kg/hr .Q24H ROBB 9.866 mls/hr Titration Protocol 12 UNITS/KG/HR Ampicillin Sodium/Sulbactam 50 mls @ 100 mls/hr 02/14/25 02:30 02/14/25 10:57 Sodium 1.5 gm/ Sodium Chloride IVPB 100 mls/hr Q8H ROBB Administration Protocol Heparin Sodium (Porcine) 10, 1,001 mls @ 999 mls/hr 02/15/25 07:00 000 unit/ Sodium Chloride IRRIGATION 02/15/25 23:00 ONCE PRN INTRA-OP Heparin Sodium (Porcine) 2,500 250.5 mls @ 250 mls/hr 02/15/25 07:00 unit/ Sodium Chloride IRRIGATION 02/15/25 23:00 ONCE PRN INTRA-OP Sodium Chloride 1,000 ml/ IV 1,000 mls @ 65.771 mls/hr 02/15/25 06:00 Solution IV .[id number] ROBB 1 ML/KG/HR Letrozole 2.5 mg 02/15/25 09:00 Letrozole 2.5 Mg Tab PO DAILY ROBB Lorazepam 1 mg 02/14/25 02:26 02/14/25 12:36 Lorazepam 1 Mg Tab PO 1 mg Q12HR PRN Administration Anxiety Lorazepam 1 mg 02/14/25 12:10 Lorazepam 1 Mg Tab PO TID PRN Anxiety Losartan Potassium 100 mg 02/15/25 09:00 Losartan 50 Mg Tab PO DAILY ROBB Montelukast Sodium 10 mg 02/15/25 09:00 Montelukast 10 Mg Tab PO DAILY ROBB Naloxone HCl 0.2 mg 02/14/25 02:24 Naloxone 0.4 Mg/Ml 1 Ml Vial IV Q2M PRN Opioid Reversal Nitroglycerin 0.4 mg 02/14/25 16:41 Nitroglycerin Sl Tabs 0.4 Mg Tab SUBLINGUAL Q5M PRN Chest Pain Spironolactone 25 mg 02/14/25 14:15 02/14/25 15:20 Spironolactone 25 Mg Tab PO 25 mg DAILY ROBB Administration Venlafaxine HCl 150 mg 02/15/25 09:00 Venlafaxine Hcl Er 150 Mg Cap PO DAILY ROBB Venlafaxine HCl 75 mg 02/14/25 21:00 Venlafaxine Hcl 75 Mg Tab PO HS ROBB Intake and Output 02/14/25 02/14/25 02/14/25 06:59 14:59 22:59 Intake Total 101.82 Output Total 1300 400 Balance -1300 -298.18 Intake: Intake, IV Titration 101.82 Amount Heparin Sod,Pork in 0.45% 101.82 NaCl 25,000 unit In 0.45 % NaCl 1 250ml.bag @ 12 UNITS/KG/HR 7.893 mls/hr IV .Q24H [facility] Rx#: [id number] Output: Urine 1300 400 Other: Weight 65.771 kg 02/14/25 00:17 02/14/25 00:17
[2025-02-14] MEDS: carvediloL 12.5 MG TAB PO SCH (17:10)
--- NOTE | 2025-02-14 18:52 | P.CNPUL ---
History of Present Illness Consult date: 02/14/25 Reason for consult: dyspnea History of present illness: 74-year-old female patient, being hospitalized for worsening shortness of breath. No chest pain. No syncope. No lightheadedness. No nausea or vomiting. No chest pain. No cough sputum production. No fever or chills. She is known to have breast cancer with a previous bilateral mastectomy followed by chemotherapy and the patient seems to be stable from the cancer standpoint. She is also known to have history of aortic stenosis based on an earlier echocardiogram from 2021, her disease was severe. She does have some limited edema lower extremities bilaterally. She is a previous smoker. The blood work shows a elevated proBNP level of above 10,000 and the patient ruled in for an acute NSTEMI. Troponin peaked at 0.149, electrolytes are normal, CBC shows a white cell count of 15.3 with a hemoglobin of 10.9 and a platelet count of 272. The EKG showing no acute ischemic changes and the rhythm is sinus. The patient has also LVH. Also, the patient's CT scan of the chest shows small bilateral pleural effusion and pulm vascular congestion consistent with CHF/edema. The p atient was given a dose of Lasix and the patient is already feeling better. The patient is on IV heparin. Started on Coreg 25 mg p.o. twice daily, aspirin 81 mg p.o. daily and Aldactone 25 mg p.o. daily. She is on Cozaar. Review of Systems Constitutional: Reports as per HPI Eyes: denies as per HPI, denies blurred vision, denies bulging eye, denies decreased vision, denies diplopia, denies discharge, denies dry eye, denies irri tation, denies itching, denies pain, denies photophobia, denies loss of peripheral vision, denies loss of vision, denies tunnel vision/blind spots Ears: bilateral: decreased hearing, deny: ear discharge, earache, tinnitus Ears, nose, mouth and throat: Reports as per HPI Breasts: absent: as per HPI, change in shape, gynecomastia, masses, nipple discharge, pain, skin changes, swelling Breasts: Reports as per HPI Cardiovascular: Reports as per HPI, Reports decreased exercise tolerance, Reports dyspnea on exertion Respiratory: Reports dyspnea Gastrointestinal: Reports as per HPI Genitourinary: Reports as per HPI Menstruation: Reports as per HPI Musculoskeletal: Reports as per HPI Musculoskeletal: absent: ankle pain, ankle stiffness, ankle swelling, as per HPI, elbow pain, elbow stiffness, elbow swelling, foot pain, foot stiffness, foot swelling, hand pain, hand stiffness, hand swelling, hip pain, hip stiffness, hip swelling, knee pain, knee stiffness, knee swelling, shoulder pain, shoulder stiffness, shoulder swelling, wrist pain, wrist stiffness, wrist swelling Integumentary: Reports as per HPI Neurological: Reports as per HPI Psychiatric: Reports as per HPI Hematologic/Lymphatic: Reports as per HPI Allergic/Immunologic: Reports as per HPI Past Medical History Past Medical History: Cancer (breast, mastectomy bilateral, post chrmotherapy and she completed the treatment in 2021), CVA/TIA, Diabetes Mellitus, GERD/Reflux, Hyperlipidemia, Hypertension Additional Past Medical History / Comment(s): CVA (february 2021)., Bilateral breast cancer (2020 with mastectomies & chemo )., NIDDM type II, neuropathy feet., heart murmur., poor balance with hx falls-uses cane. History of Any Multi-Drug Resistant Organisms: None Reported Past Surgical History: Breast Surgery Additional Past Surgical History / Comment(s): sarita breast bx., 01/16/21 port a cath 04/28/21 sarita mastectomy., D&C hysteroscopy., oral procedure. Past Anesthesia/Blood Transfusion Reactions: No Reported Reaction Additional Past Anesthesia/Blood Transfusion Reaction / Comment(s): no previous blood transfusion Past Psychological History: Anxiety, Depression Smoking Status: Former smoker Past Alcohol Use History: None Reported Past Drug Use History: None Reported - Past Family History Mother Family Medical History: Cancer Father Family Medical History: No Reported History, Cancer Additional Family Medical History / Comment(s): prostate cancer Medications and Allergies Home Medications Medication Instructions Recorded Confirmed Type Glimepiride [Amaryl] 1 mg PO DAILY 08/01/16 02/14/25 History atenoloL [Tenormin] 50 mg PO DAILY 08/01/16 02/14/25 History cloNIDine HCL [Catapres] 0.1 mg PO BID 08/01/16 02/14/25 History Venlafaxine HCl 75 mg PO HS 07/31/17 02/14/25 History Famotidine [Pepcid] 20 mg PO DAILY 12/09/20 02/14/25 History Montelukast [Singulair] 10 mg PO DAILY 12/09/20 02/14/25 History Olmesartan Medoxomil [Benicar] 20 mg PO DAILY 12/09/20 02/14/25 History buPROPion [Wellbutrin] 100 mg PO BID 12/09/20 02/14/25 History Atorvastatin Calcium [Lipitor] 10 mg PO DAILY 01/18/21 02/14/25 History DULoxetine HCL [Cymbalta] 60 mg PO DAILY 01/18/21 02/14/25 History Ergocalciferol [Vitamin D2 (1250 1,250 mcg PO Q14D 01/18/21 02/14/25 History Mcg = 31556 Iu)] minoxidiL 2.5 mg PO DAILY 01/18/21 02/14/25 History Venlafaxine HCl [Effexor XR] 150 mg PO DAILY 03/09/21 02/14/25 History Aspirin 81 mg PO DAILY #100 chew 03/15/21 02/14/25 Rx Letrozole [Femara] 2.5 mg PO DAILY 07/20/22 02/14/25 History Inner Ear Health Plus 2 tab PO DAILY PRN 02/14/25 02/14/25 History LORazepam [Ativan] 1 mg PO TID PRN 02/14/25 02/14/25 History Nerve Comfort 1 cap PO DAILY 02/14/25 02/14/25 History Vitamin E (Dl,Tocopheryl Acet) 400 unit PO DAILY 02/14/25 02/14/25 History [Vitamin E (400 Iu = 180 mg)] Allergies Allergy/AdvReac Type Severity Reaction Status Date / Time Sulfa (Sulfonamide Allergy Rash/Hives Verified 02/14/25 16:10 Antibiotics) Physical Exam Vitals: Vital Signs Temp Pulse Resp BP Pulse Ox 02/14/25 08:24 98.6 F 72 18 148/81 96 02/14/25 07:19 80 16 164/76 94 L 02/14/25 06:49 87 18 167/77 95 02/14/25 03:47 28 H 02/14/25 03:42 87 16 171/91 92 L 02/14/25 01:10 103 H 20 170/90 94 L 02/14/25 00:25 111 H 26 H 02/14/25 00:19 114 H 26 H 02/14/25 00:05 106 H 24 02/13/25 23:43 98.7 F 106 H 20 173/79 91 L Intake and Output 02/13/25 02/14/25 02/14/25 22:59 06:59 14:59 Output Total 1300 Balance -1300 Output: Urine 1300 Other: Weight 65.771 kg The patient appeared well nourished and normally developed. Vital signs as documented. Patient is comfortable. Apart from a nasal cannula Head exam is unremarkable. No scleral icterus or corneal arcus noted. Neck is without jugular venous distension, thyromegaly, or carotid bruits. Carotid upstrokes are brisk bilaterally. Lungs are diminished bilateral lung with bibasilar crackles Cardiac exam reveals the PMI to be normally sized and situated. Rhythm is regular. First and second heart sounds normal. The patient has a systolic ejection murmur grade 5/6 with left apex and left lateral sternal border radiating to the neck Abdominal exam reveals normal bowel sounds, no masses, no organomegaly and no aortic enlargement. Extremities are nonedematous and both femoral and pedal pulses are normal. Examination of the skin revealed no evidence of significant rashes, suspicious appearing nevi or other concerning lesions. Neurologically, the patient is awake and alert and the patient does not have any focal neurological deficit. Cranial nerves are essentially intact. Results - Laboratory Findings CBC and BMP: 02/14/25 00:17 02/14/25 00:17 PT/INR, D-dimer PT 10.4 sec (10.0-12.5) 02/14/25 00:17 INR 0.9 (<1.2) 02/14/25 00:17 Abnormal lab findings: Abnormal Labs 02/14/25 02/14/25 02/14/25 00:17 00:17 00:17 WBC 15.39 H RBC 3.62 L Hgb 10.9 L Hct 33.3 L Immature Gran # 0.08 H Neutrophils # 12.15 H Monocytes # 1.27 H Eosinophils # 0.51 H Glucose 126 H Troponin I 0.107 H* Urine Protein Urine Bacteria Urine Mucus 02/14/25 02/14/25 02/14/25 01:22 05:35 08:32 WBC RBC Hgb Hct Immature Gran # Neutrophils # Monocytes # Eosinophils # Glucose Troponin I 0.149 H* 0.171 H* Urine Protein 1+ H Urine Bacteria Rare H Urine Mucus Rare H - Diagnostic Findings Chest x-ray: image reviewed CT scan - chest: image reviewed Assessment and Plan Plan: Acute hypoxic respiratory failure with shortness of breath currently on 2 L of oxygen by nasal cannula. Acute CHF,, LV is to be established. proBNP level is elevated Severe aortic stenosis Acute non-ST segment elevation myocardial infarction Small bilateral pleural effusion along with pulmonary edema secondary to above History of ischemic CVA,, 2020 Hypertension Hyperlipidemia Breast cancer History of Clostridium difficile Diabetes mellitus GERD Former nicotine dependence Plan Titrate oxygen flow to maintain saturation above 90% continue IV Lasix Continue IV heparin Obtain an echocardiogram to assess extent of valvular dysfunction as the patient has increased clinical indication of severe aortic stenosis The patient will need a cardiac catheterization to evaluate coronary anatomy. Continue aspirin Coreg 25 mg p.o. twice daily Hydralazine 25 mg p.o. 3 times daily Aldactone 25 mg p.o. daily Cozaar 100 mg p.o. daily Continue Lipitor Continue Wellbutrin and Cymbalta Continue letrozole for breast cancer Cardiology consultation Doubt there is any indication for an infection or pneumonia. Antibiotics can be discontinued.
[2025-02-14 20:48] LABS: Glucose,Whole Blood 144 mg/dL (70-110)
[2025-02-14] MEDS ORDERED: cloNIDine HCL 0.1 MG TAB PO SCH (21:00)
[2025-02-14] MEDS ORDERED: MELATONIN 5 MG TABLET PO SCH (21:00)
[2025-02-14] MEDS ORDERED: GABAPENTIN 100 MG CAP PO SCH (21:00)
[2025-02-14] MEDS ORDERED: hydrALAZINE HCL 50 MG TAB PO SCH (21:00)
[2025-02-14] MEDS: buPROPion 100 MG TAB PO SCH (21:32)
[2025-02-14] MEDS: VENLAFAXINE HCL 75 MG TAB PO SCH (21:32)
--- NOTE | 2025-02-15 05:26 | HP ---
HISTORY AND PHYSICAL CHIEF COMPLAINT: Shortness of breath. HISTORY OF PRESENT ILLNESS: This is another admission for this 74-year-old white female who had a very rapid onset of shortness of breath. She came to the emergency room, and she was found to be in acute congestive heart failure with an elevated troponin. Blood pressure is elevated. BNP was 15,300. She has a longstanding history of atherosclerotic cardiovascular disease including previous CVA. In the past, she had very poorly controlled diabetes mellitus. She has also had carcinoma of the breast. REVIEW OF SYSTEMS: She denies any chest pain, syncope, confusion, etc. Past medical history, family history, and personal and social histories are otherwise noncontributory. PHYSICAL EXAMINATION: VITAL SIGNS: Blood pressure is 173/79 with a pulse of 86 and regular. Respirations are 42. She is afebrile. HEAD, EARS, EYES, NOSE, MOUTH, AND THROAT: Normal. CHEST: Demonstrates poor breath sounds throughout with scattered rales and decreased breath sounds at both bases posteriorly. CARDIAC: Demonstrates a systolic ejection murmur that is heard throughout the precordium and may have been slightly louder over the aortic area. ABDOMEN: Soft, nontender. EXTREMITIES: Normal. IMPRESSION: 1. Acute congestive heart failure. 2. [id number] myocardial infarction. 3. Hypertension. 4. Type 2 diabetes mellitus. 5. History of previous cerebrovascular accident. 6. History of carcinoma of the breast. 7. Cardiac murmur. PLAN: 1. Bedrest. 2. IV fluids. 3. Serial EKGs and enzymes. 4. Consult Cardiology. 5. Echocardiogram. 6. Manage congestive heart failure. MMODL / IJN: [id number] /
[2025-02-15] MEDS: ASPIRIN 325 MG TAB PO STA (06:02)
[2025-02-15] MEDS: ATORVASTATIN 80 MG TAB PO STA (06:02)
[2025-02-15] MEDS: SODIUM CHLORIDE 0.9% 1,000 ML in EMPTY BAG 1 BAG IV SCH (06:03)
[2025-02-15 06:41] LABS: Glucose,Whole Blood 138 mg/dL (70-110)
[2025-02-15] MEDS ORDERED: HEPARIN SODIUM,PORCINE (1 ML) 2,500 UNIT in SODIUM CHLORIDE 0.9% 250 ML IRRIGATION PRN (07:00)
[2025-02-15] MEDS ORDERED: HEPARIN SODIUM,PORCINE 10,000 UNIT in SODIUM CHLORIDE 0.9% 1,000 ML IRRIGATION PRN (07:00)
[2025-02-15 07:17] LABS: Basophils # (A) 0.08 10*3/uL (0.00-0.10); Basophils % (A) 0.5 %; Eosinophils # (A) 0.09 10*3/uL (0.04-0.35); Eosinophils % (A) 0.6 %; HCT 31.2 % (37.2-46.3); HGB 10.5 g/dL (12.0-15.0); Lymphocytes # (A) 2.46 10*3/uL (0.90-5.00); Lymphocytes % (A) 15.2 %; MCH 30.8 pg (27.0-32.0); MCHC 33.7 g/dL (32.0-37.0); MCV 91.5 fL (80.0-97.0); Mean Platelet Volume 10.2 fL (9.5-12.2); Monocytes # (A) 1.08 10*3/uL (0.20-1.00); Monocytes % (A) 6.7 %; Neutrophils # (A) 12.37 10*3/uL (1.80-7.70); Neutrophils % (A) 76.6 %; Platelet Count 295 10*3/uL (140-440); RBC 3.41 10*6/uL (4.10-5.20); RDW 13.7 % (11.5-14.5); WBC 16.15 10*3/uL (4.50-10.00)
[2025-02-15 07:24] LABS: Partial Thromboplastin Time 30.1 sec (22.0-30.0); Prothrombin Time 11.2 sec (10.0-12.5)
[2025-02-15 07:35] LABS: ALT 13 U/L (4-34); AST 16 U/L (14-36); African American GFR (CKD) 56 (>60 ml/min/1.73 sqM); Albumin 3.7 g/dL (3.5-5.0); Alkaline Phosphatase 62 U/L (38-126); Anion Gap 10 mmol/L; Blood Urea Nitrogen 20 mg/dL (7-17); Calcium 9.1 mg/dL (8.4-10.2); Carbon Dioxide 27 mmol/L (22-30); Chloride 104 mmol/L (98-107); Glucose 124 mg/dL (74-99); Non-African American GFR(CKD) 49 (>60 ml/min/1.73 sqM); Potassium 3.4 mmol/L (3.5-5.1); Sodium 141 mmol/L (137-145); Total Bilirubin 0.5 mg/dL (0.2-1.3); Total Protein 6.1 g/dL (6.3-8.2)
[2025-02-15] MEDS: ATORVASTATIN 40 MG TAB PO SCH (08:28)
[2025-02-15] MEDS: FAMOTIDINE 20 MG TAB PO SCH (08:35)
[2025-02-15] MEDS: DULoxetine HCL 60 MG CAPSULE.DR PO SCH (08:35)
[2025-02-15] MEDS: MONTELUKAST 10 MG TAB PO SCH (08:35)
[2025-02-15] MEDS: LOSARTAN 50 MG TAB PO SCH (08:35)
[2025-02-15] MEDS: VENLAFAXINE HCL ER 150 MG CAP PO SCH (08:36)
[2025-02-15] MEDS: LETROZOLE 2.5 MG TAB PO SCH (08:36)
[2025-02-15 08:43] LABS: Chol/HDL Ratio 2.88 Ratio; LDL Cholesterol,Calculated 97.9 mg/dL (0.0-131.0)
[2025-02-15] MEDS ORDERED: MAGNESIUM OXIDE 400 MG TAB PO SCH (09:00)
[2025-02-15] MEDS ORDERED: minoxidiL 2.5 MG TAB PO SCH (09:00)
--- NOTE | 2025-02-15 12:31 | CA ---
Transthoracic Echo Report Name: Veronique Prasad Age: 74 Gender: F : 1950 Exam Date: 02/15/2025 08:39 Exam Location: [facility] Ht (in): 64 Wt (lb): 145 Ordering Physician: Genaro Ha MD Attending/Referring Phys: Vp Data Florin Rowan RDCS Procedure CPT: Indications: chf, nstemi Cardiac Hx: Technical Quality: Good Contrast 1: Total Dose (mL): Contrast 2: Total Dose (mL): MEASUREMENTS (Male / Female) Normal Values 2D ECHO LV Diastolic Diameter PLAX 3.9 cm 4.2 - 5.9 / 3.9 - 5.3 cm LV Systolic Diameter PLAX 2.9 cm IVS Diastolic Thickness 1.4 cm 0.6 - 1.0 / 0.6 - 0.9 cm LVPW Diastolic Thickness 1.3 cm 0.6 - 1.0 / 0.6 - 0.9 cm LV Relative Wall Thickness 0.7 LVOT Diameter 1.3 cm LA Systolic Diameter LX 4.0 cm 3.0 - 4.0 / 2.7 - 3.8 cm LV Diastolic Volume MOD 4C 129.3 cm??? LV Systolic Volume MOD 4C 60.3 cm??? LV Ejection Fraction MOD 4C 53.4 % LV Cardiac Index MOD 4C 3063.8 cm???/min???m??? LV Diastolic Length 4C 9.1 cm LV Systolic Length 4C 8.1 cm LV Diastolic Volume MOD 2C 115.6 cm??? LV Systolic Volume MOD 2C 53.8 cm??? LV Ejection Fraction MOD 2C 53.5 % LV Cardiac Index MOD 2C 2746.0 cm???/min???m??? LV Diastolic Length 2C 9.7 cm LV Systolic Length 2C 8.1 cm LA Volume 81.4 cm??? 18 - 58 / 22 - 52 cm??? LA Volume Index 46.9 cm???/m??? 16 - 28 cm???/m??? DOPPLER AV Peak Velocity 566.1 cm/s AV Peak Gradient 128.2 mmHg AV Mean Velocity 438.5 cm/s AV Mean Gradient 83.8 mmHg AV Velocity Time Integral 149.7 cm AI Peak Velocity 259.4 cm/s AI Peak Gradient 26.9 mmHg AI Pressure Half Time 391.9 ms LVOT Peak Velocity 167.7 cm/s LVOT Peak Gradient 11.2 mmHg LVOT Velocity Time Integral 36.1 cm LVOT Stroke Volume 51.3 cm??? LVOT Stroke Volume Index 30.1 ml/m??? LVOT Cardiac Index 2278.4 cm???/min???m??? AV Area Cont Eq vti 0.3 cm??? AV Area Cont Eq pk 0.4 cm??? MV Peak Velocity 145.2 cm/s MV Peak Gradient 8.4 mmHg MV Mean Velocity 92.2 cm/s MV Mean Gradient 3.7 mmHg MV Velocity Time Integral 37.0 cm MV Area PHT 3.0 cm??? Mitral E Point Velocity 128.2 cm/s Mitral A Point Velocity 110.6 cm/s Mitral E to A Ratio 1.2 MV Deceleration Time 244.1 ms TR Peak Velocity 307.5 cm/s TR Peak Gradient 37.8 mmHg Right Atrial Pressure 5.0 mmHg Pulmonary Artery Systolic Pressu 42.8 mmHg Right Ventricular Systolic Press 42.8 mmHg FINDINGS Left Ventricle Left ventricular ejection fraction is estimated at 60 %. Moderate concentric left ventricular hypertrophy.Normal left ventricular systolic function with no obvious regional wall motion abnormalities. Right Ventricle Normal right ventricular size and function. Mild pulmonary hypertension. Right Atrium Moderate right atrial dilatation. Left Atrium Mildly increased left atrial diameter. Severely increased left atrial volume. Mildly increased left atrial area. Mitral Valve Mitral annular calcification. No mitral stenosis. Mild mitral regurgitation. Aortic Valve Diffuse thickening (sclerosis) of the aortic valve cusps. Trileaflet aortic valve. Mild to moderate aortic regurgitation. Severe aortic stenosis with a peak velocity of 5.7 m/s, peak gradient 128 mmHg, mean gradient 84 mmHg, and estimated aortic valve area of 0.3 cm???. Tricuspid Valve Structurally normal tricuspid valve. No tricuspid stenosis. [id number] tricuspid regurgitation. Pulmonic Valve Pulmonic valve not well visualized. No pulmonic stenosis.Trace pulmonic regurgitation. Pericardium No pericardial effusion. Aorta Normal size aortic root. CONCLUSIONS Left ventricular ejection fraction 60% Moderate increased left ventricular wall thickness Moderately dilated left atrium Severe/critical aortic stenosis with mean gradient 84 mmHg Mild to moderate aortic regurgitation Mild to moderate tricuspid regurgitation Previewed by: Dr. Tone Wharton DO (Electronically Signed) Final Date: 15 February 2025 12:30
[2025-02-15] MEDS: MIDAZOLAM 2 MG/2 ML VIAL IVP ONE (13:00)
[2025-02-15] MEDS: fentaNYL (PF) 50 MCG/ML 2 ML AMP IVP ONE (13:00)
[2025-02-15] MEDS: LIDOCAINE 1% INJ 10MG/ML (20 ML MDV) SQ ONE (13:05)
[2025-02-15] MEDS: IV FLUID CONTINUATION 400 ML IV ONE (13:06)
[2025-02-15] MEDS: VERAPAMIL SYRINGE (5 MG/10 ML) INTRAARTER ONE (13:07)
[2025-02-15] MEDS: HEPARIN SODIUM 1,000 UN/ML (10ML VL) IVP ONE (13:33)
[2025-02-15 13:41] LABS: O2 Sat Blood Gas 92.3 %
[2025-02-15 13:42] LABS: O2 Sat Blood Gas 67.3 %
[2025-02-15 13:43] LABS: O2 Sat Blood Gas 64.6 %
[2025-02-15 13:45] LABS: O2 Sat Blood Gas 70.8 %
[2025-02-15] MEDS: IOPAMIDOL-370 100ML BTL INJ ONE (14:11)
[2025-02-15] MEDS ORDERED: RX INFO: IV CONTRAST WAS GIVEN 1 EACH MISC MISCELLANE PRN (14:41)
--- NOTE | 2025-02-15 14:43 | P.CARDCATH ---
Date of Procedure: 02/15/25 Description of Procedure: DIAGNOSTIC CORONARY ANGIOGRAPHY, right heart catheterization and LEFT HEART CATH REPORT PROCEDURES PERFORMED: Left heart catheterization Right heart catheterization Selective coronary angiography Moderate conscious sedation 69 mins [Ultrasound assisted] Right radial access Ultrasound assisted right basilar vein access INDICATION: NSTEMI, severe aortic stenosis, acute hypoxic respiratory failure BRIEF HPI: Patient presented to the hospital because of acute onset shortness of breath, increased fatigue. On admission she had evidence of NSTEMI with elevated troponins. On physical examination she had 6/6 systolic murmur in the aortic area with diminished S2 with carotid pulses having pulses parvus at tardus. CONSENT: I have explained the procedural steps of above-mentioned procedures in layman's terms to the patient. I discussed the risks (including but not limited to stroke, emergent vascular or cardiac surgery or ), benefits and alternative therapies for the above-mentioned procedure. I discussed the risks of sedation/analgesia and blood product administration (if indicated). The patient has indicated understanding and acceptance of these risks. Conscious Sedation: Patient's ECG, heart rate, blood pressure, pulse oximetry were monitored throughout the duration of procedure under my direct supervision. 1 mg Versed and 50 mcg Fentanyl were used for induction of moderate conscious sedation. Total duration of moderate concious sedation 69 minutes. PROCEDURAL DETAILS: Patient was prepped and draped in sterile fashion. 1% lidocaine was infiltrated over the right radial artery. Right radial access was obtained via modified seldinger technique. [Ultrasound was used for radial access]. 1% lidocaine was infiltrated over the right basilic vein. Right basilic vein was identified using ultrasound. Right basilic vein access was obtained under ultrasound guidance using modified Seldinger technique. Right heart catheterization was performed using a 6 Uzbek Kendleton-Carlito catheter. The Kendleton-Carlito catheter was advanced under the fluoroscopic guidance to the wedge position. Sequential pressures and blood samples were collected for Maureen cardiac output study from wedge position, pulmonary artery RV RA. Thermodilution study was performed with the tip of catheter in pulmonary artery. After completion of right heart catheterization 6 Uzbek Kendleton-Carlito catheter was removed. The sheath was flushed. 5mg of verapamil was administed in the radial sheet. 4000 Units of Heparin was administed once the catheter reached the aortic root Wires and Catheter used: J wire was advanced under fluroscopy to get to aortic root. 5 brit[place] virgin islander JR 4 diagnostic catheter was used to selectively engage the right coronary ostium. 5 b[place] islander JL 3.5 diagnostic catheter was utilized to selectively engage the left coronary ostium. This catheter could not engage the left coronary ostium appropriately therefore it was exchanged for a 5 Uzbek JL 4 diagnostic catheter. Left coronary angiogram was performed and differential graphic projection. JR4 and JL 4 catheter could not be crossed across aortic valve therefore aortic valve was crossed utilizing 6 Uzbek AL-1 catheter using a straight wire. LV pressures were obtained and a pullback was performed. Angiographic images were reviewed in detail. Catheter and wire were removed. Radial sheet was flushed. The right radial sheath was removed and a TR band was placed. Patent hemostasis was achieved. The patient tolerated the procedure well. Patient was transported back to the post catheterization holding area in stable condition. TECHNICAL DETAILS Total contrast used: Isovue 80 ml Complications: [none] Estimated Blood loss: less than 15 ml HEMODYNAMICS: Aortic Pressure: 140/70 mmHg. LV pressure: 220/10 mmHg. LVEDP 40 mmHg. Peak to peak transaortic valve gradient 80 mmHg Mean trans aortic valve gradient 60 mmHg Aortic valve area by Hakki equation 0.68 cm Mean RA: 12 mmHg RV: 45/8 mmHg, RVEDP 12 mmHg PA: 45/15 mmHg, Mean 35 mmHg Wedge pressure: Mean 40 mmHg Oxygen saturations on room air RA: 65% RV: 71% PA: 70% Arterial: 92% BSA 1.71, hemoglobin 10.6, heart rate 78 bpm Maureen cardiac output 5.8 L/min. Maureen cardiac index 3.3 L/min/m Thermodilution cardiac output 6.9 L/min. Thermodilution cardiac index 4 L/min/m SELECTIVE CORONARY ARTERIOGRAPHY: LEFT MAIN: Left main is very short and bifurcates into LAD and LCx. It appears angiographically patent LEFT ANTERIOR DESCENDING CORONARY ARTERY: LAD is a large caliber vessel which wraps around to the apex. Proximal LAD appears angiographically.. Is utilized to 2 mm diagonal 1 vessel which has a 80 to 90% focal stenosis in the proximal segment. KAYLA-3 flow. Mid LAD gives rise to diagonal 2 which is small caliber and appears angiographically patent. After giving diagonal 2 mid LAD has 30 to 40% eccentric disease. Thereafter mid LAD gives diagonal 3 branch which is small caliber and appears angiographically patent. Distal LAD wraps around the apex and appears angiographically patent. LEFT CIRCUMFLEX CORONARY ARTERY: LCx is codominant. It is a very large caliber vessel. LCx appears angiographically patent. Proximal LCx gives rise to a small OM1 branch which appears patent. Mid LCx gives rise to a large caliber OM 2 branch. Proximal segment of OM 2 has 20 to 30% disease. It appears angiographically patent otherwise. Distal LCx gives rise to PL branch and OM 3 branch which appears angiographically patent. RIGHT CORONARY ARTERY: Codominant vessel. RCA is moderate caliber. Proximal segment of RCA/2 RV marginal branches appears angiographically patent. Distal RCA gives rise to small PDA and PL branch which appears angiographically patent. IMPRESSION: 80% focal stenosis in small diagonal 1, KAYLA-3 flow 30-40% mid RCA disease 30% proximal OM2 disease Minimal luminal irregularities with coronary calcification otherwise Severe symptomatic aortic stenosis with SHARONA of 0.69 cm and mean aortic gradient of 60 mmHg Severely elevated LVEDP and wedge pressures PLAN: 75 cc/h for 6 hours of normal saline Continue admitted to medical therapy for congestive heart failure therapy Continue IV diuretics CTS consult for TAVR evaluation Performing Physician Lee Teran MD, FACC, RPVI Thank you for allowing [facility] to participate in this patient's care. Feel free to reach out in case of any followup questions.
--- NOTE | 2025-02-15 14:54 | P.PN ---
Subjective Progress Note Date: 02/15/25 Principal diagnosis: Acute hypoxic respiratory failure secondary to acute diastolic congestive heart failure with severe aortic stenosis 74-year-old female patient, being hospitalized for worsening shortness of breath. No chest pain. No syncope. No lightheadedness. No nausea or vomiting. No chest pain. No cough sputum production. No fever or chills. She is known to have breast cancer with a previous bilateral mastectomy followed by chemotherapy and the patient seems to be stable from the cancer standpoint. She is also known to have history of aortic stenosis based on an earlier echocardiogram from 2021, her disease was severe. She does have some limited edema lower extremities bilaterally. She is a previous smoker. The blood work shows a elevated proBNP level of above 10,000 and the patient ruled in for an acute NSTEMI. Troponin peaked at 0.149, electrolytes are normal, CBC shows a white cell count of 15.3 with a hemoglobin of 10.9 and a platelet count of 272. The EKG showing no acute ischemic changes and the rhythm is sinus. The patient has also LVH. Also, the patient's CT scan of the chest shows small bilateral pleural effusion and pulm vascular congestion consistent with CHF/edema. The patient was given a dose of Lasix and the patient is already feeling better. The patient is on IV heparin. Started on Coreg 25 mg p.o. twice daily, aspirin 81 mg p.o. daily and Aldactone 25 mg p.o. daily. She is on Cozaar. Patient was seen today on 02/15/2025, patient is feeling better breathing easier, responding well to diuretics, echocardiogram showed good LV function patient underwent cardiac catheterization and she was found to have 80% focal stenosis in small diagonal 1, 30 to 40% mid RCA disease 30% proximal obtuse marginal 2 disease severe aortic stenosis was noted with SHARONA of 0.69 cm and mean aortic gradient of 60 mm she was also found to have severe elevated left ventricular end-diastolic pressure and wedge pressure. Labs today show WBC of 16.5 hemoglobin 10.5 electrolytes are normal BUN 20 creatinine 1.1 Objective - Vital Signs Vital signs: Vital Signs Temp 97.9 F 02/15/25 08:30 Pulse 72 02/15/25 11:52 Resp 17 02/15/25 11:52 BP 128/70 02/15/25 11:52 Pulse Ox 96 02/15/25 11:52 FiO2 Intake & Output 02/14/25 02/15/25 02/15/25 18:59 06:59 18:59 Intake Total 341.82 123.433 158.514 Output Total 400 450 Balance -58.18 -326.567 158.514 Weight 65.771 kg Intake: IV 100 Intake, IV Titration 101.82 123.433 58.514 Amount Heparin Sod,Pork in 0.45% 101.82 123.433 58.514 NaCl 25,000 unit In 0.45 % NaCl 1 250ml.bag @ 12 UNITS/KG/HR 7.893 mls/hr IV .Q24H [facility] Rx#: [id number] Oral 240 Output: Urine 400 450 Other: Voiding Method Toilet Toilet Toilet External Catheter External Catheter External Catheter # Voids 1 1 - Exam Physical exam revealed 74-year-old female pleasant in no distress Head: Atraumatic, normocephalic HEENT: PERRLA, EOMI, nonicteric no neck masses no JVD Lungs: Crackles at the bases no rhonchi no wheezes Cardiac distant S1-S2, 44/6 systolic murmur throughout the precordium Abdomen: Soft nontender No rebound no guarding Extremities: No clubbing edema or cyanosis Neurologic: Alert oriented x 3 no gross focal deficits Skin: No rashes Psychiatric: Normal mood affect and no mental status examination - Labs CBC & Chem 7: 02/15/25 06:16 02/15/25 06:16 Labs: Abnormal Lab Results - Last 24 Hours (Table) 02/14/25 02/14/25 02/15/25 Range/Units 20:46 22:11 06:16 WBC 16.15 H (4.50-10.00) 10*3/uL RBC 3.41 L (4.10-5.20) 10*6/uL Hgb 10.5 L (12.0-15.0) g/dL Hct 31.2 L (37.2-46.3) % Immature Gran # 0.07 H (0.00-0.04) 10*3/uL Neutrophils # 12.37 H (1.80-7.70) 10*3/uL Monocytes # 1.08 H (0.20-1.00) 10*3/uL APTT 34.2 H (22.0-30.0) sec Potassium (3.5-5.1) mmol/L BUN (7-17) mg/dL Creatinine (0.52-1.04) mg/dL Glucose (74-99) mg/dL POC Glucose (mg/dL) 144 H (70-110) mg/dL Total Protein (6.3-8.2) g/dL 02/15/25 02/15/25 02/15/25 Range/Units 06:16 06:16 06:39 WBC (4.50-10.00) 10*3/uL RBC (4.10-5.20) 10*6/uL Hgb (12.0-15.0) g/dL Hct (37.2-46.3) % Immature Gran # (0.00-0.04) 10*3/uL Neutrophils # (1.80-7.70) 10*3/uL Monocytes # (0.20-1.00) 10*3/uL APTT 30.1 H (22.0-30.0) sec Potassium 3.4 L (3.5-5.1) mmol/L BUN 20 H (7-17) mg/dL Creatinine 1.10 H (0.52-1.04) mg/dL Glucose 124 H (74-99) mg/dL POC Glucose (mg/dL) 138 H (70-110) mg/dL Total Protein 6.1 L (6.3-8.2) g/dL Microbiology - Last 24 Hours (Table) 02/14/25 02:00 Blood Culture Gram Stain - Preliminary Blood Assessment and Plan Assessment: Impression: Acute hypoxic respiratory failure secondary to acute diastolic congestive heart failure and valvular heart disease Severe aortic stenosis patient may have to be considered for TAVR History of CVA History of hypertension History of breast cancer Type 2 diabetes Ex-smoker Recommendation: Continue Lasix, and Aldactone Continue heparin Reviewed the results of the cardiac catheterization Continue to monitor closely on the cardiac floor Resume home meds \ cardiothoracic has been consulted for possible TAVR Time with Patient: Less than 30
[2025-02-15] MEDS: SODIUM CHLORIDE 0.9% 1,000 ML IV SCH (18:17)
[2025-02-15 20:58] LABS: Glucose,Whole Blood 194 mg/dL (70-110)
[2025-02-16] MEDS: FUROSEMIDE 40 MG TAB PO SCH (09:11)
[2025-02-16 09:12] LABS: African American GFR (CKD) 64 (>60 ml/min/1.73 sqM); Anion Gap 5 mmol/L; Blood Urea Nitrogen 17 mg/dL (7-17); Calcium 8.8 mg/dL (8.4-10.2); Carbon Dioxide 31 mmol/L (22-30); Chloride 104 mmol/L (98-107); Glucose 134 mg/dL (74-99); Non-African American GFR(CKD) 56 (>60 ml/min/1.73 sqM); Potassium 3.1 mmol/L (3.5-5.1); Sodium 140 mmol/L (137-145)
--- NOTE | 2025-02-16 10:49 | P.PN ---
Subjective HISTORY OF PRESENT ILLNESS: The patient is a 74-year-old female who presented with worsening shortness of breath that began on 01/2025. She reports that the symptoms started while sitting on a couch, experiencing acute onset shortness of breath with chest heaviness. The patient reports not having lightheadedness, dizziness, syncopal episodes, nausea, vomiting, or diaphoresis. She feels very anxious. She has no prior cardiovascular history but reports a history of hypertension, dyslipidemia, and CVA. She has a history of breast cancer currently in remission and a previous smoking history, but reports not having active smoking, recreational drug use, marijuana use, or alcohol use. Family history is non- contributory. On admission, elevated troponin levels were noted, and she was diagnosed with NSTEMI. Pertinent cardiac testing: - CTA Chest: 01/2025: No evidence of PE, small bilateral pleural effusion with increased pulmonary edema suggestive of fluid overload. - EK01/2025: Sinus Tachycardia, HR 109 BPM, mild IVCD, left axis deviation, poor R-wave progression. Chest x-ray shows bilateral small pleural effusion with interstitial edema suggestive of fluid overload 02/15/2025 Patient underwent cardiac catheterization yesterday with Dr. Teran revealing 80% focal stenosis in small diagonal 1, 30 to 40% mid RCA disease, 30% proximal OM 2 disease, minimal luminal irregularities with coronary calcifications otherwise. Severe symptomatic aortic stenosis and severely elevated LVEDP and wedge pressures. CT surgery was consulted for TAVR evaluation. The patient was examined this morning at the bedside. She denies any chest pain or pressure. She denies any shortness of breath. She has been up ambulating in her room independently. She remains on IV Lasix. Vital signs are stable. PHYSICAL EXAM: VITAL SIGNS: Reviewed. GENERAL: Well-developed in no acute distress. NECK: Supple. No JVD or thyromegaly LUNGS: Respirations even and unlabored. Lungs essentially clear to auscultation bilaterally. HEART: Regular rate and rhythm. S1 and S2 heard. Systolic murmur noted. EXTREMITIES: Normal range of motion. No clubbing or cyanosis. Peripheral pulses intact. No lower extremity edema ASSESSMENT: Non-STEMI Severe aortic stenosis Acute heart failure with preserved EF Nonobstructive coronary artery disease Hypertension Hyperlipidemia Diabetes Previous history of CVA Previous history of breast cancer Former nicotine dependence PLAN: Continue current cardiac medications including amlodipine, aspirin, Lipitor, car vedilol, hydralazine, losartan, and Aldactone Discontinue IV Lasix. Begin oral Lasix 40 mg twice a day Increase activity as tolerated CT surgery consulted for evaluation. Await recommendations Further recommendations pending patient course Nurse practitioner note has been reviewed by physician. Signing provider agrees with the documented findings, assessment, and plan of care documented by HOP WEIGHER as a scribe. Objective - Vital Signs Vital signs: Vital Signs Temp 98 F 02/16/25 09:10 Pulse 75 02/16/25 09:10 Resp 17 02/16/25 09:10 BP 129/76 02/16/25 09:10 Pulse Ox 93 L 02/16/25 09:10 FiO2 Intake & Output 02/15/25 02/16/25 02/16/25 18:59 06:59 18:59 Intake Total 386.526 Balance 386.526 Intake: IV 100 Intake, IV Titration 106.526 Amount Heparin Sod,Pork in 0.45% 106.526 NaCl 25,000 unit In 0.45 % NaCl 1 250ml.bag @ 12 UNITS/KG/HR 7.893 mls/hr IV .Q24H [facility] Rx#: [id number] Oral 180 Other: Voiding Method Toilet Bedside Commode Bedside Commode External Catheter # Voids 1 4 # Bowel Movements 1 - Labs CBC & Chem 7: 02/15/25 06:16 02/16/25 08:43 Labs: Abnormal Lab Results - Last 24 Hours (Table) 02/15/25 02/16/25 Range/Units 20:56 08:43 Potassium 3.1 L (3.5-5.1) mmol/L Carbon Dioxide 31 H (22-30) mmol/L Glucose 134 H (74-99) mg/dL POC Glucose (mg/dL) 194 H (70-110) mg/dL Microbiology - Last 24 Hours (Table) 02/14/25 02:00 Blood Culture Gram Stain - Preliminary Blood Blood Culture - Preliminary Bacillus species Not Anthracis
--- NOTE | 2025-02-16 11:21 | US ---
EXAMINATION TYPE: US carotid duplex BILAT DATE OF EXAM: 02/16/2025 Exam done portable COMPARISON: NONE CLINICAL INDICATION: Female, 74 years old with history of preop cardiac surgery; TECHNIQUE: Grayscale, color Doppler and spectral Doppler evaluation of the bilateral carotid systems and vertebral arteries. Indirect Doppler criteria was utilized. FINDINGS: EXAM MEASUREMENTS: RIGHT: Peak Systolic Velocity (PSV) cm/sec ----- Right CCA: 46.0 ----- Right ICA: 65.6 ----- Right ECA: 49.9 ICA/CCA ratio: 1.4 RIGHT: End Diastole cm/sec ----- Right CCA: 13.1 ----- Right ICA: 23.5 ----- Right ECA: 5.8 LEFT: Peak Systolic Velocity (PSV) cm/sec ----- Left CCA: 36.3 ----- Left ICA: 54.7 ----- Left ECA: 49.5 ICA/CCA ratio: 1.5 LEFT: End Diastole cm/sec ----- Left CCA: 9.2 ----- Left ICA: 18.1 ----- Left ECA: 9.0 VERTEBRALS (direction of flow): Right Vertebral: Antegrade Left Vertebral: Antegrade Rhythm: Normal IMPRESSION: No hemodynamically significant internal carotid artery stenosis on either side. Criteria for Assigning % of Stenosis / Diameter reduction (Estimation based on the indirect measurements of the internal carotid artery velocities (ICA PSV). 1. Normal (no stenosis)=ICA PSV < 180 cm/s: ratio < 2.0: ICA EDV<40 cm/s. 2. Less than 50% stenosis=ICA PSV < 180 cm/s: ratio < 2.0: ICA EDV<40 cm/s. 3. 50 to 69% stenosis=ICA PSV of 180 to 230 cm/s: ration 2.0 ? 4.0: ICA EDV 40-100 cm/s. PSV 125-180 cm/sec and ICA/CCA PSV Ratio ? 2.0 is also consistent with 50-69% stenosis 4. Greater than 70% stenosis to near occlusion= ICA PSV > 230 cm/s: ratio > 4.0: ICA EDV > 100 cm/s. 5. Near occlusion= ICA PSV velocities may be low or undetectable: variable ratio and ICA EDV. 6. Total occlusion=unable to detect flow. [facility], , 02/16/2025 11:18 AM
[2025-02-16] MEDS ORDERED: NON FORMULARY DRUG (Semaglutide [Ozempic] 0.25 MG/0.2 ML Pen.Injctr) SQ SCH (12:10)
--- NOTE | 2025-02-16 12:23 | P.PN ---
Subjective Progress Note Date: 02/16/25 Principal diagnosis: Acute hypoxic respiratory failure secondary to acute diastolic congestive heart failure with severe aortic stenosis 74-year-old female patient, being hospitalized for worsening shortness of breath. No chest pain. No syncope. No lightheadedness. No nausea or vomiting. No chest pain. No cough sputum production. No fever or chills. She is known to have breast cancer with a previous bilateral mastectomy followed by chemotherapy and the patient seems to be stable from the cancer standpoint. She is also known to have history of aortic stenosis based on an earlier echocardiogram from 2021, her disease was severe. She does have some limited edema lower extremities bilaterally. She is a previous smoker. The blood work shows a elevated proBNP level of above 10,000 and the patient ruled in for an acute NSTEMI. Troponin peaked at 0.149, electrolytes are normal, CBC shows a white cell count of 15.3 with a hemoglobin of 10.9 and a platelet count of 272. The EKG showing no acute ischemic changes and the rhythm is sinus. The patient has also LVH. Also, the patient's CT scan of the chest shows small bilateral pleural effusion and pulm vascular congestion consistent with CHF/edema. The patient was given a dose of Lasix and the patient is already feeling better. The patient is on IV heparin. Started on Coreg 25 mg p.o. twice daily, aspirin 81 mg p.o. daily and Aldactone 25 mg p.o. daily. She is on Cozaar. Patient was seen today on 02/15/2025, patient is feeling better breathing easier, responding well to diuretics, echocardiogram showed good LV function patient underwent cardiac catheterization and she was found to have 80% focal stenosis in small diagonal 1, 30 to 40% mid RCA disease 30% proximal obtuse marginal 2 disease severe aortic stenosis was noted with SHARONA of 0.69 cm and mean aortic gradient of 60 mm she was also found to have severe elevated left ventricular end-diastolic pressure and wedge pressure. Labs today show WBC of 16.5 hemoglobin 10.5 electrolytes are normal BUN 20 creatinine 1.1 Patient was seen today on 02/16/2025, patient is feeling better today, cardiac catheterization findings were noted, as noted above, patient is now being considered for TAVR considering his severe aortic stenosis. Cardiothoracic surgery was consulted on this patient. Her cardiac cath also showed 80% focal stenosis in small diagonal 1. Patient remains on diuretics, breathing easier, feeling much better. She is also on amlodipine aspirin Lipitor Coreg hydralazine losartan and Aldactone. She was transitioned from IV Lasix to oral Lasix 40 mg twice daily, labs today were reviewed renal functioning is normal. Objective - Vital Signs Vital signs: Vital Signs Temp 98 F 02/16/25 09:10 Pulse 82 02/16/25 11:45 Resp 18 02/16/25 11:45 BP 114/69 02/16/25 11:45 Pulse Ox 98 02/16/25 11:45 FiO2 Intake & Output 02/15/25 02/16/25 02/16/25 18:59 06:59 18:59 Intake Total 386.526 Balance 386.526 Intake: IV 100 Intake, IV Titration 106.526 Amount Heparin Sod,Pork in 0.45% 106.526 NaCl 25,000 unit In 0.45 % NaCl 1 250ml.bag @ 12 UNITS/KG/HR 7.893 mls/hr IV .[facility] Rx#: [id number] Oral 180 Other: Voiding Method Toilet Bedside Commode Bedside Commode External Catheter # Voids 1 4 # Bowel Movements 1 - Exam Physical exam revealed 74-year-old female pleasant in no distress Head: Atraumatic, normocephalic HEENT: PERRLA, EOMI, nonicteric no neck masses no JVD Lungs: diminished breath sounds at the bases no crackles rhonchi or wheezes Cardiac distant S1-S2, 44/6 systolic murmur throughout the precordium Abdomen: Soft nontender No rebound no guarding Extremities: No clubbing edema or cyanosis Neurologic: Alert oriented x 3 no gross focal deficits Skin: No rashes Psychiatric: Normal mood affect and no mental status examination - Labs CBC & Chem 7: 02/15/25 06:16 02/16/25 08:43 Labs: Abnormal Lab Results - Last 24 Hours (Table) 02/15/25 02/16/25 Range/Units 20:56 08:43 Potassium 3.1 L (3.5-5.1) mmol/L Carbon Dioxide 31 H (22-30) mmol/L Glucose 134 H (74-99) mg/dL POC Glucose (mg/dL) 194 H (70-110) mg/dL Microbiology - Last 24 Hours (Table) 02/14/25 02:00 Blood Culture Gram Stain - Final Blood Blood Culture - Final Bacillus species Not Anthracis Assessment and Plan Assessment: Impression: Acute hypoxic respiratory failure secondary to acute diastolic congestive heart failure and valvular heart disease Severe aortic stenosis patient may have to be considered for TAVR History of CVA History of hypertension History of breast cancer Type 2 diabetes Ex-smoker Recommendation: Patient is being seen by cardiothoracic surgery for her valvular heart disease Continue diuretics Continue present cardiac meds as noted earlier Reviewed the results of the cardiac catheterization Continue to monitor closely on the cardiac floor Will continue to follow Time with Patient: Less than 30
--- NOTE | 2025-02-16 14:07 | PN ---
PROGRESS NOTE DATE OF SERVICE: 02/15/2025 CHIEF COMPLAINT: Acute congestive heart failure and NSTEMI. HISTORY OF PRESENT ILLNESS: This lady is feeling better. She is less short of breath. Her troponins are elevated. She is going for cardiac cath. PHYSICAL EXAMINATION: CHEST: Demonstrates poor breath sounds at the bases posteriorly. CARDIAC: Normal except for the murmur. ABDOMEN: Soft, nontender. IMPRESSION: 1. Acute congestive heart failure. 2. Chronic congestive heart failure with reduced ejection fraction (HFrEF). 3. Cardiomegaly. 4. Diabetes. 5. Previous cerebrovascular accident. 6. History of carcinoma of the breast. 7. Cardiac murmur. PLAN: Cardiac cath today and manage after those findings are brought to bear. MMODL / IJN: [id number] /
--- NOTE | 2025-02-16 15:27 | P.GSCN ---
History of Present Illness Consult date: 02/16/25 Reason for Consult: TAVR evaluation Requesting physician: Lee Teran History of present illness: This is a 74-year-old female who follows outpatient with Dr. High for primary care. She has a previous medical history of aortic stenosis, hypertension, hyperlipidemia, diabetes, TIA, bilateral breast cancer in 2020 with bilateral mastectomies and chemotherapy, previous tobacco dependence, and medical debility with occasional falls and she walks with a cane. She presented to [facility] emergency room with progressive shortness of breath happening even at rest. She denied any chest pain, syncope, or any other symptoms, however she was very anxious about her breathing. Lab work in the ER revealed WBC 15.4, hemoglobin 10.9, creatinine 0.96, lactic acid 1.2, troponins were elevated at 0.107 going as high as 0.171, proBNP was 10,100. EKG demonstrated sinus tachycardia. Chest CTA revealed no pulmonary embolism. CT of the neck revealed dental caries with periapical abscesses and tooth #26 and 27 with recommendations for dental consult. The patient was admitted for evaluation and treatment with consultation placed to cardiology as well as pulmonology and dental consult. Transthoracic echocardiogram was completed demonstrating normal left ventricular systolic function with EF 60%, no regional wall motion abnormalities, severe aortic stenosis with aortic valve area 0.3 cm, peak/mean gradient 128/84 mmHg, max velocity 5.7 m/s, mild to moderate aortic regurgitation, mild mitral regurgitation, and mild to moderate tricuspid regurgitation with normal size aortic root. For further evaluation heart catheterization was performed which revealed 80% focal stenosis in the first diagonal, mild mid RCA and proximal second obtuse marginal disease, severe aortic stenosis with aortic valve area 0.69 cm and mean gradient 60 mmHg. Due to these findings consultation was placed to the structural heart team for TAVR recommendations. Review of Systems Review of systems was completed and was negative except as noted - Cardiovascular Reports as per HPI, Reports shortness of breath Past Medical History Past Medical History: Cancer (breast, mastectomy bilateral, post chrmotherapy and she completed the treatment in 2021), Heart Failure, CVA/TIA, Diabetes Mellitus, GERD/Reflux, Hyperlipidemia, Hypertension Additional Past Medical History / Comment(s): CVA (february 2021)., Bilateral breast cancer (2020 with mastectomies & chemo )., NIDDM type II, neuropathy feet., heart murmur., poor balance with hx falls-uses cane. History of Any Multi-Drug Resistant Organisms: None Reported Past Surgical History: Breast Surgery Additional Past Surgical History / Comment(s): sarita breast bx., 01/16/21 port a cath 04/28/21 sarita mastectomy., D&C hysteroscopy., oral procedure. Past Anesthesia/Blood Transfusion Reactions: No Reported Reaction Additional Past Anesthesia/Blood Transfusion Reaction / Comm: no previous blood transfusion Past Psychological History: Anxiety, Depression Smoking Status: Former smoker Past Alcohol Use History: None Reported Past Drug Use History: None Reported - Past Family History Mother Family Medical History: Cancer Father Family Medical History: No Reported History, Cancer Additional Family Medical History / Comment(s): prostate cancer Medications and Allergies Home Medications Medication Instructions Recorded Confirmed Type Glimepiride [Amaryl] 1 mg PO DAILY 08/01/16 02/14/25 History atenoloL [Tenormin] 50 mg PO DAILY 08/01/16 02/14/25 History cloNIDine HCL [Catapres] 0.1 mg PO BID 08/01/16 02/14/25 History Venlafaxine HCl 75 mg PO HS 07/31/17 02/14/25 History Famotidine [Pepcid] 20 mg PO DAILY 12/09/20 02/14/25 History Montelukast [Singulair] 10 mg PO DAILY 12/09/20 02/14/25 History Olmesartan Medoxomil [Benicar] 20 mg PO DAILY 12/09/20 02/14/25 History buPROPion [Wellbutrin] 100 mg PO BID 12/09/20 02/14/25 History Atorvastatin Calcium [Lipitor] 10 mg PO DAILY 01/18/21 02/14/25 History DULoxetine HCL [Cymbalta] 60 mg PO DAILY 01/18/21 02/14/25 History Ergocalciferol [Vitamin D2 (1250 1,250 mcg PO Q14D 01/18/21 02/14/25 History Mcg = 39231 Iu)] minoxidiL 2.5 mg PO DAILY 01/18/21 02/14/25 History Venlafaxine HCl [Effexor XR] 150 mg PO DAILY 03/09/21 02/14/25 History Aspirin 81 mg PO DAILY #100 chew 03/15/21 02/14/25 Rx Letrozole [Femara] 2.5 mg PO DAILY 07/20/22 02/14/25 History Inner Ear Health Plus 2 tab PO DAILY PRN 02/14/25 02/14/25 History LORazepam [Ativan] 1 mg PO TID PRN 02/14/25 02/14/25 History Nerve Comfort 1 cap PO DAILY 02/14/25 02/14/25 History Vitamin E (Dl,Tocopheryl Acet) 400 unit PO DAILY 02/14/25 02/14/25 History [Vitamin E (400 Iu = 180 mg)] Allergies Allergy/AdvReac Type Severity Reaction Status Date / Time Sulfa (Sulfonamide Allergy Rash/Hives Verified 02/14/25 16:10 Antibiotics) Surgical - Exam Vital Signs Temp Pulse Resp BP Pulse Ox 98.7 F 106 H 20 173/79 91 L 02/13/25 23:43 02/13/25 23:43 02/13/25 23:43 02/13/25 23:43 02/13/25 23:43 CONSTITUTIONAL: Awake and alert, appears anxious, cooperative, well-developed, well-nourished, no pain, no acute distress EYES: Pupils equal, round, reactive to light, normal ocular movement ENT: Moist mucous membranes without oral lesions present, poor dentition NECK: No masses, no bruits, trachea midline RESPIRATORY: Lungs sounds diminished in the bases bilaterally. Respirations even, nonlabored. Currently on room air with oxygen saturation 98%. Strong cough CARDIOVASCULAR: S1, soft S2 present, systolic murmur present. Regular rate and rhythm, sinus rhythm on telemetry. Palpable peripheral pulses bilaterally. No edema presen GASTROINTESTINAL: Abdomen soft, nontender, nondistended without masses or org anomegaly noted. There is no rebound or guarding present. Active bowel sounds present 4 quadrants. GENITOURINARY: Deferred INTEGUMENTARY: Skin is warm and dry NEUROLOGIC: Cranial nerves II through XII intact, normal coordination, no obvious motor or sensory deficits, speech is normal MUSKULOSKELETAL: Able to move all extremities, strength equal bilaterally, normal posture PSYCHIATRIC: Alert and oriented to person place and time Results - Labs 02/15/25 06:16 02/16/25 08:43 Abnormal Lab Results - Last 24 Hours (Table) 02/15/25 02/16/25 Range/Units 20:56 08:43 Potassium 3.1 L (3.5-5.1) mmol/L Carbon Dioxide 31 H (22-30) mmol/L Glucose 134 H (74-99) mg/dL POC Glucose (mg/dL) 194 H (70-110) mg/dL Microbiology - Last 24 Hours (Table) 02/14/25 02:00 Blood Culture Gram Stain - Final Blood Blood Culture - Final Bacillus species Not Anthracis Diabetes panel 02/16/25 Range/Units 08:43 Sodium 140 (137-145) mmol/L Potassium 3.1 L (3.5-5.1) mmol/L Chloride 104 (98-107) mmol/L Carbon Dioxide 31 H (22-30) mmol/L BUN 17 (7-17) mg/dL Creatinine 0.99 (0.52-1.04) mg/dL Glucose 134 H (74-99) mg/dL Calcium 8.8 (8.4-10.2) mg/dL Calcium panel 02/16/25 Range/Units 08:43 Calcium 8.8 (8.4-10.2) mg/dL Pituitary panel 02/16/25 Range/Units 08:43 Sodium 140 (137-145) mmol/L Potassium 3.1 L (3.5-5.1) mmol/L Chloride 104 (98-107) mmol/L Carbon Dioxide 31 H (22-30) mmol/L BUN 17 (7-17) mg/dL Creatinine 0.99 (0.52-1.04) mg/dL Glucose 134 H (74-99) mg/dL Calcium 8.8 (8.4-10.2) mg/dL Adrenal panel 02/16/25 Range/Units 08:43 Sodium 140 (137-145) mmol/L Potassium 3.1 L (3.5-5.1) mmol/L Chloride 104 (98-107) mmol/L Carbon Dioxide 31 H (22-30) mmol/L BUN 17 (7-17) mg/dL Creatinine 0.99 (0.52-1.04) mg/dL Glucose 134 H (74-99) mg/dL Calcium 8.8 (8.4-10.2) mg/dL - Imaging Chest x-ray: report reviewed, image reviewed CT scan - chest: report reviewed, image reviewed EKG: image reviewed Additional studies: Heart catheterization and echocardiogram results reviewed Assessment and Plan Assessment: Non-STEMI with elevated troponins on admission Acute heart failure with preserved ejection fraction, proBNP 10,100 on admission Severe symptomatic aortic valve stenosis Shortness of breath secondary to above History of aortic stenosis Hypertension Hyperlipidemia Diabetes TIA Bilateral breast cancer in 2020 with bilateral mastectomies and chemotherapy Previous tobacco dependence Medical debility with occasional falls and she walks with a cane Plan: The patient was seen and examined at the bedside sitting up in bed on the cardiac stepdown unit in no acute distress although she is a bit anxious. Patient's daughter and grandson were present. Discussed TAVR versus SAVR for treatment of severe symptomatic aortic stenosis. Patient indicated she is unwilling to undergo SAVR, she is agreeable to TAVR. Discussed with the patient and her daughter that TAVR procedure is considered elective and can be completed after workup. In addition patient and daughter were informed that she would need dental clearance prior to any valvular procedure, states she is in the process of getting multiple fillings and teeth pulled but dentist appointment is not for quite some time. We did discuss informing her dental office that she needs to have aortic valve replacement and cannot wait, dental clearance letter faxed over to patient's dental office. Pre-TAVR testing initiated. If patient is still in the hospital in a couple days we will get gated TAVR CTA, would like to give patient's kidneys a couple of days to recover after having heart catheterization yesterday to prevent contrast-induced nephropathy. Will set patient up to see structural heart team in the structural heart clinic electively outpatient for shared decision making regarding TAVR procedure. This was discussed in great detail with the patient as well as her family members. Of note patient's blood cultures drawn on 02/14 are positive for bacillus species not anthracis, culture has been sent to [facility] for further identification. Patient may be discharged to home from our standpoint when okay with all other services. Will follow-up electively outpatient. Our contact information was given to the patient as well as TAVR information booklet. Thank you Dr. Teran for this consult, we will continue to follow along. I have personally seen and examined the patient, performed the documentation and the assessment and plan as written. Number of minutes spent on the visit: 30. LORA Colvin
--- NOTE | 2025-02-17 01:43 | PN ---
PROGRESS NOTE CHIEF COMPLAINT: Acute congestive heart failure and MN. HISTORY OF PRESENT ILLNESS: This lady is doing fairly well. Her echocardiogram was done and it reveals an EF of 60%. It does show dramatic and severe aortic stenosis and aortic insufficiency. PHYSICAL EXAMINATION: CHEST: She still has rales at the bases. CARDIAC: Normal. ABDOMEN: Soft and nontender. IMPRESSION: 1. Acute congestive heart failure. 2. Acute pulmonary edema. 3. Atherosclerotic cardiovascular disease. 4. Aortic stenosis. 5. History of cerebrovascular accident. 6. Type 2 diabetes. PLAN: The patient is being considered for an aortic valve replacement. MMODL / IJN: [id number] /
[2025-02-17 03:46] VITALS: RESP 16
[2025-02-17 08:55] VITALS: TEMP 97.7
--- NOTE | 2025-02-17 11:34 | P.PN ---
Subjective HISTORY OF PRESENT ILLNESS: The patient is a 74-year-old female who presented with worsening shortness of breath that began on 01/2025. She reports that the symptoms started while sitting on a couch, experiencing acute onset shortness of breath with chest heaviness. The patient reports not having lightheadedness, dizziness, syncopal episodes, nausea, vomiting, or diaphoresis. She feels very anxious. She has no prior cardiovascular history but reports a history of hypertension, dyslipidemia, and CVA. She has a history of breast cancer currently in remission and a previous smoking history, but reports not having active smoking, recreational drug use, marijuana use, or alcohol use. Family history is non- contributory. On admission, elevated troponin levels were noted, and she was diagnosed with NSTEMI. Pertinent cardiac testing: - CTA Chest: 01/2025: No evidence of PE, small bilateral pleural effusion with increased pulmonary edema suggestive of fluid overload. - EK01/2025: Sinus Tachycardia, HR 109 BPM, mild IVCD, left axis deviation, poor R-wave progression. Chest x-ray shows bilateral small pleural effusion with interstitial edema suggestive of fluid overload 02/16/2025 Patient underwent cardiac catheterization yesterday with Dr. Teran revealing 80% focal stenosis in small diagonal 1, 30 to 40% mid RCA disease, 30% proximal OM 2 disease, minimal luminal irregularities with coronary calcifications otherwise. Severe symptomatic aortic stenosis and severely elevated LVEDP and wedge pressures. CT surgery was consulted for TAVR evaluation. The patient was examined this morning at the bedside. She denies any chest pain or pressure. She denies any shortness of breath. She has been up ambulating in her room independently. She remains on IV Lasix. Vital signs are stable. 02/17/2025 Patient examined this morning at bedside. Patient currently denies chest pain or pressure. She denies shortness of breath. Vital signs are stable. Patient has been evaluated by CT surgery and is scheduled to undergo TAVR CTA. PHYSICAL EXAM: VITAL SIGNS: Reviewed. GENERAL: Well-developed in no acute distress. NECK: Supple. No JVD or thyromegaly LUNGS: Respirations even and unlabored. Lungs essentially clear to auscultation bilaterally. HEART: Regular rate and rhythm. S1 and S2 heard. Systolic murmur noted. EXTREMITIES: Normal range of motion. No clubbing or cyanosis. Peripheral pulses intact. No lower extremity edema ASSESSMENT: Non-STEMI Severe aortic stenosis Acute heart failure with preserved EF Nonobstructive coronary artery disease Hypertension Hyperlipidemia Diabetes Previous history of CVA Previous history of breast cancer Former nicotine dependence PLAN: Continue current cardiac medications including amlodipine, aspirin, Lipitor, carvedilol, hydralazine, Lasix losartan, and Aldactone Increase activity as tolerated CT surgery following. Patient scheduled for TAVR CTA. Patient is stable for discharge today from a cardiac standpoint Further recommendations pending patient course Nurse practitioner note has been reviewed by physician. Signing provider agrees with the documented findings, assessment, and plan of care documented by DINKEY ENGINE OPERATOR as a scribe. Objective - Vital Signs Vital signs: Vital Signs Temp 97.7 F 02/17/25 08:30 Pulse 79 02/17/25 08:30 Resp 16 02/17/25 08:30 BP 128/68 02/17/25 08:30 Pulse Ox 96 02/17/25 08:30 FiO2 Intake & Output 02/16/25 02/17/25 02/17/25 18:59 06:59 18:59 Intake Total 540 20 Balance 540 20 Weight 77.4 kg Intake: IV 20 Invasive Line 2 10 Invasive Line 3 10 Oral 540 Other: Voiding Method Bedside Commode Toilet Toilet Bedside Commode Bedside Commode # Voids 1 2 - Labs CBC & Chem 7: 02/15/25 06:16 02/16/25 08:43 Labs: Microbiology - Last 24 Hours (Table) 02/14/25 02:00 Blood Culture Gram Stain - Final Blood Blood Culture - Final Bacillus species Not Anthracis
[2025-02-17 11:51] LABS: African American GFR (CKD) 73 (>60 ml/min/1.73 sqM); Anion Gap 10 mmol/L; Blood Urea Nitrogen 15 mg/dL (7-17); Calcium 9.5 mg/dL (8.4-10.2); Carbon Dioxide 31 mmol/L (22-30); Chloride 100 mmol/L (98-107); Glucose 140 mg/dL (74-99); Non-African American GFR(CKD) 63 (>60 ml/min/1.73 sqM); Potassium 3.4 mmol/L (3.5-5.1); Sodium 141 mmol/L (137-145)
--- NOTE | 2025-02-17 12:06 | P.PN ---
Subjective Progress Note Date: 02/17/25 Principal diagnosis: Acute hypoxic respiratory failure secondary to acute diastolic congestive heart failure with severe aortic stenosis 74-year-old female patient, being hospitalized for worsening shortness of breath. No chest pain. No syncope. No lightheadedness. No nausea or vomiting. No chest pain. No cough sputum production. No fever or chills. She is known to have breast cancer with a previous bilateral mastectomy followed by chemotherapy and the patient seems to be stable from the cancer standpoint. She is also known to have history of aortic stenosis based on an earlier echocardiogram from 2021, her disease was severe. She does have some limited edema lower extremities bilaterally. She is a previous smoker. The blood work shows a elevated proBNP level of above 10,000 and the patient ruled in for an acute NSTEMI. Troponin peaked at 0.149, electrolytes are normal, CBC shows a white cell count of 15.3 with a hemoglobin of 10.9 and a platelet count of 272. The EKG showing no acute ischemic changes and the rhythm is sinus. The patient has also LVH. Also, the patient's CT scan of the chest shows small bilateral pleural effusion and pulm vascular congestion consistent with CHF/edema. The patient was given a dose of Lasix and the patient is already feeling better. The patient is on IV heparin. Started on Coreg 25 mg p.o. twice daily, aspirin 81 mg p.o. daily and Aldactone 25 mg p.o. daily. She is on Cozaar. Patient was seen today on 02/15/2025, patient is feeling better breathing easier, responding well to diuretics, echocardiogram showed good LV function patient underwent cardiac catheterization and she was found to have 80% focal stenosis in small diagonal 1, 30 to 40% mid RCA disease 30% proximal obtuse marginal 2 disease severe aortic stenosis was noted with SHARONA of 0.69 cm and mean aortic gradient of 60 mm she was also found to have severe elevated left ventricular end-diastolic pressure and wedge pressure. Labs today show WBC of 16.5 hemoglobin 10.5 electrolytes are normal BUN 20 creatinine 1.1 Patient was seen today on 02/16/2025, patient is feeling better today, cardiac catheterization findings were noted, as noted above, patient is now being considered for TAVR considering his severe aortic stenosis. Cardiothoracic surgery was consulted on this patient. Her cardiac cath also showed 80% focal stenosis in small diagonal 1. Patient remains on diuretics, breathing easier, feeling much better. She is also on amlodipine aspirin Lipitor Coreg hydralazine losartan and Aldactone. She was transitioned from IV Lasix to oral Lasix 40 mg twice daily, labs today were reviewed renal functioning is normal. Patient was seen today on 02/17/2025, clinically the patient is feeling better, breathing easier, she is being considered for TAVR, however the patient is to have dental clearance, patient may undergo CT TAVR tomorrow. Pulmonary cruz she is relatively asymptomatic, no cough no wheezing no shortness of breath, remains on oral Lasix. Electrolytes are normal potassium is a bit low at 3.4 her renal profile is normal. Objective - Vital Signs Vital signs: Vital Signs Temp 97.7 F 02/17/25 08:30 Pulse 79 02/17/25 08:30 Resp 16 02/17/25 08:30 BP 128/68 02/17/25 08:30 Pulse Ox 96 02/17/25 08:30 FiO2 Intake & Output 02/16/25 02/17/25 02/17/25 18:59 06:59 18:59 Intake Total 540 20 Balance 540 20 Weight 77.4 kg Intake: IV 20 Invasive Line 2 10 Invasive Line 3 10 Oral 540 Other: Voiding Method Bedside Commode Toilet Toilet Bedside Commode Bedside Commode # Voids 1 2 - Exam Physical exam revealed 74-year-old female pleasant in no distress Head: Atraumatic, normocephalic HEENT: PERRLA, EOMI, nonicteric no neck masses no JVD Lungs: diminished breath sounds at the bases no crackles rhonchi or wheezes Cardiac distant S1-S2, 44/6 systolic murmur throughout the precordium Abdomen: Soft nontender No rebound no guarding Extremities: No clubbing edema or cyanosis Neurologic: Alert oriented x 3 no gross focal deficits Skin: No rashes Psychiatric: Normal mood affect and no mental status examination - Labs CBC & Chem 7: 02/15/25 06:16 02/17/25 11:11 Labs: Abnormal Lab Results - Last 24 Hours (Table) 02/17/25 Range/Units 11:11 Potassium 3.4 L (3.5-5.1) mmol/L Carbon Dioxide 31 H (22-30) mmol/L Glucose 140 H (74-99) mg/dL Microbiology - Last 24 Hours (Table) 02/14/25 02:00 Blood Culture Gram Stain - Final Blood Blood Culture - Final Bacillus species Not Anthracis Assessment and Plan Assessment: Impression: Acute hypoxic respiratory failure secondary to acute diastolic congestive heart failure and valvular heart disease Severe aortic stenosis patient may have to be considered for TAVR History of CVA History of hypertension History of breast cancer Type 2 diabetes Ex-smoker Recommendation: Continue diuretics Patient is being worked up for TAVR, workup is in progress including dental clearance and CT TAVR Consider discharge planning once cleared by other consultants Will continue to follow Time with Patient: Less than 30
[2025-02-17 13:52] VITALS: BP 130/67; PULSE 87
--- NOTE | 2025-02-17 14:36 | CT ---
EXAMINATION TYPE: CT TAVR Planning DATE OF EXAM: 02/17/2025 COMPARISON: None CLINICAL INDICATION: Female, 74 years old with history of TAVR planning; TAVR TECHNIQUE: CT scan of the Neck, chest, abdomen and pelvis is performed with IV contrast; Helical imaging obtaine d through the chest, abdomen and pelvis during arterial phase dynamic administration of radiographic contrast intravenously. MIP imaging performed on a [employer] work station and submitted for review. CONTRAST: 125mL mL of Isovue 370. CT DLP: 1790.6 mGycm, Automated exposure control for dose reduction was used. CT CTDI: mGy FINDINGS: See report from [employer] regarding preprocedural planning HEART AND PERICARDIUM: Heart is normal in size. There is no pericardial effusion. AV Calcification Severity: Mild to moderate ARTERIAL VASCULATURE: The aortic arch and thoracic aorta demonstrate a normal course and caliber. The pulmonary outflow tra ct appears within normal limits for size. The thoracic aorta is normal in course and caliber. There is no evidence of aortic dissection, aneurysm or acute aortic injury. Great arch vessels patent and n ormal in course and caliber. There is mild scattered arteriosclerotic calcification. PULMONARY ARTERIAL VASCULATURE: Normal caliber., No evidence for central filling defect. NECK AND THYROID: No significant findings. The carotid bifurcations are patent. CHEST: LUNGS: There is a small right pleural effusion with mild adjacent compressive atelectasis. There is n o significant lung mass or nodule. LARGE AIRWAYS: Central airways are patent. MEDIASTINUM AND CARLOTTA: No mediastinal or hilar lymphadenopathy or soft tissue mass. SOFT TISSUES/LYMPH NODES: Unremarkable.Normal. MUSCULOSKELETAL: No acute osseous abnormalities ABDOMEN/PELVIS: Please note arterial phase of the imaging limits detailed evaluation of the solid abdominal organs. ABDOMEN LIVER: Unremarkable GALLBLADDER AND BILE DUCTS: Unremarkable. PANCREAS: Unremarkable. SPLEEN: Unremarkable. ADRENAL GLANDS: Unremarkable. KIDNEYS AND URETERS: No evidence of hydronephrosis or renal calculus. The ureters are unremarkable. PELVIS BLADDER: Unremarkable REPRODUCTIVE: Unremarkable. ABDOMEN & PELVIS STOMACH AND BOWEL: No evidence of bowel obstruction. PERITONEUM/RETROPERITONEUM: No evidence of pneumoperitoneum or free fluid. VASCULATURE: No evidence of aortic aneurysm. MUSCULOSKELETAL: No acute osseous abnormalities LYMPH NODES: No gross evidence for lymphadenopathy. SOFT TISSUE/ABDOMINAL WALL: Unremarkable Other Lines/Tubes/Devices/Hardware: None IMPRESSION: 1. Mild to moderate calcifications of the aortic valve. 2. No acute process. 3. See report from [employer] regarding preprocedural planning [facility], , 02/17/2025 2:33 PM
--- NOTE | 2025-02-17 22:02 | CDI ---
Date: 02/17/2025 From: Tia Mcnally1 Email: [email or web address] Admit Date: 02/14/2025 02:24:00 AM Patient Name: Veronique Prasad Visit Number: [id number] Discharge Date: N/A ATTENTION: The Clinical Documentation Specialists (CDI) and [facility] Coding Staff appreciate your assistance in clarifying documentation. Please respond to the clarification below the line at the bottom and electronically sign. The CDI & [facility] Coding staff will review the response and follow-up if needed. Please note: Queries are made part of the Legal Health Record. If you have any questions, please contact the author of this message via ITS. Dr. Mariano Gordillo, Non-STEMI is documented in your Progress Note on 02/16/2025. Additional clarification is requested. History/Risk Factors: 74-year-old female presented to [facility] ED for evaluation due to progressive shortness of breath with chest heaviness. PMH: Hypertension, severe aortic stenosis, GERD. Hyperlipidemia, type 2 diabetes mellitus, heart murmur, former nicotine dependence Clinical Indicators: Troponin Trend (02/14/2025): 0.107 --> 0.149 --> 0.171 BNP (02/14/2025): 10,100 EKG (02/14/2025): Ventricular Rate: 109. Sinus tachycardia. Left axis deviation. Left ventricular hypertrophy and ST-T change. Possible anterior myocardial infarction of indeterminate age. Abnormal ECG. Echocardiogram (02/15/2025): Left ventricular ejection fraction 60%. Moderate increased left ventricular wall thickness. Moderately dilated left atrium. Severe/critical aortic stenosis with mean gradient 84mmHg. [id number]-fd-gidyrrag aortic regurgitation. Yysi-zt-rpbkofij tricuspid regurgitation. Operative Report (02/15/2025): o Procedures Performed: Left Heart Catheterization. Right Heart Catheterization. Selective Coronary Angiography o Impression: 80% focal stenosis in small diagonal 1, KAYLA-3 flow 30-40% mid RCA disease 30% proximal OM2 disease Minimal luminal irregularities with coronary calcification otherwise Severe symptomatic aortic stenosis with SHARONA of 0.69 cm and mean aortic gradient of 60 mmHg Severely elevated LVEDP and wedge pressures o Plan: Continue admitted to medical therapy for congestive heart failure therapy. Continue IV diuretics. CTS consult for TAVR evaluation Cardiology Progress Note (02/16/2025): o Non-STEMI o Severe aortic stenosis o Acute heart failure with preserved EF o Non-obstructive coronary artery disease Treatment: Cardiology Consultation Bilateral Heart Catheterization with Selective Coronary Angiography Troponin Trend x 3 Telemetry Monitoring Heparin IV Infusion Aspirin 324mg Oral x 1 Aspirin 325mg Oral x 1 Aspirin 81mg Oral Daily Other Treatments this Admission: Aldactone 25mg Oral Daily Lasix 40mg IVP Every 12 Hours Oral BID After work up and study, please clarify which diagnosis is most appropriate? [ ] MINOCA (myocardial infarction with non-obstructive coronary arteries) with microvascular disease [ ] Type 2 myocardial infarction (type 2 NSTEMI) secondary to acute diastolic heart failure [ ] Type 2 myocardial infarction (type 2 NSTEMI) secondary to (please specify etiology) [ ] Other, please specify [x ] Unable to determine MTDD
--- NOTE | 2025-02-17 22:29 | CDI ---
Date: 02/17/2025 From: Tia Mcnally1 Email: [email or web address] Admit Date: 02/14/2025 02:24:00 AM Patient Name: Veronique Prasad Visit Number: [id number] Discharge Date: N/A ATTENTION: The Clinical Documentation Specialists (CDI) and [facility] Coding Staff appreciate your assistance in clarifying documentation. Please respond to the clarification below the line at the bottom and electronically sign. The CDI & [facility] Coding staff will review the response and follow-up if needed. Please note: Queries are made part of the Legal Health Record. If you have any questions, please contact the author of this message via ITS. Dr. Sandy Rashid, Acute hypoxic respiratory failure is documented in your Consultation Note on 02/14/2025 - which may lack sufficient clinical evidence/support in the medical record. Additional clarification is requested. History/Risk Factors: 74-year-old female presented to [facility] ED for evaluation due to progressive shortness of breath with chest heaviness. PMH: Hypertension, severe aortic stenosis, GERD. Hyperlipidemia, type 2 diabetes mellitus, heart murmur, former nicotine dependence Clinical Indicators: CTA Chest (02/14/2025): Lungs: Unremarkable. No mass. No consolidation. Chest X-Ray (02/14/2025): Findings are consistent with CHF exacerbation. Correlate clinically. Vital Sign Trend: Date Time Temperature HR RR BP SpO2 02/13/2025 23:43 98.7 F (Oral) 106 20 173/79 91% on Room Air 02/14/2025 00:19 N/A 114 26 N/A N/A 02/14/2025 01:10 N/A 103 20 170/90 94% on 3L NC 02/14/2025 08:24 98.6 F (Oral) 72 18 148/81 96% on 2L NC 02/14/2025 16:49 97.7 F (Oral) 84 16 139/76 92% on Room Air 02/17/2025 08:30 97.7 F (Oral) 79 16 128/68 96% on Room Air ED Report (02/13/2025): Mild wheezing, difficult to determine if it is cardiac versus pulmonary. Hypoxia, 90 to 91% on room air. Increased work of breathing Pulmonology Consult Note (02/14/2025): o Lungs are diminished, bilateral lung with bibasilar crackles o Acute hypoxic respiratory failure with shortness of breath currently on 2 L of oxygen by nasal cannula o Acute CHF o Small bilateral pleural effusion along with pulmonary edema secondary to above Treatment: Supplemental Oxygen (2-3 Liters via Nasal Cannula) Brief Duration Pulmonology Consultation Solu-Medrol 125mg IVP x 1 Duo-Neb Treatment x 1 Singulair 10mg Oral Daily Racepinephrine 2.25% Nebulized Inhalation x 1 After work up and study, please clarify which diagnosis is most appropriate? [ x ] Acute respiratory insufficiency [ ] Acute hypoxic respiratory failure was present on admission as evidenced by (additional clinical support) [ ] Unable to determine [ ] Other, please specify MTDD
--- NOTE | 2025-02-18 02:40 | DS ---
DISCHARGE SUMMARY CHIEF COMPLAINT: Shortness of breath. HISTORY OF PRESENT ILLNESS AND PHYSICAL EXAMINATION: Details of this lady's history and physical can be found in the initial workup. LABORATORY STUDIES: While she was in the hospital, she had laboratory studies, details of which can be found in the laboratory section of her chart. COURSE IN THE HOSPITAL: After admission, she was placed on bedrest, started on intravenous fluids and telemetry. She was diuresed as part of the management of her acute congestive heart failure. She was seen and followed by Cardiology. She did have an NSTEMI. Her workup resulted in the likelihood that this was all aggravated by a significant aortic stenosis. She was improving, was felt she could be discharged and she will go home on her usual medications and diet and be followed up in the office. It is planned that she will have a TAVR done sometime in the near future. FINAL DIAGNOSES: 1. Pulmonary edema. 2. Acute congestive heart failure. 3. Aortic stenosis. 4. Atherosclerotic cardiovascular disease. 5. Type 2 diabetes. 6. History of previous cerebrovascular accident. OPERATIONS: None. CONSULTATIONS: Cardiology. She is improved. MMODL / IJN: [id number] /
[2025-02-18] MEDS ORDERED: CLOPIDOGREL 75 MG TAB PO SCH (09:00)
--- NOTE | 2025-02-19 18:45 | CDI ---
Date: 02/19/2025 From: Tia Mcnally1 Email: [email or web address] Admit Date: 02/14/2025 02:24:00 AM Patient Name: Veronique Prasad Visit Number: [id number] Discharge Date: 02/17/2025 06:18:00 PM ATTENTION: The Clinical Documentation Specialists (CDI) and [facility] Coding Staff appreciate your assistance in clarifying documentation. Please respond to the clarification below the line at the bottom and electronically sign. The CDI & [facility] Coding staff will review the response and follow-up if needed. Please note: Queries are made part of the Legal Health Record. If you have any questions, please contact the author of this message via ITS. Dr. Mariano Gordillo, Conflicting documentation has been found in the medical record. Clarification is requested. Cardiology Consult Note (02/14/2025): NSTEMI, type 1 Cardiology Progress Note per Nurse Practitioner (02/16/2025): Non-obstr uctive coronary artery disease History/Risk Factors: 74-year-old female presented to [facility] ED for evaluation due to progressive shortness of breath with chest heaviness. PMH: Hypertension, severe aortic stenosis, GERD. Hyperlipidemia, type 2 diabetes mellitus, heart murmur, former nicotine dependence Clinical Indicators: Documentation Location: Electronic Medical Record Troponin Trend (02/14/2025): 0.107 0.149 0.171 BNP (02/14/2025): 10,100 EKG (02/14/2025): Ventricular Rate: 109. Sinus tachycardia. Left axis deviation. Left ventricular hypertrophy and ST-T change. Possible anterior myocardial infarction of indeterminate age. Abnormal ECG. Echocardiogram (02/15/2025): Left ventricular ejection fraction 60%. Moderate increased left ventricular wall thickness. Moderately dilated left atrium. Severe/critical aortic stenosis with mean gradient 84mmHg. Bxmr-de-qrqbxyso aortic regurgitation. Vhmb-ok-adjobodx tricuspid regurgitation. Operative Report (02/15/2025): o Procedures Performed: Left Heart Catheterization. Right Heart Catheterization. Selective Coronary Angiography o Impression: 80% focal stenosis in small diagonal 1, KAYLA-3 flow 30-40% mid RCA disease 30% proximal OM2 disease Minimal luminal irregularities with coronary calcification otherwise Severe symptomatic aortic stenosis with SHARONA of 0.69 cm and mean aortic gradient of 60 mmHg Severely elevated LVEDP and wedge pressures o Plan: Continue admitted to medical therapy for congestive heart failure therapy. Continue IV diuretics. CTS consult for TAVR evaluation Cardiology Progress Note (02/16/2025): o Non-obstructive coronary artery disease o Non-STEMI o Severe aortic stenosis o Acute heart failure with preserved EF Treatment: Heparin IV Infusion (Discontinued 02/15/2025) Aspirin 324mg Oral x 1 Aspirin 325mg Oral x 1 Aspirin 81mg Oral Daily Cardiology Consultation Thoracic-Cardiovascular Surgery Consultation for TAVR Consideration Bilateral Heart Catheterization with Selective Coronary Angiography Troponin Trend x 3 Telemetry Monitoring Other Treatments this Admission: Aldactone 25mg Oral Daily Lasix 40mg IVP Every 12 Hours Oral BID TAVR Planning in Progress Please clarify which diagnosis is most appropriate: [ ] Acute type 1 NSTEMI secondary to obstructive coronary artery disease without surgical intervention required [ ] Type 2 myocardial infarction (type 2 NSTEMI) secondary to severe aortic stenosis (Type 1 NSTEMI ruled out) [ ] Type 2 myocardial infarction (type 2 NSTEMI) secondary to acute diastolic heart failure (Type 1 NSTEMI ruled out) [ ] Type 2 myocardial infarction (type 2 NSTEMI) secondary to (please specify etiology) [ x ] MINOCA (myocardial infarction with non-obstructive coronary arteries) with microvascular disease [ ] Other, please specify [ ] Unable to determine MTDD
== END 2025-02-17 18:18 | disposition home or self-care (01) | DRG 280 ==
LOC: EC 23:42 → 3SCARD 02-14 02:24
PROVIDERS: ADMIT Family Medicine; ATTEND Family Medicine
PROC: B2111ZZ Fluoroscopy of Multiple Coronary Arteries using Low Osmolar Contrast (ICD-10-PCS; 2025-02-15)
PROC: 4A023N8 Measurement of Cardiac Sampling and Pressure, Bilateral, Percutaneous Approach (ICD-10-PCS; principal; 2025-02-15 12:30)
DX: I21.B Myocardial infarction with coronary microvascular dysfunction (principal); I50.31 Acute diastolic (congestive) heart failure; E11.65 Type 2 diabetes mellitus with hyperglycemia; I11.0 Hypertensive heart disease with heart failure; E66.9 Obesity, unspecified; I08.3 Combined rheumatic disorders of mitral, aortic and tricuspid valves; K02.9 Dental caries, unspecified; K04.7 Periapical abscess without sinus; I25.10 Atherosclerotic heart disease of native coronary artery without angina pectoris; E78.5 Hyperlipidemia, unspecified; F41.9 Anxiety disorder, unspecified; R06.89 Other abnormalities of breathing; Z85.3 Personal history of malignant neoplasm of breast; Z87.891 Personal history of nicotine dependence; Z90.13 Acquired absence of bilateral breasts and nipples; Z92.21 Personal history of antineoplastic chemotherapy; Z68.29 Body mass index [BMI] 29.0-29.9, adult; Z86.73 Personal history of transient ischemic attack (TIA), and cerebral infarction without residual deficits; Z79.811 Long term (current) use of aromatase inhibitors; Z79.84 Long term (current) use of oral hypoglycemic drugs; Z79.899 Other long term (current) drug therapy; Z79.85 Long-term (current) use of injectable non-insulin antidiabetic drugs; Z79.82 Long term (current) use of aspirin
CPT/HCPCS: 36415; 70491; 71045; 71275; 74174; 80048; 80053; 80061; 81001; 82810; 83036; 83605; 83735; 83880; 84443; 84484; 85018; 85025; 85610; 85730; 87040; 87636; 93005; 93306; 93460; 93880; 94150; 94640; 96361; 96365; 96366; 96368; 96375; 96376; 99291

== ENCOUNTER 2025-03-31 09:52 | Inpatient (IN) | payer MEDICARE, OTHER ==
[~2025-03-31 09:52] MED LIST changes: -ACETAMINOPHEN TAB 500 MG TAB PO PRN; +CLEVIDIPINE BUTYRATE 25 MG in EMPTY BAG 1 BAG IV PRN; +ELECTROLYTE-A SOLUTION 1,000 ML with POTASSIUM CHLORIDE 100 MEQ, MAGNESIUM SULFATE 16 M... IV PRN; -HEPARIN SODIUM,PORCINE/PF 5,000 UNIT/0.5 ML SYRINGE SQ PRN; +INSULIN REGULAR 100 UNIT in SODIUM CHLORIDE 0.9% 100 ML IV PRN; +NITROGLYCERIN-D5W PMX 25 MG/250 ML BTL IV PRN; +PROTAMINE SULFATE 250 MG in EMPTY BAG 1 BAG IV PRN; +SODIUM CHLORIDE 0.9% 500 ML 500 ML INTRAARTER PRN; +TRANEXAMIC ACID 2,000 MG in SODIUM CHLORIDE 0.9% 80 ML IV PRN
[2025-03-31 11:13] LABS: Glucose,Whole Blood 144 mg/dL (70-110)
[2025-03-31] MEDS: IV FLUID CONTINUATION 1,000 ML IV ONE ×2 (11:20→15:03)
[2025-03-31 11:30] LABS: Basophils # (A) 0.14 10*3/uL (0.00-0.10); Eosinophils # (A) 0.84 10*3/uL (0.04-0.35); Eosinophils % (A) 5.9 %; HCT 34.6 % (37.2-46.3); HGB 11.8 g/dL (12.0-15.0); Lymphocytes # (A) 1.84 10*3/uL (0.90-5.00); Lymphocytes % (A) 12.8 %; MCH 30.3 pg (27.0-32.0); MCHC 34.1 g/dL (32.0-37.0); MCV 88.9 fL (80.0-97.0); Mean Platelet Volume 9.9 fL (9.5-12.2); Monocytes # (A) 1.09 10*3/uL (0.20-1.00); Monocytes % (A) 7.6 %; Neutrophils # (A) 10.37 10*3/uL (1.80-7.70); Neutrophils % (A) 72.3 %; Platelet Count 314 10*3/uL (140-440); RBC 3.89 10*6/uL (4.10-5.20); RDW 13.3 % (11.5-14.5); WBC 14.34 10*3/uL (4.50-10.00)
[2025-03-31] MEDS: ATORVASTATIN 10 MG TAB PO ONE (11:34)
[2025-03-31] MEDS: METOPROLOL TARTRATE 25 MG TAB PO ONE (11:34)
[2025-03-31] MEDS: CLOPIDOGREL 75 MG TAB PO ONE (11:34)
[2025-03-31] MEDS: ASPIRIN 81 MG PO STA (11:39)
[2025-03-31] MEDS: ASPIRIN 325 MG TAB PO ONE (11:40)
[2025-03-31 11:51] LABS: African American GFR (CKD) 25 (>60 ml/min/1.73 sqM); Anion Gap 15 mmol/L; Blood Urea Nitrogen 54 mg/dL (7-17); Calcium 10.3 mg/dL (8.4-10.2); Carbon Dioxide 25 mmol/L (22-30); Chloride 97 mmol/L (98-107); Glucose 134 mg/dL (74-99); Non-African American GFR(CKD) 22 (>60 ml/min/1.73 sqM); Potassium 4.7 mmol/L (3.5-5.1); Sodium 137 mmol/L (137-145)
[2025-03-31] MEDS ORDERED: MIDAZOLAM 2 MG/2 ML VIAL ONE (12:54)
[2025-03-31] MEDS ORDERED: HEPARIN SODIUM,PORCINE 10,000 UNIT/ML 1 ML VIAL ONE (12:54)
[2025-03-31] MEDS ORDERED: SUCCINYLCHOLINE CHLORIDE 200 MG/10 ML VIAL IV ONE (12:54)
[2025-03-31] MEDS ORDERED: fentaNYL (PF) 50 MCG/ML 2 ML AMP ONE (12:54)
[2025-03-31] MEDS ORDERED: ROCURONIUM 10 MG/ML (5 ML VIAL) IV ONE (12:54)
[2025-03-31] MEDS ORDERED: PROTAMINE SULFATE 10 MG/ML 5 ML VIAL ONE (12:54)
[2025-03-31] MEDS ORDERED: LIDOCAINE 1% INJ 10MG/ML (20 ML MDV) ONE (12:54)
[2025-03-31] MEDS ORDERED: PROPOFOL 10 MG/ML 20 ML VIAL IV ONE (12:54)
[2025-03-31] MEDS ORDERED: NEOSTIGMINE 1 MG/ML 10 ML VIAL ONE (12:54)
[2025-03-31] MEDS ORDERED: GLYCOPYRROLATE 0.2 MG/ML 2 ML VIAL ONE (12:54)
[2025-03-31] MEDS: IOPAMIDOL-300 100ML BTL INJ ONE (14:20)
--- NOTE | 2025-03-31 14:41 | P.OP ---
Date of Procedure: 03/31/25 Preoperative Diagnosis: Symptomatic calcific tricuspid aortic stenosis Postoperative Diagnosis: Same Procedure(s) Performed: Percutaneous transfemoral transcatheter aortic valve replacement with 26 mm [employer] evolute flex plus transcatheter aortic valve prosthesis Implants: 26 mm [employer] evolute flex plus transcatheter aortic valve prosthesis Anesthesia: GETA Surgeon: Selvin Contreras (Cardiovascular surgeon) Licensed Direct Entry Midwife #1: Parker Gallardo (First kaiawhina) Licensed Direct Entry Midwife #2: Tone Wharton (Second kaiawhina) Pathology: none sent Condition: stable Disposition: PACU Indications for Procedure: 74-year-old female with highly symptomatic critical aortic stenosis. She is seen in the high risk valve clinic and felt to be most appropriate for transcatheter aortic valve replacement. Informed consent was obtained. Operative Findings: Greater than 60 mm peak to peak gradient across the aortic valve. Heavily calcified tricuspid aortic valve by PADMINI. Valve was crossed without difficulty. After initial implantation of the valve at depths of 3 bilaterally, the valve appeared somewhat underexpanded and there was significant paravalvular leak. After postimplantation balloon valvuloplasty with a 21 mm true balloon, there was only trivial paravalvular leak and the valve appeared much better expanded. Completion angiography demonstrated no leak or narrowing of the right femoral artery. Description of Procedure: Patient was electively admitted and brought to the catheterization laboratory. She was placed supine on the table. General anesthesia was induced. She was intubated and PADMINI probe was placed. Bilateral groins and chest were sterilely prepped and draped. Bilateral femoral arterial access was obtained under ultrasound guidance and short 6 Luxembourger sheaths were placed bilaterally. It was decided to use the right femoral as our primary access. The left short 6 Luxembourger sheath was exchanged over a wire for a long 6 Luxembourger sheath and through this a pigtail catheter was advanced into the noncoronary sinus of Valsalva. Right femoral vein was punctured and a long 8 Luxembourger sheath was placed through this a transvenous pacer was advanced into the right ventricle and tested. 2 Perclose devices were placed in the right femoral artery and it was upsized to an 8 Luxembourger sheath. This was exchanged for a 14 Luxembourger sheath over stiff wire. Patient was systemically heparinized and ACT's were maintained greater than 250. Valve was crossed from the right and a pigtail catheter placed at the apex of the ventricle and transvalvular gradients were measured. Safari wire was placed at the apex of the ventricle. 26 mm [employer] evolute flex plus valve had been loaded on the back table was brought up on the field and checked under fluoroscopy. 14 Luxembourger sheath was then exchanged for the valve delivery system and this was advanced through the arterial tree around the aortic arch and across the aortic valve. It was deployed under rapid ventricular pacing with deployment levels of 3 bilaterally. Valve deployment system was pulled back into the descending thoracic aorta. It initially looked somewhat underexpanded and there was significant paravalvular leak. Valve deployment system was exchanged for the 14 Luxembourger sheath. The valve was recrossed and the safari wire replaced at the apex of the ventricle. Balloon valvuloplasty of the transcatheter valve was performed with a 21 mm true balloon. This resulted in significant improvement in the expansion of the valve prosthesis and near complete elimination of the paravalvular leak which was only trivial. He has decided to accept this and the balloon and wire were removed. Heparin was reversed with protamine. 14 Luxembourger sheath was removed and the 2 Perclose d eployed devices tied with good resulting hemostasis. Left femoral sheaths were removed and hemostasis obtained with direct pressure. The patient was awakened, extubated and transferred to recovery.
--- NOTE | 2025-03-31 14:42 | P.PCN ---
Date of Procedure: 03/31/25 Operative Findings: TRANSCATHETER AORITC VALVE REPLACEMENT OPERATIVE REPORT PROCEDURE PERFORMED: 1. Percutaneous Aortic Valve Implantation using a 26 mm Medtronic Evolut valve 2. Transesophageal echocardiography (performed by anesthesia) 3. Ultrasound guided access and repair of right femoral artery access site by Perclose closure device. 4. Placement of temporary pacemaker wire. 5. Aortic root angiography INDICATIONS: 1. 74 year-old with a history of severe symptomatic aortic valve stenosis. The patient was experiencing shortness of breath consistent with NYHA class II PERFORMING PHYSICIANS: 1. Parker Gallardo MD Interventional Cardiology. 2. Tone Wharton DO Interventional Cardiology 3. Selvin Contreras MD, Cardiothoracic Surgeon. SEDATION: General anesthesia provided by anesthesia, see separate note APPROACH: Bilateral femoral artery via percutaneous approach PROCEDURE DESCRIPTION: The patient was discussed at valve clinic with multidisciplinary approach with cardiothoracic surgeon as well as manufacturing engineer automotive and thought better treated with TAVR. Risks, benefits, and alternatives of the procedure had been explained to the patient who understood the risks and agreed to proceed. After consents were obtained, patient was brought to the transcatheter aortic valve implantation room in the cardiac phlebotomist medical lab assistant and general anesthesia was provided by the anesthesiologist (see separate report). Once full body sterile prep was performed, the left common femoral vein was cannulated using micropuncture technique under ultrasound guidance a micropuncture wire passed easily then we placed a 6 Cymro 23 cm sheath at the left common femoral vein. Subsequently a balloontipped pacer wire was advanced under fluoroscopy guidance to the right ventricle Next the left femoral artery waw accessed using a modified Seldinger technique, ultrasound guidance and micropuncture technique. A 6 Cymro Rabi sheath was placed in the left femoral artery. Next, a 6-Cymro pigtail catheter was advanced into the aorta and positioned in the aortic root, aortic root angiography was performed to determine optimal deployment angle. The right femoral artery was accessed using modified Seldinger technique, micropuncture technique and under direct ultrasound guidance. Femoral angiogram was done showing access in the common femoral artery and a 6Fr sheath was placed. Next preclose technique was performed using a 2 Perclose. Next a 0.035 Safari wire was placed in the Aorta via a pigtail catheter. Over that the arteriotomy a 14 Fr Sauquoit sheath was placed. Next a 6F- AL1 catheter was advanced over a wire to the aortic root. A straight wire was advanced through the catheter and used to cross the severely stenotic valve. The AL1 was then exchanged for a 6Fr pigtail catheter and pressure measurements were obtained. The 0.035 Safari wire was then positioned in the apex. Next a 26 mm Corevalve v alve was advanced. The valve was then positioned across the aortic valve and confirmed with aortic root angiography. [The valve was initially partially deployed however needed repositioning and therefore was recaptured.] The valve was then deployed in proper position using slow deployment and with rapid pacing in conjuncture with aortic root angiography and PADMINI. The delivery system was withdrawn back into the arch and an aortic root injection in conjunction with PADMINI demonstrated a mild to moderate perivalvular leak. At that point we postdilated using 20 mm true balloon. There was mild para valvular leak. There was no evidence of any other significant abnormalities. The preclose Perclose was then deployed in the tubular Kalosis and 1 8 Cymro Angio-Seal at the right femoral artery and hemostasis was achieved. Hemostasis was confirmed using a rim catheter from the left common femoral artery. The left common femoral artery hemostasis was performed using 60 Cymro Angio-Seal. The procedure was completed with no complication. The pacer wire was withdrawn out. COMPLICATIONS: None RECOMMENDATIONS: The patient will be monitored in the telemetry unit for hemodynamic and electrical stability. Patient will be on aspirin and Plavix.
[2025-03-31 14:58] LABS: Glucose,Whole Blood 129 mg/dL (70-110)
[2025-03-31] MEDS: ONDANSETRON 4 MG/2 ML VIAL IVP STA (15:03)
[2025-03-31 15:05] LABS: HCT 31.1 % (37.2-46.3); MCH 31.2 pg (27.0-32.0); MCHC 35.4 g/dL (32.0-37.0); MCV 88.1 fL (80.0-97.0); Mean Platelet Volume 9.4 fL (9.5-12.2); Platelet Count 246 10*3/uL (140-440); RBC 3.53 10*6/uL (4.10-5.20); RDW 13.3 % (11.5-14.5); WBC 13.49 10*3/uL (4.50-10.00)
--- NOTE | 2025-03-31 15:23 | XR ---
EXAMINATION TYPE: XR chest 1V portable DATE OF EXAM: 03/31/2025 3:09 PM COMPARISON: Chest radiographs from 02/14/2025. CLINICAL INDICATION: Female, 74 years old with history of post TAVR; [facility] TECHNIQUE: XR chest 1V portable Frontal view of the chest. FINDINGS: Lungs/Pleura: There is no evidence of pleural effusion, focal consolidation, or pneumothorax. Pulmonary vascularity: Pulmonary vascular congestion. Heart/mediastinum: Cardiomediastinal silhouette is enlarged. Atherosclerotic calcifications are seen in the aorta. Musculoskeletal: No acute osseous pathology. Left axilla surgical clips. Other findings: None IMPRESSION: Postsurgical changes with aortic valve repair and mild pulmonary edema. [facility], , 03/31/2025 3:20 PM
[2025-03-31 16:06] LABS: African American GFR (CKD) 28 (>60 ml/min/1.73 sqM); Anion Gap 10 mmol/L; Blood Urea Nitrogen 49 mg/dL (7-17); Calcium 9.2 mg/dL (8.4-10.2); Carbon Dioxide 25 mmol/L (22-30); Chloride 103 mmol/L (98-107); Glucose 129 mg/dL (74-99); Non-African American GFR(CKD) 24 (>60 ml/min/1.73 sqM); Potassium 4.1 mmol/L (3.5-5.1); Sodium 138 mmol/L (137-145)
[2025-03-31] MEDS ORDERED: IPRATROPIUM-ALBUTEROL 3 ML NEB INHALATION PRN (16:20)
[2025-03-31] MEDS ORDERED: Magnesium Replacement Protocol 1 EACH MISC MISCELLANE PRN (16:20)
[2025-03-31] MEDS ORDERED: DEXTROSE 50% SYRINGE 50 ML IVP PRN ×2 (16:20)
[2025-03-31] MEDS ORDERED: Potassium Replacement Protocol 1 EACH MISC MISCELLANE PRN (16:20)
[2025-03-31] MEDS ORDERED: ONDANSETRON 4 MG/2 ML VIAL IVP PRN (16:20)
[2025-03-31] MEDS ORDERED: CALCIUM GLUCONATE IN NACL 2 GM in SALINE 1 100ML.BAG IVPB PRN (16:20)
[2025-03-31] MEDS: ACETAMINOPHEN TAB 500 MG TAB PO PRN (16:28)
--- NOTE | 2025-03-31 17:13 | P.ANPRN ---
Procedure Note - Anesthesia - PADMINI Intraop Pre Bypass PADMINI Intraop - Anesthesia Indication: Date of Procedure: 03/31/25 Pre-operative Diagnosis: Post-operative Diagnosis: Surgeon: Selvin Contreras Ejection Fraction: Normal Regional Wall Motion Abnormalities: None Left Ventricle Hypertrophy: Yes R. Ventricle Function: Normal Anatomy: Trileaflet Aortic Stenosis: Severe Aortic Regurgitation: Mild Other Findings: Max velocity is 5.6 m/s, Max gradient is 125 mmHg, mean is 86 mmHg Mitral Stenosis: None Mitral Regurgitation: Mild Tricuspid Stenosis: None Tricuspid Regurgitation: Mild Pulmonic Stenosis: None Pulmonic Regurgitation: None R. Atrial Dilation: No R. Atrial PFO: No L. Atrial Dilation: Yes Aortic Dissection: No Aortic Calcification: Severe Plural Effusion: None
--- NOTE | 2025-03-31 17:14 | P.ANPRN ---
Procedure Note - Anesthesia - PADMINI Intraop Post Bypass PADMINI Intraop Post Bypass Procedure Performed: TAVR Ejection Fraction: Normal Regional Wall Motion Abnormalities: None R. Ventricle Function: Normal Aortic Valve: Max velocity is 2.62 m/s, Max gradient is 27 mmHg, mean is 13 mmHg Mitral Valve: Unchanged Tricuspid: Unchanged Pulmonic: Unchanged Aortic Dissection: No
[2025-03-31 17:51] LABS: Glucose,Whole Blood 165 mg/dL (70-110)
[2025-03-31] MEDS: LACTATED RINGERS 1,000 ML IV SCH (17:59)
[2025-03-31] MEDS: INSULIN LISPRO (HumaLOG) 100 UNIT/ML 10 mL VL SQ SCH (17:59)
[2025-03-31] MEDS: hydrALAZINE HCL 25 MG TAB PO SCH (17:59)
[2025-03-31] MEDS: carvediloL 12.5 MG TAB PO SCH (17:59)
[2025-03-31] MEDS: ceFAZolin 2 GM in DEXTROSE 5% IN WATER 50 ML IVPB SCH (18:47)
[2025-03-31 20:05] LABS: Glucose,Whole Blood 158 mg/dL (70-110)
[2025-03-31] MEDS: SENNOSIDES-DOCUSATE SODIUM 1 EACH TAB PO SCH (22:28)
[2025-03-31] MEDS: buPROPion 100 MG TAB PO SCH (22:28)
[2025-03-31] MEDS: cloNIDine HCL 0.1 MG TAB PO SCH (22:29)
[2025-03-31] MEDS: LORazepam 1 MG TAB PO PRN (22:48)
[2025-04-01 00:45] VITALS: RESP 16
[2025-04-01] MEDS: HEPARIN SODIUM,PORCINE 5,000 UNIT/ML 1 ML VIAL SQ SCH (00:47)
[2025-04-01 06:01] LABS: Glucose,Whole Blood 134 mg/dL (70-110)
[2025-04-01 07:57] LABS: Basophils # (A) 0.08 10*3/uL (0.00-0.10); Basophils % (A) 0.4 %; Eosinophils # (A) 0.25 10*3/uL (0.04-0.35); Eosinophils % (A) 1.3 %; HCT 30.3 % (37.2-46.3); HGB 10.2 g/dL (12.0-15.0); Lymphocytes # (A) 0.62 10*3/uL (0.90-5.00); Lymphocytes % (A) 3.3 %; MCH 30.3 pg (27.0-32.0); MCHC 33.7 g/dL (32.0-37.0); MCV 89.9 fL (80.0-97.0); Mean Platelet Volume 10.2 fL (9.5-12.2); Monocytes # (A) 1.11 10*3/uL (0.20-1.00); Monocytes % (A) 5.9 %; Neutrophils # (A) 16.63 10*3/uL (1.80-7.70); Neutrophils % (A) 88.7 %; Platelet Count 243 10*3/uL (140-440); RBC 3.37 10*6/uL (4.10-5.20); RDW 13.5 % (11.5-14.5); WBC 18.77 10*3/uL (4.50-10.00)
--- NOTE | 2025-04-01 08:00 | XR ---
EXAMINATION TYPE: XR chest 1V portable DATE OF EXAM: 04/01/2025 6:52 AM COMPARISON: Chest radiographs from 03/31/2025 CLINICAL INDICATION: Female, 74 years old with history of Post Operative Cardiac Surgery; [facility] TECHNIQUE: XR chest 1V portable Frontal view of the chest. FINDINGS: Lungs/Pleura: There is no evidence of pleural effusion, focal consolidation, or pneumothorax. Pulmonary vascularity: Pulmonary vascular congestion. Heart/mediastinum: Cardiomediastinal silhouette is unremarkable. Post aortic valve repair changes. Musculoskeletal: No acute osseous pathology. Other findings: Bilateral breast surgical clips. IMPRESSION: Postsurgical changes. Similar mild pulmonary edema [facility], , 04/01/2025 7:57 AM
[2025-04-01 08:24] LABS: ALT 12 U/L (4-34); AST 23 U/L (14-36); African American GFR (CKD) 26 (>60 ml/min/1.73 sqM); Albumin 4.2 g/dL (3.5-5.0); Alkaline Phosphatase 78 U/L (38-126); Anion Gap 13 mmol/L; Blood Urea Nitrogen 47 mg/dL (7-17); Calcium 9.7 mg/dL (8.4-10.2); Carbon Dioxide 22 mmol/L (22-30); Chloride 102 mmol/L (98-107); Glucose 106 mg/dL (74-99); Magnesium 1.8 mg/dL (1.6-2.3); Non-African American GFR(CKD) 23 (>60 ml/min/1.73 sqM); Potassium 4.2 mmol/L (3.5-5.1); Sodium 137 mmol/L (137-145); Total Bilirubin 0.4 mg/dL (0.2-1.3); Total Protein 6.5 g/dL (6.3-8.2)
[2025-04-01] MEDS: LOSARTAN 50 MG TAB PO SCH (08:39)
[2025-04-01] MEDS: FUROSEMIDE 40 MG TAB PO SCH (08:39)
[2025-04-01] MEDS: CLOPIDOGREL 75 MG TAB PO SCH (08:39)
[2025-04-01] MEDS: FAMOTIDINE 20 MG TAB PO SCH (08:39)
[2025-04-01] MEDS: amLODIPine 10 MG TAB PO SCH (08:39)
[2025-04-01] MEDS: MONTELUKAST 10 MG TAB PO SCH (08:39)
[2025-04-01] MEDS: ASPIRIN 81 MG PO SCH (08:39)
[2025-04-01] MEDS: SPIRONOLACTONE 25 MG TAB PO SCH (08:39)
[2025-04-01] MEDS: ATORVASTATIN 10 MG TAB PO SCH (08:39)
[2025-04-01] MEDS: DULoxetine HCL 60 MG CAPSULE.DR PO SCH (08:39)
[2025-04-01] MEDS: VENLAFAXINE HCL ER 75 MG CAP PO SCH (08:40)
[2025-04-01] MEDS: GLIMEPIRIDE 1 MG TAB PO SCH (08:42)
[2025-04-01] MEDS: VITAMIN E (DL,TOCOPHERYL ACET) 400 UNIT (180 MG) CAP PO SCH (08:42)
[2025-04-01] MEDS: LETROZOLE 2.5 MG TAB PO SCH (08:43)
[2025-04-01] MEDS: FUROSEMIDE 10 MG/ML 2 ML VIAL IV ONE (08:59)
[2025-04-01] MEDS ORDERED: MAGNESIUM HYDROXIDE 2,400 MG/30 ML CUP PO PRN (09:00)
[2025-04-01] MEDS ORDERED: bisacodyL 10 MG SUPP RECTAL PRN (09:00)
[2025-04-01] MEDS ORDERED: METOPROLOL TARTRATE 12.5 MG TAB PO SCH (09:00)
[2025-04-01] MEDS ORDERED: ASPIRIN 81 MG PO SCH (09:00)
[2025-04-01 09:03] VITALS: TEMP 98.3
[2025-04-01] MEDS: ceFAZolin 2 GM in DEXTROSE 5% IN WATER 50 ML IVPB ONE (10:23)
[2025-04-01] MEDS: LACTATED RINGERS 1,000 ML IV SCH (10:23)
[2025-04-01 11:31] LABS: Glucose,Whole Blood 190 mg/dL (70-110)
--- NOTE | 2025-04-01 11:56 | CA ---
Transthoracic Echo Report Name: Veronique Prasad Age: 74 Gender: F : 1950 Exam Date: 04/01/2025 09:19 Exam Location: [facility] Ht (in): 65 Wt (lb): 175 Ordering Physician: Suzy Mcclure Attending/Referring Phys: [id number], Kami Post Commander Alondra Zapata, BRIAN Procedure CPT: Indications: post TAVR Cardiac Hx: Technical Quality: Fair Contrast 1: Total Dose (mL): Contrast 2: Total Dose (mL): MEASUREMENTS (Male / Female) Normal Values 2D ECHO LV Diastolic Diameter PLAX 4.2 cm 4.2 - 5.9 / 3.9 - 5.3 cm LV Systolic Diameter PLAX 2.2 cm IVS Diastolic Thickness 1.1 cm 0.6 - 1.0 / 0.6 - 0.9 cm LVPW Diastolic Thickness 1.2 cm 0.6 - 1.0 / 0.6 - 0.9 cm LV Relative Wall Thickness 0.6 RV Internal Dim ED PLAX 2.4 cm LVOT Diameter 1.8 cm LA Systolic Diameter LX 4.3 cm 3.0 - 4.0 / 2.7 - 3.8 cm LV Diastolic Volume MOD BP 58.1 cm??? 67 - 155 / 56 - 104 cm??? LV Systolic Volume MOD BP 22.1 cm??? 22 - 58 / 19 - 49 cm??? LV Ejection Fraction MOD BP 62.0 % >= 55 % LV Cardiac Index MOD BP 1527.9 cm???/min???m??? LV Diastolic Volume MOD 4C 56.1 cm??? LV Systolic Volume MOD 4C 26.1 cm??? LV Ejection Fraction MOD 4C 53.5 % LV Cardiac Index MOD 4C 1275.4 cm???/min???m??? LV Diastolic Length 4C 7.9 cm LV Systolic Length 4C 6.2 cm LV Diastolic Volume MOD 2C 57.9 cm??? LV Systolic Volume MOD 2C 18.2 cm??? LV Ejection Fraction MOD 2C 68.5 % LV Cardiac Index MOD 2C 1685.3 cm???/min???m??? LV Diastolic Length 2C 7.4 cm LV Systolic Length 2C 6.0 cm LA Volume 40.1 cm??? 18 - 58 / 22 - 52 cm??? LA Volume Index 20.8 cm???/m??? 16 - 28 cm???/m??? M-MODE Aortic Root Diameter MM 2.2 cm LA Systolic Diameter MM 3.4 cm LA Ao Ratio MM 1.5 DOPPLER AV Peak Velocity 322.2 cm/s AV Peak Gradient 41.5 mmHg AV Mean Velocity 232.6 cm/s AV Mean Gradient 25.2 mmHg AV Velocity Time Integral 56.1 cm AI Peak Velocity 253.8 cm/s AI Peak Gradient 25.8 mmHg AI Pressure Half Time 664.5 ms LVOT Peak Velocity 156.5 cm/s LVOT Peak Gradient 9.8 mmHg LVOT Velocity Time Integral 33.0 cm LVOT Stroke Volume 84.1 cm??? LVOT Stroke Volume Index 45.0 ml/m??? LVOT Cardiac Index 3570.8 cm???/min???m??? AV Area Cont Eq vti 1.5 cm??? AV Area Cont Eq pk 1.2 cm??? MV Area PHT 2.0 cm??? Mitral E Point Velocity 89.4 cm/s Mitral A Point Velocity 132.4 cm/s Mitral E to A Ratio 0.7 MV Deceleration Time 374.3 ms TR Peak Velocity 272.1 cm/s TR Peak Gradient 29.6 mmHg Right Ventricular Systolic Press 34.4 mmHg FINDINGS Left Ventricle Left ventricular ejection fraction is estimated at 60-65 %. Normal left ventricular systolic function with no obvious regional wall motion abnormalities. Left ventricular cavity size normal. Mildly increased left ventricular wall thickness. Right Ventricle Normal right ventricular size and function. Right ventricular systolic pressure within normal limits. Right Atrium Mild right atrial dilatation. Left Atrium Mildly increased left atrial diameter. Mitral Valve Structurally normal mitral valve. Mild mitral regurgitation. No mitral stenosis.mitral annular calcification. Aortic Valve Normally functioning bioprosthetic aortic valve, TAVR, with a peak velocity of 3.22m/s, peak gradient 41mmHg, mean gradient 25 mmHg, and estimated aortic valve area of 1.5 cm???. Mild paravalvular aortic regurgitation. No central aortic regurgitation. Tricuspid Valve Structurally normal tricuspid valve. Mild tricuspid regurgitation. No tricuspid stenosis. Pulmonic Valve Structurally normal pulmonic valve. No pulmonic stenosis. Pericardium No pericardial or pleural effusion. Aorta Normal size aortic root and proximal ascending aorta. CONCLUSIONS 1. Normal left ventricular size and systolic function 2. Valvular noted with mild paravalvular aortic regurgitation and a mean gradient of 25 mmHg 3. Mild mitral and tricuspid regurgitation Previewed by: Dr. Akila Duarte MD (Electronically Signed) Final Date: 01 April 2025 11:55
--- NOTE | 2025-04-01 13:40 | P.DS ---
Providers Date of admission: 03/31/25 09:52 Expected date of discharge: 04/01/25 Attending physician: Parker Gallardo Consults: 03/25/25 15:44 Consult to Anesthesia Routine Consulting Provider: Anesthesia,Services Consult Reason/Comments: Cardiac Surgery Pre-Op 03/31/25 14:18 Consult Physician Routine Consulting Provider: Selvin Contreras Consult Reason/Comments: post TAVR Do you want consulting provider notified?: Already Contacted Primary care physician: Bijan High Hospital Course: MEDICAL HISTORY: Calcified aortic valve with severe symptomatic aortic valve stenosis, NYHA class II History of coronary artery disease with myocardial infarction Heart failure with preserved ejection fraction Hypertension Hyperlipidemia Diabetes mellitus TIA Breast cancer in 2020 with chemotherapy and bilateral mastectomy Previous tobacco dependence, preoperative FEV1 59% of predicted PROCEDURE: Percutaneous aortic valve implantation using a 26 mm Evolute FX under PADMINI and fl uoroscopy guidance Transesophageal echocardiography performed by anesthesia Ultrasound-guided access and repair of right femoral artery access site by Perclose closure device Placement of temporary pacemaker wire Aortic root angiography HISTORY OF PRESENT ILLNESS: This is a 74-year-old female who follows on an outpatient basis with Dr. High for primary care and Dr. Teran for cardiology. She has a known history of severe aortic stenosis and has been symptomatic with increased exertional dyspnea. She had been referred to structural heart clinic for evaluation for transcatheter aortic valve replacement after heart catheterization and transesophageal echocardiogram were completed. Echocardiography demonstrated normal systolic function with EF 60%, aortic valve area 0.3 cm with a peak/mean gradient 128/84 mmHg. Heart catheterization showed 80% stenosis to the first diagonal branch but no other significant coronary disease. After workup was completed STS risk score was calculated al larry with incremental risk and the patient was felt to be high risk for surgical aortic valve replacement, therefore transcatheter aortic valve replacement was recommended. The usual course of TAVR was discussed in detail the patient, risks and benefits were reviewed, shared decision making between cardiology, surgery, and the patient/family took place, and the patient consented to proceed with the procedure. HOSPITAL COURSE: The patient was brought to the hospital on 03/31/25, was taken to the extended stay area, prepared in the usual fashion, and subsequently taken to the cardiac catheterization laboratory where Dr. Gallardo and Dr. Contreras completed TAVR procedure under general anesthesia with fluoroscopy and PADMINI. The valve was deployed under rapid ventricular pacing and proceeded without event. At the end of the procedure there was no significant gradient, hemodynamics were felt to be acceptable, and there was no evidence of significant perivalvular leak. Upon completion of the procedure the patient was extubated and taken to the recovery with subsequent admission to the cardiac stepdown unit where she was recovered and monitored hemodynamically. Her oxygen was titrated down a lthough she still required 2 L nasal cannula upon discharge which was not surprising considering her mild COPD, she was tolerating oral diet, her pain was controlled, follow-up TTE demonstrated normal left ventricular systolic function with EF 60 to 65%, mean gradient 25 mmHg, mild paravalvular leak and she was ready to be discharged to home on postoperative day #1. She received written and verbal instruction regarding her medications, activity restrictions, signs and symptoms requiring physician notification, and follow-up appointments. Patient Condition at Discharge: Stable Plan - Discharge Summary Discharge Rx Participant: No New Discharge Prescriptions: New Acetaminophen Tab [Tylenol] 1,000 mg PO Q6HR PRN tab PRN Reason: Fever And/ Or Mild Pain (1-3) Sennosides-Docusate Sodium [Senokot-S] 2 each PO HS PRN tab PRN Reason: Constipation Continue Glimepiride [Amaryl] 1 mg PO DAILY cloNIDine HCL [Catapres] 0.1 mg PO BID Famotidine [Pepcid] 20 mg PO QAM buPROPion [Wellbutrin] 100 mg PO BID Montelukast [Singulair] 10 mg PO QAM Aspirin 81 mg PO DAILY #100 chew Letrozole [Femara] 2.5 mg PO DAILY LORazepam [Ativan] 1 mg PO TID PRN PRN Reason: Anxiety hydrALAZINE HCL [Apresoline] 25 mg PO TID #90 tab Ergocalciferol [Vitamin D2 (1250 Mcg = 70086 Iu)] 1,250 mcg PO Q30D DULoxetine HCL [Cymbalta] 60 mg PO QAM Atorvastatin Calcium [Lipitor] 10 mg PO QAM Venlafaxine HCl [Effexor XR] 225 mg PO DAILY Vitamin E (Dl,Tocopheryl Acet) [Vitamin E (400 Iu = 180 mg)] 400 unit PO DAILY Spironolactone [Aldactone] 25 mg PO DAILY #30 tab Furosemide [Lasix] 40 mg PO BID@0900,1600 #60 tab amLODIPine [Norvasc] 10 mg PO QAM Clopidogrel [Plavix] 75 mg PO QAM Changed carvediloL [Coreg*] 12.5 mg PO BID-W/MEALS #60 tab Discontinued Olmesartan Medoxomil [Benicar] 20 mg PO QAM Discharge Medication List Glimepiride [Amaryl] 1 mg PO DAILY 08/01/16 [History] cloNIDine HCL [Catapres] 0.1 mg PO BID 08/01/16 [History] Famotidine [Pepcid] 20 mg PO QAM 12/09/20 [History] Montelukast [Singulair] 10 mg PO QAM 12/09/20 [History] buPROPion [Wellbutrin] 100 mg PO BID 12/09/20 [History] Atorvastatin Calcium [Lipitor] 10 mg PO QAM 01/18/21 [History] DULoxetine HCL [Cymbalta] 60 mg PO QAM 01/18/21 [History] Ergocalciferol [Vitamin D2 (1250 Mcg = 52189 Iu)] 1,250 mcg PO Q30D 01/18/21 [History] Venlafaxine HCl [Effexor XR] 225 mg PO DAILY 03/09/21 [History] Aspirin 81 mg PO DAILY #100 chew 03/15/21 [Rx] Letrozole [Femara] 2.5 mg PO DAILY 07/20/22 [History] LORazepam [Ativan] 1 mg PO TID PRN 02/14/25 [History] Vitamin E (Dl,Tocopheryl Acet) [Vitamin E (400 Iu = 180 mg)] 400 unit PO DAILY 02/14/25 [History] Furosemide [Lasix] 40 mg PO BID@0900,1600 #60 tab 02/17/25 [Rx] Spironolactone [Aldactone] 25 mg PO DAILY #30 tab 02/17/25 [Rx] hydrALAZINE HCL [Apresoline] 25 mg PO TID #90 tab 02/17/25 [Rx] Clopidogrel [Plavix] 75 mg PO QAM 03/29/25 [History] amLODIPine [Norvasc] 10 mg PO QAM 03/29/25 [History] Acetaminophen Tab [Tylenol] 1,000 mg PO Q6HR PRN tab 04/01/25 [Rx] Sennosides-Docusate Sodium [Senokot-S] 2 each PO HS PRN tab 04/01/25 [Rx] carvediloL [Coreg*] 12.5 mg PO BID-W/MEALS #60 tab 04/01/25 [Rx] Follow up Appointment(s)/Referral(s): Bijan High MD [Primary Care Provider] - As Needed Lee Teran MD [Medical Doctor] - 04/08/25 3:00 pm (Your appointment 04/08/25 is for groin check. You also have a 30 day post TAVR echo and appointment with Dr. Teran 05/21/25@2:30 pm, and a 1 year post TAVR echo and appointment with Dr. Teran 03/15/26@1:45 pm) Ambulatory/Diagnostic Orders: Basic Metabolic Panel [LAB.AMB] Location: None Selected Basic Metabolic Panel [LAB.AMB] Location: None Selected Complete Blood Count w/diff [LAB.AMB] Location: None Selected Complete Blood Count w/diff [LAB.AMB] Location: None Selected Activity/Diet/Wound Care/Special Instructions: DISCHARGE INSTRUCTIONS: 1. No driving for 1 week, or until physician gives their ok. 2. No lifting, pushing, or pulling more than 5-10 pounds for 1 week. 3. Hold both groins when you cough or sneeze for the next 2 weeks. Bruising is common, but report increased swelling, pain or fever >101F 4. Shower daily. No pool, hot tub, or bathtub for 1 week 5. No powders, lotions, ointments on incisions. 6. No straining, including for bowel movements. Use stool softner if necessary 7. Stairs are not an issue. Go slowly, using handrail and take 1 step at a time. Ambulate several times daily 8. Continue pain control per as needed orders. 9. Take only the medications listed on your discharge form 10. Eat low salt (limited to 2 grams or 2000 milligrams) daily, avoid adding salt, avoid canned/processed foods 11. Take your weight daily in the morning and record, bring with you to your follow up appointments 12. Keep all follow up appointments. You will need a valve clinic appointment at 30 days and 1 year post procedure for follow up 13. You have been referred to and are expected to begin Cardiac Rehab in approximately 4 weeks. 14. You will need antibiotics prior to any dental work, including cleanings, and any surgeries to prevent Endocarditis (bacterial infection in your heart) For any questions or concerns please call your valve coordinators: Suzy or [place] @ Discharge Disposition: HOME SELF-CARE
[2025-04-01 14:05] VITALS: BMI 49.1
[2025-04-01 14:07] VITALS: PULSE 75
[2025-04-01 15:06] VITALS: BP 104/62
[2025-04-01] MEDS ORDERED: carvediloL 12.5 MG TAB PO SCH (17:30)
--- NOTE | 2025-04-01 22:17 | PN ---
PROGRESS NOTE CHIEF COMPLAINT: Status post aortic valve replacement. HISTORY OF PRESENT ILLNESS: This lady is doing well. She has had no headaches, neurologic issues, chest pain, etc. PHYSICAL EXAMINATION: CHEST: Clear. CARDIAC: Reveals a sound of her aortic valve. IMPRESSION: 1. Status post TAVR. 2. History of hypertension. 3. History of poorly controlled diabetes. 4. History of CVAs. PLAN: She expects to go home today. MMODL / IJN: [id number] /
--- NOTE | 2025-04-01 22:27 | CONS ---
CONSULTATION CHIEF COMPLAINT: Aortic stenosis. HISTORY OF PRESENT ILLNESS: This 74-year-old female is admitted for an elective transcatheter aortic valve replacement. She has had a longstanding history of hypertension, diabetes, previous CVA and was recently in the hospital for an episode of congestive heart failure. She is brought in for an elective procedure to replace her aortic valve. REVIEW OF SYSTEMS: She is not having any current chest pain, palpitations, syncope, etc. Past medical history, family history, personal and social histories are all otherwise detailed under current admission and recent admission summaries. ALLERGIES: She is allergic to sulfa and Wellbutrin. MEDICATIONS: She takes; 1. Glimepiride. 2. Lasix. 3. Carvedilol. 4. Spironolactone. 5. Clopidogrel. 6. Amlodipine. 7. Hydralazine. 8. Aspirin. 9. Cymbalta. 10.Venlafaxine. 11.Ozempic. 12.Trazodone. 13.Vitamin D. The remainder of her history is unremarkable. PHYSICAL EXAMINATION: VITAL SIGNS: Blood pressure 116/80 with a pulse 78, respirations 16. She is afebrile. GENERAL: She appeared to be in no acute distress. She is slightly overweight. HEAD, EARS, EYES, NOSE, AND MOUTH: Normal. NECK: Neck veins are not distended. CHEST: Clear. CARDIAC: Demonstrates aortic stenosis murmur. There is no S3 or S4. ABDOMEN: Soft, nontender. EXTREMITIES: Normal. IMPRESSION: 1. Aortic stenosis. 2. Congestive heart failure. 3. Previous cerebrovascular accident. 4. Hypertension. 5. Diabetes. RECOMMENDATIONS: She is doing well and should do well through her surgery. Thank you respectfully. MMODL / IJN: [id number] /
== END 2025-04-01 14:48 | disposition home or self-care (01) | DRG 267 ==
LOC: 2ORMAIN 09:52 → 3SCARD 16:50
PROVIDERS: ADMIT Internal Medicine Interventional Cardiology; ATTEND Internal Medicine Interventional Cardiology
PROC: B24BZZ4 Ultrasonography of Heart with Aorta, Transesophageal (ICD-10-PCS; 2025-03-31)
PROC: B3101ZZ Fluoroscopy of Thoracic Aorta using Low Osmolar Contrast (ICD-10-PCS; 2025-03-31)
PROC: 02RF38Z Replacement of Aortic Valve with Zooplastic Tissue, Percutaneous Approach (ICD-10-PCS; principal; 2025-03-31 12:00)
DX: I35.0 Nonrheumatic aortic (valve) stenosis (principal); Z00.6 Encounter for examination for normal comparison and control in clinical research program; I50.32 Chronic diastolic (congestive) heart failure; I11.0 Hypertensive heart disease with heart failure; E11.9 Type 2 diabetes mellitus without complications; I35.8 Other nonrheumatic aortic valve disorders; E78.5 Hyperlipidemia, unspecified; I25.10 Atherosclerotic heart disease of native coronary artery without angina pectoris; I25.2 Old myocardial infarction; Z85.3 Personal history of malignant neoplasm of breast; Z87.891 Personal history of nicotine dependence; Z90.13 Acquired absence of bilateral breasts and nipples; Z92.21 Personal history of antineoplastic chemotherapy; Z86.73 Personal history of transient ischemic attack (TIA), and cerebral infarction without residual deficits; Z79.84 Long term (current) use of oral hypoglycemic drugs; Z79.02 Long term (current) use of antithrombotics/antiplatelets; Z79.85 Long-term (current) use of injectable non-insulin antidiabetic drugs; Z79.899 Other long term (current) drug therapy
CPT/HCPCS: 33361; 71045; 80048; 80053; 83735; 85025; 85027; 86850; 86900; 86901; 93306; 93312; 93320; 93325

== ENCOUNTER → 2025-05-12 | Outpatient (CLI) | payer MEDICARE, OTHER ==
[2025-05-12 15:12] LABS: Basophils # (A) 0.10 10*3/uL (0.00-0.10); Basophils % (A) 1.0 %; Eosinophils # (A) 0.31 10*3/uL (0.04-0.35); Eosinophils % (A) 3.0 %; HCT 32.1 % (37.2-46.3); HGB 10.5 g/dL (12.0-15.0); Lymphocytes # (A) 1.12 10*3/uL (0.90-5.00); Lymphocytes % (A) 10.8 %; MCH 29.6 pg (27.0-32.0); MCHC 32.7 g/dL (32.0-37.0); MCV 90.4 fL (80.0-97.0); Monocytes # (A) 0.72 10*3/uL (0.20-1.00); Monocytes % (A) 6.9 %; Neutrophils # (A) 8.09 10*3/uL (1.80-7.70); Neutrophils % (A) 77.9 %; Platelet Count 284 10*3/uL (140-440); RBC 3.55 10*6/uL (4.10-5.20); RDW 13.8 % (11.5-14.5); WBC 10.38 10*3/uL (4.50-10.00)
[2025-05-12 15:19] LABS: African American GFR (CKD) 31 (>60 ml/min/1.73 sqM); Anion Gap 12 mmol/L; Blood Urea Nitrogen 20 mg/dL (7-17); Calcium 9.8 mg/dL (8.4-10.2); Carbon Dioxide 23 mmol/L (22-30); Chloride 107 mmol/L (98-107); Glucose 96 mg/dL (74-99); Non-African American GFR(CKD) 26 (>60 ml/min/1.73 sqM); Potassium 4.5 mmol/L (3.5-5.1); Sodium 142 mmol/L (137-145)
== END | disposition home or self-care (01) ==
LOC: LABWHC1 14:30
PROVIDERS: ATTEND Nurse Practitioner Acute Care
DX: Z95.2 Presence of prosthetic heart valve (principal)
CPT/HCPCS: 36415; 80048; 85025